=== PATIENT | male | born 1950 | race Caucasian/White ===

== ENCOUNTER 2020-12-25 13:01 | Emergency (ER) | payer MEDICARE, MEDICAID ==
[2020-12-25] MEDS ORDERED: Acetaminophen/oxyCODONE 325-5 MG Tab PO ONE (13:17)
--- NOTE | 2020-12-25 13:26 | EDM.PDOC ---
ED HPI GENERAL MEDICAL PROBLEM - General Chief Complaint: General Stated Complaint: EMS ARRIVAL Time Seen by Provider: 12/25/20 13:17 Source of Information: Reports: Patient History Limitations: Reports: No Limitations - History of Present Illness INITIAL COMMENTS - FREE TEXT/NARRATIVE: 70-year-old male with history of osteoarthritis, tongue cancer on immunotherapy, presents with polyarthralgia over the past 3 weeks. Pain is currently rated 3/10, localized to bilateral hands, wrists, shoulders, knees and feet, exacerbated with range of motion, sharp, nonradiating, waxes and wanes. Denies fever, chills, trauma, IVDA, falls, hip pain. He is taking Percocet 7.5/325 every 6 hours as needed. He has an appointment to follow-up with his oncologist Dr. Tosin aVldivia tomorrow. His last immunotherapy was 3 weeks ago. ROS: A 10-point review of systems, other than pertinent positives and negatives as stated per HPI, is otherwise negative Past medical history: No additional pertinent history Past Surgical history: No additional pertinent history Social history: No additional pertinent history Family history: No additional pertinent history PHYSICAL EXAM General: AOx4, GCS = 15, No distress HEENT: dry mucous membrane Neck: supple, no meningismus, no Kernig or Brudzinski Cardiac: S1S2 RRR, port to right chest wall, nontender with no surrounding erythema. Respiratory: CTAB, no crackles or rales, no wheezing Abdomen: Soft, nontender, no rebound or guarding, nondistended, no pulsatile mass. Back: nontender Musculoskeletal: NVI distally, no deformity, no warmth or erythema or swelling to affected joints. Neuro: No focal deficits, CN 2 - 12 WNL. generalized Pain Score (Numeric/FACES): 1 - Related Data Allergies Allergy/AdvReac Type Severity Reaction Status Date / Time Penicillins Allergy Cannot Verified 12/25/20 13:20 Remember Home Meds: Home Meds Gabapentin [Neurontin] mg PO TID 09/10/19 [History] Hydrocodone/Acetaminophen [Hydrocodon-Acetaminophen 5-325] each PO ASDIRECTED 09/10/19 [History] Ibuprofen mg PO ASDIRECTED 09/10/19 [History] Non-Formulary Medication [NF Drug] 1 each PO DAILY 09/10/19 [History] Loperamide HCl [Imodium A-D] 2 mg PO DAILY #10 capsule 12/25/20 [Rx] Past Medical History - Past Health History Medical/Surgical History: Denies Medical/Surgical History Cardiovascular History: Reports: Hypertension Musculoskeletal History: Reports: Arthritis Neurological History: Reports: Neuropathy, Peripheral Psychiatric History: Reports: None - Infectious Disease History Infectious Disease History: Reports: None - Past Surgical History HEENT Surgical History: Reports: Other (See Below) Other HEENT Surgeries/Procedures: tongue surgery Social & Family History - Family History Family Medical History: No Pertinent Family History - Caffeine Use Caffeine Use: Reports: None ED ROS GENERAL - Review of Systems Review Of Systems: See Below (see dictation) ED EXAM, GENERAL - Physical Exam Exam: See Below (see dictation) Course - Vital Signs Last Recorded V/S: Last Vital Signs Temp 97.9 F 12/25/20 13:10 Pulse 90 12/25/20 16:14 Resp 17 12/25/20 16:14 BP 115/76 12/25/20 16:14 Pulse Ox 97 12/25/20 16:14 - Orders/Labs/Meds Orders: Active Orders 24 hr Category Date Time Status Cardiac Monitoring [RC] . DIRECTED Care 12/25/20 13:17 Active Pulse Oximetry [RC] ASDIRECTED Care 12/25/20 13:17 Active Labs: Laboratory Tests 12/25/20 12/25/20 Range/Units 13:29 13:29 WBC 4.92 (4.0-11.0) K/uL RBC 3.96 L (4.50-5.90) M/uL Hgb 13.9 (13.0-17.0) g/dL Hct 41.0 (38.0-50.0) % MCV 103.5 H (80.0-98.0) fL MCH 35.1 H (27.0-32.0) pg MCHC 33.9 (31.0-37.0) g/dL RDW Std Deviation 48.5 (28.0-62.0) fl RDW Coeff of Caleb 13 (11.0-15.0) % Plt Count 286 (150-400) K/uL MPV 9.70 (7.40-12.00) fL Neut % (Auto) 72.0 (48.0-80.0) % Lymph % (Auto) 11.8 L (16.0-40.0) % Lincoln % (Auto) 14.8 (0.0-15.0) % Eos % (Auto) 1.2 (0.0-7.0) % Baso % (Auto) 0.2 (0.0-1.5) % Neut # (Auto) 3.5 (1.4-5.7) K/uL Lymph # (Auto) 0.6 (0.6-2.4) K/uL Lincoln # (Auto) 0.7 (0.0-0.8) K/uL Eos # (Auto) 0.1 (0.0-0.7) K/uL Baso # (Auto) 0.0 (0.0-0.1) K/uL Nucleated RBC % 0.0 /100WBC Nucleated RBCs # 0 K/uL Sodium 129 L (136-148) mmol/L Potassium 3.8 (3.5-5.1) mmol/L Chloride 92 L (98-107) mmol/L Carbon Dioxide 24.3 (21.0-32.0) mmol/L BUN 26 H (7.0-18.0) mg/dL Creatinine 0.8 (0.8-1.3) mg/dL Est Cr Clr Drug Dosing 91.25 mL/min Estimated GFR (MDRD) > 60.0 ml/min Glucose 145 H (74-106) mg/dL Calcium 9.5 (8.5-10.1) mg/dL Phosphorus 3.0 (2.6-4.7) mg/dL Magnesium 1.8 (1.8-2.4) mg/dL Total Bilirubin 1.0 (0.2-1.0) mg/dL AST 13 L (15-37) IU/L ALT 15 (14-63) IU/L Alkaline Phosphatase 71 (46-116) U/L Creatine Kinase 25 L (26-308) U/L Total Protein 7.6 (6.4-8.2) g/dL Albumin 2.9 L (3.4-5.0) g/dL Globulin 4.7 H (2.6-4.0) g/dL Albumin/Globulin Ratio 0.6 L (0.9-1.6) Meds: Medications Discontinued Medications Generic Name Dose Route Start Last Admin Trade Name Dylon PRN Reason Stop Dose Admin Oxycodone/Acetaminophen 1 tab 12/25/20 13:17 12/25/20 13:26 Percocet 325-5 Mg PO 12/25/20 13:18 1 tab ONETIME ONE Administration - Re-Assessments/Exams Free Text/Narrative Re-Assessment/Exam: 12/25/20 16:26 He is currently stable for discharge. I performed a repeat exam and did not appreciate new abnormal findings. Patient exhibits normal vital signs and has a normal gait on road test. I advised the patient to return to the ER for reevaluation if symptoms worsened, including fever, worsening pain, or any other worrisome symptoms. I instructed the patient to follow up with their PCP within 2-3 days. MEDICAL DECISION MAKING: I reviewed the patients past medical records, lab and radiographic findings. I discussed the case with the patient. My differential diagnosis included: No fever or leukocytosis or tachycardia to suggest for septic arthritis or vasculitis or infectious etiology. Patient has history of osteoarthritis and is currently taking pain medication. His electrolytes are unremarkable, his CPK is unremarkable, I do not suspect electrolyte abnormality, hypercalcemia, rhabdomyolysis. Departure - Departure Time of Disposition: 16:18 Disposition: Home, Self-Care 01 Condition: Good Clinical Impression: Osteoarthritis - Discharge Information *PRESCRIPTION DRUG MONITORING PROGRAM REVIEWED*: Not Applicable *COPY OF PRESCRIPTION DRUG MONITORING REPORT IN PATIENT ELÍAS: Not Applicable Prescriptions: Loperamide HCl [Imodium A-D] 2 mg PO DAILY #10 capsule Instructions: Preventing Osteoarthritis, Adult, Osteoarthritis Referrals: Nathan Kenney MD [Primary Care Provider] - 1 Week Forms: ED Department Discharge Additional Instructions: The need for follow-up, as well as the timing and circumstances, are variable depending upon the specifics of your emergency department visit. If you don't have a primary care physician on staff, we will provide you with a referral. We always advise you to contact your personal physician following an emergency department visit to inform them of the circumstance of the visit and for follow-up with them and/or the need for any referrals to a consulting specialist. The emergency department will also refer you to a specialist when appropriate. This referral assures that you have the opportunity for follow-up care with a specialist. All of these measure are taken in an effort to provide you with optimal care, which includes your follow-up. Under all circumstances we always encourage you to contact your private physician who remains a resource for coordinating your care. When calling for follow-up care, please make the office aware that this follow-up is from your recent emergency room visit. If for any reason you are refused follow-up, please contact the [facility] Emergency Department at and asked to speak to the emergency department charge nurse. If you do not have a primary care doctor, please follow up with the clinics below within 3-5 days. [facility] - Primary Care [address] [place] [id number] [facility] [address] [place] [id number] Sepsis Event Note (ED) - Focused Exam Vital Signs: Vital Signs Temp Pulse Resp BP Pulse Ox 12/25/20 16:14 90 17 115/76 97 12/25/20 13:10 97.9 F 109 H 18 123/78 98 - My Orders Last 24 Hours: My Active Orders 12/25/20 13:17 Cardiac Monitoring [RC] . DIRECTED Pulse Oximetry [RC] ASDIRECTED - Assessment/Plan Last 24 Hours: My Active Orders 12/25/20 13:17 Cardiac Monitoring [RC] . DIRECTED Pulse Oximetry [RC] ASDIRECTED
[2020-12-25 14:23] LABS: BLOOD UREA NITROGEN,BUN 26 mg/dL (7.0-18.0); CARBON DIOXIDE,CO2 24.3 mmol/L (21.0-32.0); CHLORIDE,CL 92 mmol/L (98-107); GLUCOSE RANDOM 145 mg/dL (74-106); POTASSIUM,K 3.8 mmol/L (3.5-5.1); SODIUM,NA 129 mmol/L (136-148)
[2020-12-25 16:15] VITALS: BP 115/76; PULSE 90
== END 2020-12-25 16:27 | disposition home or self-care (01) ==
LOC: MW.ED 13:01
DX: M19.032 Primary osteoarthritis, left wrist (principal); M19.031 Primary osteoarthritis, right wrist; M19.012 Primary osteoarthritis, left shoulder; M19.011 Primary osteoarthritis, right shoulder; M17.0 Bilateral primary osteoarthritis of knee; I10 Essential (primary) hypertension; G62.9 Polyneuropathy, unspecified; M19.072 Primary osteoarthritis, left ankle and foot; M19.071 Primary osteoarthritis, right ankle and foot
CPT/HCPCS: 36415; 80053; 82550; 83735; 84100; 85025; 99283; A9270

== ENCOUNTER 2021-03-18 14:37 | Inpatient (IN) | payer MEDICARE, MEDICAID ==
[2021-03-18] MEDS ORDERED: Sodium Chloride 0.9% 1,000 ML IV ONE ×2 (14:46→15:52)
--- NOTE | 2021-03-18 14:50 | EDM.PDOC ---
ED HPI GENERAL MEDICAL PROBLEM - General Chief Complaint: Gastrointestinal Problem Stated Complaint: EMS Time Seen by Provider: 03/18/21 14:47 Source of Information: Reports: Patient History Limitations: Reports: No Limitations - History of Present Illness INITIAL COMMENTS - FREE TEXT/NARRATIVE: HISTORY AND PHYSICAL: History of present illness: Patient is a 70-year-old male who presents to the emergency room by ambulance with concerns of dizziness and near syncope. Patient states he has had diarrhea over the past 2 months and generally has felt unwell. Today he states he has had dizziness and has felt like he is going to pass out with ambulation. Denies any syncope, "but I could have". States he has had some nausea without vomiting, but "feels okay right now". Patient denies any injury/trauma/falls, fever, chills, headache, change in vision, syncope or near syncope. Denies any chest pain, back pain, shortness of breath or cough. Denies any abdominal pain, constipation or dysuria. Has not noted any blood in urine or stool. Patient has been eating and drinking less than use Patient has a past medical history of osteoarthritis, tongue cancer and is on immunotherapy (Oncologist is Dr Valdivia/Jacquelin) with his last chemotherapy approximately 6 months ago. Review of systems: As per history of present illness and below otherwise all systems reviewed and negative. Past medical history: As per history of present illness and as reviewed below otherwise noncontributory. Surgical history: As per history of present illness and as reviewed below otherwise noncon tributory. Social history: See social history for further information Family history: As per history of present illness and as reviewed below otherwise noncontributory. Physical exam: General: Well developed but chronically ill appearing 70 year old male. Alert and orientated x 3. Nontoxic in appearance and in no acute distress. Vital signs are stable and have been reviewed by me. Nursing notes were reviewed. HEENT: Atraumatic, normocephalic, pupils equal and reactive bilaterally, negative for conjunctival pallor or scleral icterus, mucous membranes dry/tacky, surgical revision in mouth, TMs normal bilaterally, throat clear, neck supple, nontender, trachea midline. No drooling or trismus noted. No meningeal signs. No hot potato voice noted. Lungs: Clear to auscultation bilaterally. No wheezes, rales, or rhonchi. Chest nontender. Normal work of breathing, no accessory muscles used. Heart: S1S2, regular rate and rhythm without overt murmur, gallops, or rubs. No JVD. No peripheral edema Abdomen: Soft, nondistended, nontender. Normoactive bowel sounds. Negative for masses or costovertebral tenderness. Skin: Intact, warm, dry. No lesions or rashes noted. Hematologic: No petechiae or purpra. Mucosa appropriate color and normal nail bed color and refill. Extremities: Atraumatic, moves all extremities per self without difficulty or deficits, negative for cords or calf pain. Neurovascular unremarkable. Neuro: Awake, alert, oriented. Cranial nerves II through XII unremarkable. Cerebellum unremarkable. Motor and sensory unremarkable throughout. Exam nonfocal. Psychiatric: Mood and affect are appropriate. Normal thought process. Answering questions appropriately. Notes: *This patient was seen and evaluated during the 2019 SARS-CoV-2 novel coronavirus pandemic period. Community viral transmission is ongoing at time of this encounter and the emergency department is operating under pandemic response procedures. CBC is unremarkable at this time. Patient does have hypokalemia at 2.4, with dehydration and renal insufficiency. I have increased the rate of fluids to a bolus and added serum Magnesium level, and K-Rafael. Patient has not been able to void or have BM while here in the ED. I have talked with the patient about today's findings, in addition to providing specific details for plan of care. Reassessment at the time of disposition demonstrates that the patient is in no acute distress. Patient is agreeable to staying for observation care. Dr Delgado was consulted on this patient and graciously accepted this patient. Will place patient on telemetry. VSS. Diagnostics: CBC, CMP, Troponin, Stool Studies, Magnesium, CXR, UA Therapeutics: IV fluids, Potassium 40meQ Impression: Near Syncope Hypokalemia Dehydration Diarrhea Plan: Observation admission to Med/Surg with telemetry Definitive disposition and diagnosis as appropriate pending reevaluation and review of above. - Related Data Allergies Allergy/AdvReac Type Severity Reaction Status Date / Time Penicillins Allergy Cannot Verified 03/18/21 14:39 Remember Home Meds: Home Meds Gabapentin [Neurontin] 300 mg PO TID 09/10/19 [History] Levothyroxine [Synthroid] 50 mcg PO DAILY 03/18/21 [History] amLODIPine [Norvasc] 1 tab PO DAILY 03/18/21 [History] Past Medical History - Past Health History Medical/Surgical History: Denies Medical/Surgical History Cardiovascular History: Reports: Hypertension Musculoskeletal History: Reports: Arthritis Neurological History: Reports: Neuropathy, Peripheral Psychiatric History: Reports: None - Infectious Disease History Infectious Disease History: Reports: None - Past Surgical History HEENT Surgical History: Reports: Other (See Below) Other HEENT Surgeries/Procedures: tongue surgery Social & Family History - Family History Family Medical History: No Pertinent Family History - Caffeine Use Caffeine Use: Reports: None ED ROS GENERAL - Review of Systems Review Of Systems: Comprehensive ROS is negative, except as noted in HPI. ED EXAM, GENERAL - Physical Exam Exam: See Below (See dictation) Course - Vital Signs Last Recorded V/S: Last Vital Signs Temp 97.6 F 03/18/21 14:41 Pulse 91 03/18/21 14:41 Resp 18 03/18/21 14:41 BP 124/75 03/18/21 14:41 Pulse Ox 98 03/18/21 14:41 Orthostatic Blood Pressure [ 83/54 Standing] Orthostatic Blood Pressure [ 99/66 Sitting] Orthostatic Blood Pressure [ 109/75 Supine] - Orders/Labs/Meds Orders: Active Orders 24 hr Category Date Time Status Cardiac Monitoring [RC] Q8H Care 03/18/21 14:38 Active EKG Documentation Completion [RC] STAT Care 03/18/21 14:38 Active Orthostatic Vital Signs [RC] ASDIRECTED Care 03/18/21 14:38 Active CAMPYLOBACTER CULT [MREF] Stat Lab 03/18/21 17:14 Ordered OVA & PARASITES BY IMMUNOASSAY [MREF] Stat Lab 03/18/21 17:14 Ordered STOOL CULTURE/SHIGA TOXIN [MREF] Stat Lab 03/18/21 17:14 Ordered UA RFX NICOLAS AND CULT IF INDIC [URIN] Stat Lab 03/18/21 14:45 Ordered Potassium Chloride Riders [KCL in Water 40 MEQ/100 ML] Med 03/18/21 15:51 Active 40 meq Premix Bag 1 bag IV ONETIME Sodium Chloride 0.9% [Normal Saline] 1,000 ml Med 03/18/21 14:46 Active IV STAT Sodium Chloride 0.9% [Normal Saline] 1,000 ml Med 03/18/21 15:52 Active IV STAT Sodium Chloride 0.9% [Saline Flush] Med 03/18/21 14:38 Active 10 ml FLUSH ASDIRECTED PRN Sodium Chloride 0.9% [Saline Flush] Med 03/18/21 14:38 Active 2.5 ml FLUSH ASDIRECTED PRN Saline Lock Insert [OM.PC] Stat Oth 03/18/21 14:38 Ordered Medication Orders Sodium Chloride (Normal Saline) 1,000 mls @ 125 mls/hr IV STAT ONE Stop: 03/18/21 22:45 Last Infusion: 03/18/21 15:59 Dose: 999 mls/hr Documented by: [email or web address] Admin: 03/18/21 14:56 Dose: 125 mls/hr Documented by: [email or web address] Potassium Chloride 40 meq/ (Premix) 100 mls @ 25 mls/hr IV ONETIME ONE Stop: 03/18/21 19:50 Sodium Chloride (Normal Saline) 1,000 mls @ 125 mls/hr IV STAT ONE Stop: 03/18/21 23:51 Last Admin: 03/18/21 17:13 Dose: 125 mls/hr Documented by: [email or web address] Sodium Chloride (Sodium Chloride 0.9% 10 Ml Syringe) 10 ml FLUSH ASDIRECTED PRN PRN Reason: Keep Vein Open Last Admin: 03/18/21 14:56 Dose: 10 ml Documented by: [id number] Sodium Chloride (Sodium Chloride 0.9% 2.5 Ml Syringe) 2.5 ml FLUSH ASDIRECTED PRN PRN Reason: Keep Vein Open Last Admin: 03/18/21 14:56 Dose: 2.5 ml Documented by: [email or web address] Labs: Laboratory Tests 03/18/21 03/18/21 03/18/21 Range/Units 14:50 14:50 14:50 WBC 9.64 (4.0-11.0) K/uL RBC 3.84 L (4.50-5.90) M/uL Hgb 13.6 (13.0-17.0) g/dL Hct 37.7 L (38.0-50.0) % MCV 98.2 H (80.0-98.0) fL MCH 35.4 H (27.0-32.0) pg MCHC 36.1 (31.0-37.0) g/dL RDW Std Deviation 49.6 (28.0-62.0) fl RDW Coeff of Caleb 14 (11.0-15.0) % Plt Count 423 H (150-400) K/uL MPV 9.40 (7.40-12.00) fL Add Manual Diff YES Neutrophils % (Manual) 63 (48.0-80.0) % Band Neutrophils % 14 % Lymphocytes % (Manual) 17 (16.0-40.0) % Monocytes % (Manual) 5 (0.0-15.0) % Basophils % (Manual) 1 (0.0-1.5) % Nucleated RBC % 0.0 /100WBC Absolute Seg Neuts 6.1 H (1.4-5.7) Band Neutrophils # 1.3 Lymphocytes # (Manual) 1.6 (0.6-2.4) Monocytes # (Manual) 0.5 (0.0-0.8) Basophils # (Manual) 0.1 (0.0-0.1) Nucleated RBCs # 0 K/uL Sodium 128 L (136-148) mmol/L Potassium 2.4 L* (3.5-5.1) mmol/L Chloride 87 L (98-107) mmol/L Carbon Dioxide 23.3 (21.0-32.0) mmol/L BUN 43 H (7.0-18.0) mg/dL Creatinine 1.4 H (0.8-1.3) mg/dL Est Cr Clr Drug Dosing 53.79 mL/min Estimated GFR (MDRD) 50.4 ml/min Glucose 150 H (74-106) mg/dL Calcium 8.5 (8.5-10.1) mg/dL Magnesium 2.1 (1.8-2.4) mg/dL Total Bilirubin 0.6 (0.2-1.0) mg/dL AST 26 (15-37) IU/L ALT 28 (14-63) IU/L Alkaline Phosphatase 108 (46-116) U/L Troponin I < 0.050 (0.000-0.056) ng/mL Total Protein 7.1 (6.4-8.2) g/dL Albumin 3.0 L (3.4-5.0) g/dL Globulin 4.1 H (2.6-4.0) g/dL Albumin/Globulin Ratio 0.7 L (0.9-1.6) SARS-CoV-2 RNA (CHANDRA) (NEGATIVE) 03/18/21 Range/Units 15:00 WBC (4.0-11.0) K/uL RBC (4.50-5.90) M/uL Hgb (13.0-17.0) g/dL Hct (38.0-50.0) % MCV (80.0-98.0) fL MCH (27.0-32.0) pg MCHC (31.0-37.0) g/dL RDW Std Deviation (28.0-62.0) fl RDW Coeff of Caleb (11.0-15.0) % Plt Count (150-400) K/uL MPV (7.40-12.00) fL Add Manual Diff Neutrophils % (Manual) (48.0-80.0) % Band Neutrophils % % Lymphocytes % (Manual) (16.0-40.0) % Monocytes % (Manual) (0.0-15.0) % Basophils % (Manual) (0.0-1.5) % Nucleated RBC % /100WBC Absolute Seg Neuts (1.4-5.7) Band Neutrophils # Lymphocytes # (Manual) (0.6-2.4) Monocytes # (Manual) (0.0-0.8) Basophils # (Manual) (0.0-0.1) Nucleated RBCs # K/uL Sodium (136-148) mmol/L Potassium (3.5-5.1) mmol/L Chloride (98-107) mmol/L Carbon Dioxide (21.0-32.0) mmol/L BUN (7.0-18.0) mg/dL Creatinine (0.8-1.3) mg/dL Est Cr Clr Drug Dosing mL/min Estimated GFR (MDRD) ml/min Glucose (74-106) mg/dL Calcium (8.5-10.1) mg/dL Magnesium (1.8-2.4) mg/dL Total Bilirubin (0.2-1.0) mg/dL AST (15-37) IU/L ALT (14-63) IU/L Alkaline Phosphatase (46-116) U/L Troponin I (0.000-0.056) ng/mL Total Protein (6.4-8.2) g/dL Albumin (3.4-5.0) g/dL Globulin (2.6-4.0) g/dL Albumin/Globulin Ratio (0.9-1.6) SARS-CoV-2 RNA (CHANDRA) NEGATIVE (NEGATIVE) Meds: Medications Generic Name Dose Route Start Last Admin Trade Name Freq PRN Reason Stop Dose Admin Sodium Chloride 1,000 mls @ 125 mls/hr 03/18/21 14:46 03/18/21 15:59 Normal Saline IV 03/18/21 22:45 999 mls/hr STAT ONE Infusion Potassium Chloride 40 meq/ 100 mls @ 25 mls/hr 03/18/21 15:51 Premix IV 03/18/21 19:50 ONETIME ONE Sodium Chloride 1,000 mls @ 125 mls/hr 03/18/21 15:52 03/18/21 17:13 Normal Saline IV 03/18/21 23:51 125 mls/hr STAT ONE Administration Sodium Chloride 10 ml 03/18/21 14:38 03/18/21 14:56 Sodium Chloride 0.9% 10 Ml Syringe FLUSH 10 ml ASDIRECTED PRN Administration Keep Vein Open Sodium Chloride 2.5 ml 03/18/21 14:38 03/18/21 14:56 Sodium Chloride 0.9% 2.5 Ml Syringe FLUSH 2.5 ml ASDIRECTED PRN Administration Keep Vein Open Departure - Departure Time of Disposition: 16:06 Disposition: Refer to Observation Clinical Impression: Hypokalemia, Dehydration, Near syncope Diarrhea Qualifiers: Diarrhea type: unspecified type Qualified Code(s): R19.7 - Diarrhea, unspecified - Discharge Information Sepsis Event Note (ED) - Evaluation Sepsis Screening Result: No Definite Risk - Focused Exam Vital Signs: Vital Signs Temp Pulse Resp BP Pulse Ox 03/18/21 14:41 97.6 F 91 18 124/75 98 - My Orders Last 24 Hours: My Active Orders 03/18/21 14:38 Cardiac Monitoring [RC] Q8H EKG Documentation Completion [RC] STAT Orthostatic Vital Signs [RC] ASDIRECTED Sodium Chloride 0.9% [Saline Flush] 10 ml FLUSH ASDIRECTED PRN Sodium Chloride 0.9% [Saline Flush] 2.5 ml FLUSH ASDIRECTED PRN Saline Lock Insert [OM.PC] Stat 03/18/21 14:45 UA RFX NICOLAS AND CULT IF INDIC [URIN] Stat 03/18/21 14:46 Sodium Chloride 0.9% [Normal Saline] 1,000 ml IV STAT 03/18/21 15:51 Potassium Chloride Riders [KCL in Water 40 MEQ/100 ML] 40 meq Premix Bag 1 bag IV ONETIME 03/18/21 15:52 Sodium Chloride 0.9% [Normal Saline] 1,000 ml IV STAT 03/18/21 17:14 CAMPYLOBACTER CULT [MREF] Stat OVA & PARASITES BY IMMUNOASSAY [MREF] Stat STOOL CULTURE/SHIGA TOXIN [MREF] Stat - Assessment/Plan Last 24 Hours: My Active Orders 03/18/21 14:38 Cardiac Monitoring [RC] Q8H EKG Documentation Completion [RC] STAT Orthostatic Vital Signs [RC] ASDIRECTED Sodium Chloride 0.9% [Saline Flush] 10 ml FLUSH ASDIRECTED PRN Sodium Chloride 0.9% [Saline Flush] 2.5 ml FLUSH ASDIRECTED PRN Saline Lock Insert [OM.PC] Stat 03/18/21 14:45 UA RFX NICOLAS AND CULT IF INDIC [URIN] Stat 03/18/21 14:46 Sodium Chloride 0.9% [Normal Saline] 1,000 ml IV STAT 03/18/21 15:51 Potassium Chloride Riders [KCL in Water 40 MEQ/100 ML] 40 meq Premix Bag 1 bag IV ONETIME 03/18/21 15:52 Sodium Chloride 0.9% [Normal Saline] 1,000 ml IV STAT 03/18/21 17:14 CAMPYLOBACTER CULT [MREF] Stat OVA & PARASITES BY IMMUNOASSAY [MREF] Stat STOOL CULTURE/SHIGA TOXIN [MREF] Stat
--- NOTE | 2021-03-18 14:53 | PCM.EKG ---
#1 Interpretation EKG Date: 03/18/21 Time: 14:49 Rhythm: NSR Rate (Beats/Min): 86 ST-T: Normal
[2021-03-18] MEDS: Sodium Chloride 0.9% 10 ML Syringe FLUSH PRN (14:56)
[2021-03-18] MEDS: Sodium Chloride 0.9% 2.5 ML Syringe FLUSH PRN (14:56)
--- NOTE | 2021-03-18 15:08 | CR ---
Indication: Syncope Comparison: None available. Technique: Single AP view chest Findings: There is hyperinflation and chronic interstitial change. There is no focal consolidation, effusion, or pneumothorax. There is a right-sided Port-A-Cath. The cardiomediastinal silhouette is within normal limits. The bony thorax is grossly intact. Impression: Hyperinflation and chronic interstitial changes without evidence of dense consolidation. Dictated by Nixon Virgen MD @ 03/18/2021 3:07:[address] Nixon Virgen @ Mar 18 2021 3:07PM
[2021-03-18 15:32] LABS: BLOOD UREA NITROGEN,BUN 43 mg/dL (7.0-18.0); CARBON DIOXIDE,CO2 23.3 mmol/L (21.0-32.0); CHLORIDE,CL 87 mmol/L (98-107); GLUCOSE RANDOM 150 mg/dL (74-106); SODIUM,NA 128 mmol/L (136-148)
[2021-03-18 15:41] LABS: POTASSIUM,K 2.4 mmol/L (3.5-5.1)
[2021-03-18] MEDS ORDERED: Potassium Chloride Riders 40 MEQ in Premix Bag 1 BAG IV ONE (15:51)
--- NOTE | 2021-03-18 17:33 | PCM.HP.2 ---
H&P History of Present Illness - General Date of Service: 03/18/21 Admit Problem/Dx: Admission Diagnosis/Problem Admission Diagnosis/Problem Hypokalemia - History of Present Illness Initial Comments - Free Text/Narative: Patient is a 70-year-old male with past medical history of osteoarthritis, tongue cancer and is on immunotherapy (Oncologist is Dr Valdivia/Jacquelin) with his last chemotherapy approximately 6 months ago, who presents to the emergency room by ambulance with concerns of dizziness, weakness, weight loss and near syncope. Patient states he has been havinf chronic diarrhea over the past 2 months, he mentioned it to his oncologist who reportedly told patien tto take Imodium which didn't help. Past few day patient has been feeling chills and and felt that his diarrhea got worse, he has loose stools every half hour, which are totally watery in nature, he also has associated N/V and hasnt been able to eat or drink much, States he feels very weak and dehydrated.. Today he states he has had dizziness and has felt like he is going to pass out with ambulation. Denies any syncope, Patient denies any injury/trauma/falls, fever, chills, headache, change in vision, syncope or near syncope. Denies any chest pain, back pain, shortness of breath or cough. Denies any abdominal pain, constipation or dysuria. Has not noted any blood in urine or stool. In the ER patient was found to have soft BP with HORTENCIA (1.4) low K (2.4), Patient was admitted for further care. - Related Data Allergies/Adverse Reactions: Allergies Allergy/AdvReac Type Severity Reaction Status Date / Time wing Allergy Other Verified 03/18/21 18:24 coconut Allergy Other Verified 03/18/21 18:24 Penicillins Allergy Hives Verified 03/18/21 18:24 Home Medications: Home Meds Gabapentin [Neurontin] 300 mg PO TID 09/10/19 [History] Levothyroxine [Synthroid] 50 mcg PO DAILY 03/18/21 [History] amLODIPine [Norvasc] 1 tab PO DAILY 03/18/21 [History] Past Medical History - Past Health History Medical/Surgical History: Denies Medical/Surgical History Cardiovascular History: Reports: Hypertension Musculoskeletal History: Reports: Arthritis Neurological History: Reports: Neuropathy, Peripheral Psychiatric History: Reports: None Endocrine/Metabolic History: Reports: Hypothyroidism Other Oncologic History: "tongue cancer." - Infectious Disease History Infectious Disease History: Reports: None - Past Surgical History HEENT Surgical History: Reports: Other (See Below) Other HEENT Surgeries/Procedures: tongue surgery Social & Family History - Family History Family Medical History: No Pertinent Family History - Tobacco Use Tobacco Use Status *Q: Unknown Ever Used Tobacco - Caffeine Use Caffeine Use: Reports: None - Recreational Drug Use Recreational Drug Use: No H&P Review of Systems - Review of Systems: Review Of Systems: See Below General: Reports: Chills, Malaise, Weakness, Fatigue. Denies: Fever Pulmonary: Denies: Shortness of Breath, Wheezing Cardiovascular: Denies: Chest Pain, Palpitations Gastrointestinal: Denies: Abdominal Pain, Anorexia, Black Stool Genitourinary: Denies: Dysuria, Frequency, Burning Musculoskeletal: Reports: Back Pain, Leg Pain, Joint Pain. Denies: Neck Pain, Shoulder Pain, Arm Pain Skin: Denies: Cyanosis, Jaundice, Mottled Psychiatric: Denies: Confusion, Depression, Mood Lability Exam - Exam Exam: See Below - Vital Signs Vital Signs: Last Vital Signs Temp 36.4 C 03/18/21 14:41 Pulse 91 03/18/21 14:41 Resp 18 03/18/21 14:41 BP 124/75 03/18/21 14:41 Pulse Ox 98 03/18/21 14:41 Orthostatic Blood Pressure [ 83/54 Standing] Orthostatic Blood Pressure [ 99/66 Sitting] Orthostatic Blood Pressure [ 109/75 Supine] Weight: 79.379 kg - Exam General: Alert, Oriented HEENT: Conjunctiva Clear Neck: Supple Lungs: Clear to Auscultation, Normal Respiratory Effort Cardiovascular: Regular Rate, Regular Rhythm GI/Abdominal Exam: Normal Bowel Sounds, Soft, Tender, Abnormal Bowel Sounds. No: Non-Tender, Guarding, Rigid, Rebound - Patient Data Lab Results Last 24 hrs: Laboratory Results - last 24 hr 03/18/21 03/18/21 03/18/21 Range/Units 14:50 14:50 14:50 WBC 9.64 (4.0-11.0) K/uL RBC 3.84 L (4.50-5.90) M/uL Hgb 13.6 (13.0-17.0) g/dL Hct 37.7 L (38.0-50.0) % MCV 98.2 H (80.0-98.0) fL MCH 35.4 H (27.0-32.0) pg MCHC 36.1 (31.0-37.0) g/dL RDW Std Deviation 49.6 (28.0-62.0) fl RDW Coeff of Caleb 14 (11.0-15.0) % Plt Count 423 H (150-400) K/uL MPV 9.40 (7.40-12.00) fL Add Manual Diff YES Neutrophils % (Manual) 63 (48.0-80.0) % Band Neutrophils % 14 % Lymphocytes % (Manual) 17 (16.0-40.0) % Monocytes % (Manual) 5 (0.0-15.0) % Basophils % (Manual) 1 (0.0-1.5) % Nucleated RBC % 0.0 /100WBC Absolute Seg Neuts 6.1 H (1.4-5.7) Band Neutrophils # 1.3 Lymphocytes # (Manual) 1.6 (0.6-2.4) Monocytes # (Manual) 0.5 (0.0-0.8) Basophils # (Manual) 0.1 (0.0-0.1) Nucleated RBCs # 0 K/uL Sodium 128 L (136-148) mmol/L Potassium 2.4 L* (3.5-5.1) mmol/L Chloride 87 L (98-107) mmol/L Carbon Dioxide 23.3 (21.0-32.0) mmol/L BUN 43 H (7.0-18.0) mg/dL Creatinine 1.4 H (0.8-1.3) mg/dL Est Cr Clr Drug Dosing 53.79 mL/min Estimated GFR (MDRD) 50.4 ml/min Glucose 150 H (74-106) mg/dL Calcium 8.5 (8.5-10.1) mg/dL Magnesium 2.1 (1.8-2.4) mg/dL Total Bilirubin 0.6 (0.2-1.0) mg/dL AST 26 (15-37) IU/L ALT 28 (14-63) IU/L Alkaline Phosphatase 108 (46-116) U/L Troponin I < 0.050 (0.000-0.056) ng/mL Total Protein 7.1 (6.4-8.2) g/dL Albumin 3.0 L (3.4-5.0) g/dL Globulin 4.1 H (2.6-4.0) g/dL Albumin/Globulin Ratio 0.7 L (0.9-1.6) SARS-CoV-2 RNA (CHANDRA) (NEGATIVE) 03/18/21 Range/Units 15:00 WBC (4.0-11.0) K/uL RBC (4.50-5.90) M/uL Hgb (13.0-17.0) g/dL Hct (38.0-50.0) % MCV (80.0-98.0) fL MCH (27.0-32.0) pg MCHC (31.0-37.0) g/dL RDW Std Deviation (28.0-62.0) fl RDW Coeff of Caleb (11.0-15.0) % Plt Count (150-400) K/uL MPV (7.40-12.00) fL Add Manual Diff Neutrophils % (Manual) (48.0-80.0) % Band Neutrophils % % Lymphocytes % (Manual) (16.0-40.0) % Monocytes % (Manual) (0.0-15.0) % Basophils % (Manual) (0.0-1.5) % Nucleated RBC % /100WBC Absolute Seg Neuts (1.4-5.7) Band Neutrophils # Lymphocytes # (Manual) (0.6-2.4) Monocytes # (Manual) (0.0-0.8) Basophils # (Manual) (0.0-0.1) Nucleated RBCs # K/uL Sodium (136-148) mmol/L Potassium (3.5-5.1) mmol/L Chloride (98-107) mmol/L Carbon Dioxide (21.0-32.0) mmol/L BUN (7.0-18.0) mg/dL Creatinine (0.8-1.3) mg/dL Est Cr Clr Drug Dosing mL/min Estimated GFR (MDRD) ml/min Glucose (74-106) mg/dL Calcium (8.5-10.1) mg/dL Magnesium (1.8-2.4) mg/dL Total Bilirubin (0.2-1.0) mg/dL AST (15-37) IU/L ALT (14-63) IU/L Alkaline Phosphatase (46-116) U/L Troponin I (0.000-0.056) ng/mL Total Protein (6.4-8.2) g/dL Albumin (3.4-5.0) g/dL Globulin (2.6-4.0) g/dL Albumin/Globulin Ratio (0.9-1.6) SARS-CoV-2 RNA (CHANDRA) NEGATIVE (NEGATIVE) Result Diagrams: 03/18/21 14:50 03/18/21 14:50 Sepsis Event Note - Evaluation Sepsis Screening Result: No Definite Risk - Focused Exam Vital Signs: Vital Signs Temp Pulse Resp BP Pulse Ox 03/18/21 14:41 36.4 C 91 18 124/75 98 - Problem List (1) Tongue carcinoma Status: Acute Current Visit: Yes (2) Port-A-Cath in place SNOMED Code(s): 827673660 ICD Code: Z95.828 - PRESENCE OF OTHER VASCULAR IMPLANTS AND GRAFTS Status: Acute Current Visit: Yes (3) Dehydration SNOMED Code(s): 00695576 ICD Code: E86.0 - DEHYDRATION Status: Acute Current Visit: No (4) Diarrhea SNOMED Code(s): 52232122 ICD Code: R19.7 - DIARRHEA, UNSPECIFIED Status: Acute Current Visit: No Qualifiers: Diarrhea type: unspecified type Qualified Code(s): R19.7 - Diarrhea, unspecified (5) Hypokalemia SNOMED Code(s): 95460516 ICD Code: E87.6 - HYPOKALEMIA Status: Acute Current Visit: No Problem List Initiated/Reviewed/Updated: Yes Orders Last 24hrs: Active Orders 24 hr Category Date Time Status Admission Status [Patient Status] [ADT] Stat ADT 03/18/21 16:00 Active Cardiac Monitoring [RC] Q8H Care 03/18/21 14:38 Active EKG Documentation Completion [RC] STAT Care 03/18/21 14:38 Active Orthostatic Vital Signs [RC] ASDIRECTED Care 03/18/21 14:38 Active CAMPYLOBACTER CULT [MREF] Stat Lab 03/18/21 17:06 Received OVA & PARASITES BY IMMUNOASSAY [MREF] Stat Lab 03/18/21 17:06 Received STOOL CULTURE/SHIGA TOXIN [MREF] Stat Lab 03/18/21 17:06 Received UA RFX NICOLAS AND CULT IF INDIC [URIN] Stat Lab 03/18/21 14:45 Ordered Potassium Chloride Riders [KCL in Water 40 MEQ/100 ML] Med 03/18/21 15:51 Active 40 meq Premix Bag 1 bag IV ONETIME Sodium Chloride 0.9% [Normal Saline] 1,000 ml Med 03/18/21 14:46 Active IV STAT Sodium Chloride 0.9% [Normal Saline] 1,000 ml Med 03/18/21 15:52 Active IV STAT Sodium Chloride 0.9% [Saline Flush] Med 03/18/21 14:38 Active 10 ml FLUSH ASDIRECTED PRN Sodium Chloride 0.9% [Saline Flush] Med 03/18/21 14:38 Active 2.5 ml FLUSH ASDIRECTED PRN Saline Lock Insert [OM.PC] Stat Oth 03/18/21 14:38 Ordered Medication Orders Sodium Chloride (Normal Saline) 1,000 mls @ 125 mls/hr IV STAT ONE Stop: 03/18/21 22:45 Last Infusion: 03/18/21 15:59 Dose: 999 mls/hr Documented by: Admin: 03/18/21 14:56 Dose: 125 mls/hr Documented by: CORRINE Potassium Chloride 40 meq/ (Premix) 100 mls @ 25 mls/hr IV ONETIME ONE Stop: 03/18/21 19:50 Sodium Chloride (Normal Saline) 1,000 mls @ 125 mls/hr IV STAT ONE Stop: 03/18/21 23:51 Last Admin: 03/18/21 17:13 Dose: 125 mls/hr Documented by: BEATRIS Sodium Chloride (Sodium Chloride 0.9% 10 Ml Syringe) 10 ml FLUSH ASDIRECTED PRN PRN Reason: Keep Vein Open Last Admin: 03/18/21 14:56 Dose: 10 ml Documented by: CORRINE Sodium Chloride (Sodium Chloride 0.9% 2.5 Ml Syringe) 2.5 ml FLUSH ASDIRECTED PRN PRN Reason: Keep Vein Open Last Admin: 03/18/21 14:56 Dose: 2.5 ml Documented by: CORRINE Assessment/Plan Comment:: 70 y/o M admitted for diarrhea, hortencia, hypokalemia start IV fluids Aggressive potassium repletion, check magnesium check stool studies including c diff start on IV Cipro and Flagyl recheck BMP at night Zofran for N/V, IV PPI daily Morphine for pain
[2021-03-18] MEDS ORDERED: Acetaminophen 325 MG Tab PO PRN (17:34)
[2021-03-18] MEDS ORDERED: Albuterol/Ipratropium 3.0-0.5 MG/3 ML Neb Soln NEB PRN (18:00)
[2021-03-18] MEDS: Pantoprazole 40 MG in Sodium Chloride 0.9% 10 ML IV SCH (18:50)
[2021-03-18] MEDS ORDERED: Dextrose 5%-0.9% NaCl with KCl 1,000 ML IV SCH (23:00)
[2021-03-18] MEDS: metroNIDAZOLE/Normal Saline 500 MG in Premix Bag 1 BAG IV SCH (23:52)
[2021-03-19] MEDS ORDERED: Ciprofloxacin in D5W 400 MG in Premix Bag 1 BAG IV SCH ×2
[2021-03-19] MEDS ORDERED: Morphine 2 MG/ML SYRINGE IVPUSH PRN (00:04)
[2021-03-19 00:31] LABS: BLOOD UREA NITROGEN,BUN 40 mg/dL (7.0-18.0); CARBON DIOXIDE,CO2 24.2 mmol/L (21.0-32.0); CHLORIDE,CL 92 mmol/L (98-107); GLUCOSE RANDOM 114 mg/dL (74-106); POTASSIUM,K 2.8 mmol/L (3.5-5.1); SODIUM,NA 130 mmol/L (136-148)
[2021-03-19] MEDS: Gabapentin 300 MG Cap PO SCH ×3 (06:00→23:02)
[2021-03-19] MEDS ORDERED: Vancomycin 125 MG Cap PO SCH (06:00)
[2021-03-19] MEDS: metroNIDAZOLE/Normal Saline 500 MG in Premix Bag 1 BAG IV SCH (06:00)
[2021-03-19 06:32] LABS: BLOOD UREA NITROGEN,BUN 33 mg/dL (7.0-18.0); CARBON DIOXIDE,CO2 24.8 mmol/L (21.0-32.0); CHLORIDE,CL 95 mmol/L (98-107); GLUCOSE RANDOM 136 mg/dL (74-106); POTASSIUM,K 2.7 mmol/L (3.5-5.1); SODIUM,NA 131 mmol/L (136-148)
[2021-03-19] MEDS: Levothyroxine 50 MCG Tab PO SCH (06:34)
[2021-03-19] MEDS ORDERED: Potassium Chloride 20 MEQ Tab.ER PO ONE ×2 (08:18→15:00)
[2021-03-19] MEDS ORDERED: POTASSIUM PHOSPHATES IV ONE (09:00)
[2021-03-19] MEDS ORDERED: POTASSIUM CHLORIDE IV ONE (09:00)
[2021-03-19] MEDS ORDERED: SODIUM CHLORIDE 0.9% IV ONE (09:00)
[2021-03-19] MEDS ORDERED: Pantoprazole 40 MG Vial IV SCH (09:00)
--- NOTE | 2021-03-19 11:28 | PCM.PN ---
- General Info Date of Service: 03/19/21 Admission Dx/Problem (Free Text): Admission Diagnosis/Problem Admission Diagnosis/Problem Hypokalemia Subjective Update: Continues to feel fairly rough this morning but slightly improved. Continues to have diarrhea at least 6 times overnight. He continues to feel weak denies any chest pain shortness of breath or abdominal pain. Leg cramping has improved. Functional Status: Reports: Pain Controlled, Tolerating Diet, Ambulating, Urinating - Review of Systems General: Reports: Weakness, Fatigue, Malaise HEENT: Reports: No Symptoms. Denies: Headaches, Sore Throat, Visual Changes Pulmonary: Reports: No Symptoms. Denies: Shortness of Breath Cardiovascular: Reports: No Symptoms. Denies: Chest Pain Gastrointestinal: Reports: Diarrhea. Denies: Abdominal Pain, Nausea, Vomiting Genitourinary: Reports: No Symptoms. Denies: Dysuria Musculoskeletal: Reports: No Symptoms Skin: Reports: No Symptoms Neurological: Reports: No Symptoms Psychiatric: Reports: No Symptoms - Patient Data Vitals - Most Recent: Last Vital Signs Temp 97.4 F 03/19/21 11:17 Pulse 93 03/19/21 11:17 Resp 14 03/19/21 11:17 BP 126/70 03/19/21 11:17 Pulse Ox 98 03/19/21 11:17 Orthostatic Blood Pressure [ 83/54 Standing] Orthostatic Blood Pressure [ 99/66 Sitting] Orthostatic Blood Pressure [ 109/75 Supine] Weight - Most Recent: 70.261 kg I&O - Last 24 Hours: Intake & Output 03/18/21 03/19/21 03/19/21 22:59 06:59 14:59 Intake Total 500 Output Total 450 Balance 50 Lab Results Last 24 Hours: Laboratory Results - last 24 hr 03/18/21 03/18/21 03/18/21 Range/Units 14:50 14:50 14:50 WBC 9.64 (4.0-11.0) K/uL RBC 3.84 L (4.50-5.90) M/uL Hgb 13.6 (13.0-17.0) g/dL Hct 37.7 L (38.0-50.0) % MCV 98.2 H (80.0-98.0) fL MCH 35.4 H (27.0-32.0) pg MCHC 36.1 (31.0-37.0) g/dL RDW Std Deviation 49.6 (28.0-62.0) fl RDW Coeff of Caleb 14 (11.0-15.0) % Plt Count 423 H (150-400) K/uL MPV 9.40 (7.40-12.00) fL Add Manual Diff YES Neutrophils % (Manual) 63 (48.0-80.0) % Band Neutrophils % 14 % Lymphocytes % (Manual) 17 (16.0-40.0) % Monocytes % (Manual) 5 (0.0-15.0) % Basophils % (Manual) 1 (0.0-1.5) % Nucleated RBC % 0.0 /100WBC Absolute Seg Neuts 6.1 H (1.4-5.7) Band Neutrophils # 1.3 Lymphocytes # (Manual) 1.6 (0.6-2.4) Monocytes # (Manual) 0.5 (0.0-0.8) Basophils # (Manual) 0.1 (0.0-0.1) Nucleated RBCs # 0 K/uL Sodium 128 L (136-148) mmol/L Potassium 2.4 L* (3.5-5.1) mmol/L Chloride 87 L (98-107) mmol/L Carbon Dioxide 23.3 (21.0-32.0) mmol/L BUN 43 H (7.0-18.0) mg/dL Creatinine 1.4 H (0.8-1.3) mg/dL Est Cr Clr Drug Dosing 53.79 mL/min Estimated GFR (MDRD) 50.4 ml/min Glucose 150 H (74-106) mg/dL Calcium 8.5 (8.5-10.1) mg/dL Phosphorus (2.6-4.7) mg/dL Magnesium 2.1 (1.8-2.4) mg/dL Total Bilirubin 0.6 (0.2-1.0) mg/dL AST 26 (15-37) IU/L ALT 28 (14-63) IU/L Alkaline Phosphatase 108 (46-116) U/L Troponin I < 0.050 (0.000-0.056) ng/mL Total Protein 7.1 (6.4-8.2) g/dL Albumin 3.0 L (3.4-5.0) g/dL Globulin 4.1 H (2.6-4.0) g/dL Albumin/Globulin Ratio 0.7 L (0.9-1.6) Urine Color Urine Appearance Urine pH (5.0-8.0) Ur Specific [place] (1.001-1.035) Urine Protein (NEGATIVE) mg/dL Urine Glucose (UA) (NEGATIVE) mg/dL Urine Ketones (NEGATIVE) mg/dL Urine Occult Blood (NEGATIVE) Urine Nitrite (NEGATIVE) Urine Bilirubin (NEGATIVE) Urine Urobilinogen (<2.0) EU/dL Ur Leukocyte Esterase (NEGATIVE) U Hyaline Cast (Auto) (0-2/LPF) Urine RBC (0-2/HPF) Urine WBC (0-5/HPF) Ur Epithelial Cells (NONE-FEW) Urine Bacteria (NEGATIVE) Urine Mucus (NONE-MOD) SARS-CoV-2 RNA (CHANDRA) (NEGATIVE) 03/18/21 03/18/21 03/18/21 Range/Units 15:00 23:45 23:45 WBC (4.0-11.0) K/uL RBC (4.50-5.90) M/uL Hgb (13.0-17.0) g/dL Hct (38.0-50.0) % MCV (80.0-98.0) fL MCH (27.0-32.0) pg MCHC (31.0-37.0) g/dL RDW Std Deviation (28.0-62.0) fl RDW Coeff of Caleb (11.0-15.0) % Plt Count (150-400) K/uL MPV (7.40-12.00) fL Add Manual Diff Neutrophils % (Manual) (48.0-80.0) % Band Neutrophils % % Lymphocytes % (Manual) (16.0-40.0) % Monocytes % (Manual) (0.0-15.0) % Basophils % (Manual) (0.0-1.5) % Nucleated RBC % /100WBC Absolute Seg Neuts (1.4-5.7) Band Neutrophils # Lymphocytes # (Manual) (0.6-2.4) Monocytes # (Manual) (0.0-0.8) Basophils # (Manual) (0.0-0.1) Nucleated RBCs # K/uL Sodium 130 L (136-148) mmol/L Potassium 2.8 L (3.5-5.1) mmol/L Chloride 92 L (98-107) mmol/L Carbon Dioxide 24.2 (21.0-32.0) mmol/L BUN 40 H (7.0-18.0) mg/dL Creatinine 1.2 (0.8-1.3) mg/dL Est Cr Clr Drug Dosing 58.55 mL/min Estimated GFR (MDRD) > 60.0 ml/min Glucose 114 H (74-106) mg/dL Calcium 8.0 L (8.5-10.1) mg/dL Phosphorus (2.6-4.7) mg/dL Magnesium 2.1 (1.8-2.4) mg/dL Total Bilirubin (0.2-1.0) mg/dL AST (15-37) IU/L ALT (14-63) IU/L Alkaline Phosphatase (46-116) U/L Troponin I (0.000-0.056) ng/mL Total Protein (6.4-8.2) g/dL Albumin (3.4-5.0) g/dL Globulin (2.6-4.0) g/dL Albumin/Globulin Ratio (0.9-1.6) Urine Color Urine Appearance Urine pH (5.0-8.0) Ur Specific [place] (1.001-1.035) Urine Protein (NEGATIVE) mg/dL Urine Glucose (UA) (NEGATIVE) mg/dL Urine Ketones (NEGATIVE) mg/dL Urine Occult Blood (NEGATIVE) Urine Nitrite (NEGATIVE) Urine Bilirubin (NEGATIVE) Urine Urobilinogen (<2.0) EU/dL Ur Leukocyte Esterase (NEGATIVE) U Hyaline Cast (Auto) (0-2/LPF) Urine RBC (0-2/HPF) Urine WBC (0-5/HPF) Ur Epithelial Cells (NONE-FEW) Urine Bacteria (NEGATIVE) Urine Mucus (NONE-MOD) SARS-CoV-2 RNA (CHANDRA) NEGATIVE (NEGATIVE) 03/19/21 03/19/21 03/19/21 Range/Units 04:05 05:55 05:55 WBC 9.74 (4.0-11.0) K/uL RBC 3.49 L (4.50-5.90) M/uL Hgb 12.3 L (13.0-17.0) g/dL Hct 34.4 L (38.0-50.0) % MCV 98.6 H (80.0-98.0) fL MCH 35.2 H (27.0-32.0) pg MCHC 35.8 (31.0-37.0) g/dL RDW Std Deviation 50.1 (28.0-62.0) fl RDW Coeff of Caleb 14 (11.0-15.0) % Plt Count 398 (150-400) K/uL MPV 9.10 (7.40-12.00) fL Add Manual Diff YES Neutrophils % (Manual) 53 (48.0-80.0) % Band Neutrophils % 23 % Lymphocytes % (Manual) 14 L (16.0-40.0) % Monocytes % (Manual) 10 (0.0-15.0) % Basophils % (Manual) (0.0-1.5) % Nucleated RBC % 0.0 /100WBC Absolute Seg Neuts 5.2 (1.4-5.7) Band Neutrophils # 2.2 Lymphocytes # (Manual) 1.4 (0.6-2.4) Monocytes # (Manual) 1.0 H (0.0-0.8) Basophils # (Manual) (0.0-0.1) Nucleated RBCs # 0 K/uL Sodium 131 L (136-148) mmol/L Potassium 2.7 L (3.5-5.1) mmol/L Chloride 95 L (98-107) mmol/L Carbon Dioxide 24.8 (21.0-32.0) mmol/L BUN 33 H (7.0-18.0) mg/dL Creatinine 1.2 (0.8-1.3) mg/dL Est Cr Clr Drug Dosing 58.55 mL/min Estimated GFR (MDRD) > 60.0 ml/min Glucose 136 H (74-106) mg/dL Calcium 7.8 L (8.5-10.1) mg/dL Phosphorus 2.5 L (2.6-4.7) mg/dL Magnesium 1.9 (1.8-2.4) mg/dL Total Bilirubin (0.2-1.0) mg/dL AST (15-37) IU/L ALT (14-63) IU/L Alkaline Phosphatase (46-116) U/L Troponin I (0.000-0.056) ng/mL Total Protein (6.4-8.2) g/dL Albumin (3.4-5.0) g/dL Globulin (2.6-4.0) g/dL Albumin/Globulin Ratio (0.9-1.6) Urine Color DARK YELLOW Urine Appearance CLEAR Urine pH 6.0 (5.0-8.0) Ur Specific [place] 1.025 (1.001-1.035) Urine Protein TRACE H (NEGATIVE) mg/dL Urine Glucose (UA) NEGATIVE (NEGATIVE) mg/dL Urine Ketones 15 H (NEGATIVE) mg/dL Urine Occult Blood NEGATIVE (NEGATIVE) Urine Nitrite NEGATIVE (NEGATIVE) Urine Bilirubin NEGATIVE (NEGATIVE) Urine Urobilinogen 0.2 (<2.0) EU/dL Ur Leukocyte Esterase NEGATIVE (NEGATIVE) U Hyaline Cast (Auto) 1-3 (0-2/LPF) Urine RBC 0-2 (0-2/HPF) Urine WBC 1-3 (0-5/HPF) Ur Epithelial Cells FEW (NONE-FEW) Urine Bacteria FEW (NEGATIVE) Urine Mucus LIGHT (NONE-MOD) SARS-CoV-2 RNA (CHANDRA) (NEGATIVE) Guillaume Results Last 24 Hours: Microbiology 03/19/21 01:05 C. difficile Antigen & Toxins A,B - Final Stool / Feces Med Orders - Current: Current Medications Acetaminophen (Acetaminophen 325 Mg Tab) 650 mg PO Q4H PRN PRN Reason: Pain (Mild 1-3)/fever Albuterol/Ipratropium (Albuterol/Ipratropium 3.0-0.5 Mg/3 Ml Neb Soln) 3 ml NEB Q4HRRT PRN PRN Reason: Shortness Of Breath/wheezing Gabapentin (Gabapentin 300 Mg Cap) 300 mg PO TID [facility] Last Admin: 03/19/21 06:00 Dose: 300 mg Documented by: Potassium Chloride/Dextrose/Sod Cl (D5 Ns With 20 Meq Kcl) 1,000 mls @ 125 mls/hr IV ASDIRECTED [facility] Last Admin: 03/19/21 02:12 Dose: 125 mls/hr Documented by: Lactated Ringer's (Ringers, Lactated) 1,000 mls @ 125 mls/hr IV Q8H [facility] Pantoprazole Sodium 40 mg/ (Sodium Chloride) 10 mls @ 200 mls/hr IV Q24H [facility] Last Admin: 03/18/21 18:50 Dose: 200 mls/hr Documented by: Potassium Phosphate 15 mmole/Potassium Chloride 20 meq/Sodium Chloride 515 mls @ 67.5 mls/hr IV ONETIME ONE Stop: 03/19/21 16:37 Last Admin: 03/19/21 09:12 Dose: 67.5 mls/hr Documented by: Levothyroxine Sodium (Levothyroxine 50 Mcg Tab) 50 mcg PO ACBREAKFAST [facility] Last Admin: 03/19/21 06:34 Dose: 50 mcg Documented by: Morphine Sulfate (Morphine 2 Mg/Ml Syringe) 1 mg IVPUSH Q4H PRN PRN Reason: Pain Ondansetron HCl (Ondansetron 4 Mg/2 Ml Sdv) 4 mg IVPUSH Q4H PRN PRN Reason: Nausea/Vomiting Sodium Chloride (Sodium Chloride 0.9% 10 Ml Syringe) 10 ml FLUSH ASDIRECTED PRN PRN Reason: Keep Vein Open Last Admin: 03/18/21 14:56 Dose: 10 ml Documented by: Sodium Chloride (Sodium Chloride 0.9% 2.5 Ml Syringe) 2.5 ml FLUSH ASDIRECTED PRN PRN Reason: Keep Vein Open Last Admin: 03/18/21 14:56 Dose: 2.5 ml Documented by: Vancomycin HCl (Vancomycin 125 Mg Cap) 125 mg PO QID [facility] Discontinued Medications Sodium Chloride (Normal Saline) 1,000 mls @ 125 mls/hr IV STAT ONE Stop: 03/18/21 22:45 Last Infusion: 03/18/21 15:59 Dose: 999 mls/hr Documented by: Potassium Chloride 40 meq/ (Premix) 100 mls @ 25 mls/hr IV ONETIME ONE Stop: 03/18/21 19:50 Last Admin: 03/18/21 17:49 Dose: 25 mls/hr Documented by: Sodium Chloride (Normal Saline) 1,000 mls @ 125 mls/hr IV STAT ONE Stop: 03/18/21 23:51 Last Admin: 03/18/21 17:13 Dose: 125 mls/hr Documented by: Ciprofloxacin/Dextrose 400 mg/ (Premix) 200 mls @ 200 mls/hr IV Q12H [facility] Last Admin: 03/19/21 01:00 Dose: 200 mls/hr Documented by: Metronidazole 500 mg/ Premix 100 mls @ 100 mls/hr IV QID [facility] Last Admin: 03/19/21 06:00 Dose: 100 mls/hr Documented by: Potassium Chloride (Potassium Chloride 20 Meq Tab.Er) 40 meq PO ONETIME ONE Stop: 03/19/21 08:19 Last Admin: 03/19/21 09:19 Dose: 40 meq Documented by: Vancomycin HCl (Vancomycin 125 Mg Cap) 125 mg PO Q4H [facility] Last Admin: 03/19/21 06:35 Dose: 125 mg Documented by: - Exam General: Alert, Oriented, Cooperative, No Acute Distress, Other (Appears deconditioned and cachectic) Neck: Supple, Other (Tongue has surgically been removed) Lungs: Clear to Auscultation, Normal Respiratory Effort Cardiovascular: Regular Rate, Regular Rhythm GI/Abdominal Exam: Normal Bowel Sounds, Soft, Tender ( very minimal tenderness to his abdomen) Back Exam: Normal Inspection, Full Range of Motion Extremities: Normal Inspection, Normal Range of Motion, Non-Tender, No Pedal Edema Neurological: No New Focal Deficit Psy/Mental Status: Alert, Normal Affect, Normal Mood - Patient Data Lab Results Last 24 hrs: Laboratory Results - last 24 hr 03/18/21 03/18/21 03/18/21 Range/Units 14:50 14:50 14:50 WBC 9.64 (4.0-11.0) K/uL RBC 3.84 L (4.50-5.90) M/uL Hgb 13.6 (13.0-17.0) g/dL Hct 37.7 L (38.0-50.0) % MCV 98.2 H (80.0-98.0) fL MCH 35.4 H (27.0-32.0) pg MCHC 36.1 (31.0-37.0) g/dL RDW Std Deviation 49.6 (28.0-62.0) fl RDW Coeff of Caleb 14 (11.0-15.0) % Plt Count 423 H (150-400) K/uL MPV 9.40 (7.40-12.00) fL Add Manual Diff YES Neutrophils % (Manual) 63 (48.0-80.0) % Band Neutrophils % 14 % Lymphocytes % (Manual) 17 (16.0-40.0) % Monocytes % (Manual) 5 (0.0-15.0) % Basophils % (Manual) 1 (0.0-1.5) % Nucleated RBC % 0.0 /100WBC Absolute Seg Neuts 6.1 H (1.4-5.7) Band Neutrophils # 1.3 Lymphocytes # (Manual) 1.6 (0.6-2.4) Monocytes # (Manual) 0.5 (0.0-0.8) Basophils # (Manual) 0.1 (0.0-0.1) Nucleated RBCs # 0 K/uL Sodium 128 L (136-148) mmol/L Potassium 2.4 L* (3.5-5.1) mmol/L Chloride 87 L (98-107) mmol/L Carbon Dioxide 23.3 (21.0-32.0) mmol/L BUN 43 H (7.0-18.0) mg/dL Creatinine 1.4 H (0.8-1.3) mg/dL Est Cr Clr Drug Dosing 53.79 mL/min Estimated GFR (MDRD) 50.4 ml/min Glucose 150 H (74-106) mg/dL Calcium 8.5 (8.5-10.1) mg/dL Phosphorus (2.6-4.7) mg/dL Magnesium 2.1 (1.8-2.4) mg/dL Total Bilirubin 0.6 (0.2-1.0) mg/dL AST 26 (15-37) IU/L ALT 28 (14-63) IU/L Alkaline Phosphatase 108 (46-116) U/L Troponin I < 0.050 (0.000-0.056) ng/mL Total Protein 7.1 (6.4-8.2) g/dL Albumin 3.0 L (3.4-5.0) g/dL Globulin 4.1 H (2.6-4.0) g/dL Albumin/Globulin Ratio 0.7 L (0.9-1.6) Urine Color Urine Appearance Urine pH (5.0-8.0) Ur Specific [place] (1.001-1.035) Urine Protein (NEGATIVE) mg/dL Urine Glucose (UA) (NEGATIVE) mg/dL Urine Ketones (NEGATIVE) mg/dL Urine Occult Blood (NEGATIVE) Urine Nitrite (NEGATIVE) Urine Bilirubin (NEGATIVE) Urine Urobilinogen (<2.0) EU/dL Ur Leukocyte Esterase (NEGATIVE) U Hyaline Cast (Auto) (0-2/LPF) Urine RBC (0-2/HPF) Urine WBC (0-5/HPF) Ur Epithelial Cells (NONE-FEW) Urine Bacteria (NEGATIVE) Urine Mucus (NONE-MOD) SARS-CoV-2 RNA (CHANDRA) (NEGATIVE) 03/18/21 03/18/21 03/18/21 Range/Units 15:00 23:45 23:45 WBC (4.0-11.0) K/uL RBC (4.50-5.90) M/uL Hgb (13.0-17.0) g/dL Hct (38.0-50.0) % MCV (80.0-98.0) fL MCH (27.0-32.0) pg MCHC (31.0-37.0) g/dL RDW Std Deviation (28.0-62.0) fl RDW Coeff of Caleb (11.0-15.0) % Plt Count (150-400) K/uL MPV (7.40-12.00) fL Add Manual Diff Neutrophils % (Manual) (48.0-80.0) % Band Neutrophils % % Lymphocytes % (Manual) (16.0-40.0) % Monocytes % (Manual) (0.0-15.0) % Basophils % (Manual) (0.0-1.5) % Nucleated RBC % /100WBC Absolute Seg Neuts (1.4-5.7) Band Neutrophils # Lymphocytes # (Manual) (0.6-2.4) Monocytes # (Manual) (0.0-0.8) Basophils # (Manual) (0.0-0.1) Nucleated RBCs # K/uL Sodium 130 L (136-148) mmol/L Potassium 2.8 L (3.5-5.1) mmol/L Chloride 92 L (98-107) mmol/L Carbon Dioxide 24.2 (21.0-32.0) mmol/L BUN 40 H (7.0-18.0) mg/dL Creatinine 1.2 (0.8-1.3) mg/dL Est Cr Clr Drug Dosing 58.55 mL/min Estimated GFR (MDRD) > 60.0 ml/min Glucose 114 H (74-106) mg/dL Calcium 8.0 L (8.5-10.1) mg/dL Phosphorus (2.6-4.7) mg/dL Magnesium 2.1 (1.8-2.4) mg/dL Total Bilirubin (0.2-1.0) mg/dL AST (15-37) IU/L ALT (14-63) IU/L Alkaline Phosphatase (46-116) U/L Troponin I (0.000-0.056) ng/mL Total Protein (6.4-8.2) g/dL Albumin (3.4-5.0) g/dL Globulin (2.6-4.0) g/dL Albumin/Globulin Ratio (0.9-1.6) Urine Color Urine Appearance Urine pH (5.0-8.0) Ur Specific [place] (1.001-1.035) Urine Protein (NEGATIVE) mg/dL Urine Glucose (UA) (NEGATIVE) mg/dL Urine Ketones (NEGATIVE) mg/dL Urine Occult Blood (NEGATIVE) Urine Nitrite (NEGATIVE) Urine Bilirubin (NEGATIVE) Urine Urobilinogen (<2.0) EU/dL Ur Leukocyte Esterase (NEGATIVE) U Hyaline Cast (Auto) (0-2/LPF) Urine RBC (0-2/HPF) Urine WBC (0-5/HPF) Ur Epithelial Cells (NONE-FEW) Urine Bacteria (NEGATIVE) Urine Mucus (NONE-MOD) SARS-CoV-2 RNA (CHANDRA) NEGATIVE (NEGATIVE) 03/19/21 03/19/21 03/19/21 Range/Units 04:05 05:55 05:55 WBC 9.74 (4.0-11.0) K/uL RBC 3.49 L (4.50-5.90) M/uL Hgb 12.3 L (13.0-17.0) g/dL Hct 34.4 L (38.0-50.0) % MCV 98.6 H (80.0-98.0) fL MCH 35.2 H (27.0-32.0) pg MCHC 35.8 (31.0-37.0) g/dL RDW Std Deviation 50.1 (28.0-62.0) fl RDW Coeff of Caleb 14 (11.0-15.0) % Plt Count 398 (150-400) K/uL MPV 9.10 (7.40-12.00) fL Add Manual Diff YES Neutrophils % (Manual) 53 (48.0-80.0) % Band Neutrophils % 23 % Lymphocytes % (Manual) 14 L (16.0-40.0) % Monocytes % (Manual) 10 (0.0-15.0) % Basophils % (Manual) (0.0-1.5) % Nucleated RBC % 0.0 /100WBC Absolute Seg Neuts 5.2 (1.4-5.7) Band Neutrophils # 2.2 Lymphocytes # (Manual) 1.4 (0.6-2.4) Monocytes # (Manual) 1.0 H (0.0-0.8) Basophils # (Manual) (0.0-0.1) Nucleated RBCs # 0 K/uL Sodium 131 L (136-148) mmol/L Potassium 2.7 L (3.5-5.1) mmol/L Chloride 95 L (98-107) mmol/L Carbon Dioxide 24.8 (21.0-32.0) mmol/L BUN 33 H (7.0-18.0) mg/dL Creatinine 1.2 (0.8-1.3) mg/dL Est Cr Clr Drug Dosing 58.55 mL/min Estimated GFR (MDRD) > 60.0 ml/min Glucose 136 H (74-106) mg/dL Calcium 7.8 L (8.5-10.1) mg/dL Phosphorus 2.5 L (2.6-4.7) mg/dL Magnesium 1.9 (1.8-2.4) mg/dL Total Bilirubin (0.2-1.0) mg/dL AST (15-37) IU/L ALT (14-63) IU/L Alkaline Phosphatase (46-116) U/L Troponin I (0.000-0.056) ng/mL Total Protein (6.4-8.2) g/dL Albumin (3.4-5.0) g/dL Globulin (2.6-4.0) g/dL Albumin/Globulin Ratio (0.9-1.6) Urine Color DARK YELLOW Urine Appearance CLEAR Urine pH 6.0 (5.0-8.0) Ur Specific [place] 1.025 (1.001-1.035) Urine Protein TRACE H (NEGATIVE) mg/dL Urine Glucose (UA) NEGATIVE (NEGATIVE) mg/dL Urine Ketones 15 H (NEGATIVE) mg/dL Urine Occult Blood NEGATIVE (NEGATIVE) Urine Nitrite NEGATIVE (NEGATIVE) Urine Bilirubin NEGATIVE (NEGATIVE) Urine Urobilinogen 0.2 (<2.0) EU/dL Ur Leukocyte Esterase NEGATIVE (NEGATIVE) U Hyaline Cast (Auto) 1-3 (0-2/LPF) Urine RBC 0-2 (0-2/HPF) Urine WBC 1-3 (0-5/HPF) Ur Epithelial Cells FEW (NONE-FEW) Urine Bacteria FEW (NEGATIVE) Urine Mucus LIGHT (NONE-MOD) SARS-CoV-2 RNA (CHANDRA) (NEGATIVE) Result Diagrams: 03/19/21 05:55 03/19/21 13:56 Guillaume Results Last 24 hrs: Microbiology 03/19/21 01:05 C. difficile Antigen & Toxins A,B - Final Stool / Feces Sepsis Event Note - Evaluation Sepsis Screening Result: No Definite Risk - Focused Exam Vital Signs: Vital Signs Temp Pulse Resp BP Pulse Ox 03/19/21 11:17 97.4 F 93 14 126/70 98 03/19/21 08:00 98.5 F 79 12 114/71 96 03/19/21 04:24 97.5 F 86 16 121/76 97 03/19/21 01:20 98.0 F 93 113/73 96 - Problem List & Annotations (1) Hypophosphatemia SNOMED Code(s): 2188839 Code(s): E83.39 - OTHER DISORDERS OF PHOSPHORUS METABOLISM Status: Acute Current Visit: Yes (2) C. difficile colitis SNOMED Code(s): 081261956 Code(s): A04.72 - ENTEROCOLITIS D/T CLOSTRIDIUM DIFFICILE, NOT SPCF RECUR Status: Acute Current Visit: Yes (3) Port-A-Cath in place SNOMED Code(s): 405715754 Code(s): Z95.828 - PRESENCE OF OTHER VASCULAR IMPLANTS AND GRAFTS Status: Acute Current Visit: Yes (4) Tongue carcinoma Status: Acute Current Visit: Yes (5) Dehydration SNOMED Code(s): 07660412 Code(s): E86.0 - DEHYDRATION Status: Acute Current Visit: No (6) Diarrhea SNOMED Code(s): 50919871 Code(s): R19.7 - DIARRHEA, UNSPECIFIED Status: Acute Current Visit: No Qualifiers: Diarrhea type: unspecified type Qualified Code(s): R19.7 - Diarrhea, unspecified (7) Hypokalemia SNOMED Code(s): 01918632 Code(s): E87.6 - HYPOKALEMIA Status: Acute Current Visit: No - Problem List Review Problem List Initiated/Reviewed/Updated: Yes - My Orders Last 24 Hours: My Active Orders 03/19/21 09:00 Potassium Phosphates 15 mmole Potassium Chloride 20 meq Sodium Chloride 0.9% [Normal Saline] 500 ml IV ONETIME 03/19/21 11:26 Patient Status [ADT] Stat 03/19/21 12:00 Vancomycin [Vancocin 125 MG Capsule] 125 mg PO QID 03/19/21 14:00 POTASSIUM,K [CHEM] Routine - Plan Plan:: 70 y/o M admitted for diarrhea, hortencia, hypokalemia 1. C. difficile colitis -Continue vancomycin 125 mg 4 times daily p.o. -Stop Cipro and Flagyl -Continue IV fluid resuscitation -Replete potassium, phosphorus and magnesium -Recheck potassium this afternoon -Continue PPI -Continue Zofran as needed for nausea -Continue morphine as needed pain 2. HORTENCIA -Improving with IV fluids -Continue to monitor and avoid nephrotoxic medications 3. Hypokalemia hypophosphatemia -Repleted and recheck this afternoon. 4. Tongue carcinoma -Continue gabapentin 5. Hypothyroidism -Continue levothyroxine VTE prophylaxis: Heparin GI prophylaxis: Protonix CODE STATUS: DNR/DNI Dispo: We will make inpatient today as he will likely need longer than 2 midnight stay due to severity of C. difficile colitis, electrolyte abnormalities and HORTENCIA
[2021-03-19] MEDS: Vancomycin 125 MG Cap PO SCH ×3 (11:54→23:02)
[2021-03-19] MEDS: Lactated Ringers 1,000 ML IV SCH ×3 (13:18→21:09)
[2021-03-19] MEDS: Pantoprazole 40 MG in Sodium Chloride 0.9% 10 ML IV SCH (17:53)
[2021-03-20] MEDS: Lactated Ringers 1,000 ML IV SCH ×2 (02:45→05:01)
[2021-03-20] MEDS: Gabapentin 300 MG Cap PO SCH ×3 (05:01→22:57)
[2021-03-20] MEDS: Vancomycin 125 MG Cap PO SCH ×4 (05:02→23:00)
[2021-03-20 05:43] LABS: BLOOD UREA NITROGEN,BUN 22 mg/dL (7.0-18.0); CARBON DIOXIDE,CO2 25.6 mmol/L (21.0-32.0); CHLORIDE,CL 96 mmol/L (98-107); GLUCOSE RANDOM 94 mg/dL (74-106); POTASSIUM,K 2.6 mmol/L (3.5-5.1); SODIUM,NA 131 mmol/L (136-148)
[2021-03-20] MEDS: Levothyroxine 50 MCG Tab PO SCH (06:59)
--- NOTE | 2021-03-20 08:01 | PCM.PN ---
- General Info Date of Service: 03/20/21 Admission Dx/Problem (Free Text): Admission Diagnosis/Problem Admission Diagnosis/Problem Hypokalemia Subjective Update: Patient is slowly improving. He reports that the time between stools is lessening and he is having less. Denies any chest pain shortness of breath. Will increase diet today will discuss with dietitian regarding Jevity amount he uses at home. Patient does just drink Jevity versus a G-tube as he does not have this any longer. Patient reports he is really unable to eat any more solid foods. Patient feels as though he is getting slightly stronger today will consult PT Functional Status: Reports: Pain Controlled, Tolerating Diet, Ambulating, Urinating - Review of Systems General: Reports: Weakness, Fatigue (Improving) HEENT: Reports: No Symptoms. Denies: Headaches, Visual Changes Pulmonary: Reports: No Symptoms. Denies: Shortness of Breath Cardiovascular: Reports: No Symptoms. Denies: Chest Pain Gastrointestinal: Reports: Diarrhea (Improving). Denies: Abdominal Pain, Nausea, Vomiting Genitourinary: Reports: No Symptoms. Denies: Dysuria, Frequency Musculoskeletal: Reports: No Symptoms Skin: Reports: No Symptoms Neurological: Reports: No Symptoms Psychiatric: Reports: No Symptoms - Patient Data Vitals - Most Recent: Last Vital Signs Temp 97.6 F 03/20/21 05:06 Pulse 71 03/20/21 05:06 Resp 16 03/20/21 05:06 BP 124/79 03/20/21 05:06 Pulse Ox 97 03/20/21 05:06 Orthostatic Blood Pressure [ 83/54 Standing] Orthostatic Blood Pressure [ 99/66 Sitting] Orthostatic Blood Pressure [ 109/75 Supine] Weight - Most Recent: 70.261 kg I&O - Last 24 Hours: Intake & Output 03/19/21 03/20/21 03/20/21 22:59 06:59 14:59 Intake Total 3230 1200 Output Total 1900 2050 Balance 1330 -850 Lab Results Last 24 Hours: Laboratory Results - last 24 hr 03/19/21 03/20/21 03/20/21 Range/Units 13:56 04:55 04:55 WBC 9.66 (4.0-11.0) K/uL RBC 3.56 L (4.50-5.90) M/uL Hgb 12.6 L (13.0-17.0) g/dL Hct 35.3 L (38.0-50.0) % MCV 99.2 H (80.0-98.0) fL MCH 35.4 H (27.0-32.0) pg MCHC 35.7 (31.0-37.0) g/dL RDW Std Deviation 50.6 (28.0-62.0) fl RDW Coeff of Caleb 14 (11.0-15.0) % Plt Count 411 H (150-400) K/uL MPV 9.30 (7.40-12.00) fL Add Manual Diff YES Neutrophils % (Manual) 79 (48.0-80.0) % Lymphocytes % (Manual) 10 L (16.0-40.0) % Monocytes % (Manual) 7 (0.0-15.0) % Metamyelocytes % 3 % Myelocytes % 1 % Nucleated RBC % 0.0 /100WBC Absolute Seg Neuts 7.6 H (1.4-5.7) Lymphocytes # (Manual) 1.0 (0.6-2.4) Monocytes # (Manual) 0.7 (0.0-0.8) Absolute Metamyelocyte 0.3 Absolute Myelocytes 0.1 Nucleated RBCs # 0 K/uL Sodium 131 L (136-148) mmol/L Potassium 3.3 L 2.6 L (3.5-5.1) mmol/L Chloride 96 L (98-107) mmol/L Carbon Dioxide 25.6 (21.0-32.0) mmol/L BUN 22 H (7.0-18.0) mg/dL Creatinine 0.8 (0.8-1.3) mg/dL Est Cr Clr Drug Dosing 87.83 mL/min Estimated GFR (MDRD) > 60.0 ml/min Glucose 94 (74-106) mg/dL Calcium 8.4 L (8.5-10.1) mg/dL Phosphorus 2.4 L (2.6-4.7) mg/dL Magnesium 2.0 (1.8-2.4) mg/dL Med Orders - Current: Current Medications Acetaminophen (Acetaminophen 325 Mg Tab) 650 mg PO Q4H PRN PRN Reason: Pain (Mild 1-3)/fever Albuterol/Ipratropium (Albuterol/Ipratropium 3.0-0.5 Mg/3 Ml Neb Soln) 3 ml NEB Q4HRRT PRN PRN Reason: Shortness Of Breath/wheezing Gabapentin (Gabapentin 300 Mg Cap) 300 mg PO TID [facility] Last Admin: 03/20/21 05:01 Dose: 300 mg Documented by: Potassium Chloride/Dextrose/Sod Cl (D5 Ns With 20 Meq Kcl) 1,000 mls @ 125 mls/hr IV ASDIRECTED [facility] Last Admin: 03/19/21 02:12 Dose: 125 mls/hr Documented by: Lactated Ringer's (Ringers, Lactated) 1,000 mls @ 125 mls/hr IV Q8H [facility] Last Admin: 03/20/21 05:01 Dose: 125 mls/hr Documented by: Pantoprazole Sodium 40 mg/ (Sodium Chloride) 10 mls @ 200 mls/hr IV Q24H [facility] Last Admin: 03/19/21 17:53 Dose: 200 mls/hr Documented by: Potassium Phosphate 15 mmole/Potassium Chloride 20 meq/Sodium Chloride 515 mls @ 67.5 mls/hr IV ONETIME ONE Stop: 03/20/21 15:36 Levothyroxine Sodium (Levothyroxine 50 Mcg Tab) 50 mcg PO ACBREAKFAST [facility] Last Admin: 03/20/21 06:59 Dose: 50 mcg Documented by: Morphine Sulfate (Morphine 2 Mg/Ml Syringe) 1 mg IVPUSH Q4H PRN PRN Reason: Pain Ondansetron HCl (Ondansetron 4 Mg/2 Ml Sdv) 4 mg IVPUSH Q4H PRN PRN Reason: Nausea/Vomiting Potassium Chloride (Potassium Chloride 20 Meq Tab.Er) 40 meq PO BIDMEALS [facility] Sodium Chloride (Sodium Chloride 0.9% 10 Ml Syringe) 10 ml FLUSH ASDIRECTED PRN PRN Reason: Keep Vein Open Last Admin: 03/18/21 14:56 Dose: 10 ml Documented by: Sodium Chloride (Sodium Chloride 0.9% 2.5 Ml Syringe) 2.5 ml FLUSH ASDIRECTED PRN PRN Reason: Keep Vein Open Last Admin: 03/18/21 14:56 Dose: 2.5 ml Documented by: Vancomycin HCl (Vancomycin 125 Mg Cap) 125 mg PO QID [facility] Last Admin: 03/20/21 05:02 Dose: 125 mg Documented by: Discontinued Medications Sodium Chloride (Normal Saline) 1,000 mls @ 125 mls/hr IV STAT ONE Stop: 03/18/21 22:45 Last Infusion: 03/18/21 15:59 Dose: 999 mls/hr Documented by: Potassium Chloride 40 meq/ (Premix) 100 mls @ 25 mls/hr IV ONETIME ONE Stop: 03/18/21 19:50 Last Admin: 03/18/21 17:49 Dose: 25 mls/hr Documented by: Sodium Chloride (Normal Saline) 1,000 mls @ 125 mls/hr IV STAT ONE Stop: 03/18/21 23:51 Last Admin: 03/18/21 17:13 Dose: 125 mls/hr Documented by: Ciprofloxacin/Dextrose 400 mg/ (Premix) 200 mls @ 200 mls/hr IV Q12H [facility] Last Admin: 03/19/21 01:00 Dose: 200 mls/hr Documented by: Metronidazole 500 mg/ Premix 100 mls @ 100 mls/hr IV QID [facility] Last Admin: 03/19/21 06:00 Dose: 100 mls/hr Documented by: Potassium Phosphate 15 mmole/Potassium Chloride 20 meq/Sodium Chloride 515 mls @ 67.5 mls/hr IV ONETIME ONE Stop: 03/19/21 16:37 Last Admin: 03/19/21 09:12 Dose: 67.5 mls/hr Documented by: Potassium Chloride (Potassium Chloride 20 Meq Tab.Er) 40 meq PO ONETIME ONE Stop: 03/19/21 08:19 Last Admin: 03/19/21 09:19 Dose: 40 meq Documented by: Potassium Chloride (Potassium Chloride 20 Meq Tab.Er) 40 meq PO ONETIME ONE Stop: 03/19/21 15:01 Last Admin: 03/19/21 15:18 Dose: 40 meq Documented by: Vancomycin HCl (Vancomycin 125 Mg Cap) 125 mg PO Q4H [facility] Last Admin: 03/19/21 06:35 Dose: 125 mg Documented by: - Exam General: Alert, Oriented, Cooperative, No Acute Distress, Other (Cachectic) Lungs: Clear to Auscultation, Normal Respiratory Effort Cardiovascular: Regular Rate, Regular Rhythm GI/Abdominal Exam: Normal Bowel Sounds, Soft, Non-Tender Extremities: Normal Inspection, Normal Range of Motion, Non-Tender, No Pedal Edema Wound/Incisions: Healing Well Neurological: No New Focal Deficit Psy/Mental Status: Alert, Normal Affect, Normal Mood - Patient Data Lab Results Last 24 hrs: Laboratory Results - last 24 hr 03/19/21 03/20/21 03/20/21 Range/Units 13:56 04:55 04:55 WBC 9.66 (4.0-11.0) K/uL RBC 3.56 L (4.50-5.90) M/uL Hgb 12.6 L (13.0-17.0) g/dL Hct 35.3 L (38.0-50.0) % MCV 99.2 H (80.0-98.0) fL MCH 35.4 H (27.0-32.0) pg MCHC 35.7 (31.0-37.0) g/dL RDW Std Deviation 50.6 (28.0-62.0) fl RDW Coeff of Caleb 14 (11.0-15.0) % Plt Count 411 H (150-400) K/uL MPV 9.30 (7.40-12.00) fL Add Manual Diff YES Neutrophils % (Manual) 79 (48.0-80.0) % Lymphocytes % (Manual) 10 L (16.0-40.0) % Monocytes % (Manual) 7 (0.0-15.0) % Metamyelocytes % 3 % Myelocytes % 1 % Nucleated RBC % 0.0 /100WBC Absolute Seg Neuts 7.6 H (1.4-5.7) Lymphocytes # (Manual) 1.0 (0.6-2.4) Monocytes # (Manual) 0.7 (0.0-0.8) Absolute Metamyelocyte 0.3 Absolute Myelocytes 0.1 Nucleated RBCs # 0 K/uL Sodium 131 L (136-148) mmol/L Potassium 3.3 L 2.6 L (3.5-5.1) mmol/L Chloride 96 L (98-107) mmol/L Carbon Dioxide 25.6 (21.0-32.0) mmol/L BUN 22 H (7.0-18.0) mg/dL Creatinine 0.8 (0.8-1.3) mg/dL Est Cr Clr Drug Dosing 87.83 mL/min Estimated GFR (MDRD) > 60.0 ml/min Glucose 94 (74-106) mg/dL Calcium 8.4 L (8.5-10.1) mg/dL Phosphorus 2.4 L (2.6-4.7) mg/dL Magnesium 2.0 (1.8-2.4) mg/dL Result Diagrams: 03/20/21 04:55 03/20/21 04:55 Sepsis Event Note - Evaluation Sepsis Screening Result: No Definite Risk - Focused Exam Vital Signs: Vital Signs Temp Pulse Resp BP Pulse Ox 03/20/21 05:06 97.6 F 71 16 124/79 97 03/19/21 23:06 98.0 F 75 18 131/77 98 - Problem List & Annotations (1) Hypophosphatemia SNOMED Code(s): 7527259 Code(s): E83.39 - OTHER DISORDERS OF PHOSPHORUS METABOLISM Status: Acute Current Visit: Yes (2) C. difficile colitis SNOMED Code(s): 001562691 Code(s): A04.72 - ENTEROCOLITIS D/T CLOSTRIDIUM DIFFICILE, NOT SPCF RECUR Status: Acute Current Visit: Yes (3) Port-A-Cath in place SNOMED Code(s): 742120003 Code(s): Z95.828 - PRESENCE OF OTHER VASCULAR IMPLANTS AND GRAFTS Status: Acute Current Visit: Yes (4) Tongue carcinoma Status: Acute Current Visit: Yes (5) Dehydration SNOMED Code(s): 51836347 Code(s): E86.0 - DEHYDRATION Status: Acute Current Visit: No (6) Diarrhea SNOMED Code(s): 16423727 Code(s): R19.7 - DIARRHEA, UNSPECIFIED Status: Acute Current Visit: No Qualifiers: Diarrhea type: unspecified type Qualified Code(s): R19.7 - Diarrhea, unspecified (7) Hypokalemia SNOMED Code(s): 40282517 Code(s): E87.6 - HYPOKALEMIA Status: Acute Current Visit: No - Problem List Review Problem List Initiated/Reviewed/Updated: Yes - My Orders Last 24 Hours: My Active Orders 03/19/21 11:26 Patient Status [ADT] Stat 03/19/21 12:00 Vancomycin [Vancocin 125 MG Capsule] 125 mg PO QID 03/19/21 14:51 Resuscitation Status Routine 03/20/21 07:59 Potassium Phosphates 15 mmole Potassium Chloride 20 meq Sodium Chloride 0.9% [Normal Saline] 500 ml IV ONETIME 03/20/21 08:00 Potassium Chloride [Klor-Con M20] 40 meq PO BIDMEALS - Plan Plan:: 70 y/o M admitted for diarrhea, hortencia, hypokalemia 1. C. difficile colitis -Continue vancomycin 125 mg 4 times daily p.o. -Continue IV fluid resuscitation due to continued stools -Fluids to D5 NS with 40 of KCl continuously -Replete potassium, phosphorus and magnesium -Recheck potassium this afternoon -Continue PPI -Continue Zofran as needed for nausea -Continue morphine as needed pain -C. difficile PCR remains negative but due to significant symptoms and positive antigen we will continue with treatment of vancomycin. -Increase diet to Jevity per home. 2. HORTENCIA -Improving with IV fluids -Continue to monitor and avoid nephrotoxic medications 3. Hypokalemia hypophosphatemia -Repleted and recheck this afternoon. 4. Tongue carcinoma -Continue gabapentin 5. Hypothyroidism -Continue levothyroxine VTE prophylaxis: Heparin GI prophylaxis: Protonix CODE STATUS: DNR/DNI Dispo: 2 to 3 days pending improvement
[2021-03-20] MEDS ORDERED: POTASSIUM CHLORIDE IV ONE (08:30)
[2021-03-20] MEDS ORDERED: SODIUM CHLORIDE 0.9% IV ONE (08:30)
[2021-03-20] MEDS ORDERED: POTASSIUM PHOSPHATES IV ONE (08:30)
[2021-03-20] MEDS: Potassium Chloride 20 MEQ Tab.ER PO SCH ×2 (09:04→17:01)
[2021-03-20] MEDS: Heparin Sodium 5,000 Units/ML Vial SUBCUT SCH ×2 (14:00→20:48)
[2021-03-20] MEDS: Pantoprazole 40 MG in Sodium Chloride 0.9% 10 ML IV SCH (17:27)
[2021-03-21] MEDS: Heparin Sodium 5,000 Units/ML Vial SUBCUT SCH ×3 (05:01→21:56)
[2021-03-21] MEDS: Vancomycin 125 MG Cap PO SCH ×3 (05:01→18:55)
[2021-03-21] MEDS: Gabapentin 300 MG Cap PO SCH ×3 (05:01→21:56)
[2021-03-21 06:32] LABS: BLOOD UREA NITROGEN,BUN 17 mg/dL (7.0-18.0); CARBON DIOXIDE,CO2 22.3 mmol/L (21.0-32.0); CHLORIDE,CL 95 mmol/L (98-107); GLUCOSE RANDOM 130 mg/dL (74-106); POTASSIUM,K 3.2 mmol/L (3.5-5.1); SODIUM,NA 129 mmol/L (136-148)
[2021-03-21] MEDS: Levothyroxine 50 MCG Tab PO SCH (06:56)
[2021-03-21] MEDS ORDERED: Potassium Phosphates 20 MMOLE in Sodium Chloride 0.9% 500 ML IV ONE (08:30)
[2021-03-21] MEDS: Potassium Chloride 20 MEQ Tab.ER PO SCH ×2 (08:42→18:55)
--- NOTE | 2021-03-21 09:57 | PCM.PN ---
- General Info Date of Service: 03/21/21 Admission Dx/Problem (Free Text): Admission Diagnosis/Problem Admission Diagnosis/Problem Hypokalemia, C. difficile colitis, hypophosphatemia Subjective Update: Continues to slowly improve daily. Diarrhea continues but also continues to notice nighttime between stools is lengthening. Denies any chest pain shortness of breath no abdominal pain. He will start trying his Jevity feeds today orally. Denies any other concerns besides generalized weakness that is slowly improving will consult PT Functional Status: Reports: Pain Controlled, Tolerating Diet, Ambulating, Urinating - Review of Systems General: Reports: Weakness, Fatigue, Malaise Pulmonary: Reports: No Symptoms. Denies: Shortness of Breath Cardiovascular: Reports: No Symptoms. Denies: Chest Pain Gastrointestinal: Reports: Diarrhea (Steadily improving). Denies: Abdominal Pain, Melena, Nausea, Vomiting Genitourinary: Reports: No Symptoms. Denies: Dysuria, Frequency, Burning Musculoskeletal: Reports: No Symptoms Skin: Reports: No Symptoms Neurological: Reports: No Symptoms Psychiatric: Reports: No Symptoms - Patient Data Vitals - Most Recent: Last Vital Signs Temp 97.6 F 03/21/21 07:26 Pulse 78 03/21/21 07:26 Resp 15 03/21/21 07:26 BP 110/77 03/21/21 07:26 Pulse Ox 99 03/21/21 07:26 Orthostatic Blood Pressure [ 83/54 Standing] Orthostatic Blood Pressure [ 99/66 Sitting] Orthostatic Blood Pressure [ 109/75 Supine] Weight - Most Recent: 70.261 kg I&O - Last 24 Hours: Intake & Output 03/20/21 03/21/21 03/21/21 22:59 06:59 14:59 Intake Total 800 1737 500 Output Total 900 2950 Balance -100 -1213 500 Lab Results Last 24 Hours: Laboratory Results - last 24 hr 03/20/21 03/20/21 03/20/21 Range/Units 12:24 14:37 18:02 WBC (4.0-11.0) K/uL RBC (4.50-5.90) M/uL Hgb (13.0-17.0) g/dL Hct (38.0-50.0) % MCV (80.0-98.0) fL MCH (27.0-32.0) pg MCHC (31.0-37.0) g/dL RDW Std Deviation (28.0-62.0) fl RDW Coeff of Caleb (11.0-15.0) % Plt Count (150-400) K/uL MPV (7.40-12.00) fL Add Manual Diff Neutrophils % (Manual) (48.0-80.0) % Band Neutrophils % % Lymphocytes % (Manual) (16.0-40.0) % Monocytes % (Manual) (0.0-15.0) % Basophils % (Manual) (0.0-1.5) % Nucleated RBC % /100WBC Absolute Seg Neuts (1.4-5.7) Band Neutrophils # Lymphocytes # (Manual) (0.6-2.4) Monocytes # (Manual) (0.0-0.8) Basophils # (Manual) (0.0-0.1) Nucleated RBCs # K/uL Sodium (136-148) mmol/L Potassium 3.1 L (3.5-5.1) mmol/L Chloride (98-107) mmol/L Carbon Dioxide (21.0-32.0) mmol/L BUN (7.0-18.0) mg/dL Creatinine (0.8-1.3) mg/dL Est Cr Clr Drug Dosing mL/min Estimated GFR (MDRD) ml/min Glucose (74-106) mg/dL POC Glucose 100 H 134 H (70-99) mg/dL Calcium (8.5-10.1) mg/dL Phosphorus (2.6-4.7) mg/dL Magnesium (1.8-2.4) mg/dL 03/21/21 03/21/21 Range/Units 05:30 05:30 WBC 11.34 H (4.0-11.0) K/uL RBC 3.64 L (4.50-5.90) M/uL Hgb 12.7 L (13.0-17.0) g/dL Hct 36.0 L (38.0-50.0) % MCV 98.9 H (80.0-98.0) fL MCH 34.9 H (27.0-32.0) pg MCHC 35.3 (31.0-37.0) g/dL RDW Std Deviation 50.7 (28.0-62.0) fl RDW Coeff of Caleb 14 (11.0-15.0) % Plt Count 456 H (150-400) K/uL MPV 9.70 (7.40-12.00) fL Add Manual Diff YES Neutrophils % (Manual) 67 (48.0-80.0) % Band Neutrophils % 14 % Lymphocytes % (Manual) 10 L (16.0-40.0) % Monocytes % (Manual) 8 (0.0-15.0) % Basophils % (Manual) 1 (0.0-1.5) % Nucleated RBC % 0.0 /100WBC Absolute Seg Neuts 7.6 H (1.4-5.7) Band Neutrophils # 1.6 Lymphocytes # (Manual) 1.1 (0.6-2.4) Monocytes # (Manual) 0.9 H (0.0-0.8) Basophils # (Manual) 0.1 (0.0-0.1) Nucleated RBCs # 0 K/uL Sodium 129 L (136-148) mmol/L Potassium 3.2 L (3.5-5.1) mmol/L Chloride 95 L (98-107) mmol/L Carbon Dioxide 22.3 (21.0-32.0) mmol/L BUN 17 (7.0-18.0) mg/dL Creatinine 0.9 (0.8-1.3) mg/dL Est Cr Clr Drug Dosing 78.07 mL/min Estimated GFR (MDRD) > 60.0 ml/min Glucose 130 H (74-106) mg/dL POC Glucose (70-99) mg/dL Calcium 8.1 L (8.5-10.1) mg/dL Phosphorus 2.0 L (2.6-4.7) mg/dL Magnesium 2.0 (1.8-2.4) mg/dL Guillaume Results Last 24 Hours: Microbiology 03/18/21 17:06 Cryptosporidium/Giardia - Final Stool / Feces 03/18/21 17:06 Shiga Toxin I & II - Final Stool / Feces 03/19/21 01:05 Clostridioides difficile (PCR) - Final Stool / Feces Med Orders - Current: Current Medications Acetaminophen (Acetaminophen 325 Mg Tab) 650 mg PO Q4H PRN PRN Reason: Pain (Mild 1-3)/fever Albuterol/Ipratropium (Albuterol/Ipratropium 3.0-0.5 Mg/3 Ml Neb Soln) 3 ml NEB Q4HRRT PRN PRN Reason: Shortness Of Breath/wheezing Gabapentin (Gabapentin 300 Mg Cap) 300 mg PO TID [facility] Last Admin: 03/21/21 05:01 Dose: 300 mg Documented by: Heparin Sodium (Porcine) (Heparin Sodium 5,000 Units/Ml Vial) 5,000 units SUBCUT Q8H [facility] Last Admin: 03/21/21 05:01 Dose: 5,000 units Documented by: Pantoprazole Sodium 40 mg/ (Sodium Chloride) 10 mls @ 200 mls/hr IV Q24H [facility] Last Admin: 03/20/21 17:27 Dose: 200 mls/hr Documented by: Potassium Chloride 40 meq/ (Dextrose/Sodium Chloride) 1,020 mls @ 125 mls/hr IV Q8H [facility] Last Admin: 03/21/21 01:25 Dose: 125 mls/hr Documented by: Potassium Phosphate 20 mmole/ (Sodium Chloride) 506.6667 mls @ 168.889 mls/hr IV ONETIME ONE Stop: 03/21/21 11:29 Last Admin: 03/21/21 09:04 Dose: 168.889 mls/hr Documented by: Levothyroxine Sodium (Levothyroxine 50 Mcg Tab) 50 mcg PO ACBREAKFAST [facility] Last Admin: 03/21/21 06:56 Dose: 50 mcg Documented by: Morphine Sulfate (Morphine 2 Mg/Ml Syringe) 1 mg IVPUSH Q4H PRN PRN Reason: Pain Ondansetron HCl (Ondansetron 4 Mg/2 Ml Sdv) 4 mg IVPUSH Q4H PRN PRN Reason: Nausea/Vomiting Potassium Chloride (Potassium Chloride 20 Meq Tab.Er) 40 meq PO BIDMEALS [facility] Last Admin: 03/21/21 08:42 Dose: 40 meq Documented by: Sodium Chloride (Sodium Chloride 0.9% 10 Ml Syringe) 10 ml FLUSH ASDIRECTED PRN PRN Reason: Keep Vein Open Last Admin: 03/18/21 14:56 Dose: 10 ml Documented by: Sodium Chloride (Sodium Chloride 0.9% 2.5 Ml Syringe) 2.5 ml FLUSH ASDIRECTED PRN PRN Reason: Keep Vein Open Last Admin: 03/18/21 14:56 Dose: 2.5 ml Documented by: Vancomycin HCl (Vancomycin 125 Mg Cap) 125 mg PO QID [facility] Last Admin: 03/21/21 05:01 Dose: 125 mg Documented by: Discontinued Medications Sodium Chloride (Normal Saline) 1,000 mls @ 125 mls/hr IV STAT ONE Stop: 03/18/21 22:45 Last Infusion: 03/18/21 15:59 Dose: 999 mls/hr Documented by: Potassium Chloride 40 meq/ (Premix) 100 mls @ 25 mls/hr IV ONETIME ONE Stop: 03/18/21 19:50 Last Admin: 03/18/21 17:49 Dose: 25 mls/hr Documented by: Sodium Chloride (Normal Saline) 1,000 mls @ 125 mls/hr IV STAT ONE Stop: 03/18/21 23:51 Last Admin: 03/18/21 17:13 Dose: 125 mls/hr Documented by: Potassium Chloride/Dextrose/Sod Cl (D5 Ns With 20 Meq Kcl) 1,000 mls @ 125 mls/hr IV ASDIRECTED [facility] Last Admin: 03/19/21 02:12 Dose: 125 mls/hr Documented by: Lactated Ringer's (Ringers, Lactated) 1,000 mls @ 125 mls/hr IV Q8H [facility] Last Admin: 03/20/21 05:01 Dose: 125 mls/hr Documented by: Ciprofloxacin/Dextrose 400 mg/ (Premix) 200 mls @ 200 mls/hr IV Q12H [facility] Last Admin: 03/19/21 01:00 Dose: 200 mls/hr Documented by: Metronidazole 500 mg/ Premix 100 mls @ 100 mls/hr IV QID [facility] Last Admin: 03/19/21 06:00 Dose: 100 mls/hr Documented by: Potassium Phosphate 15 mmole/Potassium Chloride 20 meq/Sodium Chloride 515 mls @ 67.5 mls/hr IV ONETIME ONE Stop: 03/19/21 16:37 Last Admin: 03/19/21 09:12 Dose: 67.5 mls/hr Documented by: Potassium Phosphate 15 mmole/Potassium Chloride 20 meq/Sodium Chloride 515 mls @ 67.5 mls/hr IV ONETIME ONE Stop: 03/20/21 16:07 Last Admin: 03/20/21 09:20 Dose: 67.5 mls/hr Documented by: Potassium Chloride (Potassium Chloride 20 Meq Tab.Er) 40 meq PO ONETIME ONE Stop: 03/19/21 08:19 Last Admin: 03/19/21 09:19 Dose: 40 meq Documented by: Potassium Chloride (Potassium Chloride 20 Meq Tab.Er) 40 meq PO ONETIME ONE Stop: 03/19/21 15:01 Last Admin: 03/19/21 15:18 Dose: 40 meq Documented by: Vancomycin HCl (Vancomycin 125 Mg Cap) 125 mg PO Q4H [facility] Last Admin: 03/19/21 06:35 Dose: 125 mg Documented by: - Exam Quality Assessment: DVT Prophylaxis General: Alert, Oriented, Cooperative, No Acute Distress Lungs: Clear to Auscultation, Normal Respiratory Effort Cardiovascular: Regular Rate, Regular Rhythm GI/Abdominal Exam: Normal Bowel Sounds, Soft, Non-Tender Extremities: Normal Inspection, Normal Range of Motion, Non-Tender, No Pedal Edema Neurological: No New Focal Deficit Psy/Mental Status: Alert, Normal Affect, Normal Mood - Patient Data Lab Results Last 24 hrs: Laboratory Results - last 24 hr 03/20/21 03/20/21 03/20/21 Range/Units 12:24 14:37 18:02 WBC (4.0-11.0) K/uL RBC (4.50-5.90) M/uL Hgb (13.0-17.0) g/dL Hct (38.0-50.0) % MCV (80.0-98.0) fL MCH (27.0-32.0) pg MCHC (31.0-37.0) g/dL RDW Std Deviation (28.0-62.0) fl RDW Coeff of Caleb (11.0-15.0) % Plt Count (150-400) K/uL MPV (7.40-12.00) fL Add Manual Diff Neutrophils % (Manual) (48.0-80.0) % Band Neutrophils % % Lymphocytes % (Manual) (16.0-40.0) % Monocytes % (Manual) (0.0-15.0) % Basophils % (Manual) (0.0-1.5) % Nucleated RBC % /100WBC Absolute Seg Neuts (1.4-5.7) Band Neutrophils # Lymphocytes # (Manual) (0.6-2.4) Monocytes # (Manual) (0.0-0.8) Basophils # (Manual) (0.0-0.1) Nucleated RBCs # K/uL Sodium (136-148) mmol/L Potassium 3.1 L (3.5-5.1) mmol/L Chloride (98-107) mmol/L Carbon Dioxide (21.0-32.0) mmol/L BUN (7.0-18.0) mg/dL Creatinine (0.8-1.3) mg/dL Est Cr Clr Drug Dosing mL/min Estimated GFR (MDRD) ml/min Glucose (74-106) mg/dL POC Glucose 100 H 134 H (70-99) mg/dL Calcium (8.5-10.1) mg/dL Phosphorus (2.6-4.7) mg/dL Magnesium (1.8-2.4) mg/dL 03/21/21 03/21/21 Range/Units 05:30 05:30 WBC 11.34 H (4.0-11.0) K/uL RBC 3.64 L (4.50-5.90) M/uL Hgb 12.7 L (13.0-17.0) g/dL Hct 36.0 L (38.0-50.0) % MCV 98.9 H (80.0-98.0) fL MCH 34.9 H (27.0-32.0) pg MCHC 35.3 (31.0-37.0) g/dL RDW Std Deviation 50.7 (28.0-62.0) fl RDW Coeff of Acleb 14 (11.0-15.0) % Plt Count 456 H (150-400) K/uL MPV 9.70 (7.40-12.00) fL Add Manual Diff YES Neutrophils % (Manual) 67 (48.0-80.0) % Band Neutrophils % 14 % Lymphocytes % (Manual) 10 L (16.0-40.0) % Monocytes % (Manual) 8 (0.0-15.0) % Basophils % (Manual) 1 (0.0-1.5) % Nucleated RBC % 0.0 /100WBC Absolute Seg Neuts 7.6 H (1.4-5.7) Band Neutrophils # 1.6 Lymphocytes # (Manual) 1.1 (0.6-2.4) Monocytes # (Manual) 0.9 H (0.0-0.8) Basophils # (Manual) 0.1 (0.0-0.1) Nucleated RBCs # 0 K/uL Sodium 129 L (136-148) mmol/L Potassium 3.2 L (3.5-5.1) mmol/L Chloride 95 L (98-107) mmol/L Carbon Dioxide 22.3 (21.0-32.0) mmol/L BUN 17 (7.0-18.0) mg/dL Creatinine 0.9 (0.8-1.3) mg/dL Est Cr Clr Drug Dosing 78.07 mL/min Estimated GFR (MDRD) > 60.0 ml/min Glucose 130 H (74-106) mg/dL POC Glucose (70-99) mg/dL Calcium 8.1 L (8.5-10.1) mg/dL Phosphorus 2.0 L (2.6-4.7) mg/dL Magnesium 2.0 (1.8-2.4) mg/dL Result Diagrams: 03/21/21 05:30 03/21/21 05:30 Guillaume Results Last 24 hrs: Microbiology 03/18/21 17:06 Cryptosporidium/Giardia - Final Stool / Feces 03/18/21 17:06 Shiga Toxin I & II - Final Stool / Feces 03/19/21 01:05 Clostridioides difficile (PCR) - Final Stool / Feces Sepsis Event Note - Evaluation Sepsis Screening Result: No Definite Risk - Focused Exam Vital Signs: Vital Signs Temp Pulse Resp BP Pulse Ox 03/21/21 07:26 97.6 F 78 15 110/77 99 03/21/21 04:00 98.6 F 78 14 108/67 97 03/20/21 23:06 97.6 F 86 15 123/76 99 - Problem List & Annotations (1) Hypophosphatemia SNOMED Code(s): 9886499 Code(s): E83.39 - OTHER DISORDERS OF PHOSPHORUS METABOLISM Status: Acute Current Visit: Yes (2) C. difficile colitis SNOMED Code(s): 435866744 Code(s): A04.72 - ENTEROCOLITIS D/T CLOSTRIDIUM DIFFICILE, NOT SPCF RECUR Status: Acute Current Visit: Yes (3) Port-A-Cath in place SNOMED Code(s): 266387733 Code(s): Z95.828 - PRESENCE OF OTHER VASCULAR IMPLANTS AND GRAFTS Status: Acute Current Visit: Yes (4) Tongue carcinoma Status: Acute Current Visit: Yes (5) Dehydration SNOMED Code(s): 79794417 Code(s): E86.0 - DEHYDRATION Status: Acute Current Visit: No (6) Diarrhea SNOMED Code(s): 25584999 Code(s): R19.7 - DIARRHEA, UNSPECIFIED Status: Acute Current Visit: No Qualifiers: Diarrhea type: unspecified type Qualified Code(s): R19.7 - Diarrhea, unspecified (7) Hypokalemia SNOMED Code(s): 82605959 Code(s): E87.6 - HYPOKALEMIA Status: Acute Current Visit: No - Problem List Review Problem List Initiated/Reviewed/Updated: Yes - My Orders Last 24 Hours: My Active Orders 03/20/21 10:59 Consult to Rubber Cutter [CONS] Routine 03/20/21 11:22 Blood Glucose Check, Bedside [RC] TIDMEALS 03/20/21 13:30 Heparin Sodium 5,000 units SUBCUT Q8H 03/20/21 Dinner Full Liquid Diet [DIET] Potassium Chloride 40 meq Dextrose 5%-0.9% NaCl [Dextrose 5%-Normal Saline] 1,000 ml IV Q8H 03/21/21 08:30 Potassium Phosphates 20 mmole Sodium Chloride 0.9% [Normal Saline] 500 ml IV ONETIME 03/22/21 05:11 BASIC METABOLIC PANEL,BMP [CHEM] AM CBC WITH AUTO DIFF [HEME] AM MAGNESIUM [CHEM] AM PHOSPHORUS [CHEM] AM 03/23/21 05:11 BASIC METABOLIC PANEL,BMP [CHEM] AM CBC WITH AUTO DIFF [HEME] AM MAGNESIUM [CHEM] AM PHOSPHORUS [CHEM] AM - Plan Plan:: 70 y/o M admitted for diarrhea, hortencia, hypokalemia 1. C. difficile colitis -Continue vancomycin 125 mg 4 times daily p.o. -Add Flagyl 500 mg IV 4 times daily -Continue IV fluid resuscitation due to continued stools -Continue D5 NS with 40 of KCl continuously -Replete potassium, phosphorus and magnesium -Recheck potassium this afternoon -Continue PPI -Continue Zofran as needed for nausea -Continue morphine as needed pain -C. difficile PCR remains negative but due to significant symptoms and positive antigen we will continue with treatment of vancomycin. -Increase diet to Jevity per home. -Generalized weakness and deconditioning will consult PT 2. HORTENCIA -Improving with IV fluids -Continue to monitor and avoid nephrotoxic medications 3. Hypokalemia hypophosphatemia -Hypokalemia improving steadily with stools decreasing. -Hypophosphatemia continues. Continue to replete IV. 4. Tongue carcinoma -Continue gabapentin 5. Hypothyroidism -Continue levothyroxine VTE prophylaxis: Heparin GI prophylaxis: Protonix CODE STATUS: DNR/DNI Dispo: 2 to 3 days pending improvement
[2021-03-21] MEDS: metroNIDAZOLE/Normal Saline 500 MG in Premix Bag 1 BAG IV SCH ×2 (11:54→18:57)
[2021-03-21] MEDS: Cocoa Butter/Phenylephrine Rectal Supp RECTAL PRN (15:59)
[2021-03-21] MEDS: Pantoprazole 40 MG in Sodium Chloride 0.9% 10 ML IV SCH (18:52)
[2021-03-22] MEDS: Vancomycin 125 MG Cap PO SCH ×5 (00:36→23:58)
[2021-03-22] MEDS: metroNIDAZOLE/Normal Saline 500 MG in Premix Bag 1 BAG IV SCH ×3 (03:46→20:00)
[2021-03-22] MEDS: Heparin Sodium 5,000 Units/ML Vial SUBCUT SCH ×3 (06:11→21:16)
[2021-03-22] MEDS: Gabapentin 300 MG Cap PO SCH ×3 (06:12→21:17)
[2021-03-22 06:34] LABS: BLOOD UREA NITROGEN,BUN 11 mg/dL (7.0-18.0); CARBON DIOXIDE,CO2 18.5 mmol/L (21.0-32.0); CHLORIDE,CL 101 mmol/L (98-107); GLUCOSE RANDOM 121 mg/dL (74-106); POTASSIUM,K 3.7 mmol/L (3.5-5.1); SODIUM,NA 132 mmol/L (136-148)
[2021-03-22] MEDS: Levothyroxine 50 MCG Tab PO SCH (07:59)
[2021-03-22] MEDS: Potassium Chloride 20 MEQ Tab.ER PO SCH ×2 (08:00→16:34)
[2021-03-22] MEDS: Sodium Chloride 0.9% 10 ML Syringe FLUSH PRN (08:04)
[2021-03-22] MEDS ORDERED: Lactated Ringers 1,000 ML IV ONE (08:19)
[2021-03-22] MEDS ORDERED: Potassium Phosphates 15 MMOLE in Sodium Chloride 0.9% 500 ML IV ONE (08:20)
--- NOTE | 2021-03-22 08:25 | PCM.PN ---
- General Info Date of Service: 03/22/21 Admission Dx/Problem (Free Text): Admission Diagnosis/Problem Admission Diagnosis/Problem Hypokalemia, C. difficile colitis, hypophosphatemia Subjective Update: Steady improvement. Diarrhea continues 5-7 daily, but feels as though length of time between stools is increasing. Feels rectum is very irritated but Desitin and Prep H helping. No chest pain or SOB Functional Status: Reports: Pain Controlled, Tolerating Diet, Ambulating - Review of Systems General: Reports: Fatigue, Malaise (but feeling better each day), Appetite (improving, but nervous to eat as the last time he ate he threw up everything and started having diarrhea. ). Denies: Weakness Pulmonary: Reports: No Symptoms. Denies: Shortness of Breath Cardiovascular: Reports: No Symptoms. Denies: Chest Pain Gastrointestinal: Reports: Diarrhea. Denies: Abdominal Pain Genitourinary: Reports: No Symptoms. Denies: Dysuria, Frequency, Burning Musculoskeletal: Reports: No Symptoms Skin: Reports: No Symptoms Neurological: Reports: No Symptoms Psychiatric: Reports: No Symptoms - Patient Data Vitals - Most Recent: Last Vital Signs Temp 98.6 F 03/22/21 07:58 Pulse 63 03/22/21 07:58 Resp 18 03/22/21 07:58 BP 93/56 L 03/22/21 07:58 Pulse Ox 97 03/22/21 07:58 Orthostatic Blood Pressure [ 83/54 Standing] Orthostatic Blood Pressure [ 99/66 Sitting] Orthostatic Blood Pressure [ 109/75 Supine] Weight - Most Recent: 70.261 kg I&O - Last 24 Hours: Intake & Output 03/21/21 03/22/21 03/22/21 22:59 06:59 14:59 Intake Total 1179 2290 Output Total 1500 4300 Balance -321 -2009 Lab Results Last 24 Hours: Laboratory Results - last 24 hr 03/21/21 03/21/21 03/21/21 Range/Units 06:55 11:52 19:08 WBC (4.0-11.0) K/uL RBC (4.50-5.90) M/uL Hgb (13.0-17.0) g/dL Hct (38.0-50.0) % MCV (80.0-98.0) fL MCH (27.0-32.0) pg MCHC (31.0-37.0) g/dL RDW Std Deviation (28.0-62.0) fl RDW Coeff of Caleb (11.0-15.0) % Plt Count (150-400) K/uL MPV (7.40-12.00) fL Add Manual Diff Neutrophils % (Manual) (48.0-80.0) % Band Neutrophils % % Lymphocytes % (Manual) (16.0-40.0) % Monocytes % (Manual) (0.0-15.0) % Metamyelocytes % % Nucleated RBC % /100WBC Absolute Seg Neuts (1.4-5.7) Band Neutrophils # Lymphocytes # (Manual) (0.6-2.4) Monocytes # (Manual) (0.0-0.8) Absolute Metamyelocyte Nucleated RBCs # K/uL Sodium (136-148) mmol/L Potassium (3.5-5.1) mmol/L Chloride (98-107) mmol/L Carbon Dioxide (21.0-32.0) mmol/L BUN (7.0-18.0) mg/dL Creatinine (0.8-1.3) mg/dL Est Cr Clr Drug Dosing mL/min Estimated GFR (MDRD) ml/min Glucose (74-106) mg/dL POC Glucose 136 H 106 H 114 H (70-99) mg/dL Calcium (8.5-10.1) mg/dL Phosphorus (2.6-4.7) mg/dL Magnesium (1.8-2.4) mg/dL 03/22/21 03/22/21 03/22/21 Range/Units 05:32 05:32 08:10 WBC 10.79 (4.0-11.0) K/uL RBC 3.39 L (4.50-5.90) M/uL Hgb 11.9 L (13.0-17.0) g/dL Hct 34.0 L (38.0-50.0) % MCV 100.3 H (80.0-98.0) fL MCH 35.1 H (27.0-32.0) pg MCHC 35.0 (31.0-37.0) g/dL RDW Std Deviation 52.1 (28.0-62.0) fl RDW Coeff of Caleb 14 (11.0-15.0) % Plt Count 398 (150-400) K/uL MPV 9.60 (7.40-12.00) fL Add Manual Diff YES Neutrophils % (Manual) 55 (48.0-80.0) % Band Neutrophils % 27 % Lymphocytes % (Manual) 9 L (16.0-40.0) % Monocytes % (Manual) 7 (0.0-15.0) % Metamyelocytes % 2 % Nucleated RBC % 0.0 /100WBC Absolute Seg Neuts 5.9 H (1.4-5.7) Band Neutrophils # 2.9 Lymphocytes # (Manual) 1.0 (0.6-2.4) Monocytes # (Manual) 0.8 (0.0-0.8) Absolute Metamyelocyte 0.2 Nucleated RBCs # 0 K/uL Sodium 132 L (136-148) mmol/L Potassium 3.7 (3.5-5.1) mmol/L Chloride 101 (98-107) mmol/L Carbon Dioxide 18.5 L (21.0-32.0) mmol/L BUN 11 (7.0-18.0) mg/dL Creatinine 0.8 (0.8-1.3) mg/dL Est Cr Clr Drug Dosing 87.83 mL/min Estimated GFR (MDRD) > 60.0 ml/min Glucose 121 H (74-106) mg/dL POC Glucose 118 H (70-99) mg/dL Calcium 7.9 L (8.5-10.1) mg/dL Phosphorus 2.0 L (2.6-4.7) mg/dL Magnesium 1.7 L (1.8-2.4) mg/dL Guillaume Results Last 24 Hours: Microbiology 03/18/21 17:06 Stool Culture - Preliminary Stool / Feces Shiga Toxin I & II - Final Med Orders - Current: Current Medications Acetaminophen (Acetaminophen 325 Mg Tab) 650 mg PO Q4H PRN PRN Reason: Pain (Mild 1-3)/fever Albuterol/Ipratropium (Albuterol/Ipratropium 3.0-0.5 Mg/3 Ml Neb Soln) 3 ml NEB Q4HRRT PRN PRN Reason: Shortness Of Breath/wheezing [place] Butter/Phenylephrine ([place] Butter/Phenylephrine Rectal Supp) 1 each RECTAL QID PRN PRN Reason: hemorrhoidal pain Last Admin: 03/21/21 15:59 Dose: 1 each Documented by: Gabapentin (Gabapentin 300 Mg Cap) 300 mg PO TID [facility] Last Admin: 03/22/21 06:12 Dose: 300 mg Documented by: Heparin Sodium (Porcine) (Heparin Sodium 5,000 Units/Ml Vial) 5,000 units SUBCUT Q8H [facility] Last Admin: 03/22/21 06:11 Dose: 5,000 units Documented by: Pantoprazole Sodium 40 mg/ (Sodium Chloride) 10 mls @ 200 mls/hr IV Q24H [facility] Last Admin: 03/21/21 18:52 Dose: 200 mls/hr Documented by: Metronidazole 500 mg/ Premix 100 mls @ 100 mls/hr IV Q8H [facility] Last Admin: 03/22/21 03:46 Dose: 100 mls/hr Documented by: Potassium Chloride 40 meq/ (Dextrose/Sodium Chloride) 1,020 mls @ 125 mls/hr IV Q8H [facility] Last Admin: 03/22/21 05:12 Dose: 125 mls/hr Documented by: Lactated Ringer's (Ringers, Lactated) 1,000 mls @ 999 mls/hr IV ONETIME ONE Stop: 03/22/21 09:19 Potassium Phosphate 15 mmole/ (Sodium Chloride) 505 mls @ 67.5 mls/hr IV ONETIME ONE Stop: 03/22/21 15:48 Levothyroxine Sodium (Levothyroxine 50 Mcg Tab) 50 mcg PO ACBREAKFAST [facility] Last Admin: 03/22/21 07:59 Dose: 50 mcg Documented by: Morphine Sulfate (Morphine 2 Mg/Ml Syringe) 1 mg IVPUSH Q4H PRN PRN Reason: Pain Ondansetron HCl (Ondansetron 4 Mg/2 Ml Sdv) 4 mg IVPUSH Q4H PRN PRN Reason: Nausea/Vomiting Potassium Chloride (Potassium Chloride 20 Meq Tab.Er) 40 meq PO BIDMEALS [facility] Last Admin: 03/22/21 08:00 Dose: 40 meq Documented by: Sodium Chloride (Sodium Chloride 0.9% 10 Ml Syringe) 10 ml FLUSH ASDIRECTED PRN PRN Reason: Keep Vein Open Last Admin: 03/22/21 08:04 Dose: 10 ml Documented by: Sodium Chloride (Sodium Chloride 0.9% 2.5 Ml Syringe) 2.5 ml FLUSH ASDIRECTED PRN PRN Reason: Keep Vein Open Last Admin: 03/18/21 14:56 Dose: 2.5 ml Documented by: Sodium Phosphate (Phosphorus #1 250 Mg Tab) 250 mg PO QID [facility] Vancomycin HCl (Vancomycin 125 Mg Cap) 125 mg PO QID [facility] Last Admin: 03/22/21 06:12 Dose: 125 mg Documented by: Discontinued Medications Sodium Chloride (Normal Saline) 1,000 mls @ 125 mls/hr IV STAT ONE Stop: 03/18/21 22:45 Last Infusion: 03/18/21 15:59 Dose: 999 mls/hr Documented by: Potassium Chloride 40 meq/ (Premix) 100 mls @ 25 mls/hr IV ONETIME ONE Stop: 03/18/21 19:50 Last Admin: 03/18/21 17:49 Dose: 25 mls/hr Documented by: Sodium Chloride (Normal Saline) 1,000 mls @ 125 mls/hr IV STAT ONE Stop: 03/18/21 23:51 Last Admin: 03/18/21 17:13 Dose: 125 mls/hr Documented by: Potassium Chloride/Dextrose/Sod Cl (D5 Ns With 20 Meq Kcl) 1,000 mls @ 125 mls /hr IV ASDIRECTED [facility] Last Admin: 03/19/21 02:12 Dose: 125 mls/hr Documented by: Lactated Ringer's (Ringers, Lactated) 1,000 mls @ 125 mls/hr IV Q8H [facility] Last Admin: 03/20/21 05:01 Dose: 125 mls/hr Documented by: Ciprofloxacin/Dextrose 400 mg/ (Premix) 200 mls @ 200 mls/hr IV Q12H [facility] Last Admin: 03/19/21 01:00 Dose: 200 mls/hr Documented by: Metronidazole 500 mg/ Premix 100 mls @ 100 mls/hr IV QID [facility] Last Admin: 03/19/21 06:00 Dose: 100 mls/hr Documented by: Potassium Phosphate 15 mmole/Potassium Chloride 20 meq/Sodium Chloride 515 mls @ 67.5 mls/hr IV ONETIME ONE Stop: 03/19/21 16:37 Last Admin: 03/19/21 09:12 Dose: 67.5 mls/hr Documented by: Potassium Phosphate 15 mmole/Potassium Chloride 20 meq/Sodium Chloride 515 mls @ 67.5 mls/hr IV ONETIME ONE Stop: 03/20/21 16:07 Last Admin: 03/20/21 09:20 Dose: 67.5 mls/hr Documented by: Potassium Chloride 40 meq/ (Dextrose/Sodium Chloride) 1,020 mls @ 125 mls/hr IV Q8H [facility] Stop: 03/21/21 20:29 Last Admin: 03/21/21 22:23 Dose: Not Given Documented by: Potassium Phosphate 20 mmole/ (Sodium Chloride) 506.6667 mls @ 168.889 mls/hr IV ONETIME ONE Stop: 03/21/21 11:29 Last Admin: 03/21/21 09:04 Dose: 168.889 mls/hr Documented by: Potassium Chloride (Potassium Chloride 20 Meq Tab.Er) 40 meq PO ONETIME ONE Stop: 03/19/21 08:19 Last Admin: 03/19/21 09:19 Dose: 40 meq Documented by: Potassium Chloride (Potassium Chloride 20 Meq Tab.Er) 40 meq PO ONETIME ONE Stop: 03/19/21 15:01 Last Admin: 03/19/21 15:18 Dose: 40 meq Documented by: Vancomycin HCl (Vancomycin 125 Mg Cap) 125 mg PO Q4H [facility] Last Admin: 03/19/21 06:35 Dose: 125 mg Documented by: - Exam General: Alert, Oriented, Cooperative Lungs: Clear to Auscultation, Normal Respiratory Effort Cardiovascular: Regular Rate, Regular Rhythm GI/Abdominal Exam: Normal Bowel Sounds, Soft, Non-Tender Back Exam: Normal Inspection, Full Range of Motion Extremities: Normal Inspection, Normal Range of Motion, Non-Tender, No Pedal Edema Neurological: No New Focal Deficit Psy/Mental Status: Alert, Normal Affect, Normal Mood - Patient Data Lab Results Last 24 hrs: Laboratory Results - last 24 hr 03/21/21 03/21/21 03/21/21 Range/Units 06:55 11:52 19:08 WBC (4.0-11.0) K/uL RBC (4.50-5.90) M/uL Hgb (13.0-17.0) g/dL Hct (38.0-50.0) % MCV (80.0-98.0) fL MCH (27.0-32.0) pg MCHC (31.0-37.0) g/dL RDW Std Deviation (28.0-62.0) fl RDW Coeff of Caleb (11.0-15.0) % Plt Count (150-400) K/uL MPV (7.40-12.00) fL Add Manual Diff Neutrophils % (Manual) (48.0-80.0) % Band Neutrophils % % Lymphocytes % (Manual) (16.0-40.0) % Monocytes % (Manual) (0.0-15.0) % Metamyelocytes % % Nucleated RBC % /100WBC Absolute Seg Neuts (1.4-5.7) Band Neutrophils # Lymphocytes # (Manual) (0.6-2.4) Monocytes # (Manual) (0.0-0.8) Absolute Metamyelocyte Nucleated RBCs # K/uL Sodium (136-148) mmol/L Potassium (3.5-5.1) mmol/L Chloride (98-107) mmol/L Carbon Dioxide (21.0-32.0) mmol/L BUN (7.0-18.0) mg/dL Creatinine (0.8-1.3) mg/dL Est Cr Clr Drug Dosing mL/min Estimated GFR (MDRD) ml/min Glucose (74-106) mg/dL POC Glucose 136 H 106 H 114 H (70-99) mg/dL Calcium (8.5-10.1) mg/dL Phosphorus (2.6-4.7) mg/dL Magnesium (1.8-2.4) mg/dL 03/22/21 03/22/21 03/22/21 Range/Units 05:32 05:32 08:10 WBC 10.79 (4.0-11.0) K/uL RBC 3.39 L (4.50-5.90) M/uL Hgb 11.9 L (13.0-17.0) g/dL Hct 34.0 L (38.0-50.0) % MCV 100.3 H (80.0-98.0) fL MCH 35.1 H (27.0-32.0) pg MCHC 35.0 (31.0-37.0) g/dL RDW Std Deviation 52.1 (28.0-62.0) fl RDW Coeff of Caleb 14 (11.0-15.0) % Plt Count 398 (150-400) K/uL MPV 9.60 (7.40-12.00) fL Add Manual Diff YES Neutrophils % (Manual) 55 (48.0-80.0) % Band Neutrophils % 27 % Lymphocytes % (Manual) 9 L (16.0-40.0) % Monocytes % (Manual) 7 (0.0-15.0) % Metamyelocytes % 2 % Nucleated RBC % 0.0 /100WBC Absolute Seg Neuts 5.9 H (1.4-5.7) Band Neutrophils # 2.9 Lymphocytes # (Manual) 1.0 (0.6-2.4) Monocytes # (Manual) 0.8 (0.0-0.8) Absolute Metamyelocyte 0.2 Nucleated RBCs # 0 K/uL Sodium 132 L (136-148) mmol/L Potassium 3.7 (3.5-5.1) mmol/L Chloride 101 (98-107) mmol/L Carbon Dioxide 18.5 L (21.0-32.0) mmol/L BUN 11 (7.0-18.0) mg/dL Creatinine 0.8 (0.8-1.3) mg/dL Est Cr Clr Drug Dosing 87.83 mL/min Estimated GFR (MDRD) > 60.0 ml/min Glucose 121 H (74-106) mg/dL POC Glucose 118 H (70-99) mg/dL Calcium 7.9 L (8.5-10.1) mg/dL Phosphorus 2.0 L (2.6-4.7) mg/dL Magnesium 1.7 L (1.8-2.4) mg/dL Result Diagrams: 03/22/21 05:32 03/22/21 05:32 Guillaume Results Last 24 hrs: Microbiology 03/18/21 17:06 Stool Culture - Preliminary Stool / Feces Shiga Toxin I & II - Final Sepsis Event Note - Evaluation Sepsis Screening Result: No Definite Risk - Focused Exam Vital Signs: Vital Signs Temp Pulse Resp BP Pulse Ox 03/22/21 07:58 98.6 F 63 18 93/56 L 97 03/22/21 03:49 98.2 F 67 16 108/71 97 03/22/21 00:34 97.8 F 72 16 105/72 98 - Problem List & Annotations (1) Hypophosphatemia SNOMED Code(s): 5702022 Code(s): E83.39 - OTHER DISORDERS OF PHOSPHORUS METABOLISM Status: Acute Current Visit: Yes (2) C. difficile colitis SNOMED Code(s): 608531010 Code(s): A04.72 - ENTEROCOLITIS D/T CLOSTRIDIUM DIFFICILE, NOT SPCF RECUR Status: Acute Current Visit: Yes (3) Port-A-Cath in place SNOMED Code(s): 916028938 Code(s): Z95.828 - PRESENCE OF OTHER VASCULAR IMPLANTS AND GRAFTS Status: Acute Current Visit: Yes (4) Tongue carcinoma Status: Acute Current Visit: Yes (5) Dehydration SNOMED Code(s): 83266443 Code(s): E86.0 - DEHYDRATION Status: Acute Current Visit: No (6) Diarrhea SNOMED Code(s): 80263242 Code(s): R19.7 - DIARRHEA, UNSPECIFIED Status: Acute Current Visit: No Qualifiers: Diarrhea type: unspecified type Qualified Code(s): R19.7 - Diarrhea, unspecified (7) Hypokalemia SNOMED Code(s): 97556000 Code(s): E87.6 - HYPOKALEMIA Status: Acute Current Visit: No - Problem List Review Problem List Initiated/Reviewed/Updated: Yes - My Orders Last 24 Hours: My Active Orders 03/21/21 11:00 metroNIDAZOLE/Normal Saline [Flagyl in NS 500 MG/100 ML] 500 mg Premix Bag 1 bag IV Q8H 03/21/21 11:41 Consult to Physical Therapy [PT Evaluation and Treatment] [CONS] Routine 03/21/21 15:00 [place] Butter/Phenylephrine [Preparation H Supp] 1 each RECTAL QID PRN 03/21/21 20:30 Potassium Chloride 40 meq Dextrose 5%-0.9% NaCl [Dextrose 5%-Normal Saline] 1,000 ml IV Q8H 03/22/21 08:19 Lactated Ringers [Ringers, Lactated] 1,000 ml IV ONETIME 03/22/21 08:20 Potassium Phosphates 15 mmole Sodium Chloride 0.9% [Normal Saline] 500 ml IV ONETIME 03/22/21 12:00 Phosphorus #1 [Neutra-Phos] 250 mg PO QID 05/01/21 05:11 BASIC METABOLIC PANEL,BMP [CHEM] AM CBC WITH AUTO DIFF [HEME] AM MAGNESIUM [CHEM] AM PHOSPHORUS [CHEM] AM - Plan Plan:: 70 y/o M admitted for diarrhea, eric, hypokalemia 1. C. difficile colitis -Continue vancomycin 125 mg 4 times daily p.o. -Continue Flagyl 500 mg IV 4 times daily -Continue IV fluid resuscitation due to continued stools -Continue D5 NS with 40 of KCl continuously - LR bolus this morning as he is negative balance overnight. -Continue PPI -Generalized weakness and deconditioning will consult PT 2. Hypokalemia hypophosphatemia -Hypokalemia improving steadily with stools decreasing. -Hypophosphatemia continues. Continue to replete IV. 3. Tongue carcinoma -Continue gabapentin 4. Hypothyroidism -Continue levothyroxine VTE prophylaxis: Heparin GI prophylaxis: Protonix CODE STATUS: DNR/DNI Dispo: 2 to 3 days pending improvement
[2021-03-22] MEDS: Phosphorus #1 250 MG Tab PO SCH ×3 (11:11→23:59)
[2021-03-22] MEDS: Acidophilus with Citrus Pectin Tab PO SCH ×2 (16:34→21:17)
[2021-03-22] MEDS: Pantoprazole 40 MG in Sodium Chloride 0.9% 10 ML IV SCH (18:23)
[2021-03-22] MEDS: Sodium Chloride 0.9% 2.5 ML Syringe FLUSH PRN (18:26)
[2021-03-23] MEDS: metroNIDAZOLE/Normal Saline 500 MG in Premix Bag 1 BAG IV SCH ×3 (03:38→18:09)
[2021-03-23] MEDS: Heparin Sodium 5,000 Units/ML Vial SUBCUT SCH ×3 (06:21→21:11)
[2021-03-23] MEDS: Gabapentin 300 MG Cap PO SCH ×3 (06:21→22:38)
[2021-03-23] MEDS: Phosphorus #1 250 MG Tab PO SCH ×3 (06:21→17:59)
[2021-03-23] MEDS: Vancomycin 125 MG Cap PO SCH ×3 (06:21→17:53)
[2021-03-23] MEDS: Levothyroxine 50 MCG Tab PO SCH (06:31)
[2021-03-23 06:55] LABS: BLOOD UREA NITROGEN,BUN 8 mg/dL (7.0-18.0); CARBON DIOXIDE,CO2 17.1 mmol/L (21.0-32.0); CHLORIDE,CL 105 mmol/L (98-107); GLUCOSE RANDOM 130 mg/dL (74-106); POTASSIUM,K 4.4 mmol/L (3.5-5.1); SODIUM,NA 136 mmol/L (136-148)
[2021-03-23] MEDS: Ondansetron 4 MG/2 ML SDV IVPUSH PRN ×2 (07:28→22:35)
[2021-03-23] MEDS: Acidophilus with Citrus Pectin Tab PO SCH ×2 (08:55→21:11)
[2021-03-23] MEDS: Potassium Chloride 20 MEQ Tab.ER PO SCH (08:55)
[2021-03-23] MEDS ORDERED: Magnesium Sulfate/Water 2 GM/50 ML Premix Bag IV ONE (09:58)
[2021-03-23] MEDS ORDERED: Magnesium Sulfate/Water 2 GM/50 ML BAG IV ONE (10:45)
--- NOTE | 2021-03-23 11:32 | PCM.PN ---
- General Info Date of Service: 03/23/21 - Review of Systems Systems Review Comment:: stools are more formed and less frequent. - Patient Data Vitals - Most Recent: Last Vital Signs Temp 36.3 C 03/23/21 08:50 Pulse 74 03/23/21 08:50 Resp 12 03/23/21 08:50 BP 99/66 03/23/21 08:50 Pulse Ox 99 03/23/21 08:50 Orthostatic Blood Pressure [ 83/54 Standing] Orthostatic Blood Pressure [ 99/66 Sitting] Orthostatic Blood Pressure [ 109/75 Supine] Weight - Most Recent: 70.261 kg I&O - Last 24 Hours: Intake & Output 03/22/21 03/23/21 03/23/21 22:59 06:59 14:59 Intake Total 1300 2205 Output Total 1700 2700 Balance -400 -495 Lab Results Last 24 Hours: Laboratory Results - last 24 hr 03/22/21 03/23/21 03/23/21 Range/Units 18:04 06:15 06:15 WBC 13.12 H (4.0-11.0) K/uL RBC 3.40 L (4.50-5.90) M/uL Hgb 11.9 L (13.0-17.0) g/dL Hct 34.4 L (38.0-50.0) % MCV 101.2 H (80.0-98.0) fL MCH 35.0 H (27.0-32.0) pg MCHC 34.6 (31.0-37.0) g/dL RDW Std Deviation 53.7 (28.0-62.0) fl RDW Coeff of Caleb 14 (11.0-15.0) % Plt Count 381 (150-400) K/uL MPV 9.30 (7.40-12.00) fL Neut % (Auto) 84.4 H (48.0-80.0) % Lymph % (Auto) 7.5 L (16.0-40.0) % Maverick % (Auto) 7.9 (0.0-15.0) % Eos % (Auto) 0.1 (0.0-7.0) % Baso % (Auto) 0.1 (0.0-1.5) % Neut # (Auto) 11.1 H (1.4-5.7) K/uL Lymph # (Auto) 1.0 (0.6-2.4) K/uL Maverick # (Auto) 1.0 H (0.0-0.8) K/uL Eos # (Auto) 0.0 (0.0-0.7) K/uL Baso # (Auto) 0.0 (0.0-0.1) K/uL Nucleated RBC % 0.0 /100WBC Nucleated RBCs # 0 K/uL Sodium 136 (136-148) mmol/L Potassium 4.4 (3.5-5.1) mmol/L Chloride 105 (98-107) mmol/L Carbon Dioxide 17.1 L (21.0-32.0) mmol/L BUN 8 (7.0-18.0) mg/dL Creatinine 0.8 (0.8-1.3) mg/dL Est Cr Clr Drug Dosing 87.83 mL/min Estimated GFR (MDRD) > 60.0 ml/min Glucose 130 H (74-106) mg/dL POC Glucose 90 (70-99) mg/dL Calcium 7.9 L (8.5-10.1) mg/dL Phosphorus 2.3 L (2.6-4.7) mg/dL Magnesium 1.6 L (1.8-2.4) mg/dL 03/23/21 Range/Units 06:50 WBC (4.0-11.0) K/uL RBC (4.50-5.90) M/uL Hgb (13.0-17.0) g/dL Hct (38.0-50.0) % MCV (80.0-98.0) fL MCH (27.0-32.0) pg MCHC (31.0-37.0) g/dL RDW Std Deviation (28.0-62.0) fl RDW Coeff of Caleb (11.0-15.0) % Plt Count (150-400) K/uL MPV (7.40-12.00) fL Neut % (Auto) (48.0-80.0) % Lymph % (Auto) (16.0-40.0) % Maverick % (Auto) (0.0-15.0) % Eos % (Auto) (0.0-7.0) % Baso % (Auto) (0.0-1.5) % Neut # (Auto) (1.4-5.7) K/uL Lymph # (Auto) (0.6-2.4) K/uL Maverick # (Auto) (0.0-0.8) K/uL Eos # (Auto) (0.0-0.7) K/uL Baso # (Auto) (0.0-0.1) K/uL Nucleated RBC % /100WBC Nucleated RBCs # K/uL Sodium (136-148) mmol/L Potassium (3.5-5.1) mmol/L Chloride (98-107) mmol/L Carbon Dioxide (21.0-32.0) mmol/L BUN (7.0-18.0) mg/dL Creatinine (0.8-1.3) mg/dL Est Cr Clr Drug Dosing mL/min Estimated GFR (MDRD) ml/min Glucose (74-106) mg/dL POC Glucose 123 H (70-99) mg/dL Calcium (8.5-10.1) mg/dL Phosphorus (2.6-4.7) mg/dL Magnesium (1.8-2.4) mg/dL Med Orders - Current: Current Medications Acetaminophen (Acetaminophen 325 Mg Tab) 650 mg PO Q4H PRN PRN Reason: Pain (Mild 1-3)/fever Acidophilus/Pectin (Acidophilus With Luke Pectin Tab) 1 tab PO BID [facility] Last Admin: 03/23/21 08:55 Dose: 1 tab Documented by: Albuterol/Ipratropium (Albuterol/Ipratropium 3.0-0.5 Mg/3 Ml Neb Soln) 3 ml NEB Q4HRRT PRN PRN Reason: Shortness Of Breath/wheezing [place] Butter/Phenylephrine ([place] Butter/Phenylephrine Rectal Supp) 1 each RECTAL QID PRN PRN Reason: hemorrhoidal pain Last Admin: 03/21/21 15:59 Dose: 1 each Documented by: Gabapentin (Gabapentin 300 Mg Cap) 300 mg PO TID [facility] Last Admin: 03/23/21 06:21 Dose: 300 mg Documented by: Heparin Sodium (Porcine) (Heparin Sodium 5,000 Units/Ml Vial) 5,000 units SUBCUT Q8H [facility] Last Admin: 03/23/21 06:21 Dose: 5,000 units Documented by: Pantoprazole Sodium 40 mg/ (Sodium Chloride) 10 mls @ 200 mls/hr IV Q24H [facility] Last Admin: 03/22/21 18:23 Dose: 200 mls/hr Documented by: Metronidazole 500 mg/ Premix 100 mls @ 100 mls/hr IV Q8H [facility] Last Admin: 03/23/21 03:38 Dose: 100 mls/hr Documented by: Lactated Ringer's (Ringers, Lactated) 1,000 mls @ 75 mls/hr IV ASDIRECTED [facility] Magnesium Sulfate (Magnesium Sulfate In Water 2 Gm/50 Ml) 2 gm in 50 mls @ 50 mls/hr IV ONETIME ONE Stop: 03/23/21 11:44 Last Admin: 03/23/21 11:18 Dose: 50 mls/hr Documented by: Levothyroxine Sodium (Levothyroxine 50 Mcg Tab) 50 mcg PO ACBREAKFAST [facility] Last Admin: 03/23/21 06:31 Dose: 50 mcg Documented by: Morphine Sulfate (Morphine 2 Mg/Ml Syringe) 1 mg IVPUSH Q4H PRN PRN Reason: Pain Ondansetron HCl (Ondansetron 4 Mg/2 Ml Sdv) 4 mg IVPUSH Q4H PRN PRN Reason: Nausea/Vomiting Last Admin: 03/23/21 07:28 Dose: 4 mg Documented by: Potassium Chloride (Potassium Chloride 20 Meq Tab.Er) 40 meq PO BIDMEALS [facility] Last Admin: 03/23/21 08:55 Dose: 40 meq Documented by: Sodium Chloride (Sodium Chloride 0.9% 10 Ml Syringe) 10 ml FLUSH ASDIRECTED PRN PRN Reason: Keep Vein Open Last Admin: 03/22/21 08:04 Dose: 10 ml Documented by: Sodium Chloride (Sodium Chloride 0.9% 2.5 Ml Syringe) 2.5 ml FLUSH ASDIRECTED PRN PRN Reason: Keep Vein Open Last Admin: 03/22/21 18:26 Dose: 2.5 ml Documented by: Sodium Phosphate (Phosphorus #1 250 Mg Tab) 250 mg PO QID [facility] Last Admin: 03/23/21 11:26 Dose: 250 mg Documented by: Vancomycin HCl (Vancomycin 125 Mg Cap) 125 mg PO QID [facility] Last Admin: 03/23/21 06:21 Dose: 125 mg Documented by: Discontinued Medications Sodium Chloride (Normal Saline) 1,000 mls @ 125 mls/hr IV STAT ONE Stop: 03/18/21 22:45 Last Infusion: 03/18/21 15:59 Dose: 999 mls/hr Documented by: Potassium Chloride 40 meq/ (Premix) 100 mls @ 25 mls/hr IV ONETIME ONE Stop: 03/18/21 19:50 Last Admin: 03/18/21 17:49 Dose: 25 mls/hr Documented by: Sodium Chloride (Normal Saline) 1,000 mls @ 125 mls/hr IV STAT ONE Stop: 03/18/21 23:51 Last Admin: 03/18/21 17:13 Dose: 125 mls/hr Documented by: Potassium Chloride/Dextrose/Sod Cl (D5 Ns With 20 Meq Kcl) 1,000 mls @ 125 mls/hr IV ASDIRECTED [facility] Last Admin: 03/19/21 02:12 Dose: 125 mls/hr Documented by: Lactated Ringer's (Ringers, Lactated) 1,000 mls @ 125 mls/hr IV Q8H [facility] Last Admin: 03/20/21 05:01 Dose: 125 mls/hr Documented by: Ciprofloxacin/Dextrose 400 mg/ (Premix) 200 mls @ 200 mls/hr IV Q12H [facility] Last Admin: 03/19/21 01:00 Dose: 200 mls/hr Documented by: Metronidazole 500 mg/ Premix 100 mls @ 100 mls/hr IV QID [facility] Last Admin: 03/19/21 06:00 Dose: 100 mls/hr Documented by: Potassium Phosphate 15 mmole/Potassium Chloride 20 meq/Sodium Chloride 515 mls @ 67.5 mls/hr IV ONETIME ONE Stop: 03/19/21 16:37 Last Admin: 03/19/21 09:12 Dose: 67.5 mls/hr Documented by: Potassium Phosphate 15 mmole/Potassium Chloride 20 meq/Sodium Chloride 515 mls @ 67.5 mls/hr IV ONETIME ONE Stop: 03/20/21 16:07 Last Admin: 03/20/21 09:20 Dose: 67.5 mls/hr Documented by: Potassium Chloride 40 meq/ (Dextrose/Sodium Chloride) 1,020 mls @ 125 mls/hr IV Q8H [facility] Stop: 03/21/21 20:29 Last Admin: 03/21/21 22:23 Dose: Not Given Documented by: Potassium Phosphate 20 mmole/ (Sodium Chloride) 506.6667 mls @ 168.889 mls/hr IV ONETIME ONE Stop: 03/21/21 11:29 Last Admin: 03/21/21 09:04 Dose: 168.889 mls/hr Documented by: Potassium Chloride 40 meq/ (Dextrose/Sodium Chloride) 1,020 mls @ 125 mls/hr IV Q8H [facility] Last Admin: 03/23/21 02:46 Dose: 125 mls/hr Documented by: Lactated Ringer's (Ringers, Lactated) 1,000 mls @ 999 mls/hr IV ONETIME ONE Stop: 03/22/21 09:19 Last Admin: 03/22/21 11:29 Dose: 999 mls/hr Documented by: Potassium Phosphate 15 mmole/ (Sodium Chloride) 505 mls @ 67.5 mls/hr IV ONETIME ONE Stop: 03/22/21 15:48 Last Admin: 03/22/21 11:29 Dose: 67.5 mls/hr Documented by: Potassium Chloride (Potassium Chloride 20 Meq Tab.Er) 40 meq PO ONETIME ONE Stop: 03/19/21 08:19 Last Admin: 03/19/21 09:19 Dose: 40 meq Documented by: Potassium Chloride (Potassium Chloride 20 Meq Tab.Er) 40 meq PO ONETIME ONE Stop: 03/19/21 15:01 Last Admin: 03/19/21 15:18 Dose: 40 meq Documented by: Vancomycin HCl (Vancomycin 125 Mg Cap) 125 mg PO Q4H [facility] Last Admin: 03/19/21 06:35 Dose: 125 mg Documented by: - Exam General: Alert, Oriented Neck: Supple Lungs: Clear to Auscultation, Normal Respiratory Effort Cardiovascular: Regular Rate, Regular Rhythm GI/Abdominal Exam: Soft, Non-Tender, No Distention Extremities: Non-Tender, No Pedal Edema Skin: Warm, Dry, Intact Neurological: No New Focal Deficit - Patient Data Lab Results Last 24 hrs: Laboratory Results - last 24 hr 03/22/21 03/23/21 03/23/21 Range/Units 18:04 06:15 06:15 WBC 13.12 H (4.0-11.0) K/uL RBC 3.40 L (4.50-5.90) M/uL Hgb 11.9 L (13.0-17.0) g/dL Hct 34.4 L (38.0-50.0) % MCV 101.2 H (80.0-98.0) fL MCH 35.0 H (27.0-32.0) pg MCHC 34.6 (31.0-37.0) g/dL RDW Std Deviation 53.7 (28.0-62.0) fl RDW Coeff of Caleb 14 (11.0-15.0) % Plt Count 381 (150-400) K/uL MPV 9.30 (7.40-12.00) fL Neut % (Auto) 84.4 H (48.0-80.0) % Lymph % (Auto) 7.5 L (16.0-40.0) % Maverick % (Auto) 7.9 (0.0-15.0) % Eos % (Auto) 0.1 (0.0-7.0) % Baso % (Auto) 0.1 (0.0-1.5) % Neut # (Auto) 11.1 H (1.4-5.7) K/uL Lymph # (Auto) 1.0 (0.6-2.4) K/uL Maverick # (Auto) 1.0 H (0.0-0.8) K/uL Eos # (Auto) 0.0 (0.0-0.7) K/uL Baso # (Auto) 0.0 (0.0-0.1) K/uL Nucleated RBC % 0.0 /100WBC Nucleated RBCs # 0 K/uL Sodium 136 (136-148) mmol/L Potassium 4.4 (3.5-5.1) mmol/L Chloride 105 (98-107) mmol/L Carbon Dioxide 17.1 L (21.0-32.0) mmol/L BUN 8 (7.0-18.0) mg/dL Creatinine 0.8 (0.8-1.3) mg/dL Est Cr Clr Drug Dosing 87.83 mL/min Estimated GFR (MDRD) > 60.0 ml/min Glucose 130 H (74-106) mg/dL POC Glucose 90 (70-99) mg/dL Calcium 7.9 L (8.5-10.1) mg/dL Phosphorus 2.3 L (2.6-4.7) mg/dL Magnesium 1.6 L (1.8-2.4) mg/dL 03/23/21 Range/Units 06:50 WBC (4.0-11.0) K/uL RBC (4.50-5.90) M/uL Hgb (13.0-17.0) g/dL Hct (38.0-50.0) % MCV (80.0-98.0) fL MCH (27.0-32.0) pg MCHC (31.0-37.0) g/dL RDW Std Deviation (28.0-62.0) fl RDW Coeff of Caleb (11.0-15.0) % Plt Count (150-400) K/uL MPV (7.40-12.00) fL Neut % (Auto) (48.0-80.0) % Lymph % (Auto) (16.0-40.0) % Maverick % (Auto) (0.0-15.0) % Eos % (Auto) (0.0-7.0) % Baso % (Auto) (0.0-1.5) % Neut # (Auto) (1.4-5.7) K/uL Lymph # (Auto) (0.6-2.4) K/uL Maverick # (Auto) (0.0-0.8) K/uL Eos # (Auto) (0.0-0.7) K/uL Baso # (Auto) (0.0-0.1) K/uL Nucleated RBC % /100WBC Nucleated RBCs # K/uL Sodium (136-148) mmol/L Potassium (3.5-5.1) mmol/L Chloride (98-107) mmol/L Carbon Dioxide (21.0-32.0) mmol/L BUN (7.0-18.0) mg/dL Creatinine (0.8-1.3) mg/dL Est Cr Clr Drug Dosing mL/min Estimated GFR (MDRD) ml/min Glucose (74-106) mg/dL POC Glucose 123 H (70-99) mg/dL Calcium (8.5-10.1) mg/dL Phosphorus (2.6-4.7) mg/dL Magnesium (1.8-2.4) mg/dL Result Diagrams: 03/23/21 06:15 03/23/21 06:15 Sepsis Event Note - Evaluation Sepsis Screening Result: No Definite Risk - Focused Exam Vital Signs: Vital Signs Temp Pulse Resp BP Pulse Ox 03/23/21 08:50 36.3 C 74 12 99/66 99 03/23/21 03:41 36.6 C 71 16 103/68 98 03/23/21 00:00 36.6 C 76 18 127/82 99 - Problem List Review Problem List Initiated/Reviewed/Updated: Yes - My Orders Last 24 Hours: My Active Orders 03/23/21 10:45 Magnesium Sulfate/Water [Magnesium Sulfate in Water 2 GM/50 ML] 2 gm in 50 ml IV ONETIME 03/24/21 05:11 BASIC METABOLIC PANEL,BMP [CHEM] AM CBC WITH AUTO DIFF [HEME] AM MAGNESIUM [CHEM] AM PHOSPHORUS [CHEM] AM - Plan Plan:: 70 y/o M admitted for diarrhea, eric, hypokalemia, c.diff 1. C. difficile colitis -Continue vancomycin 125 mg 4 times daily p.o. -Continue Flagyl 500 mg IV 4 times daily -Continue IV fluid resuscitation due to continued stools -LR 75mls/hr -Continue PPI -Generalized weakness and deconditioning, PT consulted 2. Tongue carcinoma -Continue gabapentin 3. Hypothyroidism -Continue levothyroxine VTE prophylaxis: Heparin GI prophylaxis: Protonix CODE STATUS: DNR/DNI Dispo: 2 to 3 days pending improvement
[2021-03-23] MEDS: Lactated Ringers 1,000 ML IV SCH (12:12)
[2021-03-23] MEDS: Pantoprazole 40 MG in Sodium Chloride 0.9% 10 ML IV SCH (17:59)
[2021-03-24] MEDS: Vancomycin 125 MG Cap PO SCH ×4 (00:35→18:11)
[2021-03-24] MEDS: Phosphorus #1 250 MG Tab PO SCH ×4 (00:35→18:12)
[2021-03-24] MEDS: metroNIDAZOLE/Normal Saline 500 MG in Premix Bag 1 BAG IV SCH ×3 (03:48→18:21)
[2021-03-24] MEDS: Lactated Ringers 1,000 ML IV SCH ×2 (03:51→20:11)
[2021-03-24] MEDS: Heparin Sodium 5,000 Units/ML Vial SUBCUT SCH ×3 (06:32→20:43)
[2021-03-24] MEDS: Gabapentin 300 MG Cap PO SCH ×3 (06:41→22:47)
[2021-03-24] MEDS: Levothyroxine 50 MCG Tab PO SCH (06:41)
[2021-03-24 07:33] LABS: BLOOD UREA NITROGEN,BUN 9 mg/dL (7.0-18.0); CHLORIDE,CL 102 mmol/L (98-107); GLUCOSE RANDOM 123 mg/dL (74-106); POTASSIUM,K 3.9 mmol/L (3.5-5.1); SODIUM,NA 133 mmol/L (136-148)
[2021-03-24] MEDS: Acidophilus with Citrus Pectin Tab PO SCH ×2 (11:28→20:09)
[2021-03-24] MEDS: Sodium Chloride 0.9% 10 ML Syringe FLUSH PRN (11:36)
--- NOTE | 2021-03-24 13:28 | PCM.PN ---
- General Info Date of Service: 03/24/21 - Review of Systems Systems Review Comment:: patient reports he is feeling better than yesterday, reports stool frequency is down to four last night and this morning. denies any fevers. - Patient Data Vitals - Most Recent: Last Vital Signs Temp 36.1 C 03/24/21 11:49 Pulse 94 03/24/21 11:49 Resp 18 03/24/21 11:49 BP 107/74 03/24/21 11:49 Pulse Ox 100 03/24/21 11:49 Orthostatic Blood Pressure [ 83/54 Standing] Orthostatic Blood Pressure [ 99/66 Sitting] Orthostatic Blood Pressure [ 109/75 Supine] Weight - Most Recent: 70.261 kg I&O - Last 24 Hours: Intake & Output 03/23/21 03/24/21 03/24/21 22:59 06:59 14:59 Intake Total 3594 2613 100 Output Total 2150 3050 Balance 1444 -437 100 Lab Results Last 24 Hours: Laboratory Results - last 24 hr 03/23/21 03/24/21 03/24/21 Range/Units 17:42 06:20 06:20 WBC 19.31 H (4.0-11.0) K/uL RBC 3.74 L (4.50-5.90) M/uL Hgb 13.2 (13.0-17.0) g/dL Hct 37.9 L (38.0-50.0) % MCV 101.3 H (80.0-98.0) fL MCH 35.3 H (27.0-32.0) pg MCHC 34.8 (31.0-37.0) g/dL RDW Std Deviation 54.4 (28.0-62.0) fl RDW Coeff of Caleb 15 (11.0-15.0) % Plt Count 420 H (150-400) K/uL MPV 9.80 (7.40-12.00) fL Neut % (Auto) 87.4 H (48.0-80.0) % Lymph % (Auto) 5.0 L (16.0-40.0) % [place] % (Auto) 7.4 (0.0-15.0) % Eos % (Auto) 0.1 (0.0-7.0) % Baso % (Auto) 0.1 (0.0-1.5) % Neut # (Auto) 16.9 H (1.4-5.7) K/uL Lymph # (Auto) 1.0 (0.6-2.4) K/uL [place] # (Auto) 1.4 H (0.0-0.8) K/uL Eos # (Auto) 0.0 (0.0-0.7) K/uL Baso # (Auto) 0.0 (0.0-0.1) K/uL Nucleated RBC % 0.0 /100WBC Nucleated RBCs # 0 K/uL Sodium 133 L (136-148) mmol/L Potassium 3.9 (3.5-5.1) mmol/L Chloride 102 (98-107) mmol/L Carbon Dioxide 16.0 L (21.0-32.0) mmol/L BUN 9 (7.0-18.0) mg/dL Creatinine 0.8 (0.8-1.3) mg/dL Est Cr Clr Drug Dosing 87.83 mL/min Estimated GFR (MDRD) > 60.0 ml/min Glucose 123 H (74-106) mg/dL POC Glucose 102 H (70-99) mg/dL Calcium 8.3 L (8.5-10.1) mg/dL Phosphorus 2.8 (2.6-4.7) mg/dL Magnesium 1.9 (1.8-2.4) mg/dL 03/24/21 03/24/21 Range/Units 06:59 11:52 WBC (4.0-11.0) K/uL RBC (4.50-5.90) M/uL Hgb (13.0-17.0) g/dL Hct (38.0-50.0) % MCV (80.0-98.0) fL MCH (27.0-32.0) pg MCHC (31.0-37.0) g/dL RDW Std Deviation (28.0-62.0) fl RDW Coeff of Caleb (11.0-15.0) % Plt Count (150-400) K/uL MPV (7.40-12.00) fL Neut % (Auto) (48.0-80.0) % Lymph % (Auto) (16.0-40.0) % [place] % (Auto) (0.0-15.0) % Eos % (Auto) (0.0-7.0) % Baso % (Auto) (0.0-1.5) % Neut # (Auto) (1.4-5.7) K/uL Lymph # (Auto) (0.6-2.4) K/uL [place] # (Auto) (0.0-0.8) K/uL Eos # (Auto) (0.0-0.7) K/uL Baso # (Auto) (0.0-0.1) K/uL Nucleated RBC % /100WBC Nucleated RBCs # K/uL Sodium (136-148) mmol/L Potassium (3.5-5.1) mmol/L Chloride (98-107) mmol/L Carbon Dioxide (21.0-32.0) mmol/L BUN (7.0-18.0) mg/dL Creatinine (0.8-1.3) mg/dL Est Cr Clr Drug Dosing mL/min Estimated GFR (MDRD) ml/min Glucose (74-106) mg/dL POC Glucose 136 H 120 H (70-99) mg/dL Calcium (8.5-10.1) mg/dL Phosphorus (2.6-4.7) mg/dL Magnesium (1.8-2.4) mg/dL Guillaume Results Last 24 Hours: Microbiology 03/18/21 17:06 Stool Culture - Final Stool / Feces Shiga Toxin I & II - Final Med Orders - Current: Current Medications Acetaminophen (Acetaminophen 325 Mg Tab) 650 mg PO Q4H PRN PRN Reason: Pain (Mild 1-3)/fever Acidophilus/Pectin (Acidophilus With [place] Pectin Tab) 1 tab PO BID BOB Last Admin: 03/24/21 11:28 Dose: 1 tab Documented by: Albuterol/Ipratropium (Albuterol/Ipratropium 3.0-0.5 Mg/3 Ml Neb Soln) 3 ml NEB Q4HRRT PRN PRN Reason: Shortness Of Breath/wheezing [place] Butter/Phenylephrine ([place] Butter/Phenylephrine Rectal Supp) 1 each RECTAL QID PRN PRN Reason: hemorrhoidal pain Last Admin: 03/21/21 15:59 Dose: 1 each Documented by: Gabapentin (Gabapentin 300 Mg Cap) 300 mg PO TID [facility] Last Admin: 03/24/21 06:41 Dose: 300 mg Documented by: Heparin Sodium (Porcine) (Heparin Sodium 5,000 Units/Ml Vial) 5,000 units SUBCUT Q8H [facility] Last Admin: 03/24/21 06:32 Dose: 5,000 units Documented by: Pantoprazole Sodium 40 mg/ (Sodium Chloride) 10 mls @ 200 mls/hr IV Q24H [facility] Last Admin: 03/23/21 17:59 Dose: 200 mls/hr Documented by: Metronidazole 500 mg/ Premix 100 mls @ 100 mls/hr IV Q8H [facility] Last Admin: 03/24/21 11:30 Dose: 100 mls/hr Documented by: Lactated Ringer's (Ringers, Lactated) 1,000 mls @ 75 mls/hr IV ASDIRECTED [facility] Last Admin: 03/24/21 03:51 Dose: 75 mls/hr Documented by: Levothyroxine Sodium (Levothyroxine 50 Mcg Tab) 50 mcg PO ACBREAKFAST [facility] Last Admin: 03/24/21 06:41 Dose: 50 mcg Documented by: Morphine Sulfate (Morphine 2 Mg/Ml Syringe) 1 mg IVPUSH Q4H PRN PRN Reason: Pain Ondansetron HCl (Ondansetron 4 Mg/2 Ml Sdv) 4 mg IVPUSH Q4H PRN PRN Reason: Nausea/Vomiting Last Admin: 03/23/21 22:35 Dose: 4 mg Documented by: Sodium Chloride (Sodium Chloride 0.9% 10 Ml Syringe) 10 ml FLUSH ASDIRECTED PRN PRN Reason: Keep Vein Open Last Admin: 03/24/21 11:36 Dose: 10 ml Documented by: Sodium Chloride (Sodium Chloride 0.9% 2.5 Ml Syringe) 2.5 ml FLUSH ASDIRECTED PRN PRN Reason: Keep Vein Open Last Admin: 03/22/21 18:26 Dose: 2.5 ml Documented by: Sodium Phosphate (Phosphorus #1 250 Mg Tab) 250 mg PO QID [facility] Last Admin: 03/24/21 11:28 Dose: 250 mg Documented by: Vancomycin HCl (Vancomycin 125 Mg Cap) 125 mg PO QID [facility] Last Admin: 03/24/21 11:28 Dose: 125 mg Documented by: Discontinued Medications Sodium Chloride (Normal Saline) 1,000 mls @ 125 mls/hr IV STAT ONE Stop: 03/18/21 22:45 Last Infusion: 03/18/21 15:59 Dose: 999 mls/hr Documented by: Potassium Chloride 40 meq/ (Premix) 100 mls @ 25 mls/hr IV ONETIME ONE Stop: 03/18/21 19:50 Last Admin: 03/18/21 17:49 Dose: 25 mls/hr Documented by: Sodium Chloride (Normal Saline) 1,000 mls @ 125 mls/hr IV STAT ONE Stop: 03/18/21 23:51 Last Admin: 03/18/21 17:13 Dose: 125 mls/hr Documented by: Potassium Chloride/Dextrose/Sod Cl (D5 Ns With 20 Meq Kcl) 1,000 mls @ 125 mls/hr IV ASDIRECTED [facility] Last Admin: 03/19/21 02:12 Dose: 125 mls/hr Documented by: Lactated Ringer's (Ringers, Lactated) 1,000 mls @ 125 mls/hr IV Q8H [facility] Last Admin: 03/20/21 05:01 Dose: 125 mls/hr Documented by: Ciprofloxacin/Dextrose 400 mg/ (Premix) 200 mls @ 200 mls/hr IV Q12H [facility] Last Admin: 03/19/21 01:00 Dose: 200 mls/hr Documented by: Metronidazole 500 mg/ Premix 100 mls @ 100 mls/hr IV QID [facility] Last Admin: 03/19/21 06:00 Dose: 100 mls/hr Documented by: Potassium Phosphate 15 mmole/Potassium Chloride 20 meq/Sodium Chloride 515 mls @ 67.5 mls/hr IV ONETIME ONE Stop: 03/19/21 16:37 Last Admin: 03/19/21 09:12 Dose: 67.5 mls/hr Documented by: Potassium Phosphate 15 mmole/Potassium Chloride 20 meq/Sodium Chloride 515 mls @ 67.5 mls/hr IV ONETIME ONE Stop: 03/20/21 16:07 Last Admin: 03/20/21 09:20 Dose: 67.5 mls/hr Documented by: Potassium Chloride 40 meq/ (Dextrose/Sodium Chloride) 1,020 mls @ 125 mls/hr IV Q8H [facility] Stop: 03/21/21 20:29 Last Admin: 03/21/21 22:23 Dose: Not Given Documented by: Potassium Phosphate 20 mmole/ (Sodium Chloride) 506.6667 mls @ 168.889 mls/hr IV ONETIME ONE Stop: 03/21/21 11:29 Last Admin: 03/21/21 09:04 Dose: 168.889 mls/hr Documented by: Potassium Chloride 40 meq/ (Dextrose/Sodium Chloride) 1,020 mls @ 125 mls/hr IV Q8H [facility] Last Admin: 03/23/21 02:46 Dose: 125 mls/hr Documented by: Lactated Ringer's (Ringers, Lactated) 1,000 mls @ 999 mls/hr IV ONETIME ONE Stop: 03/22/21 09:19 Last Admin: 03/22/21 11:29 Dose: 999 mls/hr Documented by: Potassium Phosphate 15 mmole/ (Sodium Chloride) 505 mls @ 67.5 mls/hr IV ONETIME ONE Stop: 03/22/21 15:48 Last Admin: 03/22/21 11:29 Dose: 67.5 mls/hr Documented by: Magnesium Sulfate (Magnesium Sulfate In Water 2 Gm/50 Ml) 2 gm in 50 mls @ 50 mls/hr IV ONETIME ONE Stop: 03/23/21 11:44 Last Admin: 03/23/21 11:18 Dose: 50 mls/hr Documented by: Potassium Chloride (Potassium Chloride 20 Meq Tab.Er) 40 meq PO ONETIME ONE Stop: 03/19/21 08:19 Last Admin: 03/19/21 09:19 Dose: 40 meq Documented by: Potassium Chloride (Potassium Chloride 20 Meq Tab.Er) 40 meq PO ONETIME ONE Stop: 03/19/21 15:01 Last Admin: 03/19/21 15:18 Dose: 40 meq Documented by: Potassium Chloride (Potassium Chloride 20 Meq Tab.Er) 40 meq PO BIDMEALS [facility] Last Admin: 03/23/21 08:55 Dose: 40 meq Documented by: Vancomycin HCl (Vancomycin 125 Mg Cap) 125 mg PO Q4H [facility] Last Admin: 03/19/21 06:35 Dose: 125 mg Documented by: - Exam General: Alert, Oriented Lungs: Clear to Auscultation, Normal Respiratory Effort Cardiovascular: Regular Rate, Regular Rhythm GI/Abdominal Exam: Soft, Non-Tender, No Distention Extremities: Non-Tender, No Pedal Edema Skin: Warm, Dry, Intact - Patient Data Lab Results Last 24 hrs: Laboratory Results - last 24 hr 03/23/21 03/24/21 03/24/21 Range/Units 17:42 06:20 06:20 WBC 19.31 H (4.0-11.0) K/uL RBC 3.74 L (4.50-5.90) M/uL Hgb 13.2 (13.0-17.0) g/dL Hct 37.9 L (38.0-50.0) % MCV 101.3 H (80.0-98.0) fL MCH 35.3 H (27.0-32.0) pg MCHC 34.8 (31.0-37.0) g/dL RDW Std Deviation 54.4 (28.0-62.0) fl RDW Coeff of Caleb 15 (11.0-15.0) % Plt Count 420 H (150-400) K/uL MPV 9.80 (7.40-12.00) fL Neut % (Auto) 87.4 H (48.0-80.0) % Lymph % (Auto) 5.0 L (16.0-40.0) % [place] % (Auto) 7.4 (0.0-15.0) % Eos % (Auto) 0.1 (0.0-7.0) % Baso % (Auto) 0.1 (0.0-1.5) % Neut # (Auto) 16.9 H (1.4-5.7) K/uL Lymph # (Auto) 1.0 (0.6-2.4) K/uL [place] # (Auto) 1.4 H (0.0-0.8) K/uL Eos # (Auto) 0.0 (0.0-0.7) K/uL Baso # (Auto) 0.0 (0.0-0.1) K/uL Nucleated RBC % 0.0 /100WBC Nucleated RBCs # 0 K/uL Sodium 133 L (136-148) mmol/L Potassium 3.9 (3.5-5.1) mmol/L Chloride 102 (98-107) mmol/L Carbon Dioxide 16.0 L (21.0-32.0) mmol/L BUN 9 (7.0-18.0) mg/dL Creatinine 0.8 (0.8-1.3) mg/dL Est Cr Clr Drug Dosing 87.83 mL/min Estimated GFR (MDRD) > 60.0 ml/min Glucose 123 H (74-106) mg/dL POC Glucose 102 H (70-99) mg/dL Calcium 8.3 L (8.5-10.1) mg/dL Phosphorus 2.8 (2.6-4.7) mg/dL Magnesium 1.9 (1.8-2.4) mg/dL 03/24/21 03/24/21 Range/Units 06:59 11:52 WBC (4.0-11.0) K/uL RBC (4.50-5.90) M/uL Hgb (13.0-17.0) g/dL Hct (38.0-50.0) % MCV (80.0-98.0) fL MCH (27.0-32.0) pg MCHC (31.0-37.0) g/dL RDW Std Deviation (28.0-62.0) fl RDW Coeff of Caleb (11.0-15.0) % Plt Count (150-400) K/uL MPV (7.40-12.00) fL Neut % (Auto) (48.0-80.0) % Lymph % (Auto) (16.0-40.0) % [place] % (Auto) (0.0-15.0) % Eos % (Auto) (0.0-7.0) % Baso % (Auto) (0.0-1.5) % Neut # (Auto) (1.4-5.7) K/uL Lymph # (Auto) (0.6-2.4) K/uL [place] # (Auto) (0.0-0.8) K/uL Eos # (Auto) (0.0-0.7) K/uL Baso # (Auto) (0.0-0.1) K/uL Nucleated RBC % /100WBC Nucleated RBCs # K/uL Sodium (136-148) mmol/L Potassium (3.5-5.1) mmol/L Chloride (98-107) mmol/L Carbon Dioxide (21.0-32.0) mmol/L BUN (7.0-18.0) mg/dL Creatinine (0.8-1.3) mg/dL Est Cr Clr Drug Dosing mL/min Estimated GFR (MDRD) ml/min Glucose (74-106) mg/dL POC Glucose 136 H 120 H (70-99) mg/dL Calcium (8.5-10.1) mg/dL Phosphorus (2.6-4.7) mg/dL Magnesium (1.8-2.4) mg/dL Result Diagrams: 03/24/21 06:20 03/24/21 06:20 [place] Results Last 24 hrs: Microbiology 03/18/21 17:06 Stool Culture - Final Stool / Feces Shiga Toxin I & II - Final Sepsis Event Note - Evaluation Sepsis Screening Result: Sepsis Risk - Focused Exam Vital Signs: Vital Signs Temp Pulse Resp BP Pulse Ox 03/24/21 11:49 36.1 C 94 18 107/74 100 03/24/21 08:00 36.6 C 81 18 106/71 96 03/24/21 04:03 37.0 C 112 H 17 126/80 99 - Problem List Review Problem List Initiated/Reviewed/Updated: Yes - My Orders Last 24 Hours: My Active Orders 03/24/21 13:24 LACTATE WITH REFLEX [BG] Routine - Plan Plan:: 70 y/o M admitted for diarrhea, eric, hypokalemia, c.diff 1. C. difficile colitis -leukocytosis increasing but is clinically improving -Continue vancomycin 125 mg 4 times daily p.o. -Continue Flagyl 500 mg IV 4 times daily -Continue IV fluid replacement due to continued stools -LR 75mls/hr -Continue PPI -Generalized weakness and deconditioning, PT consulted 2. Tongue carcinoma -Continue gabapentin 3. Hypothyroidism -Continue levothyroxine VTE prophylaxis: Heparin GI prophylaxis: Protonix CODE STATUS: DNR/DNI Dispo: 2 to 3 days pending improvement
[2021-03-24] MEDS: Pantoprazole 40 MG in Sodium Chloride 0.9% 10 ML IV SCH (18:11)
[2021-03-25] MEDS: Phosphorus #1 250 MG Tab PO SCH ×5 (00:56→23:50)
[2021-03-25] MEDS: Vancomycin 125 MG Cap PO SCH ×5 (00:56→23:50)
[2021-03-25] MEDS: metroNIDAZOLE/Normal Saline 500 MG in Premix Bag 1 BAG IV SCH ×3 (03:51→18:44)
[2021-03-25] MEDS: Heparin Sodium 5,000 Units/ML Vial SUBCUT SCH ×3 (05:41→20:52)
[2021-03-25] MEDS: Gabapentin 300 MG Cap PO SCH ×3 (05:47→21:26)
[2021-03-25] MEDS: Sodium Chloride 0.9% 10 ML Syringe FLUSH PRN (06:20)
[2021-03-25] MEDS: Levothyroxine 50 MCG Tab PO SCH (06:35)
[2021-03-25 06:55] LABS: POTASSIUM,K 3.2 mmol/L (3.5-5.1)
[2021-03-25] MEDS: Acidophilus with Citrus Pectin Tab PO SCH ×2 (08:56→20:52)
[2021-03-25] MEDS: Potassium Chloride 20 MEQ Tab.ER PO SCH ×2 (08:56→17:36)
--- NOTE | 2021-03-25 09:14 | PCM.PN ---
- General Info Date of Service: 03/25/21 Admission Dx/Problem (Free Text): Admission Diagnosis/Problem Admission Diagnosis/Problem Hypokalemia, C. difficile colitis, hypophosphatemia Subjective Update: Continues to steadily improve. Stools are approximately 4-5 times per day. Reports that her nearing consistency of normal stools as he is not eating full regular texture diet. He is eating generally at home. Stool amounts have decreased from 800 mils per stool down to approximately 400. Denies any chest pain shortness of breath. Has been up ambulating to commode and back but not has been up to the chair or ambulating much outside of the room. Functional Status: Reports: Pain Controlled, Tolerating Diet, Ambulating, Urinating - Review of Systems General: Reports: Weakness, Fatigue HEENT: Reports: No Symptoms. Denies: Headaches, Sore Throat, Visual Changes Pulmonary: Reports: No Symptoms. Denies: Shortness of Breath Cardiovascular: Reports: No Symptoms. Denies: Chest Pain Gastrointestinal: Reports: Diarrhea (improving). Denies: Abdominal Pain, Nausea, Vomiting Genitourinary: Reports: No Symptoms. Denies: Dysuria, Frequency, Burning Musculoskeletal: Reports: No Symptoms Skin: Reports: No Symptoms Neurological: Reports: No Symptoms Psychiatric: Reports: No Symptoms - Patient Data Vitals - Most Recent: Last Vital Signs Temp 97.3 F 03/25/21 07:30 Pulse 73 03/25/21 07:30 Resp 16 03/25/21 07:30 BP 104/75 03/25/21 07:30 Pulse Ox 97 03/25/21 07:30 Orthostatic Blood Pressure [ 83/54 Standing] Orthostatic Blood Pressure [ 99/66 Sitting] Orthostatic Blood Pressure [ 109/75 Supine] Weight - Most Recent: 70.261 kg I&O - Last 24 Hours: Intake & Output 03/24/21 03/25/21 03/25/21 22:59 06:59 14:59 Intake Total 2362 2026 Output Total 2600 1650 Balance -238 376 Lab Results Last 24 Hours: Laboratory Results - last 24 hr 03/24/21 03/24/21 03/24/21 Range/Units 11:52 13:28 18:15 WBC (4.0-11.0) K/uL RBC (4.50-5.90) M/uL Hgb (13.0-17.0) g/dL Hct (38.0-50.0) % MCV (80.0-98.0) fL MCH (27.0-32.0) pg MCHC (31.0-37.0) g/dL RDW Std Deviation (28.0-62.0) fl RDW Coeff of Caleb (11.0-15.0) % Plt Count (150-400) K/uL MPV (7.40-12.00) fL Neut % (Auto) (48.0-80.0) % Lymph % (Auto) (16.0-40.0) % Jasper % (Auto) (0.0-15.0) % Eos % (Auto) (0.0-7.0) % Baso % (Auto) (0.0-1.5) % Neut # (Auto) (1.4-5.7) K/uL Lymph # (Auto) (0.6-2.4) K/uL Jasper # (Auto) (0.0-0.8) K/uL Eos # (Auto) (0.0-0.7) K/uL Baso # (Auto) (0.0-0.1) K/uL Nucleated RBC % /100WBC Nucleated RBCs # K/uL Lactate 0.8 (0.20-2.00) mmol/L Sodium (136-148) mmol/L Potassium (3.5-5.1) mmol/L Chloride (98-107) mmol/L Carbon Dioxide (21.0-32.0) mmol/L BUN (7.0-18.0) mg/dL Creatinine (0.8-1.3) mg/dL Est Cr Clr Drug Dosing mL/min Estimated GFR (MDRD) ml/min Glucose (74-106) mg/dL POC Glucose 120 H 115 H (70-99) mg/dL Calcium (8.5-10.1) mg/dL Total Bilirubin (0.2-1.0) mg/dL AST (15-37) IU/L ALT (14-63) IU/L Alkaline Phosphatase (46-116) U/L Total Protein (6.4-8.2) g/dL Albumin (3.4-5.0) g/dL Globulin (2.6-4.0) g/dL Albumin/Globulin Ratio (0.9-1.6) 03/25/21 03/25/21 03/25/21 Range/Units 06:00 06:10 06:28 WBC 11.36 H (4.0-11.0) K/uL RBC 3.98 L (4.50-5.90) M/uL Hgb 14.0 (13.0-17.0) g/dL Hct 40.1 (38.0-50.0) % MCV 100.8 H (80.0-98.0) fL MCH 35.2 H (27.0-32.0) pg MCHC 34.9 (31.0-37.0) g/dL RDW Std Deviation 53.3 (28.0-62.0) fl RDW Coeff of Caleb 15 (11.0-15.0) % Plt Count 448 H (150-400) K/uL MPV 9.70 (7.40-12.00) fL Neut % (Auto) 70.7 (48.0-80.0) % Lymph % (Auto) 17.9 (16.0-40.0) % Jasper % (Auto) 11.0 (0.0-15.0) % Eos % (Auto) 0.2 (0.0-7.0) % Baso % (Auto) 0.2 (0.0-1.5) % Neut # (Auto) 8.0 H (1.4-5.7) K/uL Lymph # (Auto) 2.0 (0.6-2.4) K/uL Jasper # (Auto) 1.3 H (0.0-0.8) K/uL Eos # (Auto) 0.0 (0.0-0.7) K/uL Baso # (Auto) 0.0 (0.0-0.1) K/uL Nucleated RBC % 0.0 /100WBC Nucleated RBCs # 0 K/uL Lactate (0.20-2.00) mmol/L Sodium 131 L (136-148) mmol/L Potassium 3.2 L (3.5-5.1) mmol/L Chloride 98 (98-107) mmol/L Carbon Dioxide 19.0 L (21.0-32.0) mmol/L BUN 17 (7.0-18.0) mg/dL Creatinine 1.3 (0.8-1.3) mg/dL Est Cr Clr Drug Dosing 54.05 mL/min Estimated GFR (MDRD) 54.9 ml/min Glucose 137 H (74-106) mg/dL POC Glucose 137 H (70-99) mg/dL Calcium 8.5 (8.5-10.1) mg/dL Total Bilirubin 0.6 (0.2-1.0) mg/dL AST 18 (15-37) IU/L ALT 20 (14-63) IU/L Alkaline Phosphatase 73 (46-116) U/L Total Protein 7.1 (6.4-8.2) g/dL Albumin 3.2 L (3.4-5.0) g/dL Globulin 3.9 (2.6-4.0) g/dL Albumin/Globulin Ratio 0.8 L (0.9-1.6) Med Orders - Current: Current Medications Acetaminophen (Acetaminophen 325 Mg Tab) 650 mg PO Q4H PRN PRN Reason: Pain (Mild 1-3)/fever Acidophilus/Pectin (Acidophilus With [place] Pectin Tab) 1 tab PO BID [facility] Last Admin: 03/25/21 08:56 Dose: 1 tab Documented by: Albuterol/Ipratropium (Albuterol/Ipratropium 3.0-0.5 Mg/3 Ml Neb Soln) 3 ml NEB Q4HRRT PRN PRN Reason: Shortness Of Breath/wheezing [place] Butter/Phenylephrine ([place] Butter/Phenylephrine Rectal Supp) 1 each RECTAL QID PRN PRN Reason: hemorrhoidal pain Last Admin: 03/21/21 15:59 Dose: 1 each Documented by: Gabapentin (Gabapentin 300 Mg Cap) 300 mg PO TID [facility] Last Admin: 03/25/21 05:47 Dose: 300 mg Documented by: Heparin Sodium (Porcine) (Heparin Sodium 5,000 Units/Ml Vial) 5,000 units SUBCU T Q8H [facility] Last Admin: 03/25/21 05:41 Dose: 5,000 units Documented by: Pantoprazole Sodium 40 mg/ (Sodium Chloride) 10 mls @ 200 mls/hr IV Q24H [facility] Last Admin: 03/24/21 18:11 Dose: 200 mls/hr Documented by: Metronidazole 500 mg/ Premix 100 mls @ 100 mls/hr IV Q8H [facility] Last Admin: 03/25/21 03:51 Dose: 100 mls/hr Documented by: Lactated Ringer's (Ringers, Lactated) 1,000 mls @ 75 mls/hr IV ASDIRECTED [facility] Last Admin: 03/24/21 20:11 Dose: 75 mls/hr Documented by: Levothyroxine Sodium (Levothyroxine 50 Mcg Tab) 50 mcg PO ACBREAKFAST [facility] Last Admin: 03/25/21 06:35 Dose: 50 mcg Documented by: Morphine Sulfate (Morphine 2 Mg/Ml Syringe) 1 mg IVPUSH Q4H PRN PRN Reason: Pain Ondansetron HCl (Ondansetron 4 Mg/2 Ml Sdv) 4 mg IVPUSH Q4H PRN PRN Reason: Nausea/Vomiting Last Admin: 03/23/21 22:35 Dose: 4 mg Documented by: Potassium Chloride (Potassium Chloride 20 Meq Tab.Er) 40 meq PO BIDMEALS [facility] Stop: 03/25/21 17:01 Last Admin: 03/25/21 08:56 Dose: 40 meq Documented by: Sodium Chloride (Sodium Chloride 0.9% 10 Ml Syringe) 10 ml FLUSH ASDIRECTED PRN PRN Reason: Keep Vein Open Last Admin: 03/25/21 06:20 Dose: 10 ml Documented by: Sodium Chloride (Sodium Chloride 0.9% 2.5 Ml Syringe) 2.5 ml FLUSH ASDIRECTED PRN PRN Reason: Keep Vein Open Last Admin: 03/22/21 18:26 Dose: 2.5 ml Documented by: Sodium Phosphate (Phosphorus #1 250 Mg Tab) 250 mg PO QID [facility] Last Admin: 03/25/21 05:46 Dose: 250 mg Documented by: Vancomycin HCl (Vancomycin 125 Mg Cap) 125 mg PO QID [facility] Last Admin: 03/25/21 05:47 Dose: 125 mg Documented by: Discontinued Medications Sodium Chloride (Normal Saline) 1,000 mls @ 125 mls/hr IV STAT ONE Stop: 03/18/21 22:45 Last Infusion: 03/18/21 15:59 Dose: 999 mls/hr Documented by: Potassium Chloride 40 meq/ (Premix) 100 mls @ 25 mls/hr IV ONETIME ONE Stop: 03/18/21 19:50 Last Admin: 03/18/21 17:49 Dose: 25 mls/hr Documented by: Sodium Chloride (Normal Saline) 1,000 mls @ 125 mls/hr IV STAT ONE Stop: 03/18/21 23:51 Last Admin: 03/18/21 17:13 Dose: 125 mls/hr Documented by: Potassium Chloride/Dextrose/Sod Cl (D5 Ns With 20 Meq Kcl) 1,000 mls @ 125 mls/hr IV ASDIRECTED [facility] Last Admin: 03/19/21 02:12 Dose: 125 mls/hr Documented by: Lactated Ringer's (Ringers, Lactated) 1,000 mls @ 125 mls/hr IV Q8H [facility] Last Admin: 03/20/21 05:01 Dose: 125 mls/hr Documented by: Ciprofloxacin/Dextrose 400 mg/ (Premix) 200 mls @ 200 mls/hr IV Q12H [facility] Last Admin: 03/19/21 01:00 Dose: 200 mls/hr Documented by: Metronidazole 500 mg/ Premix 100 mls @ 100 mls/hr IV QID [facility] Last Admin: 03/19/21 06:00 Dose: 100 mls/hr Documented by: Potassium Phosphate 15 mmole/Potassium Chloride 20 meq/Sodium Chloride 515 mls @ 67.5 mls/hr IV ONETIME ONE Stop: 03/19/21 16:37 Last Admin: 03/19/21 09:12 Dose: 67.5 mls/hr Documented by: Potassium Phosphate 15 mmole/Potassium Chloride 20 meq/Sodium Chloride 515 mls @ 67.5 mls/hr IV ONETIME ONE Stop: 03/20/21 16:07 Last Admin: 03/20/21 09:20 Dose: 67.5 mls/hr Documented by: Potassium Chloride 40 meq/ (Dextrose/Sodium Chloride) 1,020 mls @ 125 mls/hr IV Q8H [facility] Stop: 03/21/21 20:29 Last Admin: 03/21/21 22:23 Dose: Not Given Documented by: Potassium Phosphate 20 mmole/ (Sodium Chloride) 506.6667 mls @ 168.889 mls/hr IV ONETIME ONE Stop: 03/21/21 11:29 Last Admin: 03/21/21 09:04 Dose: 168.889 mls/hr Documented by: Potassium Chloride 40 meq/ (Dextrose/Sodium Chloride) 1,020 mls @ 125 mls/hr IV Q8H [facility] Last Admin: 03/23/21 02:46 Dose: 125 mls/hr Documented by: Lactated Ringer's (Ringers, Lactated) 1,000 mls @ 999 mls/hr IV ONETIME ONE Stop: 03/22/21 09:19 Last Admin: 03/22/21 11:29 Dose: 999 mls/hr Documented by: Potassium Phosphate 15 mmole/ (Sodium Chloride) 505 mls @ 67.5 mls/hr IV ONETIME ONE Stop: 03/22/21 15:48 Last Admin: 03/22/21 11:29 Dose: 67.5 mls/hr Documented by: Magnesium Sulfate (Magnesium Sulfate In Water 2 Gm/50 Ml) 2 gm in 50 mls @ 50 mls/hr IV ONETIME ONE Stop: 03/23/21 11:44 Last Admin: 03/23/21 11:18 Dose: 50 mls/hr Documented by: Potassium Chloride (Potassium Chloride 20 Meq Tab.Er) 40 meq PO ONETIME ONE Stop: 03/19/21 08:19 Last Admin: 03/19/21 09:19 Dose: 40 meq Documented by: Potassium Chloride (Potassium Chloride 20 Meq Tab.Er) 40 meq PO ONETIME ONE Stop: 03/19/21 15:01 Last Admin: 03/19/21 15:18 Dose: 40 meq Documented by: Potassium Chloride (Potassium Chloride 20 Meq Tab.Er) 40 meq PO BIDMEALS [facility] Last Admin: 03/23/21 08:55 Dose: 40 meq Documented by: Vancomycin HCl (Vancomycin 125 Mg Cap) 125 mg PO Q4H [facility] Last Admin: 03/19/21 06:35 Dose: 125 mg Documented by: - Exam General: Alert, Oriented, Cooperative, No Acute Distress Lungs: Clear to Auscultation, Normal Respiratory Effort Cardiovascular: Regular Rate, Regular Rhythm GI/Abdominal Exam: Normal Bowel Sounds, Soft, Non-Tender Extremities: Normal Inspection, Normal Range of Motion, Non-Tender, No Pedal Edema Wound/Incisions: Healing Well Neurological: No New Focal Deficit Psy/Mental Status: Alert, Normal Affect, Normal Mood - Patient Data Lab Results Last 24 hrs: Laboratory Results - last 24 hr 03/24/21 03/24/21 03/24/21 Range/Units 11:52 13:28 18:15 WBC (4.0-11.0) K/uL RBC (4.50-5.90) M/uL Hgb (13.0-17.0) g/dL Hct (38.0-50.0) % MCV (80.0-98.0) fL MCH (27.0-32.0) pg MCHC (31.0-37.0) g/dL RDW Std Deviation (28.0-62.0) fl RDW Coeff of Caleb (11.0-15.0) % Plt Count (150-400) K/uL MPV (7.40-12.00) fL Neut % (Auto) (48.0-80.0) % Lymph % (Auto) (16.0-40.0) % [place] % (Auto) (0.0-15.0) % Eos % (Auto) (0.0-7.0) % Baso % (Auto) (0.0-1.5) % Neut # (Auto) (1.4-5.7) K/uL Lymph # (Auto) (0.6-2.4) K/uL [place] # (Auto) (0.0-0.8) K/uL Eos # (Auto) (0.0-0.7) K/uL Baso # (Auto) (0.0-0.1) K/uL Nucleated RBC % /100WBC Nucleated RBCs # K/uL Lactate 0.8 (0.20-2.00) mmol/L Sodium (136-148) mmol/L Potassium (3.5-5.1) mmol/L Chloride (98-107) mmol/L Carbon Dioxide (21.0-32.0) mmol/L BUN (7.0-18.0) mg/dL Creatinine (0.8-1.3) mg/dL Est Cr Clr Drug Dosing mL/min Estimated GFR (MDRD) ml/min Glucose (74-106) mg/dL POC Glucose 120 H 115 H (70-99) mg/dL Calcium (8.5-10.1) mg/dL Total Bilirubin (0.2-1.0) mg/dL AST (15-37) IU/L ALT (14-63) IU/L Alkaline Phosphatase (46-116) U/L Total Protein (6.4-8.2) g/dL Albumin (3.4-5.0) g/dL Globulin (2.6-4.0) g/dL Albumin/Globulin Ratio (0.9-1.6) 03/25/21 03/25/21 03/25/21 Range/Units 06:00 06:10 06:28 WBC 11.36 H (4.0-11.0) K/uL RBC 3.98 L (4.50-5.90) M/uL Hgb 14.0 (13.0-17.0) g/dL Hct 40.1 (38.0-50.0) % MCV 100.8 H (80.0-98.0) fL MCH 35.2 H (27.0-32.0) pg MCHC 34.9 (31.0-37.0) g/dL RDW Std Deviation 53.3 (28.0-62.0) fl RDW Coeff of Caleb 15 (11.0-15.0) % Plt Count 448 H (150-400) K/uL MPV 9.70 (7.40-12.00) fL Neut % (Auto) 70.7 (48.0-80.0) % Lymph % (Auto) 17.9 (16.0-40.0) % [place] % (Auto) 11.0 (0.0-15.0) % Eos % (Auto) 0.2 (0.0-7.0) % Baso % (Auto) 0.2 (0.0-1.5) % Neut # (Auto) 8.0 H (1.4-5.7) K/uL Lymph # (Auto) 2.0 (0.6-2.4) K/uL [place] # (Auto) 1.3 H (0.0-0.8) K/uL Eos # (Auto) 0.0 (0.0-0.7) K/uL Baso # (Auto) 0.0 (0.0-0.1) K/uL Nucleated RBC % 0.0 /100WBC Nucleated RBCs # 0 K/uL Lactate (0.20-2.00) mmol/L Sodium 131 L (136-148) mmol/L Potassium 3.2 L (3.5-5.1) mmol/L Chloride 98 (98-107) mmol/L Carbon Dioxide 19.0 L (21.0-32.0) mmol/L BUN 17 (7.0-18.0) mg/dL Creatinine 1.3 (0.8-1.3) mg/dL Est Cr Clr Drug Dosing 54.05 mL/min Estimated GFR (MDRD) 54.9 ml/min Glucose 137 H (74-106) mg/dL POC Glucose 137 H (70-99) mg/dL Calcium 8.5 (8.5-10.1) mg/dL Total Bilirubin 0.6 (0.2-1.0) mg/dL AST 18 (15-37) IU/L ALT 20 (14-63) IU/L Alkaline Phosphatase 73 (46-116) U/L Total Protein 7.1 (6.4-8.2) g/dL Albumin 3.2 L (3.4-5.0) g/dL Globulin 3.9 (2.6-4.0) g/dL Albumin/Globulin Ratio 0.8 L (0.9-1.6) Result Diagrams: 03/25/21 06:00 03/25/21 06:10 Sepsis Event Note - Evaluation Sepsis Screening Result: No Definite Risk - Focused Exam Vital Signs: Vital Signs Temp Pulse Resp BP Pulse Ox 03/25/21 07:30 97.3 F 73 16 104/75 97 03/25/21 03:55 97.8 F 76 18 113/77 97 03/25/21 00:56 97.1 F 72 18 106/72 96 - Problem List & Annotations (1) Hypophosphatemia SNOMED Code(s): 4238940 Code(s): E83.39 - OTHER DISORDERS OF PHOSPHORUS METABOLISM Status: Acute Current Visit: Yes (2) C. difficile colitis SNOMED Code(s): 249617308 Code(s): A04.72 - ENTEROCOLITIS D/T CLOSTRIDIUM DIFFICILE, NOT SPCF RECUR Status: Acute Current Visit: Yes (3) Port-A-Cath in place SNOMED Code(s): 757122811 Code(s): Z95.828 - PRESENCE OF OTHER VASCULAR IMPLANTS AND GRAFTS Status: Acute Current Visit: Yes (4) Tongue carcinoma Status: Acute Current Visit: Yes (5) Dehydration SNOMED Code(s): 32865444 Code(s): E86.0 - DEHYDRATION Status: Acute Current Visit: No (6) Diarrhea SNOMED Code(s): 47186660 Code(s): R19.7 - DIARRHEA, UNSPECIFIED Status: Acute Current Visit: No Qualifiers: Diarrhea type: unspecified type Qualified Code(s): R19.7 - Diarrhea, uns pecified (7) Hypokalemia SNOMED Code(s): 81163466 Code(s): E87.6 - HYPOKALEMIA Status: Acute Current Visit: No - Problem List Review Problem List Initiated/Reviewed/Updated: Yes - My Orders Last 24 Hours: My Active Orders 03/25/21 08:30 Potassium Chloride [Klor-Con M20] 40 meq PO BIDMEALS - Plan Plan:: 70 y/o M admitted for diarrhea, eric, hypokalemia, c.diff 1. C. difficile colitis -leukocytosis improved today. -Continue vancomycin 125 mg 4 times daily p.o. -Continue Flagyl 500 mg IV 4 times daily -Continue IV fluid replacement due to continued stools -LR 75mls/hr -Continue PPI -Generalized weakness and deconditioning, PT consulted 2. Tongue carcinoma -Continue gabapentin 3. Hypothyroidism -Continue levothyroxine VTE prophylaxis: Heparin GI prophylaxis: Protonix CODE STATUS: DNR/DNI Dispo: 2 to 3 days pending improvement
[2021-03-25] MEDS: Lactated Ringers 1,000 ML IV SCH (10:41)
[2021-03-25] MEDS: Cocoa Butter/Phenylephrine Rectal Supp RECTAL PRN (10:45)
[2021-03-25] MEDS: Pantoprazole 40 MG in Sodium Chloride 0.9% 10 ML IV SCH (17:32)
[2021-03-26] MEDS: Lactated Ringers 1,000 ML IV SCH ×3 (02:32→17:40)
[2021-03-26] MEDS: metroNIDAZOLE/Normal Saline 500 MG in Premix Bag 1 BAG IV SCH ×3 (02:32→18:48)
[2021-03-26] MEDS: Vancomycin 125 MG Cap PO SCH ×3 (06:00→17:39)
[2021-03-26] MEDS: Gabapentin 300 MG Cap PO SCH ×3 (06:00→21:32)
[2021-03-26] MEDS: Phosphorus #1 250 MG Tab PO SCH (06:00)
[2021-03-26] MEDS: Heparin Sodium 5,000 Units/ML Vial SUBCUT SCH ×3 (06:00→21:32)
[2021-03-26 06:16] LABS: BLOOD UREA NITROGEN,BUN 20 mg/dL (7.0-18.0); CHLORIDE,CL 101 mmol/L (98-107); GLUCOSE RANDOM 131 mg/dL (74-106); POTASSIUM,K 3.3 mmol/L (3.5-5.1); SODIUM,NA 133 mmol/L (136-148)
[2021-03-26] MEDS ORDERED: Lactated Ringers 1,000 ML IV ONE (08:04)
--- NOTE | 2021-03-26 08:06 | PCM.PN ---
- General Info Date of Service: 03/26/21 Admission Dx/Problem (Free Text): Admission Diagnosis/Problem Admission Diagnosis/Problem Hypokalemia, C. difficile colitis, hypophosphatemia Subjective Update: Steady improvement daily. Continues to have 3-5 stools daily that are approximately 400-700 mils each. Denies any chest pain shortness of breath. Reports he feels his stools are becoming thicker in consistency. Functional Status: Reports: Pain Controlled, Tolerating Diet, Ambulating, Urinating - Review of Systems General: Reports: Weakness, Fatigue (Slowly improving) HEENT: Reports: No Symptoms. Denies: Headaches, Sore Throat, Visual Changes Pulmonary: Reports: No Symptoms. Denies: Shortness of Breath Cardiovascular: Reports: No Symptoms. Denies: Chest Pain Gastrointestinal: Reports: Diarrhea (Slowly improving). Denies: Abdominal Pain, Nausea, Vomiting Genitourinary: Reports: No Symptoms. Denies: Dysuria, Frequency Musculoskeletal: Reports: No Symptoms Skin: Reports: No Symptoms Neurological: Reports: No Symptoms Psychiatric: Reports: No Symptoms - Patient Data Vitals - Most Recent: Last Vital Signs Temp 98.2 F 03/26/21 04:00 Pulse 85 03/26/21 04:00 Resp 16 03/26/21 04:00 BP 109/72 03/26/21 04:00 Pulse Ox 96 03/26/21 04:00 Orthostatic Blood Pressure [ 83/54 Standing] Orthostatic Blood Pressure [ 99/66 Sitting] Orthostatic Blood Pressure [ 109/75 Supine] Weight - Most Recent: 70.261 kg I&O - Last 24 Hours: Intake & Output 03/25/21 03/26/21 03/26/21 22:59 06:59 14:59 Intake Total 1838 2150 Output Total 2650 2300 Balance -812 -150 Lab Results Last 24 Hours: Laboratory Results - last 24 hr 03/25/21 03/25/21 03/26/21 Range/Units 11:34 17:45 05:35 WBC 11.53 H (4.0-11.0) K/uL RBC 3.85 L (4.50-5.90) M/uL Hgb 13.5 (13.0-17.0) g/dL Hct 38.3 (38.0-50.0) % MCV 99.5 H (80.0-98.0) fL MCH 35.1 H (27.0-32.0) pg MCHC 35.2 (31.0-37.0) g/dL RDW Std Deviation 52.3 (28.0-62.0) fl RDW Coeff of Caleb 15 (11.0-15.0) % Plt Count 463 H (150-400) K/uL MPV 9.90 (7.40-12.00) fL Neut % (Auto) 75.7 (48.0-80.0) % Lymph % (Auto) 13.2 L (16.0-40.0) % [facility] % (Auto) 10.7 (0.0-15.0) % Eos % (Auto) 0.2 (0.0-7.0) % Baso % (Auto) 0.2 (0.0-1.5) % Neut # (Auto) 8.7 H (1.4-5.7) K/uL Lymph # (Auto) 1.5 (0.6-2.4) K/uL [facility] # (Auto) 1.2 H (0.0-0.8) K/uL Eos # (Auto) 0.0 (0.0-0.7) K/uL Baso # (Auto) 0.0 (0.0-0.1) K/uL Nucleated RBC % 0.0 /100WBC Nucleated RBCs # 0 K/uL Sodium (136-148) mmol/L Potassium (3.5-5.1) mmol/L Chloride (98-107) mmol/L Carbon Dioxide (21.0-32.0) mmol/L BUN (7.0-18.0) mg/dL Creatinine (0.8-1.3) mg/dL Est Cr Clr Drug Dosing mL/min Estimated GFR (MDRD) ml/min Glucose (74-106) mg/dL POC Glucose 133 H 132 H (70-99) mg/dL Calcium (8.5-10.1) mg/dL Phosphorus (2.6-4.7) mg/dL Magnesium (1.8-2.4) mg/dL 03/26/21 Range/Units 05:35 WBC (4.0-11.0) K/uL RBC (4.50-5.90) M/uL Hgb (13.0-17.0) g/dL Hct (38.0-50.0) % MCV (80.0-98.0) fL MCH (27.0-32.0) pg MCHC (31.0-37.0) g/dL RDW Std Deviation (28.0-62.0) fl RDW Coeff of Caleb (11.0-15.0) % Plt Count (150-400) K/uL MPV (7.40-12.00) fL Neut % (Auto) (48.0-80.0) % Lymph % (Auto) (16.0-40.0) % [facility] % (Auto) (0.0-15.0) % Eos % (Auto) (0.0-7.0) % Baso % (Auto) (0.0-1.5) % Neut # (Auto) (1.4-5.7) K/uL Lymph # (Auto) (0.6-2.4) K/uL [facility] # (Auto) (0.0-0.8) K/uL Eos # (Auto) (0.0-0.7) K/uL Baso # (Auto) (0.0-0.1) K/uL Nucleated RBC % /100WBC Nucleated RBCs # K/uL Sodium 133 L (136-148) mmol/L Potassium 3.3 L (3.5-5.1) mmol/L Chloride 101 (98-107) mmol/L Carbon Dioxide 18.0 L (21.0-32.0) mmol/L BUN 20 H (7.0-18.0) mg/dL Creatinine 1.2 (0.8-1.3) mg/dL Est Cr Clr Drug Dosing 58.55 mL/min Estimated GFR (MDRD) > 60.0 ml/min Glucose 131 H (74-106) mg/dL POC Glucose (70-99) mg/dL Calcium 8.5 (8.5-10.1) mg/dL Phosphorus 4.7 (2.6-4.7) mg/dL Magnesium 2.0 (1.8-2.4) mg/dL Med Orders - Current: Current Medications Acetaminophen (Acetaminophen 325 Mg Tab) 650 mg PO Q4H PRN PRN Reason: Pain (Mild 1-3)/fever Acidophilus/Pectin (Acidophilus With [place] Pectin Tab) 1 tab PO BID [facility] Last Admin: 03/25/21 20:52 Dose: 1 tab Documented by: Albuterol/Ipratropium (Albuterol/Ipratropium 3.0-0.5 Mg/3 Ml Neb Soln) 3 ml NEB Q4HRRT PRN PRN Reason: Shortness Of Breath/wheezing [place] Butter/Phenylephrine ([place] Butter/Phenylephrine Rectal Supp) 1 each RECTAL QID PRN PRN Reason: hemorrhoidal pain Last Admin: 03/25/21 10:45 Dose: 1 each Documented by: Gabapentin (Gabapentin 300 Mg Cap) 300 mg PO TID [facility] Last Admin: 03/26/21 06:00 Dose: 300 mg Documented by: Heparin Sodium (Porcine) (Heparin Sodium 5,000 Units/Ml Vial) 5,000 units SUBCUT Q8H [facility] Last Admin: 03/26/21 06:00 Dose: 5,000 units Documented by: Pantoprazole Sodium 40 mg/ (Sodium Chloride) 10 mls @ 200 mls/hr IV Q24H [facility] Last Admin: 03/25/21 17:32 Dose: 200 mls/hr Documented by: Metronidazole 500 mg/ Premix 100 mls @ 100 mls/hr IV Q8H [facility] Last Admin: 03/26/21 02:32 Dose: 100 mls/hr Documented by: Lactated Ringer's (Ringers, Lactated) 1,000 mls @ 999 mls/hr IV .BOLUS ONE Stop: 03/26/21 09:04 Lactated Ringer's (Ringers, Lactated) 1,000 mls @ 75 mls/hr IV Q13H [facility] Levothyroxine Sodium (Levothyroxine 50 Mcg Tab) 50 mcg PO ACBREAKFAST [facility] Last Admin: 03/25/21 06:35 Dose: 50 mcg Documented by: Morphine Sulfate (Morphine 2 Mg/Ml Syringe) 1 mg IVPUSH Q4H PRN PRN Reason: Pain Ondansetron HCl (Ondansetron 4 Mg/2 Ml Sdv) 4 mg IVPUSH Q4H PRN PRN Reason: Nausea/Vomiting Last Admin: 03/23/21 22:35 Dose: 4 mg Documented by: Sodium Chloride (Sodium Chloride 0.9% 10 Ml Syringe) 10 ml FLUSH ASDIRECTED PRN PRN Reason: Keep Vein Open Last Admin: 03/25/21 06:20 Dose: 10 ml Documented by: Sodium Chloride (Sodium Chloride 0.9% 2.5 Ml Syringe) 2.5 ml FLUSH ASDIRECTED PRN PRN Reason: Keep Vein Open Last Admin: 03/22/21 18:26 Dose: 2.5 ml Documented by: Sodium Phosphate (Phosphorus #1 250 Mg Tab) 250 mg PO QID [facility] Last Admin: 03/26/21 06:00 Dose: 250 mg Documented by: Vancomycin HCl (Vancomycin 125 Mg Cap) 125 mg PO QID [facility] Last Admin: 03/26/21 06:00 Dose: 125 mg Documented by: Discontinued Medications Sodium Chloride (Normal Saline) 1,000 mls @ 125 mls/hr IV STAT ONE Stop: 03/18/21 22:45 Last Infusion: 03/18/21 15:59 Dose: 999 mls/hr Documented by: Potassium Chloride 40 meq/ (Premix) 100 mls @ 25 mls/hr IV ONETIME ONE Stop: 03/18/21 19:50 Last Admin: 03/18/21 17:49 Dose: 25 mls/hr Documented by: Sodium Chloride (Normal Saline) 1,000 mls @ 125 mls/hr IV STAT ONE Stop: 03/18/21 23:51 Last Admin: 03/18/21 17:13 Dose: 125 mls/hr Documented by: Potassium Chloride/Dextrose/Sod Cl (D5 Ns With 20 Meq Kcl) 1,000 mls @ 125 mls/hr IV ASDIRECTED [facility] Last Admin: 03/19/21 02:12 Dose: 125 mls/hr Documented by: Lactated Ringer's (Ringers, Lactated) 1,000 mls @ 125 mls/hr IV Q8H [facility] Last Admin: 03/20/21 05:01 Dose: 125 mls/hr Documented by: Ciprofloxacin/Dextrose 400 mg/ (Premix) 200 mls @ 200 mls/hr IV Q12H [facility] Last Admin: 03/19/21 01:00 Dose: 200 mls/hr Documented by: Metronidazole 500 mg/ Premix 100 mls @ 100 mls/hr IV QID [facility] Last Admin: 03/19/21 06:00 Dose: 100 mls/hr Documented by: Potassium Phosphate 15 mmole/Potassium Chloride 20 meq/Sodium Chloride 515 mls @ 67.5 mls/hr IV ONETIME ONE Stop: 03/19/21 16:37 Last Admin: 03/19/21 09:12 Dose: 67.5 mls/hr Documented by: Potassium Phosphate 15 mmole/Potassium Chloride 20 meq/Sodium Chloride 515 mls @ 67.5 mls/hr IV ONETIME ONE Stop: 03/20/21 16:07 Last Admin: 03/20/21 09:20 Dose: 67.5 mls/hr Documented by: Potassium Chloride 40 meq/ (Dextrose/Sodium Chloride) 1,020 mls @ 125 mls/hr IV Q8H [facility] Stop: 03/21/21 20:29 Last Admin: 03/21/21 22:23 Dose: Not Given Documented by: Potassium Phosphate 20 mmole/ (Sodium Chloride) 506.6667 mls @ 168.889 mls/hr IV ONETIME ONE Stop: 03/21/21 11:29 Last Admin: 03/21/21 09:04 Dose: 168.889 mls/hr Documented by: Potassium Chloride 40 meq/ (Dextrose/Sodium Chloride) 1,020 mls @ 125 mls/hr IV Q8H [facility] Last Admin: 03/23/21 02:46 Dose: 125 mls/hr Documented by: Lactated Ringer's (Ringers, Lactated) 1,000 mls @ 999 mls/hr IV ONETIME ONE Stop: 03/22/21 09:19 Last Admin: 03/22/21 11:29 Dose: 999 mls/hr Documented by: Potassium Phosphate 15 mmole/ (Sodium Chloride) 505 mls @ 67.5 mls/hr IV ONETIME ONE Stop: 03/22/21 15:48 Last Admin: 03/22/21 11:29 Dose: 67.5 mls/hr Documented by: Lactated Ringer's (Ringers, Lactated) 1,000 mls @ 75 mls/hr IV ASDIRECTED [facility] Last Admin: 03/26/21 02:32 Dose: 75 mls/hr Documented by: Magnesium Sulfate (Magnesium Sulfate In Water 2 Gm/50 Ml) 2 gm in 50 mls @ 50 mls/hr IV ONETIME ONE Stop: 03/23/21 11:44 Last Admin: 03/23/21 11:18 Dose: 50 mls/hr Documented by: Potassium Chloride (Potassium Chloride 20 Meq Tab.Er) 40 meq PO ONETIME ONE Stop: 03/19/21 08:19 Last Admin: 03/19/21 09:19 Dose: 40 meq Documented by: Potassium Chloride (Potassium Chloride 20 Meq Tab.Er) 40 meq PO ONETIME ONE Stop: 03/19/21 15:01 Last Admin: 03/19/21 15:18 Dose: 40 meq Documented by: Potassium Chloride (Potassium Chloride 20 Meq Tab.Er) 40 meq PO BIDMEALS [facility] Last Admin: 03/23/21 08:55 Dose: 40 meq Documented by: Potassium Chloride (Potassium Chloride 20 Meq Tab.Er) 40 meq PO BIDMEALS [facility] Stop: 03/25/21 17:01 Last Admin: 03/25/21 17:36 Dose: 40 meq Documented by: Vancomycin HCl (Vancomycin 125 Mg Cap) 125 mg PO Q4H [facility] Last Admin: 03/19/21 06:35 Dose: 125 mg Documented by: - Exam Quality Assessment: No: Supplemental Oxygen General: Alert, Oriented, Cooperative, No Acute Distress Neck: Supple Lungs: Clear to Auscultation, Normal Respiratory Effort Cardiovascular: Regular Rate, Regular Rhythm GI/Abdominal Exam: Normal Bowel Sounds, Soft, Non-Tender Extremities: Normal Inspection, Normal Range of Motion, Non-Tender, No Pedal Edema Skin: Warm, Dry Neurological: No New Focal Deficit Psy/Mental Status: Alert, Normal Affect, Normal Mood - Patient Data Lab Results Last 24 hrs: Laboratory Results - last 24 hr 03/25/21 03/25/21 03/26/21 Range/Units 11:34 17:45 05:35 WBC 11.53 H (4.0-11.0) K/uL RBC 3.85 L (4.50-5.90) M/uL Hgb 13.5 (13.0-17.0) g/dL Hct 38.3 (38.0-50.0) % MCV 99.5 H (80.0-98.0) fL MCH 35.1 H (27.0-32.0) pg MCHC 35.2 (31.0-37.0) g/dL RDW Std Deviation 52.3 (28.0-62.0) fl RDW Coeff of Caleb 15 (11.0-15.0) % Plt Count 463 H (150-400) K/uL MPV 9.90 (7.40-12.00) fL Neut % (Auto) 75.7 (48.0-80.0) % Lymph % (Auto) 13.2 L (16.0-40.0) % [facility] % (Auto) 10.7 (0.0-15.0) % Eos % (Auto) 0.2 (0.0-7.0) % Baso % (Auto) 0.2 (0.0-1.5) % Neut # (Auto) 8.7 H (1.4-5.7) K/uL Lymph # (Auto) 1.5 (0.6-2.4) K/uL [facility] # (Auto) 1.2 H (0.0-0.8) K/uL Eos # (Auto) 0.0 (0.0-0.7) K/uL Baso # (Auto) 0.0 (0.0-0.1) K/uL Nucleated RBC % 0.0 /100WBC Nucleated RBCs # 0 K/uL Sodium (136-148) mmol/L Potassium (3.5-5.1) mmol/L Chloride (98-107) mmol/L Carbon Dioxide (21.0-32.0) mmol/L BUN (7.0-18.0) mg/dL Creatinine (0.8-1.3) mg/dL Est Cr Clr Drug Dosing mL/min Estimated GFR (MDRD) ml/min Glucose (74-106) mg/dL POC Glucose 133 H 132 H (70-99) mg/dL Calcium (8.5-10.1) mg/dL Phosphorus (2.6-4.7) mg/dL Magnesium (1.8-2.4) mg/dL 03/26/21 Range/Units 05:35 WBC (4.0-11.0) K/uL RBC (4.50-5.90) M/uL Hgb (13.0-17.0) g/dL Hct (38.0-50.0) % MCV (80.0-98.0) fL MCH (27.0-32.0) pg MCHC (31.0-37.0) g/dL RDW Std Deviation (28.0-62.0) fl RDW Coeff of Caleb (11.0-15.0) % Plt Count (150-400) K/uL MPV (7.40-12.00) fL Neut % (Auto) (48.0-80.0) % Lymph % (Auto) (16.0-40.0) % [facility] % (Auto) (0.0-15.0) % Eos % (Auto) (0.0-7.0) % Baso % (Auto) (0.0-1.5) % Neut # (Auto) (1.4-5.7) K/uL Lymph # (Auto) (0.6-2.4) K/uL [facility] # (Auto) (0.0-0.8) K/uL Eos # (Auto) (0.0-0.7) K/uL Baso # (Auto) (0.0-0.1) K/uL Nucleated RBC % /100WBC Nucleated RBCs # K/uL Sodium 133 L (136-148) mmol/L Potassium 3.3 L (3.5-5.1) mmol/L Chloride 101 (98-107) mmol/L Carbon Dioxide 18.0 L (21.0-32.0) mmol/L BUN 20 H (7.0-18.0) mg/dL Creatinine 1.2 (0.8-1.3) mg/dL Est Cr Clr Drug Dosing 58.55 mL/min Estimated GFR (MDRD) > 60.0 ml/min Glucose 131 H (74-106) mg/dL POC Glucose (70-99) mg/dL Calcium 8.5 (8.5-10.1) mg/dL Phosphorus 4.7 (2.6-4.7) mg/dL Magnesium 2.0 (1.8-2.4) mg/dL Result Diagrams: 03/26/21 05:35 03/26/21 05:35 Sepsis Event Note - Evaluation Sepsis Screening Result: No Definite Risk - Focused Exam Vital Signs: Vital Signs Temp Pulse Resp BP Pulse Ox 03/26/21 04:00 98.2 F 85 16 109/72 96 03/25/21 23:49 98.2 F 88 16 108/78 97 03/25/21 20:51 97.3 F 85 17 94/73 98 - Problem List & Annotations (1) C. difficile colitis SNOMED Code(s): 918727595 Code(s): A04.72 - ENTEROCOLITIS D/T CLOSTRIDIUM DIFFICILE, NOT SPCF RECUR Status: Acute Current Visit: Yes (2) Hypophosphatemia SNOMED Code(s): 8141742 Code(s): E83.39 - OTHER DISORDERS OF PHOSPHORUS METABOLISM Status: Resolved Current Visit: Yes (3) Port-A-Cath in place SNOMED Code(s): 396579431 Code(s): Z95.828 - PRESENCE OF OTHER VASCULAR IMPLANTS AND GRAFTS Status: Acute Current Visit: Yes (4) Tongue carcinoma Status: Chronic Current Visit: Yes (5) Dehydration SNOMED Code(s): 69578288 Code(s): E86.0 - DEHYDRATION Status: Acute Current Visit: No (6) Diarrhea SNOMED Code(s): 88488353 Code(s): R19.7 - DIARRHEA, UNSPECIFIED Status: Acute Current Visit: No Qualifiers: Diarrhea type: unspecified type Qualified Code(s): R19.7 - Diarrhea, unspecified (7) Hypokalemia SNOMED Code(s): 97260923 Code(s): E87.6 - HYPOKALEMIA Status: Acute Current Visit: No - Problem List Review Problem List Initiated/Reviewed/Updated: Yes - My Orders Last 24 Hours: My Active Orders 03/26/21 08:04 Lactated Ringers [Ringers, Lactated] 1,000 ml IV .BOLUS 03/26/21 08:15 Lactated Ringers [Ringers, Lactated] 1,000 ml IV Q13H 03/27/21 05:11 BASIC METABOLIC PANEL,BMP [CHEM] AM CBC WITH AUTO DIFF [HEME] AM MAGNESIUM [CHEM] AM PHOSPHORUS [CHEM] AM 03/28/21 05:11 BASIC METABOLIC PANEL,BMP [CHEM] AM CBC WITH AUTO DIFF [HEME] AM MAGNESIUM [CHEM] AM PHOSPHORUS [CHEM] AM 03/29/21 05:11 BASIC METABOLIC PANEL,BMP [CHEM] AM CBC WITH AUTO DIFF [HEME] AM MAGNESIUM [CHEM] AM PHOSPHORUS [CHEM] AM - Plan Plan:: 70 y/o M admitted for diarrhea, eric, hypokalemia, c.diff 1. C. difficile colitis -leukocytosis stable -Continue vancomycin 125 mg 4 times daily p.o. -Continue Flagyl 500 mg IV 4 times daily -Continue IV fluid replacement due to continued stools, will give extra 1 L today as he is negative nearly a liter overnight. -LR 75mls/hr -Continue PPI -Generalized weakness and deconditioning, PT consulted 2. Tongue carcinoma -Continue gabapentin 3. Hypothyroidism -Continue levothyroxine VTE prophylaxis: Heparin GI prophylaxis: Protonix CODE STATUS: DNR/DNI Dispo: 2 to 3 days pending improvement
[2021-03-26] MEDS: Levothyroxine 50 MCG Tab PO SCH (09:37)
[2021-03-26] MEDS: Acidophilus with Citrus Pectin Tab PO SCH ×2 (09:38→21:32)
[2021-03-26] MEDS ORDERED: Potassium Chloride 20 MEQ Tab.ER PO ONE (09:39)
[2021-03-26] MEDS: Pantoprazole 40 MG in Sodium Chloride 0.9% 10 ML IV SCH (17:39)
[2021-03-27] MEDS: Vancomycin 125 MG Cap PO SCH ×4 (00:48→17:42)
[2021-03-27] MEDS: metroNIDAZOLE/Normal Saline 500 MG in Premix Bag 1 BAG IV SCH ×3 (03:53→18:51)
[2021-03-27] MEDS: Gabapentin 300 MG Cap PO SCH ×3 (06:19→22:22)
[2021-03-27] MEDS: Heparin Sodium 5,000 Units/ML Vial SUBCUT SCH ×3 (06:19→20:30)
[2021-03-27 06:30] LABS: BLOOD UREA NITROGEN,BUN 16 mg/dL (7.0-18.0); CHLORIDE,CL 100 mmol/L (98-107); GLUCOSE RANDOM 123 mg/dL (74-106); POTASSIUM,K 2.9 mmol/L (3.5-5.1); SODIUM,NA 131 mmol/L (136-148)
[2021-03-27] MEDS: Lactated Ringers 1,000 ML IV SCH ×3 (07:45→20:29)
[2021-03-27] MEDS ORDERED: Magnesium Sulfate/Water 2 GM/50 ML BAG IV ONE (08:12)
[2021-03-27] MEDS ORDERED: Sodium Chloride 0.9% with KCl 1,000 ML IV ONE (08:13)
--- NOTE | 2021-03-27 08:13 | PCM.PN ---
- General Info Date of Service: 03/27/21 Admission Dx/Problem (Free Text): Admission Diagnosis/Problem Admission Diagnosis/Problem Hypokalemia, C. difficile colitis, hypophosphatemia Subjective Update: Continues to report that he is steadily improving. He is sitting up in a chair currently. Denies any chest pain or shortness of breath. Had bowel movement recently which he feels is starting to form up slightly but still having 3-4 stools every shift. Reporting he is eating more and currently is wanting popsicle. Functional Status: Reports: Pain Controlled, Tolerating Diet, Ambulating, Urinating - Review of Systems General: Reports: Fatigue (Feels like he is being woken up frequently during the evening and unable to sleep). Denies: Weakness HEENT: Reports: No Symptoms. Denies: Headaches, Sore Throat, Visual Changes Pulmonary: Reports: No Symptoms. Denies: Shortness of Breath Cardiovascular: Reports: No Symptoms. Denies: Chest Pain Gastrointestinal: Reports: Diarrhea (Steadily improving). Denies: Abdominal Pain, Nausea, Vomiting Genitourinary: Reports: No Symptoms. Denies: Dysuria, Frequency Musculoskeletal: Reports: No Symptoms Skin: Reports: No Symptoms Neurological: Reports: No Symptoms Psychiatric: Reports: No Symptoms - Patient Data Vitals - Most Recent: Last Vital Signs Temp 97.5 F 03/27/21 04:07 Pulse 83 03/27/21 04:07 Resp 16 03/27/21 04:07 BP 101/69 03/27/21 04:07 Pulse Ox 98 03/27/21 04:07 Orthostatic Blood Pressure [ 83/54 Standing] Orthostatic Blood Pressure [ 99/66 Sitting] Orthostatic Blood Pressure [ 109/75 Supine] Weight - Most Recent: 70.261 kg I&O - Last 24 Hours: Intake & Output 03/26/21 03/27/21 03/27/21 22:59 06:59 14:59 Intake Total 4276 2102 Output Total 1400 Balance 427 702 Lab Results Last 24 Hours: Laboratory Results - last 24 hr 03/26/21 03/26/21 03/27/21 Range/Units 09:40 18:06 06:01 WBC 10.53 (4.0-11.0) K/uL RBC 3.48 L (4.50-5.90) M/uL Hgb 12.1 L (13.0-17.0) g/dL Hct 34.1 L (38.0-50.0) % MCV 98.0 (80.0-98.0) fL MCH 34.8 H (27.0-32.0) pg MCHC 35.5 (31.0-37.0) g/dL RDW Std Deviation 51.1 (28.0-62.0) fl RDW Coeff of Caleb 14 (11.0-15.0) % Plt Count 347 (150-400) K/uL MPV 9.30 (7.40-12.00) fL Neut % (Auto) 80.6 H (48.0-80.0) % Lymph % (Auto) 8.6 L (16.0-40.0) % [place] % (Auto) 10.3 (0.0-15.0) % Eos % (Auto) 0.4 (0.0-7.0) % Baso % (Auto) 0.1 (0.0-1.5) % Neut # (Auto) 8.5 H (1.4-5.7) K/uL Lymph # (Auto) 0.9 (0.6-2.4) K/uL [place] # (Auto) 1.1 H (0.0-0.8) K/uL Eos # (Auto) 0.0 (0.0-0.7) K/uL Baso # (Auto) 0.0 (0.0-0.1) K/uL Nucleated RBC % 0.0 /100WBC Nucleated RBCs # 0 K/uL Sodium (136-148) mmol/L Potassium (3.5-5.1) mmol/L Chloride (98-107) mmol/L Carbon Dioxide (21.0-32.0) mmol/L BUN (7.0-18.0) mg/dL Creatinine (0.8-1.3) mg/dL Est Cr Clr Drug Dosing mL/min Estimated GFR (MDRD) ml/min Glucose (74-106) mg/dL POC Glucose 119 H 113 H (70-99) mg/dL Calcium (8.5-10.1) mg/dL Phosphorus (2.6-4.7) mg/dL Magnesium (1.8-2.4) mg/dL 03/27/21 03/27/21 Range/Units 06:01 07:07 WBC (4.0-11.0) K/uL RBC (4.50-5.90) M/uL Hgb (13.0-17.0) g/dL Hct (38.0-50.0) % MCV (80.0-98.0) fL MCH (27.0-32.0) pg MCHC (31.0-37.0) g/dL RDW Std Deviation (28.0-62.0) fl RDW Coeff of Caleb (11.0-15.0) % Plt Count (150-400) K/uL MPV (7.40-12.00) fL Neut % (Auto) (48.0-80.0) % Lymph % (Auto) (16.0-40.0) % [place] % (Auto) (0.0-15.0) % Eos % (Auto) (0.0-7.0) % Baso % (Auto) (0.0-1.5) % Neut # (Auto) (1.4-5.7) K/uL Lymph # (Auto) (0.6-2.4) K/uL [place] # (Auto) (0.0-0.8) K/uL Eos # (Auto) (0.0-0.7) K/uL Baso # (Auto) (0.0-0.1) K/uL Nucleated RBC % /100WBC Nucleated RBCs # K/uL Sodium 131 L (136-148) mmol/L Potassium 2.9 L (3.5-5.1) mmol/L Chloride 100 (98-107) mmol/L Carbon Dioxide 17.0 L (21.0-32.0) mmol/L BUN 16 (7.0-18.0) mg/dL Creatinine 0.8 (0.8-1.3) mg/dL Est Cr Clr Drug Dosing 87.83 mL/min Estimated GFR (MDRD) > 60.0 ml/min Glucose 123 H (74-106) mg/dL POC Glucose 103 H (70-99) mg/dL Calcium 8.0 L (8.5-10.1) mg/dL Phosphorus 2.7 (2.6-4.7) mg/dL Magnesium 1.7 L (1.8-2.4) mg/dL Med Orders - Current: Current Medications Acetaminophen (Acetaminophen 325 Mg Tab) 650 mg PO Q4H PRN PRN Reason: Pain (Mild 1-3)/fever Acidophilus/Pectin (Acidophilus With Thurmond Pectin Tab) 1 tab PO BID [facility] Last Admin: 03/26/21 21:32 Dose: 1 tab Documented by: Albuterol/Ipratropium (Albuterol/Ipratropium 3.0-0.5 Mg/3 Ml Neb Soln) 3 ml NEB Q4HRRT PRN PRN Reason: Shortness Of Breath/wheezing Industry Butter/Phenylephrine (Industry Butter/Phenylephrine Rectal Supp) 1 each RECTAL QID PRN PRN Reason: hemorrhoidal pain Last Admin: 03/25/21 10:45 Dose: 1 each Documented by: Gabapentin (Gabapentin 300 Mg Cap) 300 mg PO TID [facility] Last Admin: 03/27/21 06:19 Dose: 300 mg Documented by: Heparin Sodium (Porcine) (Heparin Sodium 5,000 Units/Ml Vial) 5,000 units SUBCUT Q8H [facility] Last Admin: 03/27/21 06:19 Dose: 5,000 units Documented by: Pantoprazole Sodium 40 mg/ (Sodium Chloride) 10 mls @ 200 mls/hr IV Q24H [facility] Last Admin: 03/26/21 17:39 Dose: 200 mls/hr Documented by: Metronidazole 500 mg/ Premix 100 mls @ 100 mls/hr IV Q8H [facility] Last Admin: 03/27/21 03:53 Dose: 100 mls/hr Documented by: Lactated Ringer's (Ringers, Lactated) 1,000 mls @ 75 mls/hr IV Q13H [facility] Last Admin: 03/27/21 07:45 Dose: Not Given Documented by: Levothyroxine Sodium (Levothyroxine 50 Mcg Tab) 50 mcg PO ACBREAKFAST [facility] Last Admin: 03/26/21 09:37 Dose: 50 mcg Documented by: Morphine Sulfate (Morphine 2 Mg/Ml Syringe) 1 mg IVPUSH Q4H PRN PRN Reason: Pain Ondansetron HCl (Ondansetron 4 Mg/2 Ml Sdv) 4 mg IVPUSH Q4H PRN PRN Reason: Nausea/Vomiting Last Admin: 03/23/21 22:35 Dose: 4 mg Documented by: Sodium Chloride (Sodium Chloride 0.9% 10 Ml Syringe) 10 ml FLUSH ASDIRECTED PRN PRN Reason: Keep Vein Open Last Admin: 03/25/21 06:20 Dose: 10 ml Documented by: Sodium Chloride (Sodium Chloride 0.9% 2.5 Ml Syringe) 2.5 ml FLUSH ASDIRECTED PRN PRN Reason: Keep Vein Open Last Admin: 03/22/21 18:26 Dose: 2.5 ml Documented by: Vancomycin HCl (Vancomycin 125 Mg Cap) 125 mg PO QID [facility] Last Admin: 03/27/21 06:19 Dose: 125 mg Documented by: Discontinued Medications Sodium Chloride (Normal Saline) 1,000 mls @ 125 mls/hr IV STAT ONE Stop: 03/18/21 22:45 Last Infusion: 03/18/21 15:59 Dose: 999 mls/hr Documented by: Potassium Chloride 40 meq/ (Premix) 100 mls @ 25 mls/hr IV ONETIME ONE Stop: 03/18/21 19:50 Last Admin: 03/18/21 17:49 Dose: 25 mls/hr Documented by: Sodium Chloride (Normal Saline) 1,000 mls @ 125 mls/hr IV STAT ONE Stop: 03/18/21 23:51 Last Admin: 03/18/21 17:13 Dose: 125 mls/hr Documented by: Potassium Chloride/Dextrose/Sod Cl (D5 Ns With 20 Meq Kcl) 1,000 mls @ 125 mls/hr IV ASDIRECTED [facility] Last Admin: 03/19/21 02:12 Dose: 125 mls/hr Documented by: Lactated Ringer's (Ringers, Lactated) 1,000 mls @ 125 mls/hr IV Q8H [facility] Last Admin: 03/20/21 05:01 Dose: 125 mls/hr Documented by: Ciprofloxacin/Dextrose 400 mg/ (Premix) 200 mls @ 200 mls/hr IV Q12H [facility] Last Admin: 03/19/21 01:00 Dose: 200 mls/hr Documented by: Metronidazole 500 mg/ Premix 100 mls @ 100 mls/hr IV QID [facility] Last Admin: 03/19/21 06:00 Dose: 100 mls/hr Documented by: Potassium Phosphate 15 mmole/Potassium Chloride 20 meq/Sodium Chloride 515 mls @ 67.5 mls/hr IV ONETIME ONE Stop: 03/19/21 16:37 Last Admin: 03/19/21 09:12 Dose: 67.5 mls/hr Documented by: Potassium Phosphate 15 mmole/Potassium Chloride 20 meq/Sodium Chloride 515 mls @ 67.5 mls/hr IV ONETIME ONE Stop: 03/20/21 16:07 Last Admin: 03/20/21 09:20 Dose: 67.5 mls/hr Documented by: Potassium Chloride 40 meq/ (Dextrose/Sodium Chloride) 1,020 mls @ 125 mls/hr IV Q8H [facility] Stop: 03/21/21 20:29 Last Admin: 03/21/21 22:23 Dose: Not Given Documented by: Potassium Phosphate 20 mmole/ (Sodium Chloride) 506.6667 mls @ 168.889 mls/hr IV ONETIME ONE Stop: 03/21/21 11:29 Last Admin: 03/21/21 09:04 Dose: 168.889 mls/hr Documented by: Potassium Chloride 40 meq/ (Dextrose/Sodium Chloride) 1,020 mls @ 125 mls/hr IV Q8H [facility] Last Admin: 03/23/21 02:46 Dose: 125 mls/hr Documented by: Lactated Ringer's (Ringers, Lactated) 1,000 mls @ 999 mls/hr IV ONETIME ONE Stop: 03/22/21 09:19 Last Admin: 03/22/21 11:29 Dose: 999 mls/hr Documented by: Potassium Phosphate 15 mmole/ (Sodium Chloride) 505 mls @ 67.5 mls/hr IV ONETIME ONE Stop: 03/22/21 15:48 Last Admin: 03/22/21 11:29 Dose: 67.5 mls/hr Documented by: Lactated Ringer's (Ringers, Lactated) 1,000 mls @ 75 mls/hr IV ASDIRECTED [facility] Last Admin: 03/26/21 02:32 Dose: 75 mls/hr Documented by: Magnesium Sulfate (Magnesium Sulfate In Water 2 Gm/50 Ml) 2 gm in 50 mls @ 50 mls/hr IV ONETIME ONE Stop: 03/23/21 11:44 Last Admin: 03/23/21 11:18 Dose: 50 mls/hr Documented by: Lactated Ringer's (Ringers, Lactated) 1,000 mls @ 999 mls/hr IV .BOLUS ONE Stop: 03/26/21 09:04 Last Admin: 03/26/21 09:38 Dose: 999 mls/hr Documented by: Potassium Chloride (Potassium Chloride 20 Meq Tab.Er) 40 meq PO ONETIME ONE Stop: 03/19/21 08:19 Last Admin: 03/19/21 09:19 Dose: 40 meq Documented by: Potassium Chloride (Potassium Chloride 20 Meq Tab.Er) 40 meq PO ONETIME ONE Stop: 03/19/21 15:01 Last Admin: 03/19/21 15:18 Dose: 40 meq Documented by: Potassium Chloride (Potassium Chloride 20 Meq Tab.Er) 40 meq PO BIDMEALS [facility] Last Admin: 03/23/21 08:55 Dose: 40 meq Documented by: Potassium Chloride (Potassium Chloride 20 Meq Tab.Er) 40 meq PO BIDMEALS [facility] Stop: 03/25/21 17:01 Last Admin: 03/25/21 17:36 Dose: 40 meq Documented by: Potassium Chloride (Potassium Chloride 20 Meq Tab.Er) 40 meq PO ONETIME ONE Stop: 03/26/21 09:40 Last Admin: 03/26/21 11:01 Dose: 40 meq Documented by: Sodium Phosphate (Phosphorus #1 250 Mg Tab) 250 mg PO QID [facility] Last Admin: 03/26/21 06:00 Dose: 250 mg Documented by: Vancomycin HCl (Vancomycin 125 Mg Cap) 125 mg PO Q4H [facility] Last Admin: 03/19/21 06:35 Dose: 125 mg Documented by: - Exam Quality Assessment: DVT Prophylaxis. No: Supplemental Oxygen General: Alert, Oriented, Cooperative, No Acute Distress Neck: Supple Lungs: Clear to Auscultation, Normal Respiratory Effort Cardiovascular: Regular Rate, Regular Rhythm GI/Abdominal Exam: Normal Bowel Sounds, Soft, Non-Tender Extremities: Normal Inspection, Normal Range of Motion, Non-Tender, No Pedal Edema Skin: Warm, Dry Neurological: No New Focal Deficit Psy/Mental Status: Alert, Normal Affect, Normal Mood - Patient Data Lab Results Last 24 hrs: Laboratory Results - last 24 hr 03/26/21 03/26/21 03/27/21 Range/Units 09:40 18:06 06:01 WBC 10.53 (4.0-11.0) K/uL RBC 3.48 L (4.50-5.90) M/uL Hgb 12.1 L (13.0-17.0) g/dL Hct 34.1 L (38.0-50.0) % MCV 98.0 (80.0-98.0) fL MCH 34.8 H (27.0-32.0) pg MCHC 35.5 (31.0-37.0) g/dL RDW Std Deviation 51.1 (28.0-62.0) fl RDW Coeff of Caleb 14 (11.0-15.0) % Plt Count 347 (150-400) K/uL MPV 9.30 (7.40-12.00) fL Neut % (Auto) 80.6 H (48.0-80.0) % Lymph % (Auto) 8.6 L (16.0-40.0) % [place] % (Auto) 10.3 (0.0-15.0) % Eos % (Auto) 0.4 (0.0-7.0) % Baso % (Auto) 0.1 (0.0-1.5) % Neut # (Auto) 8.5 H (1.4-5.7) K/uL Lymph # (Auto) 0.9 (0.6-2.4) K/uL [place] # (Auto) 1.1 H (0.0-0.8) K/uL Eos # (Auto) 0.0 (0.0-0.7) K/uL Baso # (Auto) 0.0 (0.0-0.1) K/uL Nucleated RBC % 0.0 /100WBC Nucleated RBCs # 0 K/uL Sodium (136-148) mmol/L Potassium (3.5-5.1) mmol/L Chloride (98-107) mmol/L Carbon Dioxide (21.0-32.0) mmol/L BUN (7.0-18.0) mg/dL Creatinine (0.8-1.3) mg/dL Est Cr Clr Drug Dosing mL/min Estimated GFR (MDRD) ml/min Glucose (74-106) mg/dL POC Glucose 119 H 113 H (70-99) mg/dL Calcium (8.5-10.1) mg/dL Phosphorus (2.6-4.7) mg/dL Magnesium (1.8-2.4) mg/dL 03/27/21 03/27/21 Range/Units 06:01 07:07 WBC (4.0-11.0) K/uL RBC (4.50-5.90) M/uL Hgb (13.0-17.0) g/dL Hct (38.0-50.0) % MCV (80.0-98.0) fL MCH (27.0-32.0) pg MCHC (31.0-37.0) g/dL RDW Std Deviation (28.0-62.0) fl RDW Coeff of Caleb (11.0-15.0) % Plt Count (150-400) K/uL MPV (7.40-12.00) fL Neut % (Auto) (48.0-80.0) % Lymph % (Auto) (16.0-40.0) % [place] % (Auto) (0.0-15.0) % Eos % (Auto) (0.0-7.0) % Baso % (Auto) (0.0-1.5) % Neut # (Auto) (1.4-5.7) K/uL Lymph # (Auto) (0.6-2.4) K/uL [place] # (Auto) (0.0-0.8) K/uL Eos # (Auto) (0.0-0.7) K/uL Baso # (Auto) (0.0-0.1) K/uL Nucleated RBC % /100WBC Nucleated RBCs # K/uL Sodium 131 L (136-148) mmol/L Potassium 2.9 L (3.5-5.1) mmol/L Chloride 100 (98-107) mmol/L Carbon Dioxide 17.0 L (21.0-32.0) mmol/L BUN 16 (7.0-18.0) mg/dL Creatinine 0.8 (0.8-1.3) mg/dL Est Cr Clr Drug Dosing 87.83 mL/min Estimated GFR (MDRD) > 60.0 ml/min Glucose 123 H (74-106) mg/dL POC Glucose 103 H (70-99) mg/dL Calcium 8.0 L (8.5-10.1) mg/dL Phosphorus 2.7 (2.6-4.7) mg/dL Magnesium 1.7 L (1.8-2.4) mg/dL Result Diagrams: 03/27/21 06:01 03/27/21 06:01 Sepsis Event Note - Evaluation Sepsis Screening Result: No Definite Risk - Focused Exam Vital Signs: Vital Signs Temp Pulse Resp BP Pulse Ox 03/27/21 04:07 97.5 F 83 16 101/69 98 03/27/21 00:47 97.5 F 78 16 106/61 96 03/26/21 21:33 97.2 F 79 17 119/74 99 - Problem List & Annotations (1) C. difficile colitis SNOMED Code(s): 875670024 Code(s): A04.72 - ENTEROCOLITIS D/T CLOSTRIDIUM DIFFICILE, NOT SPCF RECUR Status: Acute Current Visit: Yes (2) Hypophosphatemia SNOMED Code(s): 1616275 Code(s): E83.39 - OTHER DISORDERS OF PHOSPHORUS METABOLISM Status: Resolved Current Visit: Yes (3) Port-A-Cath in place SNOMED Code(s): 125773346 Code(s): Z95.828 - PRESENCE OF OTHER VASCULAR IMPLANTS AND GRAFTS Status: Acute Current Visit: Yes (4) Tongue carcinoma Status: Chronic Current Visit: Yes (5) Dehydration SNOMED Code(s): 25863500 Code(s): E86.0 - DEHYDRATION Status: Acute Current Visit: No (6) Diarrhea SNOMED Code(s): 39442888 Code(s): R19.7 - DIARRHEA, UNSPECIFIED Status: Acute Current Visit: No Qualifiers: Diarrhea type: unspecified type Qualified Code(s): R19.7 - Diarrhea, unspecified (7) Hypokalemia SNOMED Code(s): 66685341 Code(s): E87.6 - HYPOKALEMIA Status: Acute Current Visit: No - Problem List Review Problem List Initiated/Reviewed/Updated: Yes - My Orders Last 24 Hours: My Active Orders 03/26/21 08:15 Lactated Ringers [Ringers, Lactated] 1,000 ml IV Q13H 03/27/21 08:12 Magnesium Sulfate 2 GM ONETIME Magnesium Sulfate/Water [Magnesium Sulfate in Water 2 GM/50 ML] 2 gm in 50 ml IV ONETIME 03/27/21 08:13 Sodium Chloride 0.9% with KCl [Normal Saline with 40 mEq KCl] 1,000 ml IV ONETIME 03/27/21 17:00 Potassium Chloride [Klor-Con M20] 40 meq PO BIDMEALS 03/28/21 05:11 BASIC METABOLIC PANEL,BMP [CHEM] AM CBC WITH AUTO DIFF [HEME] AM MAGNESIUM [CHEM] AM PHOSPHORUS [CHEM] AM 03/29/21 05:11 BASIC METABOLIC PANEL,BMP [CHEM] AM CBC WITH AUTO DIFF [HEME] AM MAGNESIUM [CHEM] AM PHOSPHORUS [CHEM] AM - Plan Plan:: 70 y/o M admitted for diarrhea, eric, hypokalemia, c.diff 1. C. difficile colitis -leukocytosis stable -Continue vancomycin 125 mg 4 times daily p.o. -Continue Flagyl 500 mg IV 4 times daily -Continue IV fluid replacement due to continued stools, will give extra 1 L today as he is negative nearly a liter overnight. -LR 75mls/hr -Continue PPI -Generalized weakness and deconditioning, PT consulted-hypokalemia noted today we will give 40 p.o. twice daily as well as 40 MEQ potassium IV, monitor in a.m. 2. Tongue carcinoma -Continue gabapentin 3. Hypothyroidism -Continue levothyroxine VTE prophylaxis: Heparin GI prophylaxis: Protonix CODE STATUS: DNR/DNI Dispo: 2 to 3 days pending improvement. Patient steadily improving but patient is high risk for readmission if he is discharged too early as he will likely return with significant electrolyte abnormalities and dehydration due to continued diarrhea.
[2021-03-27] MEDS: Acidophilus with Citrus Pectin Tab PO SCH ×2 (08:15→20:30)
[2021-03-27] MEDS: Levothyroxine 50 MCG Tab PO SCH (08:15)
[2021-03-27] MEDS: Potassium Chloride 10% 20 MEQ/15 ML Soln 30 ML UD Cup PO SCH ×2 (09:53→17:42)
[2021-03-27] MEDS: Phosphorus #1 250 MG Tab PO SCH ×2 (11:56→17:43)
[2021-03-27] MEDS ORDERED: Potassium Chloride 20 MEQ Tab.ER PO SCH (17:00)
[2021-03-27] MEDS: Pantoprazole 40 MG in Sodium Chloride 0.9% 10 ML IV SCH (17:45)
[2021-03-28] MEDS: Lactated Ringers 1,000 ML IV SCH ×3 (00:32→12:31)
[2021-03-28] MEDS: Phosphorus #1 250 MG Tab PO SCH ×4 (00:37→18:08)
[2021-03-28] MEDS: Vancomycin 125 MG Cap PO SCH ×4 (00:37→18:08)
[2021-03-28] MEDS: metroNIDAZOLE/Normal Saline 500 MG in Premix Bag 1 BAG IV SCH ×3 (03:56→18:10)
[2021-03-28] MEDS: Heparin Sodium 5,000 Units/ML Vial SUBCUT SCH ×3 (05:21→22:21)
[2021-03-28] MEDS: Gabapentin 300 MG Cap PO SCH ×3 (05:21→22:21)
[2021-03-28 06:30] LABS: BLOOD UREA NITROGEN,BUN 10 mg/dL (7.0-18.0); CARBON DIOXIDE,CO2 18.6 mmol/L (21.0-32.0); CHLORIDE,CL 103 mmol/L (98-107); GLUCOSE RANDOM 97 mg/dL (74-106); POTASSIUM,K 3.1 mmol/L (3.5-5.1); SODIUM,NA 133 mmol/L (136-148)
[2021-03-28] MEDS: Levothyroxine 50 MCG Tab PO SCH (08:03)
--- NOTE | 2021-03-28 08:16 | PCM.PN ---
- General Info Date of Service: 03/28/21 Admission Dx/Problem (Free Text): Admission Diagnosis/Problem Admission Diagnosis/Problem Hypokalemia, C. difficile colitis, hypophosphatemia Subjective Update: Continues to improve daily. Had 2 bowel movements overnight and then 1 large bowel movement this morning. Continues to be diarrhea but also thickening. Denies any chest pain shortness of breath. Requests going back to potassium tablets of solution is quite intolerable to taste. Denies any other concerns getting eager to go home consider home in the next few days as diarrhea continues to improve. Functional Status: Reports: Pain Controlled, Tolerating Diet, Ambulating, Urinating - Review of Systems General: Reports: Weakness (Improving) Pulmonary: Reports: No Symptoms. Denies: Shortness of Breath Cardiovascular: Reports: No Symptoms. Denies: Chest Pain Gastrointestinal: Reports: Diarrhea. Denies: Abdominal Pain, Nausea, Vomiting Genitourinary: Reports: No Symptoms. Denies: Dysuria, Frequency, Burning Musculoskeletal: Reports: No Symptoms Skin: Reports: No Symptoms Neurological: Reports: No Symptoms Psychiatric: Reports: No Symptoms - Patient Data Vitals - Most Recent: Last Vital Signs Temp 97.6 F 03/28/21 04:00 Pulse 65 03/28/21 04:00 Resp 18 03/28/21 04:00 BP 126/65 03/28/21 04:00 Pulse Ox 96 03/28/21 04:00 Orthostatic Blood Pressure [ 83/54 Standing] Orthostatic Blood Pressure [ 99/66 Sitting] Orthostatic Blood Pressure [ 109/75 Supine] Weight - Most Recent: 70.261 kg I&O - Last 24 Hours: Intake & Output 03/27/21 03/28/21 03/28/21 22:59 06:59 14:59 Intake Total 820 700 Output Total 700 600 Balance 120 100 Lab Results Last 24 Hours: Laboratory Results - last 24 hr 03/28/21 03/28/21 Range/Units 05:35 05:35 WBC 10.50 (4.0-11.0) K/uL RBC 3.34 L (4.50-5.90) M/uL Hgb 11.6 L (13.0-17.0) g/dL Hct 33.4 L (38.0-50.0) % MCV 100.0 H (80.0-98.0) fL MCH 34.7 H (27.0-32.0) pg MCHC 34.7 (31.0-37.0) g/dL RDW Std Deviation 52.9 (28.0-62.0) fl RDW Coeff of Caleb 15 (11.0-15.0) % Plt Count 355 (150-400) K/uL MPV 9.60 (7.40-12.00) fL Neut % (Auto) 76.7 (48.0-80.0) % Lymph % (Auto) 12.4 L (16.0-40.0) % Trinity % (Auto) 10.5 (0.0-15.0) % Eos % (Auto) 0.3 (0.0-7.0) % Baso % (Auto) 0.1 (0.0-1.5) % Neut # (Auto) 8.1 H (1.4-5.7) K/uL Lymph # (Auto) 1.3 (0.6-2.4) K/uL Trinity # (Auto) 1.1 H (0.0-0.8) K/uL Eos # (Auto) 0.0 (0.0-0.7) K/uL Baso # (Auto) 0.0 (0.0-0.1) K/uL Nucleated RBC % 0.0 /100WBC Nucleated RBCs # 0 K/uL Sodium 133 L (136-148) mmol/L Potassium 3.1 L (3.5-5.1) mmol/L Chloride 103 (98-107) mmol/L Carbon Dioxide 18.6 L (21.0-32.0) mmol/L BUN 10 (7.0-18.0) mg/dL Creatinine 0.9 (0.8-1.3) mg/dL Est Cr Clr Drug Dosing 78.07 mL/min Estimated GFR (MDRD) > 60.0 ml/min Glucose 97 (74-106) mg/dL Calcium 7.8 L (8.5-10.1) mg/dL Phosphorus 2.3 L (2.6-4.7) mg/dL Magnesium 1.9 (1.8-2.4) mg/dL Med Orders - Current: Current Medications Acetaminophen (Acetaminophen 325 Mg Tab) 650 mg PO Q4H PRN PRN Reason: Pain (Mild 1-3)/fever Acidophilus/Pectin (Acidophilus With [place] Pectin Tab) 1 tab PO BID [facility] Last Admin: 03/27/21 20:30 Dose: 1 tab Documented by: Albuterol/Ipratropium (Albuterol/Ipratropium 3.0-0.5 Mg/3 Ml Neb Soln) 3 ml NEB Q4HRRT PRN PRN Reason: Shortness Of Breath/wheezing [place] Butter/Phenylephrine ([place] Butter/Phenylephrine Rectal Supp) 1 each RECTAL QID PRN PRN Reason: hemorrhoidal pain Last Admin: 03/25/21 10:45 Dose: 1 each Documented by: Gabapentin (Gabapentin 300 Mg Cap) 300 mg PO TID [facility] Last Admin: 03/28/21 05:21 Dose: 300 mg Documented by: Heparin Sodium (Porcine) (Heparin Sodium 5,000 Units/Ml Vial) 5,000 units SUBCUT Q8H [facility] Last Admin: 03/28/21 05:21 Dose: 5,000 units Documented by: Pantoprazole Sodium 40 mg/ (Sodium Chloride) 10 mls @ 200 mls/hr IV Q24H [facility] Last Admin: 03/27/21 17:45 Dose: 200 mls/hr Documented by: Metronidazole 500 mg/ Premix 100 mls @ 100 mls/hr IV Q8H [facility] Last Admin: 03/28/21 03:56 Dose: 100 mls/hr Documented by: Lactated Ringer's (Ringers, Lactated) 1,000 mls @ 75 mls/hr IV Q13H [facility] Last Admin: 03/28/21 00:32 Dose: Not Given Documented by: Levothyroxine Sodium (Levothyroxine 50 Mcg Tab) 50 mcg PO ACBREAKFAST [facility] Last Admin: 03/28/21 08:03 Dose: 50 mcg Documented by: Morphine Sulfate (Morphine 2 Mg/Ml Syringe) 1 mg IVPUSH Q4H PRN PRN Reason: Pain Ondansetron HCl (Ondansetron 4 Mg/2 Ml Sdv) 4 mg IVPUSH Q4H PRN PRN Reason: Nausea/Vomiting Last Admin: 03/23/21 22:35 Dose: 4 mg Documented by: Potassium Chloride (Potassium Chloride 10% 20 Meq/15 Ml Soln 30 Ml Ud Cup) 40 meq PO BIDMEALS [facility] Last Admin: 03/27/21 17:42 Dose: 40 meq Documented by: Sodium Chloride (Sodium Chloride 0.9% 10 Ml Syringe) 10 ml FLUSH ASDIRECTED PRN PRN Reason: Keep Vein Open Last Admin: 03/25/21 06:20 Dose: 10 ml Documented by: Sodium Chloride (Sodium Chloride 0.9% 2.5 Ml Syringe) 2.5 ml FLUSH ASDIRECTED PRN PRN Reason: Keep Vein Open Last Admin: 03/22/21 18:26 Dose: 2.5 ml Documented by: Sodium Phosphate (Phosphorus #1 250 Mg Tab) 250 mg PO QID [facility] Last Admin: 03/28/21 05:21 Dose: 250 mg Documented by: Vancomycin HCl (Vancomycin 125 Mg Cap) 125 mg PO QID [facility] Last Admin: 03/28/21 05:22 Dose: 125 mg Documented by: Discontinued Medications Sodium Chloride (Normal Saline) 1,000 mls @ 125 mls/hr IV STAT ONE Stop: 03/18/21 22:45 Last Infusion: 03/18/21 15:59 Dose: 999 mls/hr Documented by: Potassium Chloride 40 meq/ (Premix) 100 mls @ 25 mls/hr IV ONETIME ONE Stop: 03/18/21 19:50 Last Admin: 03/18/21 17:49 Dose: 25 mls/hr Documented by: Sodium Chloride (Normal Saline) 1,000 mls @ 125 mls/hr IV STAT ONE Stop: 03/18/21 23:51 Last Admin: 03/18/21 17:13 Dose: 125 mls/hr Documented by: Potassium Chloride/Dextrose/Sod Cl (D5 Ns With 20 Meq Kcl) 1,000 mls @ 125 mls/hr IV ASDIRECTED [facility] Last Admin: 03/19/21 02:12 Dose: 125 mls/hr Documented by: Lactated Ringer's (Ringers, Lactated) 1,000 mls @ 125 mls/hr IV Q8H [facility] Last Admin: 03/20/21 05:01 Dose: 125 mls/hr Documented by: Ciprofloxacin/Dextrose 400 mg/ (Premix) 200 mls @ 200 mls/hr IV Q12H [facility] Last Admin: 03/19/21 01:00 Dose: 200 mls/hr Documented by: Metronidazole 500 mg/ Premix 100 mls @ 100 mls/hr IV QID [facility] Last Admin: 03/19/21 06:00 Dose: 100 mls/hr Documented by: Potassium Phosphate 15 mmole/Potassium Chloride 20 meq/Sodium Chloride 515 mls @ 67.5 mls/hr IV ONETIME ONE Stop: 03/19/21 16:37 Last Admin: 03/19/21 09:12 Dose: 67.5 mls/hr Documented by: Potassium Phosphate 15 mmole/Potassium Chloride 20 meq/Sodium Chloride 515 mls @ 67.5 mls/hr IV ONETIME ONE Stop: 03/20/21 16:07 Last Admin: 03/20/21 09:20 Dose: 67.5 mls/hr Documented by: Potassium Chloride 40 meq/ (Dextrose/Sodium Chloride) 1,020 mls @ 125 mls/hr IV Q8H [facility] Stop: 03/21/21 20:29 Last Admin: 03/21/21 22:23 Dose: Not Given Documented by: Potassium Phosphate 20 mmole/ (Sodium Chloride) 506.6667 mls @ 168.889 mls/hr IV ONETIME ONE Stop: 03/21/21 11:29 Last Admin: 03/21/21 09:04 Dose: 168.889 mls/hr Documented by: Potassium Chloride 40 meq/ (Dextrose/Sodium Chloride) 1,020 mls @ 125 mls/hr IV Q8H [facility] Last Admin: 03/23/21 02:46 Dose: 125 mls/hr Documented by: Lactated Ringer's (Ringers, Lactated) 1,000 mls @ 999 mls/hr IV ONETIME ONE Stop: 03/22/21 09:19 Last Admin: 03/22/21 11:29 Dose: 999 mls/hr Documented by: Potassium Phosphate 15 mmole/ (Sodium Chloride) 505 mls @ 67.5 mls/hr IV ONETIME ONE Stop: 03/22/21 15:48 Last Admin: 03/22/21 11:29 Dose: 67.5 mls/hr Documented by: Lactated Ringer's (Ringers, Lactated) 1,000 mls @ 75 mls/hr IV ASDIRECTED [facility] Last Admin: 03/26/21 02:32 Dose: 75 mls/hr Documented by: Magnesium Sulfate (Magnesium Sulfate In Water 2 Gm/50 Ml) 2 gm in 50 mls @ 50 mls/hr IV ONETIME ONE Stop: 03/23/21 11:44 Last Admin: 03/23/21 11:18 Dose: 50 mls/hr Documented by: Lactated Ringer's (Ringers, Lactated) 1,000 mls @ 999 mls/hr IV .BOLUS ONE Stop: 03/26/21 09:04 Last Admin: 03/26/21 09:38 Dose: 999 mls/hr Documented by: Magnesium Sulfate (Magnesium Sulfate In Water 2 Gm/50 Ml) 2 gm in 50 mls @ 50 mls/hr IV ONETIME ONE Stop: 03/27/21 09:11 Last Admin: 03/27/21 09:44 Dose: 50 mls/hr Documented by: Potassium Chloride/Sodium Chloride (Normal Saline With 40 Meq Kcl) 1,000 mls @ 125 mls/hr IV ONETIME ONE Stop: 03/27/21 16:12 Last Admin: 03/27/21 09:41 Dose: 125 mls/hr Documented by: Potassium Chloride (Potassium Chloride 20 Meq Tab.Er) 40 meq PO ONETIME ONE Stop: 03/19/21 08:19 Last Admin: 03/19/21 09:19 Dose: 40 meq Documented by: Potassium Chloride (Potassium Chloride 20 Meq Tab.Er) 40 meq PO ONETIME ONE Stop: 03/19/21 15:01 Last Admin: 03/19/21 15:18 Dose: 40 meq Documented by: Potassium Chloride (Potassium Chloride 20 Meq Tab.Er) 40 meq PO BIDMEALS [facility] Last Admin: 03/23/21 08:55 Dose: 40 meq Documented by: Potassium Chloride (Potassium Chloride 20 Meq Tab.Er) 40 meq PO BIDMEALS [facility] Stop: 03/25/21 17:01 Last Admin: 03/25/21 17:36 Dose: 40 meq Documented by: Potassium Chloride (Potassium Chloride 20 Meq Tab.Er) 40 meq PO ONETIME ONE Stop: 03/26/21 09:40 Last Admin: 03/26/21 11:01 Dose: 40 meq Documented by: Potassium Chloride (Potassium Chloride 20 Meq Tab.Er) 40 meq PO BIDMEALS [facility] Sodium Phosphate (Phosphorus #1 250 Mg Tab) 250 mg PO QID [facility] Last Admin: 03/26/21 06:00 Dose: 250 mg Documented by: Vancomycin HCl (Vancomycin 125 Mg Cap) 125 mg PO Q4H [facility] Last Admin: 03/19/21 06:35 Dose: 125 mg Documented by: - Exam Quality Assessment: DVT Prophylaxis. No: Supplemental Oxygen General: Alert, Oriented, Cooperative Lungs: Clear to Auscultation, Normal Respiratory Effort Cardiovascular: Regular Rate, Regular Rhythm GI/Abdominal Exam: Normal Bowel Sounds, Soft, Non-Tender Extremities: Normal Inspection, Normal Range of Motion, Non-Tender, No Pedal Edema Neurological: No New Focal Deficit Psy/Mental Status: Alert, Normal Affect, Normal Mood - Patient Data Lab Results Last 24 hrs: Laboratory Results - last 24 hr 03/28/21 03/28/21 Range/Units 05:35 05:35 WBC 10.50 (4.0-11.0) K/uL RBC 3.34 L (4.50-5.90) M/uL Hgb 11.6 L (13.0-17.0) g/dL Hct 33.4 L (38.0-50.0) % MCV 100.0 H (80.0-98.0) fL MCH 34.7 H (27.0-32.0) pg MCHC 34.7 (31.0-37.0) g/dL RDW Std Deviation 52.9 (28.0-62.0) fl RDW Coeff of Caleb 15 (11.0-15.0) % Plt Count 355 (150-400) K/uL MPV 9.60 (7.40-12.00) fL Neut % (Auto) 76.7 (48.0-80.0) % Lymph % (Auto) 12.4 L (16.0-40.0) % Trinity % (Auto) 10.5 (0.0-15.0) % Eos % (Auto) 0.3 (0.0-7.0) % Baso % (Auto) 0.1 (0.0-1.5) % Neut # (Auto) 8.1 H (1.4-5.7) K/uL Lymph # (Auto) 1.3 (0.6-2.4) K/uL Trinity # (Auto) 1.1 H (0.0-0.8) K/uL Eos # (Auto) 0.0 (0.0-0.7) K/uL Baso # (Auto) 0.0 (0.0-0.1) K/uL Nucleated RBC % 0.0 /100WBC Nucleated RBCs # 0 K/uL Sodium 133 L (136-148) mmol/L Potassium 3.1 L (3.5-5.1) mmol/L Chloride 103 (98-107) mmol/L Carbon Dioxide 18.6 L (21.0-32.0) mmol/L BUN 10 (7.0-18.0) mg/dL Creatinine 0.9 (0.8-1.3) mg/dL Est Cr Clr Drug Dosing 78.07 mL/min Estimated GFR (MDRD) > 60.0 ml/min Glucose 97 (74-106) mg/dL Calcium 7.8 L (8.5-10.1) mg/dL Phosphorus 2.3 L (2.6-4.7) mg/dL Magnesium 1.9 (1.8-2.4) mg/dL Result Diagrams: 03/28/21 05:35 03/28/21 05:35 Sepsis Event Note - Evaluation Sepsis Screening Result: No Definite Risk - Focused Exam Vital Signs: Vital Signs Temp Pulse Resp BP Pulse Ox 03/28/21 04:00 97.6 F 65 18 126/65 96 03/28/21 00:00 97.9 F 69 18 120/69 98 03/27/21 20:32 96.3 F L 69 18 122/68 98 - Problem List & Annotations (1) C. difficile colitis SNOMED Code(s): 691813455 Code(s): A04.72 - ENTEROCOLITIS D/T CLOSTRIDIUM DIFFICILE, NOT SPCF RECUR Status: Acute Current Visit: Yes (2) Hypophosphatemia SNOMED Code(s): 8141919 Code(s): E83.39 - OTHER DISORDERS OF PHOSPHORUS METABOLISM Status: Resolved Current Visit: Yes (3) Port-A-Cath in place SNOMED Code(s): 152328427 Code(s): Z95.828 - PRESENCE OF OTHER VASCULAR IMPLANTS AND GRAFTS Status: Acute Current Visit: Yes (4) Tongue carcinoma Status: Chronic Current Visit: Yes (5) Dehydration SNOMED Code(s): 44280668 Code(s): E86.0 - DEHYDRATION Status: Acute Current Visit: No (6) Diarrhea SNOMED Code(s): 35362192 Code(s): R19.7 - DIARRHEA, UNSPECIFIED Status: Acute Current Visit: No Qualifiers: Diarrhea type: unspecified type Qualified Code(s): R19.7 - Diarrhea, unspec ified (7) Hypokalemia SNOMED Code(s): 07047238 Code(s): E87.6 - HYPOKALEMIA Status: Acute Current Visit: No - Problem List Review Problem List Initiated/Reviewed/Updated: Yes - My Orders Last 24 Hours: My Active Orders 03/27/21 09:12 Potassium Chloride 40 meq PO BIDMEALS 03/27/21 12:00 Phosphorus #1 [Neutra-Phos] 250 mg PO QID 03/29/21 05:11 BASIC METABOLIC PANEL,BMP [CHEM] AM CBC WITH AUTO DIFF [HEME] AM MAGNESIUM [CHEM] AM PHOSPHORUS [CHEM] AM - Plan Plan:: 70 y/o M admitted for diarrhea, eric, hypokalemia, c.diff 1. C. difficile colitis -Continues to slowly improve. -Continue vancomycin 125 mg 4 times daily p.o. -Continue Flagyl 500 mg IV 4 times daily -Continue IV fluid replacement due to continued stools -LR 75mls/hr -Continue PPI -Generalized weakness and deconditioning, PT consulted -hypokalemia noted today we will give 40 p.o. twice daily -Replacing phosphate orally as well 2. Tongue carcinoma -Continue gabapentin 3. Hypothyroidism -Continue levothyroxine VTE prophylaxis: Heparin GI prophylaxis: Protonix CODE STATUS: DNR/DNI Dispo: 2 to 3 days pending improvement. Patient steadily improving but patient is high risk for readmission if he is discharged too early as he will likely return with significant electrolyte abnormalities and dehydration due to continued diarrhea.
[2021-03-28] MEDS: Acidophilus with Citrus Pectin Tab PO SCH ×2 (10:38→22:21)
[2021-03-28] MEDS: Potassium Chloride 10% 20 MEQ/15 ML Soln 30 ML UD Cup PO SCH (10:46)
[2021-03-28] MEDS: Potassium Chloride 20 MEQ Tab.ER PO SCH ×2 (12:28→18:08)
[2021-03-28] MEDS: Pantoprazole 40 MG in Sodium Chloride 0.9% 10 ML IV SCH (18:07)
[2021-03-29] MEDS: Lactated Ringers 1,000 ML IV SCH ×4 (00:03→22:21)
[2021-03-29] MEDS: Phosphorus #1 250 MG Tab PO SCH ×4 (00:05→18:15)
[2021-03-29] MEDS: Vancomycin 125 MG Cap PO SCH ×4 (00:05→18:15)
[2021-03-29] MEDS: metroNIDAZOLE/Normal Saline 500 MG in Premix Bag 1 BAG IV SCH ×3 (03:54→18:21)
[2021-03-29 06:07] LABS: BLOOD UREA NITROGEN,BUN 9 mg/dL (7.0-18.0); CARBON DIOXIDE,CO2 18.4 mmol/L (21.0-32.0); CHLORIDE,CL 104 mmol/L (98-107); GLUCOSE RANDOM 114 mg/dL (74-106); POTASSIUM,K 3.4 mmol/L (3.5-5.1); SODIUM,NA 135 mmol/L (136-148)
[2021-03-29] MEDS: Heparin Sodium 5,000 Units/ML Vial SUBCUT SCH ×3 (06:20→22:18)
[2021-03-29] MEDS: Levothyroxine 50 MCG Tab PO SCH ×2 (06:23→06:30)
[2021-03-29] MEDS: Gabapentin 300 MG Cap PO SCH ×3 (06:23→22:18)
[2021-03-29] MEDS ORDERED: Potassium Phosphates 15 MMOLE in Sodium Chloride 0.9% 500 ML IV ONE (09:00)
[2021-03-29] MEDS: Potassium Chloride 20 MEQ Tab.ER PO SCH ×2 (09:57→18:14)
[2021-03-29] MEDS: Acidophilus with Citrus Pectin Tab PO SCH ×2 (09:58→22:18)
--- NOTE | 2021-03-29 13:59 | PCM.PN ---
- General Info Date of Service: 03/29/21 Admission Dx/Problem (Free Text): Admission Diagnosis/Problem Admission Diagnosis/Problem Hypokalemia, C. difficile colitis, hypophosphatemia Subjective Update: Reports he is continuing to feel improved today. Denies any chest pain shortness of breath. Reports intermittent nausea but this is baseline. Reports stools have improved had possibly 2-3 overnight. Tolerating ensures and boost drinks. Getting close to possible discharge home. Functional Status: Reports: Pain Controlled, Tolerating Diet, Ambulating, Urinating - Review of Systems General: Reports: No Symptoms. Denies: Fatigue, Malaise HEENT: Reports: No Symptoms. Denies: Headaches, Sore Throat, Visual Changes Pulmonary: Reports: No Symptoms. Denies: Shortness of Breath Cardiovascular: Reports: No Symptoms. Denies: Chest Pain Gastrointestinal: Reports: Diarrhea (Significant improvement), Nausea (Intermittently). Denies: Abdominal Pain, Vomiting Genitourinary: Reports: No Symptoms. Denies: Dysuria, Frequency Skin: Reports: No Symptoms Neurological: Reports: No Symptoms Psychiatric: Reports: No Symptoms - Patient Data Vitals - Most Recent: Last Vital Signs Temp 96.2 F L 03/29/21 12:25 Pulse 88 03/29/21 12:25 Resp 16 03/29/21 12:25 BP 112/76 03/29/21 12:25 Pulse Ox 99 03/29/21 12:25 Orthostatic Blood Pressure [ 83/54 Standing] Orthostatic Blood Pressure [ 99/66 Sitting] Orthostatic Blood Pressure [ 109/75 Supine] Weight - Most Recent: 70.261 kg I&O - Last 24 Hours: Intake & Output 03/28/21 03/29/21 03/29/21 22:59 06:59 14:59 Intake Total 1580 2662 Output Total 1100 2400 Balance 480 262 Lab Results Last 24 Hours: Laboratory Results - last 24 hr 03/29/21 03/29/21 Range/Units 05:40 05:40 WBC 10.61 (4.0-11.0) K/uL RBC 3.33 L (4.50-5.90) M/uL Hgb 11.7 L (13.0-17.0) g/dL Hct 33.4 L (38.0-50.0) % MCV 100.3 H (80.0-98.0) fL MCH 35.1 H (27.0-32.0) pg MCHC 35.0 (31.0-37.0) g/dL RDW Std Deviation 53.6 (28.0-62.0) fl RDW Coeff of Caleb 15 (11.0-15.0) % Plt Count 345 (150-400) K/uL MPV 9.50 (7.40-12.00) fL Neut % (Auto) 80.6 H (48.0-80.0) % Lymph % (Auto) 9.8 L (16.0-40.0) % [place] % (Auto) 9.3 (0.0-15.0) % Eos % (Auto) 0.2 (0.0-7.0) % Baso % (Auto) 0.1 (0.0-1.5) % Neut # (Auto) 8.6 H (1.4-5.7) K/uL Lymph # (Auto) 1.0 (0.6-2.4) K/uL [place] # (Auto) 1.0 H (0.0-0.8) K/uL Eos # (Auto) 0.0 (0.0-0.7) K/uL Baso # (Auto) 0.0 (0.0-0.1) K/uL Nucleated RBC % 0.0 /100WBC Nucleated RBCs # 0 K/uL Sodium 135 L (136-148) mmol/L Potassium 3.4 L (3.5-5.1) mmol/L Chloride 104 (98-107) mmol/L Carbon Dioxide 18.4 L (21.0-32.0) mmol/L BUN 9 (7.0-18.0) mg/dL Creatinine 0.7 L (0.8-1.3) mg/dL Est Cr Clr Drug Dosing 100.37 mL/min Estimated GFR (MDRD) > 60.0 ml/min Glucose 114 H (74-106) mg/dL Calcium 7.9 L (8.5-10.1) mg/dL Phosphorus 2.5 L (2.6-4.7) mg/dL Magnesium 1.9 (1.8-2.4) mg/dL Med Orders - Current: Current Medications Acetaminophen (Acetaminophen 325 Mg Tab) 650 mg PO Q4H PRN PRN Reason: Pain (Mild 1-3)/fever Acidophilus/Pectin (Acidophilus With [place] Pectin Tab) 1 tab PO BID [facility] Last Admin: 03/29/21 09:58 Dose: 1 tab Documented by: Albuterol/Ipratropium (Albuterol/Ipratropium 3.0-0.5 Mg/3 Ml Neb Soln) 3 ml NEB Q4HRRT PRN PRN Reason: Shortness Of Breath/wheezing [place] Butter/Phenylephrine ([place] Butter/Phenylephrine Rectal Supp) 1 each RECTAL QID PRN PRN Reason: hemorrhoidal pain Last Admin: 03/25/21 10:45 Dose: 1 each Documented by: Gabapentin (Gabapentin 300 Mg Cap) 300 mg PO TID [facility] Last Admin: 03/29/21 06:23 Dose: 300 mg Documented by: Heparin Sodium (Porcine) (Heparin Sodium 5,000 Units/Ml Vial) 5,000 units SUBCUT Q8H [facility] Last Admin: 03/29/21 06:20 Dose: 5,000 units Documented by: Pantoprazole Sodium 40 mg/ (Sodium Chloride) 10 mls @ 200 mls/hr IV Q24H [facility] Last Admin: 03/28/21 18:07 Dose: 200 mls/hr Documented by: Metronidazole 500 mg/ Premix 100 mls @ 100 mls/hr IV Q8H [facility] Last Admin: 03/29/21 12:03 Dose: 100 mls/hr Documented by: Lactated Ringer's (Ringers, Lactated) 1,000 mls @ 75 mls/hr IV Q13H [facility] Last Admin: 03/29/21 05:48 Dose: Not Given Documented by: Potassium Phosphate 15 mmole/ (Sodium Chloride) 505 mls @ 67.5 mls/hr IV ONETIME ONE Stop: 03/29/21 16:28 Last Admin: 03/29/21 09:58 Dose: 67.5 mls/hr Documented by: Levothyroxine Sodium (Levothyroxine 50 Mcg Tab) 50 mcg PO ACBREAKFAST [facility] Last Admin: 03/29/21 06:30 Dose: Not Given Documented by: Morphine Sulfate (Morphine 2 Mg/Ml Syringe) 1 mg IVPUSH Q4H PRN PRN Reason: Pain Ondansetron HCl (Ondansetron 4 Mg/2 Ml Sdv) 4 mg IVPUSH Q4H PRN PRN Reason: Nausea/Vomiting Last Admin: 03/23/21 22:35 Dose: 4 mg Documented by: Potassium Chloride (Potassium Chloride 20 Meq Tab.Er) 40 meq PO BIDMEALS [facility] Last Admin: 03/29/21 09:57 Dose: 40 meq Documented by: Sodium Chloride (Sodium Chloride 0.9% 10 Ml Syringe) 10 ml FLUSH ASDIRECTED PRN PRN Reason: Keep Vein Open Last Admin: 03/25/21 06:20 Dose: 10 ml Documented by: Sodium Chloride (Sodium Chloride 0.9% 2.5 Ml Syringe) 2.5 ml FLUSH ASDIRECTED PRN PRN Reason: Keep Vein Open Last Admin: 03/22/21 18:26 Dose: 2.5 ml Documented by: Sodium Phosphate (Phosphorus #1 250 Mg Tab) 250 mg PO QID [facility] Last Admin: 03/29/21 12:10 Dose: 250 mg Documented by: Vancomycin HCl (Vancomycin 125 Mg Cap) 125 mg PO QID [facility] Last Admin: 03/29/21 12:10 Dose: 125 mg Documented by: Discontinued Medications Sodium Chloride (Normal Saline) 1,000 mls @ 125 mls/hr IV STAT ONE Stop: 03/18/21 22:45 Last Infusion: 03/18/21 15:59 Dose: 999 mls/hr Documented by: Potassium Chloride 40 meq/ (Premix) 100 mls @ 25 mls/hr IV ONETIME ONE Stop: 03/18/21 19:50 Last Admin: 03/18/21 17:49 Dose: 25 mls/hr Documented by: Sodium Chloride (Normal Saline) 1,000 mls @ 125 mls/hr IV STAT ONE Stop: 03/18/21 23:51 Last Admin: 03/18/21 17:13 Dose: 125 mls/hr Documented by: Potassium Chloride/Dextrose/Sod Cl (D5 Ns With 20 Meq Kcl) 1,000 mls @ 125 mls/hr IV ASDIRECTED [facility] Last Admin: 03/19/21 02:12 Dose: 125 mls/hr Documented by: Lactated Ringer's (Ringers, Lactated) 1,000 mls @ 125 mls/hr IV Q8H [facility] Last Admin: 03/20/21 05:01 Dose: 125 mls/hr Documented by: Ciprofloxacin/Dextrose 400 mg/ (Premix) 200 mls @ 200 mls/hr IV Q12H [facility] Last Admin: 03/19/21 01:00 Dose: 200 mls/hr Documented by: Metronidazole 500 mg/ Premix 100 mls @ 100 mls/hr IV QID [facility] Last Admin: 03/19/21 06:00 Dose: 100 mls/hr Documented by: Potassium Phosphate 15 mmole/Potassium Chloride 20 meq/Sodium Chloride 515 mls @ 67.5 mls/hr IV ONETIME ONE Stop: 03/19/21 16:37 Last Admin: 03/19/21 09:12 Dose: 67.5 mls/hr Documented by: Potassium Phosphate 15 mmole/Potassium Chloride 20 meq/Sodium Chloride 515 mls @ 67.5 mls/hr IV ONETIME ONE Stop: 03/20/21 16:07 Last Admin: 03/20/21 09:20 Dose: 67.5 mls/hr Documented by: Potassium Chloride 40 meq/ (Dextrose/Sodium Chloride) 1,020 mls @ 125 mls/hr IV Q8H [facility] Stop: 03/21/21 20:29 Last Admin: 03/21/21 22:23 Dose: Not Given Documented by: Potassium Phosphate 20 mmole/ (Sodium Chloride) 506.6667 mls @ 168.889 mls/hr IV ONETIME ONE Stop: 03/21/21 11:29 Last Admin: 03/21/21 09:04 Dose: 168.889 mls/hr Documented by: Potassium Chloride 40 meq/ (Dextrose/Sodium Chloride) 1,020 mls @ 125 mls/hr IV Q8H [facility] Last Admin: 03/23/21 02:46 Dose: 125 mls/hr Documented by: Lactated Ringer's (Ringers, Lactated) 1,000 mls @ 999 mls/hr IV ONETIME ONE Stop: 03/22/21 09:19 Last Admin: 03/22/21 11:29 Dose: 999 mls/hr Documented by: Potassium Phosphate 15 mmole/ (Sodium Chloride) 505 mls @ 67.5 mls/hr IV ONETIME ONE Stop: 03/22/21 15:48 Last Admin: 03/22/21 11:29 Dose: 67.5 mls/hr Documented by: Lactated Ringer's (Ringers, Lactated) 1,000 mls @ 75 mls/hr IV ASDIRECTED [facility] Last Admin: 03/26/21 02:32 Dose: 75 mls/hr Documented by: Magnesium Sulfate (Magnesium Sulfate In Water 2 Gm/50 Ml) 2 gm in 50 mls @ 50 mls/hr IV ONETIME ONE Stop: 03/23/21 11:44 Last Admin: 03/23/21 11:18 Dose: 50 mls/hr Documented by: Lactated Ringer's (Ringers, Lactated) 1,000 mls @ 999 mls/hr IV .BOLUS ONE Stop: 03/26/21 09:04 Last Admin: 03/26/21 09:38 Dose: 999 mls/hr Documented by: Magnesium Sulfate (Magnesium Sulfate In Water 2 Gm/50 Ml) 2 gm in 50 mls @ 50 mls/hr IV ONETIME ONE Stop: 03/27/21 09:11 Last Admin: 03/27/21 09:44 Dose: 50 mls/hr Documented by: Potassium Chloride/Sodium Chloride (Normal Saline With 40 Meq Kcl) 1,000 mls @ 125 mls/hr IV ONETIME ONE Stop: 03/27/21 16:12 Last Admin: 03/27/21 09:41 Dose: 125 mls/hr Documented by: Potassium Chloride (Potassium Chloride 20 Meq Tab.Er) 40 meq PO ONETIME ONE Stop: 03/19/21 08:19 Last Admin: 03/19/21 09:19 Dose: 40 meq Documented by: Potassium Chloride (Potassium Chloride 20 Meq Tab.Er) 40 meq PO ONETIME ONE Stop: 03/19/21 15:01 Last Admin: 03/19/21 15:18 Dose: 40 meq Documented by: Potassium Chloride (Potassium Chloride 20 Meq Tab.Er) 40 meq PO BIDMEALS [facility] Last Admin: 03/23/21 08:55 Dose: 40 meq Documented by: Potassium Chloride (Potassium Chloride 20 Meq Tab.Er) 40 meq PO BIDMEALS [facility] Stop: 03/25/21 17:01 Last Admin: 03/25/21 17:36 Dose: 40 meq Documented by: Potassium Chloride (Potassium Chloride 20 Meq Tab.Er) 40 meq PO ONETIME ONE Stop: 03/26/21 09:40 Last Admin: 03/26/21 11:01 Dose: 40 meq Documented by: Potassium Chloride (Potassium Chloride 20 Meq Tab.Er) 40 meq PO BIDMEALS [facility] Potassium Chloride (Potassium Chloride 10% 20 Meq/15 Ml Soln 30 Ml Ud Cup) 40 m eq PO BIDMEALS [facility] Last Admin: 03/28/21 10:46 Dose: Not Given Documented by: Sodium Phosphate (Phosphorus #1 250 Mg Tab) 250 mg PO QID [facility] Last Admin: 03/26/21 06:00 Dose: 250 mg Documented by: Vancomycin HCl (Vancomycin 125 Mg Cap) 125 mg PO Q4H [facility] Last Admin: 03/19/21 06:35 Dose: 125 mg Documented by: - Exam General: Alert, Oriented, Cooperative, No Acute Distress Lungs: Clear to Auscultation, Normal Respiratory Effort Cardiovascular: Regular Rate, Regular Rhythm GI/Abdominal Exam: Normal Bowel Sounds, Soft, Non-Tender Back Exam: Normal Inspection, Full Range of Motion Extremities: Normal Inspection, Normal Range of Motion, Non-Tender, No Pedal Edema Skin: Warm, Dry Neurological: No New Focal Deficit Psy/Mental Status: Alert, Normal Affect, Normal Mood - Patient Data Lab Results Last 24 hrs: Laboratory Results - last 24 hr 03/29/21 03/29/21 Range/Units 05:40 05:40 WBC 10.61 (4.0-11.0) K/uL RBC 3.33 L (4.50-5.90) M/uL Hgb 11.7 L (13.0-17.0) g/dL Hct 33.4 L (38.0-50.0) % MCV 100.3 H (80.0-98.0) fL MCH 35.1 H (27.0-32.0) pg MCHC 35.0 (31.0-37.0) g/dL RDW Std Deviation 53.6 (28.0-62.0) fl RDW Coeff of Caleb 15 (11.0-15.0) % Plt Count 345 (150-400) K/uL MPV 9.50 (7.40-12.00) fL Neut % (Auto) 80.6 H (48.0-80.0) % Lymph % (Auto) 9.8 L (16.0-40.0) % [place] % (Auto) 9.3 (0.0-15.0) % Eos % (Auto) 0.2 (0.0-7.0) % Baso % (Auto) 0.1 (0.0-1.5) % Neut # (Auto) 8.6 H (1.4-5.7) K/uL Lymph # (Auto) 1.0 (0.6-2.4) K/uL [place] # (Auto) 1.0 H (0.0-0.8) K/uL Eos # (Auto) 0.0 (0.0-0.7) K/uL Baso # (Auto) 0.0 (0.0-0.1) K/uL Nucleated RBC % 0.0 /100WBC Nucleated RBCs # 0 K/uL Sodium 135 L (136-148) mmol/L Potassium 3.4 L (3.5-5.1) mmol/L Chloride 104 (98-107) mmol/L Carbon Dioxide 18.4 L (21.0-32.0) mmol/L BUN 9 (7.0-18.0) mg/dL Creatinine 0.7 L (0.8-1.3) mg/dL Est Cr Clr Drug Dosing 100.37 mL/min Estimated GFR (MDRD) > 60.0 ml/min Glucose 114 H (74-106) mg/dL Calcium 7.9 L (8.5-10.1) mg/dL Phosphorus 2.5 L (2.6-4.7) mg/dL Magnesium 1.9 (1.8-2.4) mg/dL Result Diagrams: 03/29/21 05:40 03/29/21 05:40 Sepsis Event Note - Evaluation Sepsis Screening Result: No Definite Risk - Focused Exam Vital Signs: Vital Signs Temp Pulse Resp BP Pulse Ox 03/29/21 12:25 96.2 F L 88 16 112/76 99 03/29/21 08:05 96.8 F L 82 14 107/69 98 03/29/21 04:00 97.1 F 80 18 123/76 100 - Problem List & Annotations (1) C. difficile colitis SNOMED Code(s): 818790367 Code(s): A04.72 - ENTEROCOLITIS D/T CLOSTRIDIUM DIFFICILE, NOT SPCF RECUR Status: Acute Current Visit: Yes (2) Hypophosphatemia SNOMED Code(s): 4891311 Code(s): E83.39 - OTHER DISORDERS OF PHOSPHORUS METABOLISM Status: Resolved Current Visit: Yes (3) Port-A-Cath in place SNOMED Code(s): 609623031 Code(s): Z95.828 - PRESENCE OF OTHER VASCULAR IMPLANTS AND GRAFTS Status: Acute Current Visit: Yes (4) Tongue carcinoma Status: Chronic Current Visit: Yes (5) Dehydration SNOMED Code(s): 75950800 Code(s): E86.0 - DEHYDRATION Status: Acute Current Visit: No (6) Diarrhea SNOMED Code(s): 75558871 Code(s): R19.7 - DIARRHEA, UNSPECIFIED Status: Acute Current Visit: No Qualifiers: Diarrhea type: unspecified type Qualified Code(s): R19.7 - Diarrhea, unspecified (7) Hypokalemia SNOMED Code(s): 19147215 Code(s): E87.6 - HYPOKALEMIA Status: Acute Current Visit: No - Problem List Review Problem List Initiated/Reviewed/Updated: Yes - My Orders Last 24 Hours: My Active Orders 03/29/21 09:00 Potassium Phosphates 15 mmole Sodium Chloride 0.9% [Normal Saline] 500 ml IV ONETIME 03/29/21 12:33 Education And Training Coordinator Discontinue [Cardiac Monitoring Discontinue] [RC] Click to Edit 03/30/21 05:11 BASIC METABOLIC PANEL,BMP [CHEM] AM CBC WITH AUTO DIFF [HEME] AM MAGNESIUM [CHEM] AM PHOSPHORUS [CHEM] AM - Plan Plan:: 70 y/o M admitted for diarrhea, eric, hypokalemia, c.diff 1. C. difficile colitis -Continues to slowly improve. -Continue vancomycin 125 mg 4 times daily p.o. -Continue Flagyl 500 mg IV 4 times daily -Continue IV fluid replacement due to continued stools -LR 75mls/hr -Continue PPI -Generalized weakness and deconditioning, PT consulted -hypokalemia noted today we will give 40 p.o. twice daily -Replacing phosphate orally as well as well as IV today. 2. Tongue carcinoma -Continue gabapentin 3. Hypothyroidism -Continue levothyroxine VTE prophylaxis: Heparin GI prophylaxis: Protonix CODE STATUS: DNR/DNI Dispo: Possible home in the next 1 to 2 days patient steadily improving but patient is high risk for readmission if he is discharged too early as he will likely return with significant electrolyte abnormalities and dehydration due to continued diarrhea.
[2021-03-29] MEDS: Pantoprazole 40 MG in Sodium Chloride 0.9% 10 ML IV SCH (18:16)
[2021-03-30] MEDS: Vancomycin 125 MG Cap PO SCH ×5 (00:34→23:26)
[2021-03-30] MEDS: Phosphorus #1 250 MG Tab PO SCH ×5 (00:35→23:26)
[2021-03-30] MEDS: Ondansetron 4 MG/2 ML SDV IVPUSH PRN (00:51)
[2021-03-30] MEDS: metroNIDAZOLE/Normal Saline 500 MG in Premix Bag 1 BAG IV SCH ×3 (03:43→18:14)
[2021-03-30] MEDS: Lactated Ringers 1,000 ML IV SCH ×2 (04:04→11:27)
[2021-03-30] MEDS: Heparin Sodium 5,000 Units/ML Vial SUBCUT SCH ×3 (06:19→21:41)
[2021-03-30] MEDS: Gabapentin 300 MG Cap PO SCH ×3 (06:23→21:41)
[2021-03-30] MEDS: Levothyroxine 50 MCG Tab PO SCH (06:30)
[2021-03-30 06:43] LABS: BLOOD UREA NITROGEN,BUN 11 mg/dL (7.0-18.0); CARBON DIOXIDE,CO2 18.3 mmol/L (21.0-32.0); CHLORIDE,CL 106 mmol/L (98-107); GLUCOSE RANDOM 124 mg/dL (74-106); POTASSIUM,K 3.5 mmol/L (3.5-5.1); SODIUM,NA 137 mmol/L (136-148)
[2021-03-30] MEDS: Acidophilus with Citrus Pectin Tab PO SCH ×2 (09:42→21:41)
[2021-03-30] MEDS: Potassium Chloride 20 MEQ Tab.ER PO SCH ×2 (09:42→17:14)
[2021-03-30] MEDS ORDERED: Potassium Chloride 10% 20 MEQ/15 ML Soln 30 ML UD Cup PO ONE (12:30)
[2021-03-30] MEDS ORDERED: Magnesium Sulfate/Water 2 GM/50 ML BAG IV ONE (12:30)
[2021-03-30] MEDS ORDERED: Potassium Chloride 20 MEQ Tab.ER PO ONE (13:45)
--- NOTE | 2021-03-30 14:08 | PCM.PN ---
- General Info Date of Service: 03/30/21 Admission Dx/Problem (Free Text): Admission Diagnosis/Problem Admission Diagnosis/Problem Hypokalemia, C. difficile colitis, hypophosphatemia Subjective Update: Reports he is continuing to feel improved today. Denies any chest pain shortness of breath. Reports intermittent nausea but this is baseline. Reports stools have improved had possibly 2 overnight. Tolerating ensures and boost drinks. Functional Status: Reports: Tolerating Diet, Urinating - Review of Systems General: Reports: Weakness. Denies: Fever, Fatigue Pulmonary: Denies: Shortness of Breath, Pleuritic Chest Pain Cardiovascular: Denies: Chest Pain, Palpitations, Dyspnea on Exertion Gastrointestinal: Reports: Decreased Appetite, Diarrhea, Nausea. Denies: Abdominal Pain, Constipation, Difficulty Swallowing, Hematochezia, Melena, Vomiting Genitourinary: Denies: Frequency, Burning, Pain Musculoskeletal: Denies: Neck Pain, Shoulder Pain Skin: Denies: Jaundice, Mottled, Pallor Neurological: Denies: Confusion, Dizziness - Patient Data Vitals - Most Recent: Last Vital Signs Temp 36.2 C 03/30/21 12:00 Pulse 71 03/30/21 12:00 Resp 16 03/30/21 12:00 BP 104/66 03/30/21 12:00 Pulse Ox 99 03/30/21 12:00 Orthostatic Blood Pressure [ 83/54 Standing] Orthostatic Blood Pressure [ 99/66 Sitting] Orthostatic Blood Pressure [ 109/75 Supine] Weight - Most Recent: 70.261 kg I&O - Last 24 Hours: Intake & Output 03/29/21 03/30/21 03/30/21 22:59 06:59 14:59 Intake Total 3149 1308 Output Total 1050 1000 Balance 2094 308 Lab Results Last 24 Hours: Laboratory Results - last 24 hr 03/30/21 03/30/21 Range/Units 05:35 05:35 WBC 8.14 (4.0-11.0) K/uL RBC 3.36 L (4.50-5.90) M/uL Hgb 11.8 L (13.0-17.0) g/dL Hct 34.2 L (38.0-50.0) % MCV 101.8 H (80.0-98.0) fL MCH 35.1 H (27.0-32.0) pg MCHC 34.5 (31.0-37.0) g/dL RDW Std Deviation 56.1 (28.0-62.0) fl RDW Coeff of Caleb 15 (11.0-15.0) % Plt Count 358 (150-400) K/uL MPV 9.80 (7.40-12.00) fL Neut % (Auto) 76.1 (48.0-80.0) % Lymph % (Auto) 10.4 L (16.0-40.0) % Sibley % (Auto) 13.1 (0.0-15.0) % Eos % (Auto) 0.2 (0.0-7.0) % Baso % (Auto) 0.2 (0.0-1.5) % Neut # (Auto) 6.2 H (1.4-5.7) K/uL Lymph # (Auto) 0.9 (0.6-2.4) K/uL S[place]y # (Auto) 1.1 H (0.0-0.8) K/uL Eos # (Auto) 0.0 (0.0-0.7) K/uL Baso # (Auto) 0.0 (0.0-0.1) K/uL Nucleated RBC % 0.0 /100WBC Nucleated RBCs # 0 K/uL Sodium 137 (136-148) mmol/L Potassium 3.5 (3.5-5.1) mmol/L Chloride 106 (98-107) mmol/L Carbon Dioxide 18.3 L (21.0-32.0) mmol/L BUN 11 (7.0-18.0) mg/dL Creatinine 0.8 (0.8-1.3) mg/dL Est Cr Clr Drug Dosing 87.83 mL/min Estimated GFR (MDRD) > 60.0 ml/min Glucose 124 H (74-106) mg/dL Calcium 8.0 L (8.5-10.1) mg/dL Phosphorus 2.9 (2.6-4.7) mg/dL Magnesium 1.7 L (1.8-2.4) mg/dL Med Orders - Current: Current Medications Acetaminophen (Acetaminophen 325 Mg Tab) 650 mg PO Q4H PRN PRN Reason: Pain (Mild 1-3)/fever Acidophilus/Pectin (Acidophilus With [place] Pectin Tab) 1 tab PO BID [facility] Last Admin: 03/30/21 09:42 Dose: 1 tab Documented by: Albuterol/Ipratropium (Albuterol/Ipratropium 3.0-0.5 Mg/3 Ml Neb Soln) 3 ml NEB Q4HRRT PRN PRN Reason: Shortness Of Breath/wheezing [place] Butter/Phenylephrine ([place] Butter/Phenylephrine Rectal Supp) 1 each RECTAL QID PRN PRN Reason: hemorrhoidal pain Last Admin: 03/25/21 10:45 Dose: 1 each Documented by: Gabapentin (Gabapentin 300 Mg Cap) 300 mg PO TID [facility] Last Admin: 03/30/21 06:23 Dose: 300 mg Documented by: Heparin Sodium (Porcine) (Heparin Sodium 5,000 Units/Ml Vial) 5,000 units SUBCUT Q8H [facility] Last Admin: 03/30/21 13:27 Dose: 5,000 units Documented by: Pantoprazole Sodium 40 mg/ (Sodium Chloride) 10 mls @ 200 mls/hr IV Q24H [facility] Last Admin: 03/29/21 18:16 Dose: 200 mls/hr Documented by: Metronidazole 500 mg/ Premix 100 mls @ 100 mls/hr IV Q8H [facility] Last Admin: 03/30/21 11:29 Dose: 100 mls/hr Documented by: Lactated Ringer's (Ringers, Lactated) 1,000 mls @ 75 mls/hr IV Q13H [facility] Last Admin: 03/30/21 11:27 Dose: 75 mls/hr Documented by: Levothyroxine Sodium (Levothyroxine 50 Mcg Tab) 50 mcg PO ACBREAKFAST [facility] Last Admin: 03/30/21 06:30 Dose: 50 mcg Documented by: Morphine Sulfate (Morphine 2 Mg/Ml Syringe) 1 mg IVPUSH Q4H PRN PRN Reason: Pain Ondansetron HCl (Ondansetron 4 Mg/2 Ml Sdv) 4 mg IVPUSH Q4H PRN PRN Reason: Nausea/Vomiting Last Admin: 03/30/21 00:51 Dose: 4 mg Documented by: Potassium Chloride (Potassium Chloride 20 Meq Tab.Er) 40 meq PO BIDMEALS [facility] Last Admin: 03/30/21 09:42 Dose: 40 meq Documented by: Sodium Chloride (Sodium Chloride 0.9% 10 Ml Syringe) 10 ml FLUSH ASDIRECTED PRN PRN Reason: Keep Vein Open Last Admin: 03/25/21 06:20 Dose: 10 ml Documented by: Sodium Chloride (Sodium Chloride 0.9% 2.5 Ml Syringe) 2.5 ml FLUSH ASDIRECTED P RN PRN Reason: Keep Vein Open Last Admin: 03/22/21 18:26 Dose: 2.5 ml Documented by: Sodium Phosphate (Phosphorus #1 250 Mg Tab) 250 mg PO QID [facility] Last Admin: 03/30/21 12:29 Dose: 250 mg Documented by: Vancomycin HCl (Vancomycin 125 Mg Cap) 125 mg PO QID [facility] Last Admin: 03/30/21 12:29 Dose: 125 mg Documented by: Discontinued Medications Sodium Chloride (Normal Saline) 1,000 mls @ 125 mls/hr IV STAT ONE Stop: 03/18/21 22:45 Last Infusion: 03/18/21 15:59 Dose: 999 mls/hr Documented by: Potassium Chloride 40 meq/ (Premix) 100 mls @ 25 mls/hr IV ONETIME ONE Stop: 03/18/21 19:50 Last Admin: 03/18/21 17:49 Dose: 25 mls/hr Documented by: Sodium Chloride (Normal Saline) 1,000 mls @ 125 mls/hr IV STAT ONE Stop: 03/18/21 23:51 Last Admin: 03/18/21 17:13 Dose: 125 mls/hr Documented by: Potassium Chloride/Dextrose/Sod Cl (D5 Ns With 20 Meq Kcl) 1,000 mls @ 125 mls /hr IV ASDIRECTED [facility] Last Admin: 03/19/21 02:12 Dose: 125 mls/hr Documented by: Lactated Ringer's (Ringers, Lactated) 1,000 mls @ 125 mls/hr IV Q8H [facility] Last Admin: 03/20/21 05:01 Dose: 125 mls/hr Documented by: Ciprofloxacin/Dextrose 400 mg/ (Premix) 200 mls @ 200 mls/hr IV Q12H [facility] Last Admin: 03/19/21 01:00 Dose: 200 mls/hr Documented by: Metronidazole 500 mg/ Premix 100 mls @ 100 mls/hr IV QID [facility] Last Admin: 03/19/21 06:00 Dose: 100 mls/hr Documented by: Potassium Phosphate 15 mmole/Potassium Chloride 20 meq/Sodium Chloride 515 mls @ 67.5 mls/hr IV ONETIME ONE Stop: 03/19/21 16:37 Last Admin: 03/19/21 09:12 Dose: 67.5 mls/hr Documented by: Potassium Phosphate 15 mmole/Potassium Chloride 20 meq/Sodium Chloride 515 mls @ 67.5 mls/hr IV ONETIME ONE Stop: 03/20/21 16:07 Last Admin: 03/20/21 09:20 Dose: 67.5 mls/hr Documented by: Potassium Chloride 40 meq/ (Dextrose/Sodium Chloride) 1,020 mls @ 125 mls/hr IV Q8H [facility] Stop: 03/21/21 20:29 Last Admin: 03/21/21 22:23 Dose: Not Given Documented by: Potassium Phosphate 20 mmole/ (Sodium Chloride) 506.6667 mls @ 168.889 mls/hr IV ONETIME ONE Stop: 03/21/21 11:29 Last Admin: 03/21/21 09:04 Dose: 168.889 mls/hr Documented by: Potassium Chloride 40 meq/ (Dextrose/Sodium Chloride) 1,020 mls @ 125 mls/hr IV Q8H [facility] Last Admin: 03/23/21 02:46 Dose: 125 mls/hr Documented by: Lactated Ringer's (Ringers, Lactated) 1,000 mls @ 999 mls/hr IV ONETIME ONE Stop: 03/22/21 09:19 Last Admin: 03/22/21 11:29 Dose: 999 mls/hr Documented by: Potassium Phosphate 15 mmole/ (Sodium Chloride) 505 mls @ 67.5 mls/hr IV ONETIME ONE Stop: 03/22/21 15:48 Last Admin: 03/22/21 11:29 Dose: 67.5 mls/hr Documented by: Lactated Ringer's (Ringers, Lactated) 1,000 mls @ 75 mls/hr IV ASDIRECTED [facility] Last Admin: 03/26/21 02:32 Dose: 75 mls/hr Documented by: Magnesium Sulfate (Magnesium Sulfate In Water 2 Gm/50 Ml) 2 gm in 50 mls @ 50 mls/hr IV ONETIME ONE Stop: 03/23/21 11:44 Last Admin: 03/23/21 11:18 Dose: 50 mls/hr Documented by: Lactated Ringer's (Ringers, Lactated) 1,000 mls @ 999 mls/hr IV .BOLUS ONE Stop: 03/26/21 09:04 Last Admin: 03/26/21 09:38 Dose: 999 mls/hr Documented by: Magnesium Sulfate (Magnesium Sulfate In Water 2 Gm/50 Ml) 2 gm in 50 mls @ 50 mls/hr IV ONETIME ONE Stop: 03/27/21 09:11 Last Admin: 03/27/21 09:44 Dose: 50 mls/hr Documented by: Potassium Chloride/Sodium Chloride (Normal Saline With 40 Meq Kcl) 1,000 mls @ 125 mls/hr IV ONETIME ONE Stop: 03/27/21 16:12 Last Admin: 03/27/21 09:41 Dose: 125 mls/hr Documented by: Potassium Phosphate 15 mmole/ (Sodium Chloride) 505 mls @ 67.5 mls/hr IV ONETIME ONE Stop: 03/29/21 16:28 Last Admin: 03/29/21 09:58 Dose: 67.5 mls/hr Documented by: Magnesium Sulfate (Magnesium Sulfate In Water 2 Gm/50 Ml) 2 gm in 50 mls @ 50 mls/hr IV ONETIME ONE Stop: 03/30/21 13:29 Last Admin: 03/30/21 13:25 Dose: 50 mls/hr Documented by: Potassium Chloride (Potassium Chloride 20 Meq Tab.Er) 40 meq PO ONETIME ONE Stop: 03/19/21 08:19 Last Admin: 03/19/21 09:19 Dose: 40 meq Documented by: Potassium Chloride (Potassium Chloride 20 Meq Tab.Er) 40 meq PO ONETIME ONE Stop: 03/19/21 15:01 Last Admin: 03/19/21 15:18 Dose: 40 meq Documented by: Potassium Chloride (Potassium Chloride 20 Meq Tab.Er) 40 meq PO BIDMEALS [facility] Last Admin: 03/23/21 08:55 Dose: 40 meq Documented by: Potassium Chloride (Potassium Chloride 20 Meq Tab.Er) 40 meq PO BIDMEALS [facility] Stop: 03/25/21 17:01 Last Admin: 03/25/21 17:36 Dose: 40 meq Documented by: Potassium Chloride (Potassium Chloride 20 Meq Tab.Er) 40 meq PO ONETIME ONE Stop: 03/26/21 09:40 Last Admin: 03/26/21 11:01 Dose: 40 meq Documented by: Potassium Chloride (Potassium Chloride 20 Meq Tab.Er) 40 meq PO BIDMEALS [facility] Potassium Chloride (Potassium Chloride 10% 20 Meq/15 Ml Soln 30 Ml Ud Cup) 40 meq PO BIDMEALS [facility] Last Admin: 03/28/21 10:46 Dose: Not Given Documented by: Potassium Chloride (Potassium Chloride 10% 20 Meq/15 Ml Soln 30 Ml Ud Cup) 40 meq PO ONETIME ONE Stop: 03/30/21 12:31 Potassium Chloride (Potassium Chloride 20 Meq Tab.Er) 40 meq PO ONETIME ONE Stop: 03/30/21 13:46 Sodium Phosphate (Phosphorus #1 250 Mg Tab) 250 mg PO QID [facility] Last Admin: 03/26/21 06:00 Dose: 250 mg Documented by: Vancomycin HCl (Vancomycin 125 Mg Cap) 125 mg PO Q4H [facility] Last Admin: 03/19/21 06:35 Dose: 125 mg Documented by: - Exam General: Alert, Oriented, Cooperative, No Acute Distress Neck: Supple Lungs: Clear to Auscultation, Normal Respiratory Effort Cardiovascular: Regular Rate, Regular Rhythm GI/Abdominal Exam: Normal Bowel Sounds, Soft, Non-Tender - Patient Data Lab Results Last 24 hrs: Laboratory Results - last 24 hr 03/30/21 03/30/21 Range/Units 05:35 05:35 WBC 8.14 (4.0-11.0) K/uL RBC 3.36 L (4.50-5.90) M/uL Hgb 11.8 L (13.0-17.0) g/dL Hct 34.2 L (38.0-50.0) % MCV 101.8 H (80.0-98.0) fL MCH 35.1 H (27.0-32.0) pg MCHC 34.5 (31.0-37.0) g/dL RDW Std Deviation 56.1 (28.0-62.0) fl RDW Coeff of Caleb 15 (11.0-15.0) % Plt Count 358 (150-400) K/uL MPV 9.80 (7.40-12.00) fL Neut % (Auto) 76.1 (48.0-80.0) % Lymph % (Auto) 10.4 L (16.0-40.0) % S[place]y % (Auto) 13.1 (0.0-15.0) % Eos % (Auto) 0.2 (0.0-7.0) % Baso % (Auto) 0.2 (0.0-1.5) % Neut # (Auto) 6.2 H (1.4-5.7) K/uL Lymph # (Auto) 0.9 (0.6-2.4) K/uL [place]y # (Auto) 1.1 H (0.0-0.8) K/uL Eos # (Auto) 0.0 (0.0-0.7) K/uL Baso # (Auto) 0.0 (0.0-0.1) K/uL Nucleated RBC % 0.0 /100WBC Nucleated RBCs # 0 K/uL Sodium 137 (136-148) mmol/L Potassium 3.5 (3.5-5.1) mmol/L Chloride 106 (98-107) mmol/L Carbon Dioxide 18.3 L (21.0-32.0) mmol/L BUN 11 (7.0-18.0) mg/dL Creatinine 0.8 (0.8-1.3) mg/dL Est Cr Clr Drug Dosing 87.83 mL/min Estimated GFR (MDRD) > 60.0 ml/min Glucose 124 H (74-106) mg/dL Calcium 8.0 L (8.5-10.1) mg/dL Phosphorus 2.9 (2.6-4.7) mg/dL Magnesium 1.7 L (1.8-2.4) mg/dL Result Diagrams: 03/30/21 05:35 03/30/21 05:35 Sepsis Event Note - Evaluation Sepsis Screening Result: No Definite Risk - Focused Exam Vital Signs: Vital Signs Temp Pulse Resp BP Pulse Ox 03/30/21 12:00 36.2 C 71 16 104/66 99 03/30/21 08:00 36.8 C 78 18 108/75 99 03/30/21 03:40 36.2 C 75 16 115/75 99 - Problem List & Annotations (1) Tongue carcinoma Status: Chronic Current Visit: Yes (2) Port-A-Cath in place SNOMED Code(s): 008089280 Code(s): Z95.828 - PRESENCE OF OTHER VASCULAR IMPLANTS AND GRAFTS Status: Acute Current Visit: Yes (3) Dehydration SNOMED Code(s): 92410068 Code(s): E86.0 - DEHYDRATION Status: Acute Current Visit: No (4) Diarrhea SNOMED Code(s): 62164419 Code(s): R19.7 - DIARRHEA, UNSPECIFIED Status: Acute Current Visit: No Qualifiers: Diarrhea type: unspecified type Qualified Code(s): R19.7 - Diarrhea, unspecified (5) Hypokalemia SNOMED Code(s): 33328801 Code(s): E87.6 - HYPOKALEMIA Status: Acute Current Visit: No - Problem List Review Problem List Initiated/Reviewed/Updated: Yes - Plan Plan:: 70 y/o M admitted for diarrhea, eric, hypokalemia, c.diff 1. C. difficile colitis -Continues to slowly improve. -Continue vancomycin 125 mg 4 times daily p.o. -Continue Flagyl 500 mg IV 4 times daily -Continue IV fluid replacement due to continued stools -LR 75mls/hr -Continue PPI -Generalized weakness and deconditioning, PT consulted -hypokalemia noted today we will give 40 p.o. once 2. Tongue carcinoma -Continue gabapentin 3. Hypothyroidism -Continue levothyroxine VTE prophylaxis: Heparin GI prophylaxis: Protonix CODE STATUS: DNR/DNI Dispo: Possible home in the next 1 to 2 days patient steadily improving but patient is high risk for readmission if he is discharged too early as he will likely return with significant electrolyte abnormalities and dehydration due to continued diarrhea, may benefit from outpatient IV fluids infusions
[2021-03-30] MEDS: Pantoprazole 40 MG in Sodium Chloride 0.9% 10 ML IV SCH (17:14)
[2021-03-31] MEDS: Lactated Ringers 1,000 ML IV SCH ×4 (01:10→21:49)
[2021-03-31] MEDS: metroNIDAZOLE/Normal Saline 500 MG in Premix Bag 1 BAG IV SCH ×3 (03:02→18:23)
[2021-03-31] MEDS: Heparin Sodium 5,000 Units/ML Vial SUBCUT SCH ×3 (06:23→21:47)
[2021-03-31] MEDS: Vancomycin 125 MG Cap PO SCH ×3 (06:24→17:06)
[2021-03-31] MEDS: Gabapentin 300 MG Cap PO SCH ×3 (06:24→21:46)
[2021-03-31] MEDS: Phosphorus #1 250 MG Tab PO SCH ×3 (06:24→17:06)
[2021-03-31] MEDS: Levothyroxine 50 MCG Tab PO SCH (06:30)
[2021-03-31 06:59] LABS: BLOOD UREA NITROGEN,BUN 8 mg/dL (7.0-18.0); CARBON DIOXIDE,CO2 18.7 mmol/L (21.0-32.0); CHLORIDE,CL 107 mmol/L (98-107); GLUCOSE RANDOM 118 mg/dL (74-106); POTASSIUM,K 3.9 mmol/L (3.5-5.1); SODIUM,NA 138 mmol/L (136-148)
--- NOTE | 2021-03-31 09:29 | PCM.PN ---
- General Info Date of Service: 03/31/21 Admission Dx/Problem (Free Text): Admission Diagnosis/Problem Admission Diagnosis/Problem Hypokalemia, C. difficile colitis, hypophosphatemia Subjective Update: Reports he is continuing to feel improved today. Denies any chest pain shortness of breath. Tolerating ensures and boost drinks, has 4 semi solid stools overnight Functional Status: Reports: Tolerating Diet, Urinating - Review of Systems General: Reports: Weakness, Malaise Pulmonary: Denies: Shortness of Breath, Pleuritic Chest Pain Cardiovascular: Denies: Chest Pain Gastrointestinal: Reports: Decreased Appetite. Denies: Abdominal Pain, Constipation Genitourinary: Denies: Dysuria, Frequency, Burning, Pain Musculoskeletal: Denies: Neck Pain, Shoulder Pain, Arm Pain Skin: Denies: Cyanosis, Jaundice, Mottled Neurological: Denies: Confusion, Dizziness, Headache - Patient Data Vitals - Most Recent: Last Vital Signs Temp 36.2 C 03/31/21 03:07 Pulse 74 03/31/21 03:07 Resp 16 03/31/21 03:07 BP 122/77 03/31/21 03:07 Pulse Ox 99 03/31/21 03:07 Orthostatic Blood Pressure [ 83/54 Standing] Orthostatic Blood Pressure [ 99/66 Sitting] Orthostatic Blood Pressure [ 109/75 Supine] Weight - Most Recent: 70.261 kg I&O - Last 24 Hours: Intake & Output 03/30/21 03/31/21 03/31/21 22:59 06:59 14:59 Intake Total 231 1918 Output Total 1900 2300 Balance 415 -382 Lab Results Last 24 Hours: Laboratory Results - last 24 hr 03/31/21 03/31/21 Range/Units 05:55 05:55 WBC 6.30 (4.0-11.0) K/uL RBC 3.32 L (4.50-5.90) M/uL Hgb 11.7 L (13.0-17.0) g/dL Hct 34.4 L (38.0-50.0) % MCV 103.6 H (80.0-98.0) fL MCH 35.2 H (27.0-32.0) pg MCHC 34.0 (31.0-37.0) g/dL RDW Std Deviation 58.2 (28.0-62.0) fl RDW Coeff of Caleb 16 H (11.0-15.0) % Plt Count 327 (150-400) K/uL MPV 9.90 (7.40-12.00) fL Neut % (Auto) 71.2 (48.0-80.0) % Lymph % (Auto) 12.9 L (16.0-40.0) % Dillon % (Auto) 15.4 H (0.0-15.0) % Eos % (Auto) 0.3 (0.0-7.0) % Baso % (Auto) 0.2 (0.0-1.5) % Neut # (Auto) 4.5 (1.4-5.7) K/uL Lymph # (Auto) 0.8 (0.6-2.4) K/uL Dillon # (Auto) 1.0 H (0.0-0.8) K/uL Eos # (Auto) 0.0 (0.0-0.7) K/uL Baso # (Auto) 0.0 (0.0-0.1) K/uL Nucleated RBC % 0.0 /100WBC Nucleated RBCs # 0 K/uL Sodium 138 (136-148) mmol/L Potassium 3.9 (3.5-5.1) mmol/L Chloride 107 (98-107) mmol/L Carbon Dioxide 18.7 L (21.0-32.0) mmol/L BUN 8 (7.0-18.0) mg/dL Creatinine 0.8 (0.8-1.3) mg/dL Est Cr Clr Drug Dosing 87.83 mL/min Estimated GFR (MDRD) > 60.0 ml/min Glucose 118 H (74-106) mg/dL Calcium 7.9 L (8.5-10.1) mg/dL Phosphorus 2.7 (2.6-4.7) mg/dL Magnesium 2.0 (1.8-2.4) mg/dL Med Orders - Current: Current Medications Acetaminophen (Acetaminophen 325 Mg Tab) 650 mg PO Q4H PRN PRN Reason: Pain (Mild 1-3)/fever Acidophilus/Pectin (Acidophilus With [place] Pectin Tab) 1 tab PO BID BOB Last Admin: 03/30/21 21:41 Dose: 1 tab Documented by: Albuterol/Ipratropium (Albuterol/Ipratropium 3.0-0.5 Mg/3 Ml Neb Soln) 3 ml NEB Q4HRRT PRN PRN Reason: Shortness Of Breath/wheezing Eolia Butter/Phenylephrine (Eolia Butter/Phenylephrine Rectal Supp) 1 each RECTAL QID PRN PRN Reason: hemorrhoidal pain Last Admin: 03/25/21 10:45 Dose: 1 each Documented by: Gabapentin (Gabapentin 300 Mg Cap) 300 mg PO TID [facility] Last Admin: 03/31/21 06:24 Dose: 300 mg Documented by: Heparin Sodium (Porcine) (Heparin Sodium 5,000 Units/Ml Vial) 5,000 units SUBCUT Q8H [facility] Last Admin: 03/31/21 06:23 Dose: 5,000 units Documented by: Pantoprazole Sodium 40 mg/ (Sodium Chloride) 10 mls @ 200 mls/hr IV Q24H [facility] Last Admin: 03/30/21 17:14 Dose: 200 mls/hr Documented by: Metronidazole 500 mg/ Premix 100 mls @ 100 mls/hr IV Q8H [facility] Last Admin: 03/31/21 03:02 Dose: 100 mls/hr Documented by: Lactated Ringer's (Ringers, Lactated) 1,000 mls @ 75 mls/hr IV Q13H [facility] Last Admin: 03/31/21 06:17 Dose: Not Given Documented by: Levothyroxine Sodium (Levothyroxine 50 Mcg Tab) 50 mcg PO ACBREAKFAST [facility] Last Admin: 03/31/21 06:30 Dose: 50 mcg Documented by: Morphine Sulfate (Morphine 2 Mg/Ml Syringe) 1 mg IVPUSH Q4H PRN PRN Reason: Pain Ondansetron HCl (Ondansetron 4 Mg/2 Ml Sdv) 4 mg IVPUSH Q4H PRN PRN Reason: Nausea/Vomiting Last Admin: 03/30/21 00:51 Dose: 4 mg Documented by: Potassium Chloride (Potassium Chloride 20 Meq Tab.Er) 40 meq PO BIDMEALS [facility] Last Admin: 03/30/21 17:14 Dose: 40 meq Documented by: Sodium Chloride (Sodium Chloride 0.9% 10 Ml Syringe) 10 ml FLUSH ASDIRECTED PRN PRN Reason: Keep Vein Open Last Admin: 03/25/21 06:20 Dose: 10 ml Documented by: Sodium Chloride (Sodium Chloride 0.9% 2.5 Ml Syringe) 2.5 ml FLUSH ASDIRECTED PRN PRN Reason: Keep Vein Open Last Admin: 03/22/21 18:26 Dose: 2.5 ml Documented by: Sodium Phosphate (Phosphorus #1 250 Mg Tab) 250 mg PO QID [facility] Last Admin: 03/31/21 06:24 Dose: 250 mg Documented by: Vancomycin HCl (Vancomycin 125 Mg Cap) 125 mg PO QID [facility] Last Admin: 03/31/21 06:24 Dose: 125 mg Documented by: Discontinued Medications Sodium Chloride (Normal Saline) 1,000 mls @ 125 mls/hr IV STAT ONE Stop: 03/18/21 22:45 Last Infusion: 03/18/21 15:59 Dose: 999 mls/hr Documented by: Potassium Chloride 40 meq/ (Premix) 100 mls @ 25 mls/hr IV ONETIME ONE Stop: 03/18/21 19:50 Last Admin: 03/18/21 17:49 Dose: 25 mls/hr Documented by: Sodium Chloride (Normal Saline) 1,000 mls @ 125 mls/hr IV STAT ONE Stop: 03/18/21 23:51 Last Admin: 03/18/21 17:13 Dose: 125 mls/hr Documented by: Potassium Chloride/Dextrose/Sod Cl (D5 Ns With 20 Meq Kcl) 1,000 mls @ 125 mls/hr IV ASDIRECTED [facility] Last Admin: 03/19/21 02:12 Dose: 125 mls/hr Documented by: Lactated Ringer's (Ringers, Lactated) 1,000 mls @ 125 mls/hr IV Q8H [facility] Last Admin: 03/20/21 05:01 Dose: 125 mls/hr Documented by: Ciprofloxacin/Dextrose 400 mg/ (Premix) 200 mls @ 200 mls/hr IV Q12H [facility] Last Admin: 03/19/21 01:00 Dose: 200 mls/hr Documented by: Metronidazole 500 mg/ Premix 100 mls @ 100 mls/hr IV QID [facility] Last Admin: 03/19/21 06:00 Dose: 100 mls/hr Documented by: Potassium Phosphate 15 mmole/Potassium Chloride 20 meq/Sodium Chloride 515 mls @ 67.5 mls/hr IV ONETIME ONE Stop: 03/19/21 16:37 Last Admin: 03/19/21 09:12 Dose: 67.5 mls/hr Documented by: Potassium Phosphate 15 mmole/Potassium Chloride 20 meq/Sodium Chloride 515 mls @ 67.5 mls/hr IV ONETIME ONE Stop: 03/20/21 16:07 Last Admin: 03/20/21 09:20 Dose: 67.5 mls/hr Documented by: Potassium Chloride 40 meq/ (Dextrose/Sodium Chloride) 1,020 mls @ 125 mls/hr IV Q8H [facility] Stop: 03/21/21 20:29 Last Admin: 03/21/21 22:23 Dose: Not Given Documented by: Potassium Phosphate 20 mmole/ (Sodium Chloride) 506.6667 mls @ 168.889 mls/hr IV ONETIME ONE Stop: 03/21/21 11:29 Last Admin: 03/21/21 09:04 Dose: 168.889 mls/hr Documented by: Potassium Chloride 40 meq/ (Dextrose/Sodium Chloride) 1,020 mls @ 125 mls/hr IV Q8H [facility] Last Admin: 03/23/21 02:46 Dose: 125 mls/hr Documented by: Lactated Ringer's (Ringers, Lactated) 1,000 mls @ 999 mls/hr IV ONETIME ONE Stop: 03/22/21 09:19 Last Admin: 03/22/21 11:29 Dose: 999 mls/hr Documented by: Potassium Phosphate 15 mmole/ (Sodium Chloride) 505 mls @ 67.5 mls/hr IV ONETIME ONE Stop: 03/22/21 15:48 Last Admin: 03/22/21 11:29 Dose: 67.5 mls/hr Documented by: Lactated Ringer's (Ringers, Lactated) 1,000 mls @ 75 mls/hr IV ASDIRECTED [facility] Last Admin: 03/26/21 02:32 Dose: 75 mls/hr Documented by: Magnesium Sulfate (Magnesium Sulfate In Water 2 Gm/50 Ml) 2 gm in 50 mls @ 50 mls/hr IV ONETIME ONE Stop: 03/23/21 11:44 Last Admin: 03/23/21 11:18 Dose: 50 mls/hr Documented by: Lactated Ringer's (Ringers, Lactated) 1,000 mls @ 999 mls/hr IV .BOLUS ONE Stop: 03/26/21 09:04 Last Admin: 03/26/21 09:38 Dose: 999 mls/hr Documented by: Magnesium Sulfate (Magnesium Sulfate In Water 2 Gm/50 Ml) 2 gm in 50 mls @ 50 mls/hr IV ONETIME ONE Stop: 03/27/21 09:11 Last Admin: 03/27/21 09:44 Dose: 50 mls/hr Documented by: Potassium Chloride/Sodium Chloride (Normal Saline With 40 Meq Kcl) 1,000 mls @ 125 mls/hr IV ONETIME ONE Stop: 03/27/21 16:12 Last Admin: 03/27/21 09:41 Dose: 125 mls/hr Documented by: Potassium Phosphate 15 mmole/ (Sodium Chloride) 505 mls @ 67.5 mls/hr IV ONETIME ONE Stop: 03/29/21 16:28 Last Admin: 03/29/21 09:58 Dose: 67.5 mls/hr Documented by: Magnesium Sulfate (Magnesium Sulfate In Water 2 Gm/50 Ml) 2 gm in 50 mls @ 50 mls/hr IV ONETIME ONE Stop: 03/30/21 13:29 Last Admin: 03/30/21 13:25 Dose: 50 mls/hr Documented by: Potassium Chloride (Potassium Chloride 20 Meq Tab.Er) 40 meq PO ONETIME ONE Stop: 03/19/21 08:19 Last Admin: 03/19/21 09:19 Dose: 40 meq Documented by: Potassium Chloride (Potassium Chloride 20 Meq Tab.Er) 40 meq PO ONETIME ONE Stop: 03/19/21 15:01 Last Admin: 03/19/21 15:18 Dose: 40 meq Documented by: Potassium Chloride (Potassium Chloride 20 Meq Tab.Er) 40 meq PO BIDMEALS [facility] Last Admin: 03/23/21 08:55 Dose: 40 meq Documented by: Potassium Chloride (Potassium Chloride 20 Meq Tab.Er) 40 meq PO BIDMEALS [facility] Stop: 03/25/21 17:01 Last Admin: 03/25/21 17:36 Dose: 40 meq Documented by: Potassium Chloride (Potassium Chloride 20 Meq Tab.Er) 40 meq PO ONETIME ONE Stop: 03/26/21 09:40 Last Admin: 03/26/21 11:01 Dose: 40 meq Documented by: Potassium Chloride (Potassium Chloride 20 Meq Tab.Er) 40 meq PO BIDMEALS [facility] Potassium Chloride (Potassium Chloride 10% 20 Meq/15 Ml Soln 30 Ml Ud Cup) 40 meq PO BIDMEALS [facility] Last Admin: 03/28/21 10:46 Dose: Not Given Documented by: Potassium Chloride (Potassium Chloride 10% 20 Meq/15 Ml Soln 30 Ml Ud Cup) 40 meq PO ONETIME ONE Stop: 03/30/21 12:31 Last Admin: 03/30/21 14:17 Dose: Not Given Documented by: Potassium Chloride (Potassium Chloride 20 Meq Tab.Er) 40 meq PO ONETIME ONE Stop: 03/30/21 13:46 Last Admin: 03/30/21 14:17 Dose: 40 meq Documented by: Sodium Phosphate (Phosphorus #1 250 Mg Tab) 250 mg PO QID [facility] Last Admin: 03/26/21 06:00 Dose: 250 mg Documented by: Vancomycin HCl (Vancomycin 125 Mg Cap) 125 mg PO Q4H [facility] Last Admin: 03/19/21 06:35 Dose: 125 mg Documented by: - Exam General: Alert, Oriented Lungs: Clear to Auscultation Cardiovascular: Regular Rate, Regular Rhythm GI/Abdominal Exam: Normal Bowel Sounds, Soft, Non-Tender Extremities: Normal Inspection, Normal Range of Motion - Patient Data Lab Results Last 24 hrs: Laboratory Results - last 24 hr 03/31/21 03/31/21 Range/Units 05:55 05:55 WBC 6.30 (4.0-11.0) K/uL RBC 3.32 L (4.50-5.90) M/uL Hgb 11.7 L (13.0-17.0) g/dL Hct 34.4 L (38.0-50.0) % MCV 103.6 H (80.0-98.0) fL MCH 35.2 H (27.0-32.0) pg MCHC 34.0 (31.0-37.0) g/dL RDW Std Deviation 58.2 (28.0-62.0) fl RDW Coeff of Caleb 16 H (11.0-15.0) % Plt Count 327 (150-400) K/uL MPV 9.90 (7.40-12.00) fL Neut % (Auto) 71.2 (48.0-80.0) % Lymph % (Auto) 12.9 L (16.0-40.0) % Dillon % (Auto) 15.4 H (0.0-15.0) % Eos % (Auto) 0.3 (0.0-7.0) % Baso % (Auto) 0.2 (0.0-1.5) % Neut # (Auto) 4.5 (1.4-5.7) K/uL Lymph # (Auto) 0.8 (0.6-2.4) K/uL Dillon # (Auto) 1.0 H (0.0-0.8) K/uL Eos # (Auto) 0.0 (0.0-0.7) K/uL Baso # (Auto) 0.0 (0.0-0.1) K/uL Nucleated RBC % 0.0 /100WBC Nucleated RBCs # 0 K/uL Sodium 138 (136-148) mmol/L Potassium 3.9 (3.5-5.1) mmol/L Chloride 107 (98-107) mmol/L Carbon Dioxide 18.7 L (21.0-32.0) mmol/L BUN 8 (7.0-18.0) mg/dL Creatinine 0.8 (0.8-1.3) mg/dL Est Cr Clr Drug Dosing 87.83 mL/min Estimated GFR (MDRD) > 60.0 ml/min Glucose 118 H (74-106) mg/dL Calcium 7.9 L (8.5-10.1) mg/dL Phosphorus 2.7 (2.6-4.7) mg/dL Magnesium 2.0 (1.8-2.4) mg/dL Result Diagrams: 03/31/21 05:55 03/31/21 05:55 Sepsis Event Note - Evaluation Sepsis Screening Result: No Definite Risk - Focused Exam Vital Signs: Vital Signs Temp Pulse Resp BP Pulse Ox 03/31/21 03:07 36.2 C 74 16 122/77 99 03/30/21 23:23 36.7 C 70 14 122/74 100 - Problem List & Annotations (1) Tongue carcinoma Status: Chronic Current Visit: Yes (2) Port-A-Cath in place SNOMED Code(s): 805713597 Code(s): Z95.828 - PRESENCE OF OTHER VASCULAR IMPLANTS AND GRAFTS Status: Acute Current Visit: Yes (3) Dehydration SNOMED Code(s): 09471604 Code(s): E86.0 - DEHYDRATION Status: Acute Current Visit: No (4) Diarrhea SNOMED Code(s): 11537680 Code(s): R19.7 - DIARRHEA, UNSPECIFIED Status: Acute Current Visit: No Qualifiers: Diarrhea type: unspecified type Qualified Code(s): R19.7 - Diarrhea, unspecified (5) Hypokalemia SNOMED Code(s): 03370019 Code(s): E87.6 - HYPOKALEMIA Status: Acute Current Visit: No - Problem List Review Problem List Initiated/Reviewed/Updated: Yes - Plan Plan:: 70 y/o M admitted for diarrhea, eric, hypokalemia, c.diff 1. C. difficile colitis -Continues to slowly improve, may eed opion of GI for possible fecal transplant at some point as the response is slow -Continue vancomycin 125 mg 4 times daily p.o. -Continue Flagyl 500 mg IV 4 times daily -Continue IV fluid replacement due to continued stools -LR 75mls/hr -Continue PPI -Generalized weakness and deconditioning, PT consulted -hypokalemia noted today we will give 40 p.o. once 2. Tongue carcinoma -Continue gabapentin 3. Hypothyroidism -Continue levothyroxine VTE prophylaxis: Heparin GI prophylaxis: Protonix CODE STATUS: DNR/DNI Dispo: Possible home in the next 1 to 2 days patient steadily improving but patient is high risk for readmission if he is discharged too early as he will likely return with significant electrolyte abnormalities and dehydration due to continued diarrhea, may benefit from outpatient IV fluids infusions
[2021-03-31] MEDS: Acidophilus with Citrus Pectin Tab PO SCH ×2 (09:34→21:46)
[2021-03-31] MEDS: Potassium Chloride 20 MEQ Tab.ER PO SCH ×2 (09:34→17:06)
[2021-03-31] MEDS: Pantoprazole 40 MG in Sodium Chloride 0.9% 10 ML IV SCH (17:06)
[2021-04-01] MEDS: Phosphorus #1 250 MG Tab PO SCH ×4 (00:31→17:10)
[2021-04-01] MEDS: Vancomycin 125 MG Cap PO SCH ×4 (00:31→18:24)
[2021-04-01] MEDS: metroNIDAZOLE/Normal Saline 500 MG in Premix Bag 1 BAG IV SCH ×3 (02:51→18:24)
[2021-04-01] MEDS: Carboxymethylcellulose Sodium 0.5% Ophth Soln 0.4 ML UD Box of 30 EYEBOTH PRN ×3 (02:52→22:20)
[2021-04-01] MEDS: Heparin Sodium 5,000 Units/ML Vial SUBCUT SCH ×3 (06:01→22:20)
[2021-04-01] MEDS: Gabapentin 300 MG Cap PO SCH ×3 (06:01→22:20)
[2021-04-01] MEDS: Lactated Ringers 1,000 ML IV SCH (06:14)
[2021-04-01] MEDS: Levothyroxine 50 MCG Tab PO SCH (06:30)
[2021-04-01 06:33] LABS: BLOOD UREA NITROGEN,BUN 7 mg/dL (7.0-18.0); CHLORIDE,CL 109 mmol/L (98-107); GLUCOSE RANDOM 121 mg/dL (74-106); POTASSIUM,K 3.7 mmol/L (3.5-5.1); SODIUM,NA 139 mmol/L (136-148)
[2021-04-01] MEDS ORDERED: Magnesium Sulfate/Water 2 GM/50 ML BAG IV ONE (08:30)
[2021-04-01] MEDS: Potassium Chloride 20 MEQ Tab.ER PO SCH ×2 (09:19→17:10)
[2021-04-01] MEDS: Acidophilus with Citrus Pectin Tab PO SCH ×2 (09:20→20:09)
--- NOTE | 2021-04-01 13:23 | PCM.PN ---
- General Info Date of Service: 04/01/21 Admission Dx/Problem (Free Text): Admission Diagnosis/Problem Admission Diagnosis/Problem Hypokalemia, C. difficile colitis, hypophosphatemia Subjective Update: Continues to have loose stools. Reports that he intermittently gets decent stools and then continues to have diarrhea. He is drinking well and eating Ensure and boost. Patient requesting softer foods today poached egg and some cream of wheat. Will increase diet. Functional Status: Reports: Pain Controlled, Tolerating Diet, Ambulating, Urinating - Review of Systems General: Reports: Weakness (Generalized). Denies: Fatigue, Malaise HEENT: Reports: No Symptoms Pulmonary: Reports: No Symptoms. Denies: Shortness of Breath Cardiovascular: Reports: No Symptoms. Denies: Chest Pain Gastrointestinal: Reports: Diarrhea. Denies: Abdominal Pain, Nausea, Vomiting Genitourinary: Reports: No Symptoms Musculoskeletal: Reports: No Symptoms Skin: Reports: No Symptoms Neurological: Reports: No Symptoms Psychiatric: Reports: No Symptoms - Patient Data Vitals - Most Recent: Last Vital Signs Temp 97.1 F 04/01/21 11:48 Pulse 106 H 04/01/21 11:48 Resp 16 04/01/21 07:52 BP 141/91 H 04/01/21 11:48 Pulse Ox 95 04/01/21 11:48 Orthostatic Blood Pressure [ 83/54 Standing] Orthostatic Blood Pressure [ 99/66 Sitting] Orthostatic Blood Pressure [ 109/75 Supine] Weight - Most Recent: 70.261 kg I&O - Last 24 Hours: Intake & Output 03/31/21 04/01/21 04/01/21 22:59 06:59 14:59 Intake Total 1999 3058 Output Total 600 2800 Balance 1400 258 Lab Results Last 24 Hours: Laboratory Results - last 24 hr 04/01/21 04/01/21 Range/Units 05:45 05:45 WBC 5.97 (4.0-11.0) K/uL RBC 3.28 L (4.50-5.90) M/uL Hgb 11.7 L (13.0-17.0) g/dL Hct 34.1 L (38.0-50.0) % MCV 104.0 H (80.0-98.0) fL MCH 35.7 H (27.0-32.0) pg MCHC 34.3 (31.0-37.0) g/dL RDW Std Deviation 58.9 (28.0-62.0) fl RDW Coeff of Caleb 16 H (11.0-15.0) % Plt Count 301 (150-400) K/uL MPV 9.30 (7.40-12.00) fL Neut % (Auto) 72.6 (48.0-80.0) % Lymph % (Auto) 12.6 L (16.0-40.0) % [place] % (Auto) 14.2 (0.0-15.0) % Eos % (Auto) 0.3 (0.0-7.0) % Baso % (Auto) 0.3 (0.0-1.5) % Neut # (Auto) 4.3 (1.4-5.7) K/uL Lymph # (Auto) 0.8 (0.6-2.4) K/uL [place] # (Auto) 0.9 H (0.0-0.8) K/uL Eos # (Auto) 0.0 (0.0-0.7) K/uL Baso # (Auto) 0.0 (0.0-0.1) K/uL Nucleated RBC % 0.0 /100WBC Nucleated RBCs # 0 K/uL Sodium 139 (136-148) mmol/L Potassium 3.7 (3.5-5.1) mmol/L Chloride 109 H (98-107) mmol/L Carbon Dioxide 19.0 L (21.0-32.0) mmol/L BUN 7 (7.0-18.0) mg/dL Creatinine 0.8 (0.8-1.3) mg/dL Est Cr Clr Drug Dosing 87.83 mL/min Estimated GFR (MDRD) > 60.0 ml/min Glucose 121 H (74-106) mg/dL Calcium 7.9 L (8.5-10.1) mg/dL Phosphorus 2.7 (2.6-4.7) mg/dL Magnesium 1.7 L (1.8-2.4) mg/dL Med Orders - Current: Current Medications Acetaminophen (Acetaminophen 325 Mg Tab) 650 mg PO Q4H PRN PRN Reason: Pain (Mild 1-3)/fever Acidophilus/Pectin (Acidophilus With [place] Pectin Tab) 1 tab PO BID [facility] Last Admin: 04/01/21 09:20 Dose: 1 tab Documented by: Albuterol/Ipratropium (Albuterol/Ipratropium 3.0-0.5 Mg/3 Ml Neb Soln) 3 ml NEB Q4HRRT PRN PRN Reason: Shortness Of Breath/wheezing Artificial Tears (Carboxymethylcellulose Sodium 0.5% Ophth Soln 0.4 Ml Ud Box Of 30) 0 each EYEBOTH TID PRN PRN Reason: Dry Eyes Last Admin: 04/01/21 11:41 Dose: 1 drop Documented by: [place] Butter/Phenylephrine ([place] Butter/Phenylephrine Rectal Supp) 1 each RECTAL QID PRN PRN Reason: hemorrhoidal pain Last Admin: 03/25/21 10:45 Dose: 1 each Documented by: Gabapentin (Gabapentin 300 Mg Cap) 300 mg PO TID [facility] Last Admin: 04/01/21 06:01 Dose: 300 mg Documented by: Heparin Sodium (Porcine) (Heparin Sodium 5,000 Units/Ml Vial) 5,000 units SUBCUT Q8H [facility] Last Admin: 04/01/21 06:01 Dose: 5,000 units Documented by: Pantoprazole Sodium 40 mg/ (Sodium Chloride) 10 mls @ 200 mls/hr IV Q24H [facility] Last Admin: 03/31/21 17:06 Dose: 200 mls/hr Documented by: Metronidazole 500 mg/ Premix 100 mls @ 100 mls/hr IV Q8H [facility] Last Admin: 04/01/21 11:42 Dose: 100 mls/hr Documented by: Levothyroxine Sodium (Levothyroxine 50 Mcg Tab) 50 mcg PO ACBREAKFAST [facility] Last Admin: 04/01/21 06:30 Dose: 50 mcg Documented by: Morphine Sulfate (Morphine 2 Mg/Ml Syringe) 1 mg IVPUSH Q4H PRN PRN Reason: Pain Ondansetron HCl (Ondansetron 4 Mg/2 Ml Sdv) 4 mg IVPUSH Q4H PRN PRN Reason: Nausea/Vomiting Last Admin: 03/30/21 00:51 Dose: 4 mg Documented by: Potassium Chloride (Potassium Chloride 20 Meq Tab.Er) 40 meq PO BIDMEALS [facility] Last Admin: 04/01/21 09:19 Dose: 40 meq Documented by: Sodium Chloride (Sodium Chloride 0.9% 10 Ml Syringe) 10 ml FLUSH ASDIRECTED PRN PRN Reason: Keep Vein Open Last Admin: 03/25/21 06:20 Dose: 10 ml Documented by: Sodium Chloride (Sodium Chloride 0.9% 2.5 Ml Syringe) 2.5 ml FLUSH ASDIRECTED PRN PRN Reason: Keep Vein Open Last Admin: 03/22/21 18:26 Dose: 2.5 ml Documented by: Sodium Phosphate (Phosphorus #1 250 Mg Tab) 250 mg PO QID [facility] Last Admin: 04/01/21 11:41 Dose: 250 mg Documented by: Vancomycin HCl (Vancomycin 125 Mg Cap) 125 mg PO QID [facility] Last Admin: 04/01/21 11:41 Dose: 125 mg Documented by: Discontinued Medications Sodium Chloride (Normal Saline) 1,000 mls @ 125 mls/hr IV STAT ONE Stop: 03/18/21 22:45 Last Infusion: 03/18/21 15:59 Dose: 999 mls/hr Documented by: Potassium Chloride 40 meq/ (Premix) 100 mls @ 25 mls/hr IV ONETIME ONE Stop: 03/18/21 19:50 Last Admin: 03/18/21 17:49 Dose: 25 mls/hr Documented by: Sodium Chloride (Normal Saline) 1,000 mls @ 125 mls/hr IV STAT ONE Stop: 03/18/21 23:51 Last Admin: 03/18/21 17:13 Dose: 125 mls/hr Documented by: Potassium Chloride/Dextrose/Sod Cl (D5 Ns With 20 Meq Kcl) 1,000 mls @ 125 mls/hr IV ASDIRECTED [facility] Last Admin: 03/19/21 02:12 Dose: 125 mls/hr Documented by: Lactated Ringer's (Ringers, Lactated) 1,000 mls @ 125 mls/hr IV Q8H [facility] Last Admin: 03/20/21 05:01 Dose: 125 mls/hr Documented by: Ciprofloxacin/Dextrose 400 mg/ (Premix) 200 mls @ 200 mls/hr IV Q12H [facility] Last Admin: 03/19/21 01:00 Dose: 200 mls/hr Documented by: Metronidazole 500 mg/ Premix 100 mls @ 100 mls/hr IV QID [facility] Last Admin: 03/19/21 06:00 Dose: 100 mls/hr Documented by: Potassium Phosphate 15 mmole/Potassium Chloride 20 meq/Sodium Chloride 515 mls @ 67.5 mls/hr IV ONETIME ONE Stop: 03/19/21 16:37 Last Admin: 03/19/21 09:12 Dose: 67.5 mls/hr Documented by: Potassium Phosphate 15 mmole/Potassium Chloride 20 meq/Sodium Chloride 515 mls @ 67.5 mls/hr IV ONETIME ONE Stop: 03/20/21 16:07 Last Admin: 03/20/21 09:20 Dose: 67.5 mls/hr Documented by: Potassium Chloride 40 meq/ (Dextrose/Sodium Chloride) 1,020 mls @ 125 mls/hr IV Q8H [facility] Stop: 03/21/21 20:29 Last Admin: 03/21/21 22:23 Dose: Not Given Documented by: Potassium Phosphate 20 mmole/ (Sodium Chloride) 506.6667 mls @ 168.889 mls/hr IV ONETIME ONE Stop: 03/21/21 11:29 Last Admin: 03/21/21 09:04 Dose: 168.889 mls/hr Documented by: Potassium Chloride 40 meq/ (Dextrose/Sodium Chloride) 1,020 mls @ 125 mls/hr IV Q8H [facility] Last Admin: 03/23/21 02:46 Dose: 125 mls/hr Documented by: Lactated Ringer's (Ringers, Lactated) 1,000 mls @ 999 mls/hr IV ONETIME ONE Stop: 03/22/21 09:19 Last Admin: 03/22/21 11:29 Dose: 999 mls/hr Documented by: Potassium Phosphate 15 mmole/ (Sodium Chloride) 505 mls @ 67.5 mls/hr IV ONETIME ONE Stop: 03/22/21 15:48 Last Admin: 03/22/21 11:29 Dose: 67.5 mls/hr Documented by: Lactated Ringer's (Ringers, Lactated) 1,000 mls @ 75 mls/hr IV ASDIRECTED [facility] Last Admin: 03/26/21 02:32 Dose: 75 mls/hr Documented by: Magnesium Sulfate (Magnesium Sulfate In Water 2 Gm/50 Ml) 2 gm in 50 mls @ 50 mls/hr IV ONETIME ONE Stop: 03/23/21 11:44 Last Admin: 03/23/21 11:18 Dose: 50 mls/hr Documented by: Lactated Ringer's (Ringers, Lactated) 1,000 mls @ 999 mls/hr IV .BOLUS ONE Stop: 03/26/21 09:04 Last Admin: 03/26/21 09:38 Dose: 999 mls/hr Documented by: Lactated Ringer's (Ringers, Lactated) 1,000 mls @ 75 mls/hr IV Q13H [facility] Last Admin: 04/01/21 06:14 Dose: 75 mls/hr Documented by: Magnesium Sulfate (Magnesium Sulfate In Water 2 Gm/50 Ml) 2 gm in 50 mls @ 50 mls/hr IV ONETIME ONE Stop: 03/27/21 09:11 Last Admin: 03/27/21 09:44 Dose: 50 mls/hr Documented by: Potassium Chloride/Sodium Chloride (Normal Saline With 40 Meq Kcl) 1,000 mls @ 125 mls/hr IV ONETIME ONE Stop: 03/27/21 16:12 Last Admin: 03/27/21 09:41 Dose: 125 mls/hr Documented by: Potassium Phosphate 15 mmole/ (Sodium Chloride) 505 mls @ 67.5 mls/hr IV ONETIM E ONE Stop: 03/29/21 16:28 Last Admin: 03/29/21 09:58 Dose: 67.5 mls/hr Documented by: Magnesium Sulfate (Magnesium Sulfate In Water 2 Gm/50 Ml) 2 gm in 50 mls @ 50 mls/hr IV ONETIME ONE Stop: 03/30/21 13:29 Last Admin: 03/30/21 13:25 Dose: 50 mls/hr Documented by: Magnesium Sulfate (Magnesium Sulfate In Water 2 Gm/50 Ml) 2 gm in 50 mls @ 50 mls/hr IV ONETIME ONE Stop: 04/01/21 09:29 Last Admin: 04/01/21 09:20 Dose: 50 mls/hr Documented by: Potassium Chloride (Potassium Chloride 20 Meq Tab.Er) 40 meq PO ONETIME ONE Stop: 03/19/21 08:19 Last Admin: 03/19/21 09:19 Dose: 40 meq Documented by: Potassium Chloride (Potassium Chloride 20 Meq Tab.Er) 40 meq PO ONETIME ONE Stop: 03/19/21 15:01 Last Admin: 03/19/21 15:18 Dose: 40 meq Documented by: Potassium Chloride (Potassium Chloride 20 Meq Tab.Er) 40 meq PO BIDMEALS [facility] Last Admin: 03/23/21 08:55 Dose: 40 meq Documented by: Potassium Chloride (Potassium Chloride 20 Meq Tab.Er) 40 meq PO BIDMEALS [facility] Stop: 03/25/21 17:01 Last Admin: 03/25/21 17:36 Dose: 40 meq Documented by: Potassium Chloride (Potassium Chloride 20 Meq Tab.Er) 40 meq PO ONETIME ONE Stop: 03/26/21 09:40 Last Admin: 03/26/21 11:01 Dose: 40 meq Documented by: Potassium Chloride (Potassium Chloride 20 Meq Tab.Er) 40 meq PO BIDMEALS [facility] Potassium Chloride (Potassium Chloride 10% 20 Meq/15 Ml Soln 30 Ml Ud Cup) 40 meq PO BIDMEALS [facility] Last Admin: 03/28/21 10:46 Dose: Not Given Documented by: Potassium Chloride (Potassium Chloride 10% 20 Meq/15 Ml Soln 30 Ml Ud Cup) 40 meq PO ONETIME ONE Stop: 03/30/21 12:31 Last Admin: 03/30/21 14:17 Dose: Not Given Documented by: Potassium Chloride (Potassium Chloride 20 Meq Tab.Er) 40 meq PO ONETIME ONE Stop: 03/30/21 13:46 Last Admin: 03/30/21 14:17 Dose: 40 meq Documented by: Sodium Phosphate (Phosphorus #1 250 Mg Tab) 250 mg PO QID [facility] Last Admin: 03/26/21 06:00 Dose: 250 mg Documented by: Vancomycin HCl (Vancomycin 125 Mg Cap) 125 mg PO Q4H [facility] Last Admin: 03/19/21 06:35 Dose: 125 mg Documented by: - Exam General: Alert, Oriented, Cooperative, Other (Cachectic) Lungs: Clear to Auscultation, Normal Respiratory Effort Cardiovascular: Regular Rate, Regular Rhythm GI/Abdominal Exam: Normal Bowel Sounds, Soft, Non-Tender Extremities: Normal Inspection, Normal Range of Motion, Non-Tender, No Pedal Edema Wound/Incisions: Healing Well Neurological: No New Focal Deficit Psy/Mental Status: Alert, Normal Affect, Normal Mood - Patient Data Lab Results Last 24 hrs: Laboratory Results - last 24 hr 04/01/21 04/01/21 Range/Units 05:45 05:45 WBC 5.97 (4.0-11.0) K/uL RBC 3.28 L (4.50-5.90) M/uL Hgb 11.7 L (13.0-17.0) g/dL Hct 34.1 L (38.0-50.0) % MCV 104.0 H (80.0-98.0) fL MCH 35.7 H (27.0-32.0) pg MCHC 34.3 (31.0-37.0) g/dL RDW Std Deviation 58.9 (28.0-62.0) fl RDW Coeff of Caleb 16 H (11.0-15.0) % Plt Count 301 (150-400) K/uL MPV 9.30 (7.40-12.00) fL Neut % (Auto) 72.6 (48.0-80.0) % Lymph % (Auto) 12.6 L (16.0-40.0) % [place] % (Auto) 14.2 (0.0-15.0) % Eos % (Auto) 0.3 (0.0-7.0) % Baso % (Auto) 0.3 (0.0-1.5) % Neut # (Auto) 4.3 (1.4-5.7) K/uL Lymph # (Auto) 0.8 (0.6-2.4) K/uL [place] # (Auto) 0.9 H (0.0-0.8) K/uL Eos # (Auto) 0.0 (0.0-0.7) K/uL Baso # (Auto) 0.0 (0.0-0.1) K/uL Nucleated RBC % 0.0 /100WBC Nucleated RBCs # 0 K/uL Sodium 139 (136-148) mmol/L Potassium 3.7 (3.5-5.1) mmol/L Chloride 109 H (98-107) mmol/L Carbon Dioxide 19.0 L (21.0-32.0) mmol/L BUN 7 (7.0-18.0) mg/dL Creatinine 0.8 (0.8-1.3) mg/dL Est Cr Clr Drug Dosing 87.83 mL/min Estimated GFR (MDRD) > 60.0 ml/min Glucose 121 H (74-106) mg/dL Calcium 7.9 L (8.5-10.1) mg/dL Phosphorus 2.7 (2.6-4.7) mg/dL Magnesium 1.7 L (1.8-2.4) mg/dL Result Diagrams: 04/01/21 05:45 04/01/21 05:45 Sepsis Event Note - Evaluation Sepsis Screening Result: No Definite Risk - Focused Exam Vital Signs: Vital Signs Temp Pulse Resp BP Pulse Ox 04/01/21 11:48 97.1 F 106 H 141/91 H 95 04/01/21 07:52 96.7 F L 80 16 116/76 98 04/01/21 02:56 97.8 F 69 17 125/80 98 - Problem List & Annotations (1) C. difficile colitis SNOMED Code(s): 317338729 Code(s): A04.72 - ENTEROCOLITIS D/T CLOSTRIDIUM DIFFICILE, NOT SPCF RECUR Status: Acute Current Visit: Yes (2) Hypophosphatemia SNOMED Code(s): 8938457 Code(s): E83.39 - OTHER DISORDERS OF PHOSPHORUS METABOLISM Status: Resolved Current Visit: Yes (3) Port-A-Cath in place SNOMED Code(s): 863636219 Code(s): Z95.828 - PRESENCE OF OTHER VASCULAR IMPLANTS AND GRAFTS Status: Acute Current Visit: Yes (4) Tongue carcinoma Status: Chronic Current Visit: Yes (5) Dehydration SNOMED Code(s): 86358650 Code(s): E86.0 - DEHYDRATION Status: Acute Current Visit: No (6) Diarrhea SNOMED Code(s): 68722440 Code(s): R19.7 - DIARRHEA, UNSPECIFIED Status: Acute Current Visit: No Qualifiers: Diarrhea type: unspecified type Qualified Code(s): R19.7 - Diarrhea, unspecified (7) Hypokalemia SNOMED Code(s): 79911295 Code(s): E87.6 - HYPOKALEMIA Status: Acute Current Visit: No - Problem List Review Problem List Initiated/Reviewed/Updated: Yes - My Orders Last 24 Hours: My Active Orders 04/01/21 Lunch Soft Diet [DIET] - Plan Plan:: 70 y/o M admitted for diarrhea, eric, hypokalemia, c.diff 1. C. difficile colitis -Continues to slowly improve, may need opinion of GI for possible fecal transplant at some point as the response is slow -We will do this with GI and/or ID in a.m. if continued slow response -Continue vancomycin 125 mg 4 times daily p.o. -Continue Flagyl 500 mg IV 4 times daily -Continue IV fluid replacement due to continued stools -Continue PPI -Generalized weakness and deconditioning, PT consulted -hypokalemia noted today we will give 40 p.o. once 2. Tongue carcinoma -Continue gabapentin 3. Hypothyroidism -Continue levothyroxine VTE prophylaxis: Heparin GI prophylaxis: Protonix CODE STATUS: DNR/DNI Dispo: We will discuss with ID or GI in a.m. regarding slow response and nearing end of vancomycin treatment. Patient may need to be considered for fecal transplant to cure C. difficile.
[2021-04-01] MEDS: Pantoprazole 40 MG in Sodium Chloride 0.9% 10 ML IV SCH (17:11)
[2021-04-02] MEDS: Phosphorus #1 250 MG Tab PO SCH ×4 (00:16→18:12)
[2021-04-02] MEDS: Vancomycin 125 MG Cap PO SCH ×4 (00:16→18:12)
[2021-04-02] MEDS: metroNIDAZOLE/Normal Saline 500 MG in Premix Bag 1 BAG IV SCH ×3 (03:18→18:13)
[2021-04-02] MEDS: Heparin Sodium 5,000 Units/ML Vial SUBCUT SCH ×3 (05:20→20:31)
[2021-04-02] MEDS: Gabapentin 300 MG Cap PO SCH ×3 (05:20→21:48)
[2021-04-02 06:53] LABS: BLOOD UREA NITROGEN,BUN 8 mg/dL (7.0-18.0); CARBON DIOXIDE,CO2 18.6 mmol/L (21.0-32.0); CHLORIDE,CL 105 mmol/L (98-107); GLUCOSE RANDOM 123 mg/dL (74-106); POTASSIUM,K 3.3 mmol/L (3.5-5.1); SODIUM,NA 137 mmol/L (136-148)
[2021-04-02] MEDS: Potassium Chloride 20 MEQ Tab.ER PO SCH (08:02)
[2021-04-02] MEDS: Levothyroxine 50 MCG Tab PO SCH (08:03)
[2021-04-02] MEDS: Acidophilus with Citrus Pectin Tab PO SCH ×2 (08:03→20:25)
[2021-04-02] MEDS ORDERED: Potassium Chloride 20 MEQ Tab.ER PO ONE (08:05)
[2021-04-02] MEDS ORDERED: Potassium Chloride 10 MEQ Tab.ER PO ONE (08:30)
[2021-04-02] MEDS ORDERED: Lactated Ringers 1,000 ML IV ONE ×2 (08:39→14:13)
[2021-04-02] MEDS: Lactated Ringers 1,000 ML IV SCH (10:09)
--- NOTE | 2021-04-02 11:32 | PCM.PN ---
- General Info Date of Service: 04/02/21 Admission Dx/Problem (Free Text): Admission Diagnosis/Problem Admission Diagnosis/Problem Hypokalemia, C. difficile colitis, hypophosphatemia Subjective Update: Continues to have loose bowel movements had a large liquid 900 mill bowel movement this morning. Denies any chest pain shortness of breath. Blood pressure is lower overnight with trial of no IV fluids. Denies any lightheadedness dizziness or near syncope. Tolerating softer foods such as oatmeal cream await. Functional Status: Reports: Pain Controlled, Tolerating Diet, Ambulating, Urinating - Review of Systems General: Reports: Weakness HEENT: Reports: No Symptoms. Denies: Headaches, Sore Throat, Visual Changes Pulmonary: Reports: No Symptoms. Denies: Shortness of Breath Cardiovascular: Reports: No Symptoms. Denies: Chest Pain Gastrointestinal: Denies: Abdominal Pain, Diarrhea (3-4 liquid bowel movements daily), Nausea, Vomiting Genitourinary: Reports: No Symptoms. Denies: Dysuria, Frequency, Burning Musculoskeletal: Reports: No Symptoms Skin: Reports: No Symptoms Neurological: Reports: No Symptoms Psychiatric: Reports: No Symptoms - Patient Data Vitals - Most Recent: Last Vital Signs Temp 99.4 F 04/02/21 07:56 Pulse 100 04/02/21 10:10 Resp 18 04/02/21 07:56 BP 85/59 L 04/02/21 10:10 Pulse Ox 95 04/02/21 07:56 Orthostatic Blood Pressure [ 83/54 Standing] Orthostatic Blood Pressure [ 99/66 Sitting] Orthostatic Blood Pressure [ 109/75 Supine] Weight - Most Recent: 70.261 kg I&O - Last 24 Hours: Intake & Output 04/01/21 04/02/21 04/02/21 22:59 06:59 14:59 Intake Total 2050 1200 Output Total 950 1300 Balance 1100 -100 Lab Results Last 24 Hours: Laboratory Results - last 24 hr 04/02/21 04/02/21 Range/Units 05:51 05:51 WBC 6.64 (4.0-11.0) K/uL RBC 3.42 L (4.50-5.90) M/uL Hgb 12.1 L (13.0-17.0) g/dL Hct 35.7 L (38.0-50.0) % MCV 104.4 H (80.0-98.0) fL MCH 35.4 H (27.0-32.0) pg MCHC 33.9 (31.0-37.0) g/dL RDW Std Deviation 59.7 (28.0-62.0) fl RDW Coeff of Caleb 16 H (11.0-15.0) % Plt Count 301 (150-400) K/uL MPV 10.00 (7.40-12.00) fL Neut % (Auto) 64.7 (48.0-80.0) % Lymph % (Auto) 17.2 (16.0-40.0) % [place] % (Auto) 17.3 H (0.0-15.0) % Eos % (Auto) 0.6 (0.0-7.0) % Baso % (Auto) 0.2 (0.0-1.5) % Neut # (Auto) 4.3 (1.4-5.7) K/uL Lymph # (Auto) 1.1 (0.6-2.4) K/uL [place] # (Auto) 1.2 H (0.0-0.8) K/uL Eos # (Auto) 0.0 (0.0-0.7) K/uL Baso # (Auto) 0.0 (0.0-0.1) K/uL Nucleated RBC % 0.0 /100WBC Nucleated RBCs # 0 K/uL Sodium 137 (136-148) mmol/L Potassium 3.3 L (3.5-5.1) mmol/L Chloride 105 (98-107) mmol/L Carbon Dioxide 18.6 L (21.0-32.0) mmol/L BUN 8 (7.0-18.0) mg/dL Creatinine 0.8 (0.8-1.3) mg/dL Est Cr Clr Drug Dosing 87.83 mL/min Estimated GFR (MDRD) > 60.0 ml/min Glucose 123 H (74-106) mg/dL Calcium 7.7 L (8.5-10.1) mg/dL Phosphorus 3.0 (2.6-4.7) mg/dL Magnesium 1.9 (1.8-2.4) mg/dL Med Orders - Current: Current Medications Acetaminophen (Acetaminophen 325 Mg Tab) 650 mg PO Q4H PRN PRN Reason: Pain (Mild 1-3)/fever Acidophilus/Pectin (Acidophilus With Cros[place] Pectin Tab) 1 tab PO BID [facility] Last Admin: 04/02/21 08:03 Dose: 1 tab Documented by: Albuterol/Ipratropium (Albuterol/Ipratropium 3.0-0.5 Mg/3 Ml Neb Soln) 3 ml NEB Q4HRRT PRN PRN Reason: Shortness Of Breath/wheezing Artificial Tears (Carboxymethylcellulose Sodium 0.5% Ophth Soln 0.4 Ml Ud Box Of 30) 0 each EYEBOTH TID PRN PRN Reason: Dry Eyes Last Admin: 04/01/21 22:20 Dose: 1 drop Documented by: [place] Butter/Phenylephrine ([place] Butter/Phenylephrine Rectal Supp) 1 each RECTAL QID PRN PRN Reason: hemorrhoidal pain Last Admin: 03/25/21 10:45 Dose: 1 each Documented by: Gabapentin (Gabapentin 300 Mg Cap) 300 mg PO TID [facility] Last Admin: 04/02/21 05:20 Dose: 300 mg Documented by: Heparin Sodium (Porcine) (Heparin Sodium 5,000 Units/Ml Vial) 5,000 units SUBCUT Q8H [facility] Last Admin: 04/02/21 05:20 Dose: 5,000 units Documented by: Pantoprazole Sodium 40 mg/ (Sodium Chloride) 10 mls @ 200 mls/hr IV Q24H [facility] Last Admin: 04/01/21 17:11 Dose: 200 mls/hr Documented by: Metronidazole 500 mg/ Premix 100 mls @ 100 mls/hr IV Q8H [facility] Last Admin: 04/02/21 11:07 Dose: 100 mls/hr Documented by: Lactated Ringer's (Ringers, Lactated) 1,000 mls @ 75 mls/hr IV Q13H [facility] Last Admin: 04/02/21 10:09 Dose: 75 mls/hr Documented by: Levothyroxine Sodium (Levothyroxine 50 Mcg Tab) 50 mcg PO ACBREAKFAST [facility] Last Admin: 04/02/21 08:03 Dose: 50 mcg Documented by: Morphine Sulfate (Morphine 2 Mg/Ml Syringe) 1 mg IVPUSH Q4H PRN PRN Reason: Pain Ondansetron HCl (Ondansetron 4 Mg/2 Ml Sdv) 4 mg IVPUSH Q4H PRN PRN Reason: Nausea/Vomiting Last Admin: 03/30/21 00:51 Dose: 4 mg Documented by: Potassium Chloride (Potassium Chloride 10 Meq Tab.Er) 40 meq PO BIDMEALS [facility] Sodium Chloride (Sodium Chloride 0.9% 10 Ml Syringe) 10 ml FLUSH ASDIRECTED PRN PRN Reason: Keep Vein Open Last Admin: 03/25/21 06:20 Dose: 10 ml Documented by: Sodium Chloride (Sodium Chloride 0.9% 2.5 Ml Syringe) 2.5 ml FLUSH ASDIRECTED PRN PRN Reason: Keep Vein Open Last Admin: 03/22/21 18:26 Dose: 2.5 ml Documented by: Sodium Phosphate (Phosphorus #1 250 Mg Tab) 250 mg PO QID [facility] Last Admin: 04/02/21 05:20 Dose: 250 mg Documented by: Vancomycin HCl (Vancomycin 125 Mg Cap) 250 mg PO QID BOB Discontinued Medications Sodium Chloride (Normal Saline) 1,000 mls @ 125 mls/hr IV STAT ONE Stop: 03/18/21 22:45 Last Infusion: 03/18/21 15:59 Dose: 999 mls/hr Documented by: Potassium Chloride 40 meq/ (Premix) 100 mls @ 25 mls/hr IV ONETIME ONE Stop: 03/18/21 19:50 Last Admin: 03/18/21 17:49 Dose: 25 mls/hr Documented by: Sodium Chloride (Normal Saline) 1,000 mls @ 125 mls/hr IV STAT ONE Stop: 03/18/21 23:51 Last Admin: 03/18/21 17:13 Dose: 125 mls/hr Documented by: Potassium Chloride/Dextrose/Sod Cl (D5 Ns With 20 Meq Kcl) 1,000 mls @ 125 mls/hr IV ASDIRECTED [facility] Last Admin: 03/19/21 02:12 Dose: 125 mls/hr Documented by: Lactated Ringer's (Ringers, Lactated) 1,000 mls @ 125 mls/hr IV Q8H [facility] Last Admin: 03/20/21 05:01 Dose: 125 mls/hr Documented by: Ciprofloxacin/Dextrose 400 mg/ (Premix) 200 mls @ 200 mls/hr IV Q12H [facility] Last Admin: 03/19/21 01:00 Dose: 200 mls/hr Documented by: Metronidazole 500 mg/ Premix 100 mls @ 100 mls/hr IV QID [facility] Last Admin: 03/19/21 06:00 Dose: 100 mls/hr Documented by: Potassium Phosphate 15 mmole/Potassium Chloride 20 meq/Sodium Chloride 515 mls @ 67.5 mls/hr IV ONETIME ONE Stop: 03/19/21 16:37 Last Admin: 03/19/21 09:12 Dose: 67.5 mls/hr Documented by: Potassium Phosphate 15 mmole/Potassium Chloride 20 meq/Sodium Chloride 515 mls @ 67.5 mls/hr IV ONETIME ONE Stop: 03/20/21 16:07 Last Admin: 03/20/21 09:20 Dose: 67.5 mls/hr Documented by: Potassium Chloride 40 meq/ (Dextrose/Sodium Chloride) 1,020 mls @ 125 mls/hr IV Q8H [facility] Stop: 03/21/21 20:29 Last Admin: 03/21/21 22:23 Dose: Not Given Documented by: Potassium Phosphate 20 mmole/ (Sodium Chloride) 506.6667 mls @ 168.889 mls/hr IV ONETIME ONE Stop: 03/21/21 11:29 Last Admin: 03/21/21 09:04 Dose: 168.889 mls/hr Documented by: Potassium Chloride 40 meq/ (Dextrose/Sodium Chloride) 1,020 mls @ 125 mls/hr IV Q8H [facility] Last Admin: 03/23/21 02:46 Dose: 125 mls/hr Documented by: Lactated Ringer's (Ringers, Lactated) 1,000 mls @ 999 mls/hr IV ONETIME ONE Stop: 03/22/21 09:19 Last Admin: 03/22/21 11:29 Dose: 999 mls/hr Documented by: Potassium Phosphate 15 mmole/ (Sodium Chloride) 505 mls @ 67.5 mls/hr IV ONETIME ONE Stop: 03/22/21 15:48 Last Admin: 03/22/21 11:29 Dose: 67.5 mls/hr Documented by: Lactated Ringer's (Ringers, Lactated) 1,000 mls @ 75 mls/hr IV ASDIRECTED [facility] Last Admin: 03/26/21 02:32 Dose: 75 mls/hr Documented by: Magnesium Sulfate (Magnesium Sulfate In Water 2 Gm/50 Ml) 2 gm in 50 mls @ 50 mls/hr IV ONETIME ONE Stop: 03/23/21 11:44 Last Admin: 03/23/21 11:18 Dose: 50 mls/hr Documented by: Lactated Ringer's (Ringers, Lactated) 1,000 mls @ 999 mls/hr IV .BOLUS ONE Stop: 03/26/21 09:04 Last Admin: 03/26/21 09:38 Dose: 999 mls/hr Documented by: Lactated Ringer's (Ringers, Lactated) 1,000 mls @ 75 mls/hr IV Q13H BOB Last Admin: 04/01/21 06:14 Dose: 75 mls/hr Documented by: Magnesium Sulfate (Magnesium Sulfate In Water 2 Gm/50 Ml) 2 gm in 50 mls @ 50 mls/hr IV ONETIME ONE Stop: 03/27/21 09:11 Last Admin: 03/27/21 09:44 Dose: 50 mls/hr Documented by: Potassium Chloride/Sodium Chloride (Normal Saline With 40 Meq Kcl) 1,000 mls @ 125 mls/hr IV ONETIME ONE Stop: 03/27/21 16:12 Last Admin: 03/27/21 09:41 Dose: 125 mls/hr Documented by: Potassium Phosphate 15 mmole/ (Sodium Chloride) 505 mls @ 67.5 mls/hr IV ONETIME ONE Stop: 03/29/21 16:28 Last Admin: 03/29/21 09:58 Dose: 67.5 mls/hr Documented by: Magnesium Sulfate (Magnesium Sulfate In Water 2 Gm/50 Ml) 2 gm in 50 mls @ 50 mls/hr IV ONETIME ONE Stop: 03/30/21 13:29 Last Admin: 03/30/21 13:25 Dose: 50 mls/hr Documented by: Magnesium Sulfate (Magnesium Sulfate In Water 2 Gm/50 Ml) 2 gm in 50 mls @ 50 mls/hr IV ONETIME ONE Stop: 04/01/21 09:29 Last Admin: 04/01/21 09:20 Dose: 50 mls/hr Documented by: Lactated Ringer's (Ringers, Lactated) 1,000 mls @ 999 mls/hr IV .BOLUS ONE Stop: 04/02/21 09:39 Last Admin: 04/02/21 09:02 Dose: 999 mls/hr Documented by: Potassium Chloride (Potassium Chloride 20 Meq Tab.Er) 40 meq PO ONETIME ONE Stop: 03/19/21 08:19 Last Admin: 03/19/21 09:19 Dose: 40 meq Documented by: Potassium Chloride (Potassium Chloride 20 Meq Tab.Er) 40 meq PO ONETIME ONE Stop: 03/19/21 15:01 Last Admin: 03/19/21 15:18 Dose: 40 meq Documented by: Potassium Chloride (Potassium Chloride 20 Meq Tab.Er) 40 meq PO BIDMEALS [facility] Last Admin: 03/23/21 08:55 Dose: 40 meq Documented by: Potassium Chloride (Potassium Chloride 20 Meq Tab.Er) 40 meq PO BIDMEALS [facility] Stop: 03/25/21 17:01 Last Admin: 03/25/21 17:36 Dose: 40 meq Documented by: Potassium Chloride (Potassium Chloride 20 Meq Tab.Er) 40 meq PO ONETIME ONE Stop: 03/26/21 09:40 Last Admin: 03/26/21 11:01 Dose: 40 meq Documented by: Potassium Chloride (Potassium Chloride 20 Meq Tab.Er) 40 meq PO BIDMEALS [facility] Potassium Chloride (Potassium Chloride 10% 20 Meq/15 Ml Soln 30 Ml Ud Cup) 40 meq PO BIDMEALS [facility] Last Admin: 03/28/21 10:46 Dose: Not Given Documented by: Potassium Chloride (Potassium Chloride 20 Meq Tab.Er) 40 meq PO BIDMEALS [facility] Last Admin: 04/02/21 08:02 Dose: 40 meq Documented by: Potassium Chloride (Potassium Chloride 10% 20 Meq/15 Ml Soln 30 Ml Ud Cup) 40 meq PO ONETIME ONE Stop: 03/30/21 12:31 Last Admin: 03/30/21 14:17 Dose: Not Given Documented by: Potassium Chloride (Potassium Chloride 20 Meq Tab.Er) 40 meq PO ONETIME ONE Stop: 03/30/21 13:46 Last Admin: 03/30/21 14:17 Dose: 40 meq Documented by: Potassium Chloride (Potassium Chloride 10 Meq Tab.Er) 40 meq PO ONETIME ONE Stop: 04/02/21 08:31 Last Admin: 04/02/21 09:01 Dose: 40 meq Documented by: Sodium Phosphate (Phosphorus #1 250 Mg Tab) 250 mg PO QID [facility] Last Admin: 03/26/21 06:00 Dose: 250 mg Documented by: Vancomycin HCl (Vancomycin 125 Mg Cap) 125 mg PO Q4H [facility] Last Admin: 03/19/21 06:35 Dose: 125 mg Documented by: Vancomycin HCl (Vancomycin 125 Mg Cap) 125 mg PO QID [facility] Last Admin: 04/02/21 05:20 Dose: 125 mg Documented by: - Exam General: Alert, Oriented, Cooperative, No Acute Distress Lungs: Clear to Auscultation, Normal Respiratory Effort Cardiovascular: Regular Rate, Regular Rhythm GI/Abdominal Exam: Normal Bowel Sounds, Soft, Non-Tender Back Exam: Normal Inspection, Full Range of Motion Extremities: Normal Inspection, Normal Range of Motion, Non-Tender, No Pedal Edema Neurological: No New Focal Deficit Psy/Mental Status: Alert, Normal Affect, Normal Mood - Patient Data Lab Results Last 24 hrs: Laboratory Results - last 24 hr 04/02/21 04/02/21 Range/Units 05:51 05:51 WBC 6.64 (4.0-11.0) K/uL RBC 3.42 L (4.50-5.90) M/uL Hgb 12.1 L (13.0-17.0) g/dL Hct 35.7 L (38.0-50.0) % MCV 104.4 H (80.0-98.0) fL MCH 35.4 H (27.0-32.0) pg MCHC 33.9 (31.0-37.0) g/dL RDW Std Deviation 59.7 (28.0-62.0) fl RDW Coeff of Caleb 16 H (11.0-15.0) % Plt Count 301 (150-400) K/uL MPV 10.00 (7.40-12.00) fL Neut % (Auto) 64.7 (48.0-80.0) % Lymph % (Auto) 17.2 (16.0-40.0) % [place] % (Auto) 17.3 H (0.0-15.0) % Eos % (Auto) 0.6 (0.0-7.0) % Baso % (Auto) 0.2 (0.0-1.5) % Neut # (Auto) 4.3 (1.4-5.7) K/uL Lymph # (Auto) 1.1 (0.6-2.4) K/uL [place] # (Auto) 1.2 H (0.0-0.8) K/uL Eos # (Auto) 0.0 (0.0-0.7) K/uL Baso # (Auto) 0.0 (0.0-0.1) K/uL Nucleated RBC % 0.0 /100WBC Nucleated RBCs # 0 K/uL Sodium 137 (136-148) mmol/L Potassium 3.3 L (3.5-5.1) mmol/L Chloride 105 (98-107) mmol/L Carbon Dioxide 18.6 L (21.0-32.0) mmol/L BUN 8 (7.0-18.0) mg/dL Creatinine 0.8 (0.8-1.3) mg/dL Est Cr Clr Drug Dosing 87.83 mL/min Estimated GFR (MDRD) > 60.0 ml/min Glucose 123 H (74-106) mg/dL Calcium 7.7 L (8.5-10.1) mg/dL Phosphorus 3.0 (2.6-4.7) mg/dL Magnesium 1.9 (1.8-2.4) mg/dL Result Diagrams: 04/02/21 05:51 04/02/21 05:51 Sepsis Event Note - Evaluation Sepsis Screening Result: No Definite Risk - Focused Exam Vital Signs: Vital Signs Temp Pulse Resp BP Pulse Ox 04/02/21 10:10 100 85/59 L 04/02/21 07:56 99.4 F 115 H 18 80/55 L 95 04/02/21 03:31 97.3 F 88 16 95/64 98 04/02/21 00:17 97.3 F 81 16 92/64 97 - Problem List & Annotations (1) C. difficile colitis SNOMED Code(s): 165072602 Code(s): A04.72 - ENTEROCOLITIS D/T CLOSTRIDIUM DIFFICILE, NOT SPCF RECUR Status: Acute Current Visit: Yes (2) Hypophosphatemia SNOMED Code(s): 6462943 Code(s): E83.39 - OTHER DISORDERS OF PHOSPHORUS METABOLISM Status: Resolved Current Visit: Yes (3) Port-A-Cath in place SNOMED Code(s): 897006846 Code(s): Z95.828 - PRESENCE OF OTHER VASCULAR IMPLANTS AND GRAFTS Status: Acute Current Visit: Yes (4) Tongue carcinoma Status: Chronic Current Visit: Yes (5) Dehydration SNOMED Code(s): 11251694 Code(s): E86.0 - DEHYDRATION Status: Acute Current Visit: No (6) Diarrhea SNOMED Code(s): 96254777 Code(s): R19.7 - DIARRHEA, UNSPECIFIED Status: Acute Current Visit: No Qualifiers: Diarrhea type: unspecified type Qualified Code(s): R19.7 - Diarrhea, unspecified (7) Hypokalemia SNOMED Code(s): 74987432 Code(s): E87.6 - HYPOKALEMIA Status: Acute Current Visit: No - Problem List Review Problem List Initiated/Reviewed/Updated: Yes - My Orders Last 24 Hours: My Active Orders 04/01/21 Lunch Soft Diet [DIET] 04/02/21 09:45 Lactated Ringers [Ringers, Lactated] 1,000 ml IV Q13H 04/02/21 12:00 Vancomycin [Vancocin 125 MG Capsule] 250 mg PO QID 04/02/21 17:00 Potassium Chloride [Klor-Con 10] 40 meq PO BIDMEALS 04/03/21 05:11 BASIC METABOLIC PANEL,BMP [CHEM] AM CBC WITH AUTO DIFF [HEME] AM MAGNESIUM [CHEM] AM PHOSPHORUS [CHEM] AM 04/04/21 05:11 BASIC METABOLIC PANEL,BMP [CHEM] AM CBC WITH AUTO DIFF [HEME] AM MAGNESIUM [CHEM] AM PHOSPHORUS [CHEM] AM 04/05/21 05:11 BASIC METABOLIC PANEL,BMP [CHEM] AM CBC WITH AUTO DIFF [HEME] AM MAGNESIUM [CHEM] AM PHOSPHORUS [CHEM] AM - Plan Plan:: 70 y/o M admitted for diarrhea, eric, hypokalemia, c.diff 1. C. difficile colitis -Continues to slowly improve -Spoke with Dr. Gordon infectious disease, at [facility] due to slow improvement. He is agreeable with continued Flagyl IV 500 mg 4 times daily he did recommend increasing vancomycin orally to 250 mg 4 times daily and monitor response. He said in a day or 2 if that does not improve you also could continue consider Imodium 2 mg daily as needed diarrhea and monitor response. H e requested that if there was little to no response after these changes to please contact it began. Patient has not had a colonoscopy at all. I appreciate his assistance with this patient. -Restart IV fluids blood pressure low this morning given 1 L bolus we will continue LR at 75. -Continue vancomycin 125 mg 4 times daily p.o. -Continue Flagyl 500 mg IV 4 times daily -Generalized weakness and deconditioning, PT consulted -hypokalemia noted today we will give 40 p.o. once -Continue to monitor electrolytes daily and replace as needed 2. Tongue carcinoma -Continue gabapentin 3. Hypothyroidism -Continue levothyroxine VTE prophylaxis: Heparin CODE STATUS: DNR/DNI Dispo: Make changes as recommended by ID we will continue to monitor.
[2021-04-02] MEDS: Carboxymethylcellulose Sodium 0.5% Ophth Soln 0.4 ML UD Box of 30 EYEBOTH PRN (16:31)
[2021-04-02] MEDS: Potassium Chloride 10 MEQ Tab.ER PO SCH (16:32)
[2021-04-02] MEDS: Cocoa Butter/Phenylephrine Rectal Supp RECTAL PRN (18:26)
[2021-04-03] MEDS: Vancomycin 125 MG Cap PO SCH ×5 (00:37→17:56)
[2021-04-03] MEDS: Phosphorus #1 250 MG Tab PO SCH ×4 (00:37→17:56)
[2021-04-03] MEDS: Lactated Ringers 1,000 ML IV SCH ×2 (00:43→16:49)
[2021-04-03] MEDS: metroNIDAZOLE/Normal Saline 500 MG in Premix Bag 1 BAG IV SCH ×3 (03:24→18:59)
[2021-04-03] MEDS: Heparin Sodium 5,000 Units/ML Vial SUBCUT SCH ×3 (05:05→21:30)
[2021-04-03] MEDS: Gabapentin 300 MG Cap PO SCH ×3 (05:05→21:47)
[2021-04-03 06:16] LABS: BLOOD UREA NITROGEN,BUN 6 mg/dL (7.0-18.0); CARBON DIOXIDE,CO2 18.7 mmol/L (21.0-32.0); CHLORIDE,CL 106 mmol/L (98-107); GLUCOSE RANDOM 113 mg/dL (74-106); POTASSIUM,K 3.9 mmol/L (3.5-5.1); SODIUM,NA 137 mmol/L (136-148)
[2021-04-03] MEDS: Levothyroxine 50 MCG Tab PO SCH (06:38)
[2021-04-03] MEDS: Acidophilus with Citrus Pectin Tab PO SCH ×2 (08:35→21:00)
[2021-04-03] MEDS: Potassium Chloride 10 MEQ Tab.ER PO SCH ×2 (08:35→16:50)
--- NOTE | 2021-04-03 11:41 | PCM.PN ---
- General Info Date of Service: 04/03/21 Admission Dx/Problem (Free Text): Admission Diagnosis/Problem Admission Diagnosis/Problem Hypokalemia, C. difficile colitis, hypophosphatemia Subjective Update: Continues to have loose bowel movements, Denies any chest pain shortness of breath. Blood pressure is lower overnight with trial of no IV fluids. Denies any lightheadedness dizziness or near syncope. says stool is little formed but per nursing its watery Functional Status: Reports: Pain Controlled, Tolerating Diet, Ambulating, Urinating - Review of Systems General: Reports: Weakness. Denies: Fever, Fatigue, Malaise Pulmonary: Denies: Shortness of Breath, Pleuritic Chest Pain Cardiovascular: Denies: Chest Pain, Palpitations, Dyspnea on Exertion Gastrointestinal: Denies: Abdominal Pain, Constipation, Decreased Appetite Genitourinary: Denies: Dysuria, Frequency, Burning Musculoskeletal: Denies: Neck Pain, Shoulder Pain, Arm Pain Skin: Denies: Cyanosis, Jaundice, Mottled Neurological: Denies: Confusion, Dizziness, Headache, Numbness - Patient Data Vitals - Most Recent: Last Vital Signs Temp 36.3 C 04/03/21 08:00 Pulse 74 04/03/21 08:00 Resp 18 04/03/21 08:00 BP 86/56 L 04/03/21 08:00 Pulse Ox 97 04/03/21 08:00 Orthostatic Blood Pressure [ 83/54 Standing] Orthostatic Blood Pressure [ 99/66 Sitting] Orthostatic Blood Pressure [ 109/75 Supine] Weight - Most Recent: 70.261 kg I&O - Last 24 Hours: Intake & Output 04/02/21 04/03/21 04/03/21 22:59 06:59 14:59 Intake Total 4192 860 Output Total 2100 1150 Balance 2092 -290 Lab Results Last 24 Hours: Laboratory Results - last 24 hr 04/03/21 04/03/21 Range/Units 05:23 05:23 WBC 6.66 (4.0-11.0) K/uL RBC 3.45 L (4.50-5.90) M/uL Hgb 12.2 L (13.0-17.0) g/dL Hct 36.3 L (38.0-50.0) % MCV 105.2 H (80.0-98.0) fL MCH 35.4 H (27.0-32.0) pg MCHC 33.6 (31.0-37.0) g/dL RDW Std Deviation 61.0 (28.0-62.0) fl RDW Coeff of Caleb 16 H (11.0-15.0) % Plt Count 285 (150-400) K/uL MPV 9.90 (7.40-12.00) fL Neut % (Auto) 74.3 (48.0-80.0) % Lymph % (Auto) 21.5 (16.0-40.0) % Nolan % (Auto) 3.5 (0.0-15.0) % Eos % (Auto) 0.5 (0.0-7.0) % Baso % (Auto) 0.2 (0.0-1.5) % Neut # (Auto) 5.0 (1.4-5.7) K/uL Lymph # (Auto) 1.4 (0.6-2.4) K/uL Nolan # (Auto) 0.2 (0.0-0.8) K/uL Eos # (Auto) 0.0 (0.0-0.7) K/uL Baso # (Auto) 0.0 (0.0-0.1) K/uL Nucleated RBC % 0.0 /100WBC Nucleated RBCs # 0 K/uL Sodium 137 (136-148) mmol/L Potassium 3.9 (3.5-5.1) mmol/L Chloride 106 (98-107) mmol/L Carbon Dioxide 18.7 L (21.0-32.0) mmol/L BUN 6 L (7.0-18.0) mg/dL Creatinine 0.9 (0.8-1.3) mg/dL Est Cr Clr Drug Dosing 78.07 mL/min Estimated GFR (MDRD) > 60.0 ml/min Glucose 113 H (74-106) mg/dL Calcium 7.7 L (8.5-10.1) mg/dL Phosphorus 2.5 L (2.6-4.7) mg/dL Magnesium 1.7 L (1.8-2.4) mg/dL Med Orders - Current: Current Medications Acetaminophen (Acetaminophen 325 Mg Tab) 650 mg PO Q4H PRN PRN Reason: Pain (Mild 1-3)/fever Acidophilus/Pectin (Acidophilus With [place] Pectin Tab) 1 tab PO BID [facility] Last Admin: 04/03/21 08:35 Dose: 1 tab Documented by: Albuterol/Ipratropium (Albuterol/Ipratropium 3.0-0.5 Mg/3 Ml Neb Soln) 3 ml NEB Q4HRRT PRN PRN Reason: Shortness Of Breath/wheezing Artificial Tears (Carboxymethylcellulose Sodium 0.5% Ophth Soln 0.4 Ml Ud Box Of 30) 0 each EYEBOTH TID PRN PRN Reason: Dry Eyes Last Admin: 04/02/21 16:31 Dose: 1 drop Documented by: Temple Butter/Phenylephrine (Temple Butter/Phenylephrine Rectal Supp) 1 each RECTAL QID PRN PRN Reason: hemorrhoidal pain Last Admin: 04/02/21 18:26 Dose: 1 each Documented by: Gabapentin (Gabapentin 300 Mg Cap) 300 mg PO TID [facility] Last Admin: 04/03/21 05:05 Dose: 300 mg Documented by: Heparin Sodium (Porcine) (Heparin Sodium 5,000 Units/Ml Vial) 5,000 units SUBCUT Q8H [facility] Last Admin: 04/03/21 05:05 Dose: 5,000 units Documented by: Metronidazole 500 mg/ Premix 100 mls @ 100 mls/hr IV Q8H [facility] Last Admin: 04/03/21 03:24 Dose: 100 mls/hr Documented by: Lactated Ringer's (Ringers, Lactated) 1,000 mls @ 75 mls/hr IV Q13H [facility] Last Admin: 04/03/21 00:43 Dose: 75 mls/hr Documented by: Levothyroxine Sodium (Levothyroxine 50 Mcg Tab) 50 mcg PO ACBREAKFAST [facility] Last Admin: 04/03/21 06:38 Dose: 50 mcg Documented by: Morphine Sulfate (Morphine 2 Mg/Ml Syringe) 1 mg IVPUSH Q4H PRN PRN Reason: Pain Ondansetron HCl (Ondansetron 4 Mg/2 Ml Sdv) 4 mg IVPUSH Q4H PRN PRN Reason: Nausea/Vomiting Last Admin: 03/30/21 00:51 Dose: 4 mg Documented by: Potassium Chloride (Potassium Chloride 10 Meq Tab.Er) 40 meq PO BIDMEALS [facility] Last Admin: 04/03/21 08:35 Dose: 40 meq Documented by: Sodium Chloride (Sodium Chloride 0.9% 10 Ml Syringe) 10 ml FLUSH ASDIRECTED PRN PRN Reason: Keep Vein Open Last Admin: 03/25/21 06:20 Dose: 10 ml Documented by: Sodium Chloride (Sodium Chloride 0.9% 2.5 Ml Syringe) 2.5 ml FLUSH ASDIRECTED PRN PRN Reason: Keep Vein Open Last Admin: 03/22/21 18:26 Dose: 2.5 ml Documented by: Sodium Phosphate (Phosphorus #1 250 Mg Tab) 250 mg PO QID [facility] Last Admin: 04/03/21 05:05 Dose: 250 mg Documented by: Vancomycin HCl (Vancomycin 125 Mg Cap) 250 mg PO QID [facility] Last Admin: 04/03/21 05:04 Dose: 250 mg Documented by: Discontinued Medications Sodium Chloride (Normal Saline) 1,000 mls @ 125 mls/hr IV STAT ONE Stop: 03/18/21 22:45 Last Infusion: 03/18/21 15:59 Dose: 999 mls/hr Documented by: Potassium Chloride 40 meq/ (Premix) 100 mls @ 25 mls/hr IV ONETIME ONE Stop: 03/18/21 19:50 Last Admin: 03/18/21 17:49 Dose: 25 mls/hr Documented by: Sodium Chloride (Normal Saline) 1,000 mls @ 125 mls/hr IV STAT ONE Stop: 03/18/21 23:51 Last Admin: 03/18/21 17:13 Dose: 125 mls/hr Documented by: Potassium Chloride/Dextrose/Sod Cl (D5 Ns With 20 Meq Kcl) 1,000 mls @ 125 mls/hr IV ASDIRECTED [facility] Last Admin: 03/19/21 02:12 Dose: 125 mls/hr Documented by: Lactated Ringer's (Ringers, Lactated) 1,000 mls @ 125 mls/hr IV Q8H [facility] Last Admin: 03/20/21 05:01 Dose: 125 mls/hr Documented by: Pantoprazole Sodium 40 mg/ (Sodium Chloride) 10 mls @ 200 mls/hr IV Q24H [facility] Last Admin: 04/01/21 17:11 Dose: 200 mls/hr Documented by: Ciprofloxacin/Dextrose 400 mg/ (Premix) 200 mls @ 200 mls/hr IV Q12H [facility] Last Admin: 03/19/21 01:00 Dose: 200 mls/hr Documented by: Metronidazole 500 mg/ Premix 100 mls @ 100 mls/hr IV QID [facility] Last Admin: 03/19/21 06:00 Dose: 100 mls/hr Documented by: Potassium Phosphate 15 mmole/Potassium Chloride 20 meq/Sodium Chloride 515 mls @ 67.5 mls/hr IV ONETIME ONE Stop: 03/19/21 16:37 Last Admin: 03/19/21 09:12 Dose: 67.5 mls/hr Documented by: Potassium Phosphate 15 mmole/Potassium Chloride 20 meq/Sodium Chloride 515 mls @ 67.5 mls/hr IV ONETIME ONE Stop: 03/20/21 16:07 Last Admin: 03/20/21 09:20 Dose: 67.5 mls/hr Documented by: Potassium Chloride 40 meq/ (Dextrose/Sodium Chloride) 1,020 mls @ 125 mls/hr IV Q8H [facility] Stop: 03/21/21 20:29 Last Admin: 03/21/21 22:23 Dose: Not Given Documented by: Potassium Phosphate 20 mmole/ (Sodium Chloride) 506.6667 mls @ 168.889 mls/hr IV ONETIME ONE Stop: 03/21/21 11:29 Last Admin: 03/21/21 09:04 Dose: 168.889 mls/hr Documented by: Potassium Chloride 40 meq/ (Dextrose/Sodium Chloride) 1,020 mls @ 125 mls/hr IV Q8H [facility] Last Admin: 03/23/21 02:46 Dose: 125 mls/hr Documented by: Lactated Ringer's (Ringers, Lactated) 1,000 mls @ 999 mls/hr IV ONETIME ONE Stop: 03/22/21 09:19 Last Admin: 03/22/21 11:29 Dose: 999 mls/hr Documented by: Potassium Phosphate 15 mmole/ (Sodium Chloride) 505 mls @ 67.5 mls/hr IV ONETIME ONE Stop: 03/22/21 15:48 Last Admin: 03/22/21 11:29 Dose: 67.5 mls/hr Documented by: Lactated Ringer's (Ringers, Lactated) 1,000 mls @ 75 mls/hr IV ASDIRECTED [facility] Last Admin: 03/26/21 02:32 Dose: 75 mls/hr Documented by: Magnesium Sulfate (Magnesium Sulfate In Water 2 Gm/50 Ml) 2 gm in 50 mls @ 50 mls/hr IV ONETIME ONE Stop: 03/23/21 11:44 Last Admin: 03/23/21 11:18 Dose: 50 mls/hr Documented by: Lactated Ringer's (Ringers, Lactated) 1,000 mls @ 999 mls/hr IV .BOLUS ONE Stop: 03/26/21 09:04 Last Admin: 03/26/21 09:38 Dose: 999 mls/hr Documented by: Lactated Ringer's (Ringers, Lactated) 1,000 mls @ 75 mls/hr IV Q13H [facility] Last Admin: 04/01/21 06:14 Dose: 75 mls/hr Documented by: Magnesium Sulfate (Magnesium Sulfate In Water 2 Gm/50 Ml) 2 gm in 50 mls @ 50 mls/hr IV ONETIME ONE Stop: 03/27/21 09:11 Last Admin: 03/27/21 09:44 Dose: 50 mls/hr Documented by: Potassium Chloride/Sodium Chloride (Normal Saline With 40 Meq Kcl) 1,000 mls @ 125 mls/hr IV ONETIME ONE Stop: 03/27/21 16:12 Last Admin: 03/27/21 09:41 Dose: 125 mls/hr Documented by: Potassium Phosphate 15 mmole/ (Sodium Chloride) 505 mls @ 67.5 mls/hr IV ONETIME ONE Stop: 03/29/21 16:28 Last Admin: 03/29/21 09:58 Dose: 67.5 mls/hr Documented by: Magnesium Sulfate (Magnesium Sulfate In Water 2 Gm/50 Ml) 2 gm in 50 mls @ 50 mls/hr IV ONETIME ONE Stop: 03/30/21 13:29 Last Admin: 03/30/21 13:25 Dose: 50 mls/hr Documented by: Magnesium Sulfate (Magnesium Sulfate In Water 2 Gm/50 Ml) 2 gm in 50 mls @ 50 mls/hr IV ONETIME ONE Stop: 04/01/21 09:29 Last Admin: 04/01/21 09:20 Dose: 50 mls/hr Documented by: Lactated Ringer's (Ringers, Lactated) 1,000 mls @ 999 mls/hr IV .BOLUS ONE Stop: 04/02/21 09:39 Last Admin: 04/02/21 09:02 Dose: 999 mls/hr Documented by: Lactated Ringer's (Ringers, Lactated) 1,000 mls @ 999 mls/hr IV .BOLUS ONE Stop: 04/02/21 15:13 Last Admin: 04/02/21 15:12 Dose: 999 mls/hr Documented by: Potassium Chloride (Potassium Chloride 20 Meq Tab.Er) 40 meq PO ONETIME ONE Stop: 03/19/21 08:19 Last Admin: 03/19/21 09:19 Dose: 40 meq Documented by: Potassium Chloride (Potassium Chloride 20 Meq Tab.Er) 40 meq PO ONETIME ONE Stop: 03/19/21 15:01 Last Admin: 03/19/21 15:18 Dose: 40 meq Documented by: Potassium Chloride (Potassium Chloride 20 Meq Tab.Er) 40 meq PO BIDMEALS [facility] Last Admin: 03/23/21 08:55 Dose: 40 meq Documented by: Potassium Chloride (Potassium Chloride 20 Meq Tab.Er) 40 meq PO BIDMEALS [facility] Stop: 03/25/21 17:01 Last Admin: 03/25/21 17:36 Dose: 40 meq Documented by: Potassium Chloride (Potassium Chloride 20 Meq Tab.Er) 40 meq PO ONETIME ONE Stop: 03/26/21 09:40 Last Admin: 03/26/21 11:01 Dose: 40 meq Documented by: Potassium Chloride (Potassium Chloride 20 Meq Tab.Er) 40 meq PO BIDMEALS [facility] Potassium Chloride (Potassium Chloride 10% 20 Meq/15 Ml Soln 30 Ml Ud Cup) 40 meq PO BIDMEALS [facility] Last Admin: 03/28/21 10:46 Dose: Not Given Documented by: Potassium Chloride (Potassium Chloride 20 Meq Tab.Er) 40 meq PO BIDMEALS [facility] Last Admin: 04/02/21 08:02 Dose: 40 meq Documented by: Potassium Chloride (Potassium Chloride 10% 20 Meq/15 Ml Soln 30 Ml Ud Cup) 40 meq PO ONETIME ONE Stop: 03/30/21 12:31 Last Admin: 03/30/21 14:17 Dose: Not Given Documented by: Potassium Chloride (Potassium Chloride 20 Meq Tab.Er) 40 meq PO ONETIME ONE Stop: 03/30/21 13:46 Last Admin: 03/30/21 14:17 Dose: 40 meq Documented by: Potassium Chloride (Potassium Chloride 10 Meq Tab.Er) 40 meq PO ONETIME ONE Stop: 04/02/21 08:31 Last Admin: 04/02/21 09:01 Dose: 40 meq Documented by: Sodium Phosphate (Phosphorus #1 250 Mg Tab) 250 mg PO QID [facility] Last Admin: 03/26/21 06:00 Dose: 250 mg Documented by: Vancomycin HCl (Vancomycin 125 Mg Cap) 125 mg PO Q4H [facility] Last Admin: 03/19/21 06:35 Dose: 125 mg Documented by: Vancomycin HCl (Vancomycin 125 Mg Cap) 125 mg PO QID [facility] Last Admin: 04/02/21 05:20 Dose: 125 mg Documented by: - Exam Quality Assessment: Supplemental Oxygen General: Alert, Oriented Lungs: Clear to Auscultation Cardiovascular: Regular Rate, Regular Rhythm GI/Abdominal Exam: Normal Bowel Sounds, Soft, Non-Tender Extremities: Normal Inspection, Normal Range of Motion - Patient Data Lab Results Last 24 hrs: Laboratory Results - last 24 hr 04/03/21 04/03/21 Range/Units 05:23 05:23 WBC 6.66 (4.0-11.0) K/uL RBC 3.45 L (4.50-5.90) M/uL Hgb 12.2 L (13.0-17.0) g/dL Hct 36.3 L (38.0-50.0) % MCV 105.2 H (80.0-98.0) fL MCH 35.4 H (27.0-32.0) pg MCHC 33.6 (31.0-37.0) g/dL RDW Std Deviation 61.0 (28.0-62.0) fl RDW Coeff of Caleb 16 H (11.0-15.0) % Plt Count 285 (150-400) K/uL MPV 9.90 (7.40-12.00) fL Neut % (Auto) 74.3 (48.0-80.0) % Lymph % (Auto) 21.5 (16.0-40.0) % Nolan % (Auto) 3.5 (0.0-15.0) % Eos % (Auto) 0.5 (0.0-7.0) % Baso % (Auto) 0.2 (0.0-1.5) % Neut # (Auto) 5.0 (1.4-5.7) K/uL Lymph # (Auto) 1.4 (0.6-2.4) K/uL Nolan # (Auto) 0.2 (0.0-0.8) K/uL Eos # (Auto) 0.0 (0.0-0.7) K/uL Baso # (Auto) 0.0 (0.0-0.1) K/uL Nucleated RBC % 0.0 /100WBC Nucleated RBCs # 0 K/uL Sodium 137 (136-148) mmol/L Potassium 3.9 (3.5-5.1) mmol/L Chloride 106 (98-107) mmol/L Carbon Dioxide 18.7 L (21.0-32.0) mmol/L BUN 6 L (7.0-18.0) mg/dL Creatinine 0.9 (0.8-1.3) mg/dL Est Cr Clr Drug Dosing 78.07 mL/min Estimated GFR (MDRD) > 60.0 ml/min Glucose 113 H (74-106) mg/dL Calcium 7.7 L (8.5-10.1) mg/dL Phosphorus 2.5 L (2.6-4.7) mg/dL Magnesium 1.7 L (1.8-2.4) mg/dL Result Diagrams: 04/03/21 05:23 04/03/21 05:23 Sepsis Event Note - Evaluation Sepsis Screening Result: No Definite Risk - Focused Exam Vital Signs: Vital Signs Temp Pulse Resp BP Pulse Ox 04/03/21 08:00 36.3 C 74 18 86/56 L 97 04/03/21 04:00 36.4 C 88 18 108/60 99 04/03/21 00:00 36.4 C 86 19 92/62 98 - Problem List & Annotations (1) Tongue carcinoma Status: Chronic Current Visit: Yes (2) Port-A-Cath in place SNOMED Code(s): 623293023 Code(s): Z95.828 - PRESENCE OF OTHER VASCULAR IMPLANTS AND GRAFTS Status: Acute Current Visit: Yes (3) Dehydration SNOMED Code(s): 57128657 Code(s): E86.0 - DEHYDRATION Status: Acute Current Visit: No (4) Diarrhea SNOMED Code(s): 36815014 Code(s): R19.7 - DIARRHEA, UNSPECIFIED Status: Acute Current Visit: No Qualifiers: Diarrhea type: unspecified type Qualified Code(s): R19.7 - Diarrhea, unspecified (5) Hypokalemia SNOMED Code(s): 37788321 Code(s): E87.6 - HYPOKALEMIA Status: Acute Current Visit: No - Problem List Review Problem List Initiated/Reviewed/Updated: Yes - Plan Plan:: 70 y/o M admitted for diarrhea, eric, hypokalemia, c.diff 1. C. difficile colitis -Continues to slowly improve -Spoke with Dr. Gordon infectious disease, at [facility] due to slow improvement. He is agreeable with continued Flagyl IV 500 mg 4 times daily he did recommend increasing vancomycin orally to 250 mg 4 times daily and monitor response. He said in a day or 2 if that does not improve you also could continue consider Imodium 2 mg daily as needed diarrhea and monitor response. He requested that if there was little to no response after these changes to please contact it began. Patient has not had a colonoscopy at all. I appreciate his assistance with this patient. -Restart IV fluids blood pressure low this morning given 1 L bolus we will continue LR at 75. -Continue vancomycin 125 mg 4 times daily p.o. -Continue Flagyl 500 mg IV 4 times daily -Generalized weakness and deconditioning, PT consulted -hypomagnesemia , will replete -Continue to monitor electrolytes daily and replace as needed 2. Tongue carcinoma -Continue gabapentin 3. Hypothyroidism -Continue levothyroxine VTE prophylaxis: Heparin CODE STATUS: DNR/DNI Dispo: Make changes as recommended by ID we will continue to monitor.
[2021-04-03] MEDS ORDERED: Magnesium Sulfate/Water 2 GM/50 ML BAG IV ONE (12:00)
[2021-04-04] MEDS: Lactated Ringers 1,000 ML IV SCH ×2 (00:45→08:38)
[2021-04-04] MEDS: metroNIDAZOLE/Normal Saline 500 MG in Premix Bag 1 BAG IV SCH ×3 (03:00→18:45)
[2021-04-04] MEDS: Heparin Sodium 5,000 Units/ML Vial SUBCUT SCH ×3 (05:18→21:53)
[2021-04-04] MEDS: Gabapentin 300 MG Cap PO SCH ×3 (05:19→21:53)
[2021-04-04] MEDS: Vancomycin 125 MG Cap PO SCH ×4 (05:19→17:17)
[2021-04-04] MEDS: Phosphorus #1 250 MG Tab PO SCH ×4 (05:19→17:17)
[2021-04-04 05:48] LABS: BLOOD UREA NITROGEN,BUN 7 mg/dL (7.0-18.0); CARBON DIOXIDE,CO2 21.6 mmol/L (21.0-32.0); CHLORIDE,CL 104 mmol/L (98-107); GLUCOSE RANDOM 103 mg/dL (74-106); POTASSIUM,K 4.1 mmol/L (3.5-5.1); SODIUM,NA 135 mmol/L (136-148)
[2021-04-04] MEDS: Acidophilus with Citrus Pectin Tab PO SCH ×2 (08:39→21:53)
[2021-04-04] MEDS: Levothyroxine 50 MCG Tab PO SCH (08:40)
[2021-04-04] MEDS: Potassium Chloride 10 MEQ Tab.ER PO SCH ×2 (08:40→09:39)
--- NOTE | 2021-04-04 08:40 | PCM.PN ---
<Miroslava Apodaca M - Last Filed: 04/04/21 10:22> - General Info Date of Service: 04/04/21 Admission Dx/Problem (Free Text): Admission Diagnosis/Problem Admission Diagnosis/Problem Hypokalemia, C. difficile colitis, hypophosphatemia Subjective Update: Denies any chest pain or shortness of breath. No abdominal pain. Reports he has not had stool in many hours. Per nursing documentation he had 3 stools last night which reportedly are still loose he reports they feel as though they are forming up. Denies any sore throat sinus congestion or trouble breathing. No dysuria. He is eating and drinking well with no nausea. Functional Status: Reports: Pain Controlled, Tolerating Diet, Ambulating, Urinating - Review of Systems General: Reports: Weakness (Generalized) HEENT: Reports: No Symptoms. Denies: Headaches, Sore Throat, Visual Changes Pulmonary: Reports: No Symptoms. Denies: Shortness of Breath Cardiovascular: Reports: No Symptoms. Denies: Chest Pain Gastrointestinal: Reports: Diarrhea (Improving slowly). Denies: Abdominal Pain, Nausea, Vomiting Genitourinary: Reports: No Symptoms. Denies: Dysuria, Frequency, Burning Musculoskeletal: Reports: No Symptoms. Denies: Neck Pain Skin: Reports: No Symptoms Neurological: Reports: No Symptoms Psychiatric: Reports: No Symptoms - Patient Data Vitals - Most Recent: Last Vital Signs Temp 97.3 F 04/04/21 04:00 Pulse 77 04/04/21 04:00 Resp 17 04/04/21 04:00 BP 90/60 04/04/21 04:00 Pulse Ox 96 04/04/21 04:00 Orthostatic Blood Pressure [ 83/54 Standing] Orthostatic Blood Pressure [ 99/66 Sitting] Orthostatic Blood Pressure [ 109/75 Supine] Weight - Most Recent: 70.261 kg I&O - Last 24 Hours: Intake & Output 04/03/21 04/04/21 04/04/21 22:59 06:59 14:59 Intake Total 2074 1800 Output Total 1230 1100 Balance 844 700 Lab Results Last 24 Hours: Laboratory Results - last 24 hr 04/04/21 04/04/21 Range/Units 05:13 05:13 WBC 7.80 (4.0-11.0) K/uL RBC 2.95 L (4.50-5.90) M/uL Hgb 10.4 L (13.0-17.0) g/dL Hct 30.7 L (38.0-50.0) % MCV 104.1 H (80.0-98.0) fL MCH 35.3 H (27.0-32.0) pg MCHC 33.9 (31.0-37.0) g/dL RDW Std Deviation 59.0 (28.0-62.0) fl RDW Coeff of Caleb 16 H (11.0-15.0) % Plt Count 213 (150-400) K/uL MPV 9.40 (7.40-12.00) fL Neut % (Auto) 86.1 H (48.0-80.0) % Lymph % (Auto) 6.9 L (16.0-40.0) % [place] % (Auto) 6.8 (0.0-15.0) % Eos % (Auto) 0.1 (0.0-7.0) % Baso % (Auto) 0.1 (0.0-1.5) % Neut # (Auto) 6.7 H (1.4-5.7) K/uL Lymph # (Auto) 0.5 L (0.6-2.4) K/uL [place] # (Auto) 0.5 (0.0-0.8) K/uL Eos # (Auto) 0.0 (0.0-0.7) K/uL Baso # (Auto) 0.0 (0.0-0.1) K/uL Nucleated RBC % 0.0 /100WBC Nucleated RBCs # 0 K/uL Sodium 135 L (136-148) mmol/L Potassium 4.1 (3.5-5.1) mmol/L Chloride 104 (98-107) mmol/L Carbon Dioxide 21.6 (21.0-32.0) mmol/L BUN 7 (7.0-18.0) mg/dL Creatinine 0.7 L (0.8-1.3) mg/dL Est Cr Clr Drug Dosing 100.37 mL/min Estimated GFR (MDRD) > 60.0 ml/min Glucose 103 (74-106) mg/dL Calcium 7.1 L (8.5-10.1) mg/dL Phosphorus 2.8 (2.6-4.7) mg/dL Magnesium 1.8 (1.8-2.4) mg/dL Med Orders - Current: Current Medications Acetaminophen (Acetaminophen 325 Mg Tab) 650 mg PO Q4H PRN PRN Reason: Pain (Mild 1-3)/fever Acidophilus/Pectin (Acidophilus With Dickey Pectin Tab) 1 tab PO BID [facility] Last Admin: 04/03/21 21:00 Dose: 1 tab Documented by: Albuterol/Ipratropium (Albuterol/Ipratropium 3.0-0.5 Mg/3 Ml Neb Soln) 3 ml NEB Q4HRRT PRN PRN Reason: Shortness Of Breath/wheezing Artificial Tears (Carboxymethylcellulose Sodium 0.5% Ophth Soln 0.4 Ml Ud Box Of 30) 0 each EYEBOTH TID PRN PRN Reason: Dry Eyes Last Admin: 04/02/21 16:31 Dose: 1 drop Documented by: [place] Butter/Phenylephrine ([place] Butter/Phenylephrine Rectal Supp) 1 each RECTAL QID PRN PRN Reason: hemorrhoidal pain Last Admin: 04/02/21 18:26 Dose: 1 each Documented by: Gabapentin (Gabapentin 300 Mg Cap) 300 mg PO TID [facility] Last Admin: 04/04/21 05:19 Dose: 300 mg Documented by: Heparin Sodium (Porcine) (Heparin Sodium 5,000 Units/Ml Vial) 5,000 units SUBCUT Q8H [facility] Last Admin: 04/04/21 05:18 Dose: 5,000 units Documented by: Metronidazole 500 mg/ Premix 100 mls @ 100 mls/hr IV Q8H [facility] Last Admin: 04/04/21 03:00 Dose: 100 mls/hr Documented by: Lactated Ringer's (Ringers, Lactated) 1,000 mls @ 75 mls/hr IV Q13H [facility] Last Admin: 04/04/21 08:38 Dose: 75 mls/hr Documented by: Levothyroxine Sodium (Levothyroxine 50 Mcg Tab) 50 mcg PO ACBREAKFAST [facility] Last Admin: 04/03/21 06:38 Dose: 50 mcg Documented by: Morphine Sulfate (Morphine 2 Mg/Ml Syringe) 1 mg IVPUSH Q4H PRN PRN Reason: Pain Ondansetron HCl (Ondansetron 4 Mg/2 Ml Sdv) 4 mg IVPUSH Q4H PRN PRN Reason: Nausea/Vomiting Last Admin: 03/30/21 00:51 Dose: 4 mg Documented by: Potassium Chloride (Potassium Chloride 10 Meq Tab.Er) 40 meq PO DAILY [facility] Sodium Chloride (Sodium Chloride 0.9% 10 Ml Syringe) 10 ml FLUSH ASDIRECTED PRN PRN Reason: Keep Vein Open Last Admin: 03/25/21 06:20 Dose: 10 ml Documented by: Sodium Chloride (Sodium Chloride 0.9% 2.5 Ml Syringe) 2.5 ml FLUSH ASDIRECTED PRN PRN Reason: Keep Vein Open Last Admin: 03/22/21 18:26 Dose: 2.5 ml Documented by: Sodium Phosphate (Phosphorus #1 250 Mg Tab) 250 mg PO QID [facility] Last Admin: 04/04/21 05:19 Dose: 250 mg Documented by: Vancomycin HCl (Vancomycin 125 Mg Cap) 250 mg PO QID [facility] Last Admin: 04/04/21 05:19 Dose: 250 mg Documented by: Discontinued Medications Sodium Chloride (Normal Saline) 1,000 mls @ 125 mls/hr IV STAT ONE Stop: 03/18/21 22:45 Last Infusion: 03/18/21 15:59 Dose: 999 mls/hr Documented by: Potassium Chloride 40 meq/ (Premix) 100 mls @ 25 mls/hr IV ONETIME ONE Stop: 03/18/21 19:50 Last Admin: 03/18/21 17:49 Dose: 25 mls/hr Documented by: Sodium Chloride (Normal Saline) 1,000 mls @ 125 mls/hr IV STAT ONE Stop: 03/18/21 23:51 Last Admin: 03/18/21 17:13 Dose: 125 mls/hr Documented by: Potassium Chloride/Dextrose/Sod Cl (D5 Ns With 20 Meq Kcl) 1,000 mls @ 125 mls/hr IV ASDIRECTED [facility] Last Admin: 03/19/21 02:12 Dose: 125 mls/hr Documented by: Lactated Ringer's (Ringers, Lactated) 1,000 mls @ 125 mls/hr IV Q8H [facility] Last Admin: 03/20/21 05:01 Dose: 125 mls/hr Documented by: Pantoprazole Sodium 40 mg/ (Sodium Chloride) 10 mls @ 200 mls/hr IV Q24H [facility] Last Admin: 04/01/21 17:11 Dose: 200 mls/hr Documented by: Ciprofloxacin/Dextrose 400 mg/ (Premix) 200 mls @ 200 mls/hr IV Q12H [facility] Last Admin: 03/19/21 01:00 Dose: 200 mls/hr Documented by: Metronidazole 500 mg/ Premix 100 mls @ 100 mls/hr IV QID [facility] Last Admin: 03/19/21 06:00 Dose: 100 mls/hr Documented by: Potassium Phosphate 15 mmole/Potassium Chloride 20 meq/Sodium Chloride 515 mls @ 67.5 mls/hr IV ONETIME ONE Stop: 03/19/21 16:37 Last Admin: 03/19/21 09:12 Dose: 67.5 mls/hr Documented by: Potassium Phosphate 15 mmole/Potassium Chloride 20 meq/Sodium Chloride 515 mls @ 67.5 mls/hr IV ONETIME ONE Stop: 03/20/21 16:07 Last Admin: 03/20/21 09:20 Dose: 67.5 mls/hr Documented by: Potassium Chloride 40 meq/ (Dextrose/Sodium Chloride) 1,020 mls @ 125 mls/hr IV Q8H [facility] Stop: 03/21/21 20:29 Last Admin: 03/21/21 22:23 Dose: Not Given Documented by: Potassium Phosphate 20 mmole/ (Sodium Chloride) 506.6667 mls @ 168.889 mls/hr IV ONETIME ONE Stop: 03/21/21 11:29 Last Admin: 03/21/21 09:04 Dose: 168.889 mls/hr Documented by: Potassium Chloride 40 meq/ (Dextrose/Sodium Chloride) 1,020 mls @ 125 mls/hr IV Q8H [facility] Last Admin: 03/23/21 02:46 Dose: 125 mls/hr Documented by: Lactated Ringer's (Ringers, Lactated) 1,000 mls @ 999 mls/hr IV ONETIME ONE Stop: 03/22/21 09:19 Last Admin: 03/22/21 11:29 Dose: 999 mls/hr Documented by: Potassium Phosphate 15 mmole/ (Sodium Chloride) 505 mls @ 67.5 mls/hr IV ONETIME ONE Stop: 03/22/21 15:48 Last Admin: 03/22/21 11:29 Dose: 67.5 mls/hr Documented by: Lactated Ringer's (Ringers, Lactated) 1,000 mls @ 75 mls/hr IV ASDIRECTED [facility] Last Admin: 03/26/21 02:32 Dose: 75 mls/hr Documented by: Magnesium Sulfate (Magnesium Sulfate In Water 2 Gm/50 Ml) 2 gm in 50 mls @ 50 mls/hr IV ONETIME ONE Stop: 03/23/21 11:44 Last Admin: 03/23/21 11:18 Dose: 50 mls/hr Documented by: Lactated Ringer's (Ringers, Lactated) 1,000 mls @ 999 mls/hr IV .BOLUS ONE Stop: 03/26/21 09:04 Last Admin: 03/26/21 09:38 Dose: 999 mls/hr Documented by: Lactated Ringer's (Ringers, Lactated) 1,000 mls @ 75 mls/hr IV Q13H [facility] Last Admin: 04/01/21 06:14 Dose: 75 mls/hr Documented by: Magnesium Sulfate (Magnesium Sulfate In Water 2 Gm/50 Ml) 2 gm in 50 mls @ 50 mls/hr IV ONETIME ONE Stop: 03/27/21 09:11 Last Admin: 03/27/21 09:44 Dose: 50 mls/hr Documented by: Potassium Chloride/Sodium Chloride (Normal Saline With 40 Meq Kcl) 1,000 mls @ 125 mls/hr IV ONETIME ONE Stop: 03/27/21 16:12 Last Admin: 03/27/21 09:41 Dose: 125 mls/hr Documented by: Potassium Phosphate 15 mmole/ (Sodium Chloride) 505 mls @ 67.5 mls/hr IV ONETIME ONE Stop: 03/29/21 16:28 Last Admin: 03/29/21 09:58 Dose: 67.5 mls/hr Documented by: Magnesium Sulfate (Magnesium Sulfate In Water 2 Gm/50 Ml) 2 gm in 50 mls @ 50 mls/hr IV ONETIME ONE Stop: 03/30/21 13:29 Last Admin: 03/30/21 13:25 Dose: 50 mls/hr Documented by: Magnesium Sulfate (Magnesium Sulfate In Water 2 Gm/50 Ml) 2 gm in 50 mls @ 50 mls/hr IV ONETIME ONE Stop: 04/01/21 09:29 Last Admin: 04/01/21 09:20 Dose: 50 mls/hr Documented by: Lactated Ringer's (Ringers, Lactated) 1,000 mls @ 999 mls/hr IV .BOLUS ONE Stop: 04/02/21 09:39 Last Admin: 04/02/21 09:02 Dose: 999 mls/hr Documented by: Lactated Ringer's (Ringers, Lactated) 1,000 mls @ 999 mls/hr IV .BOLUS ONE Stop: 04/02/21 15:13 Last Admin: 04/02/21 15:12 Dose: 999 mls/hr Documented by: Magnesium Sulfate (Magnesium Sulfate In Water 2 Gm/50 Ml) 2 gm in 50 mls @ 50 mls/hr IV ONETIME ONE Stop: 04/03/21 12:59 Last Admin: 04/03/21 12:46 Dose: 50 mls/hr Documented by: Potassium Chloride (Potassium Chloride 20 Meq Tab.Er) 40 meq PO ONETIME ONE Stop: 03/19/21 08:19 Last Admin: 03/19/21 09:19 Dose: 40 meq Documented by: Potassium Chloride (Potassium Chloride 20 Meq Tab.Er) 40 meq PO ONETIME ONE Stop: 03/19/21 15:01 Last Admin: 03/19/21 15:18 Dose: 40 meq Documented by: Potassium Chloride (Potassium Chloride 20 Meq Tab.Er) 40 meq PO BIDMEALS [facility] Last Admin: 03/23/21 08:55 Dose: 40 meq Documented by: Potassium Chloride (Potassium Chloride 20 Meq Tab.Er) 40 meq PO BIDMEALS [facility] Stop: 03/25/21 17:01 Last Admin: 03/25/21 17:36 Dose: 40 meq Documented by: Potassium Chloride (Potassium Chloride 20 Meq Tab.Er) 40 meq PO ONETIME ONE Stop: 03/26/21 09:40 Last Admin: 03/26/21 11:01 Dose: 40 meq Documented by: Potassium Chloride (Potassium Chloride 20 Meq Tab.Er) 40 meq PO BIDMEALS [facility] Potassium Chloride (Potassium Chloride 10% 20 Meq/15 Ml Soln 30 Ml Ud Cup) 40 meq PO BIDMEALS [facility] Last Admin: 03/28/21 10:46 Dose: Not Given Documented by: Potassium Chloride (Potassium Chloride 20 Meq Tab.Er) 40 meq PO BIDMEALS [facility] Last Admin: 04/02/21 08:02 Dose: 40 meq Documented by: Potassium Chloride (Potassium Chloride 10% 20 Meq/15 Ml Soln 30 Ml Ud Cup) 40 meq PO ONETIME ONE Stop: 03/30/21 12:31 Last Admin: 03/30/21 14:17 Dose: Not Given Documented by: Potassium Chloride (Potassium Chloride 20 Meq Tab.Er) 40 meq PO ONETIME ONE Stop: 03/30/21 13:46 Last Admin: 03/30/21 14:17 Dose: 40 meq Documented by: Potassium Chloride (Potassium Chloride 10 Meq Tab.Er) 40 meq PO BIDMEALS [facility] Last Admin: 04/03/21 16:50 Dose: 40 meq Documented by: Potassium Chloride (Potassium Chloride 10 Meq Tab.Er) 40 meq PO ONETIME ONE Stop: 04/02/21 08:31 Last Admin: 04/02/21 09:01 Dose: 40 meq Documented by: Sodium Phosphate (Phosphorus #1 250 Mg Tab) 250 mg PO QID [facility] Last Admin: 03/26/21 06:00 Dose: 250 mg Documented by: Vancomycin HCl (Vancomycin 125 Mg Cap) 125 mg PO Q4H [facility] Last Admin: 03/19/21 06:35 Dose: 125 mg Documented by: Vancomycin HCl (Vancomycin 125 Mg Cap) 125 mg PO QID [facility] Last Admin: 04/02/21 05:20 Dose: 125 mg Documented by: - Exam Quality Assessment: DVT Prophylaxis. No: Supplemental Oxygen, Urine Catheter General: Alert, Oriented, Cooperative, No Acute Distress Lungs: Clear to Auscultation, Normal Respiratory Effort Cardiovascular: Regular Rate, Regular Rhythm GI/Abdominal Exam: Normal Bowel Sounds, Soft, Non-Tender Extremities: Normal Inspection, Normal Range of Motion, Non-Tender, No Pedal Edema Neurological: No New Focal Deficit Psy/Mental Status: Alert, Normal Affect, Normal Mood - Patient Data Lab Results Last 24 hrs: Laboratory Results - last 24 hr 04/04/21 04/04/21 Range/Units 05:13 05:13 WBC 7.80 (4.0-11.0) K/uL RBC 2.95 L (4.50-5.90) M/uL Hgb 10.4 L (13.0-17.0) g/dL Hct 30.7 L (38.0-50.0) % MCV 104.1 H (80.0-98.0) fL MCH 35.3 H (27.0-32.0) pg MCHC 33.9 (31.0-37.0) g/dL RDW Std Deviation 59.0 (28.0-62.0) fl RDW Coeff of Caleb 16 H (11.0-15.0) % Plt Count 213 (150-400) K/uL MPV 9.40 (7.40-12.00) fL Neut % (Auto) 86.1 H (48.0-80.0) % Lymph % (Auto) 6.9 L (16.0-40.0) % [place] % (Auto) 6.8 (0.0-15.0) % Eos % (Auto) 0.1 (0.0-7.0) % Baso % (Auto) 0.1 (0.0-1.5) % Neut # (Auto) 6.7 H (1.4-5.7) K/uL Lymph # (Auto) 0.5 L (0.6-2.4) K/uL [place] # (Auto) 0.5 (0.0-0.8) K/uL Eos # (Auto) 0.0 (0.0-0.7) K/uL Baso # (Auto) 0.0 (0.0-0.1) K/uL Nucleated RBC % 0.0 /100WBC Nucleated RBCs # 0 K/uL Sodium 135 L (136-148) mmol/L Potassium 4.1 (3.5-5.1) mmol/L Chloride 104 (98-107) mmol/L Carbon Dioxide 21.6 (21.0-32.0) mmol/L BUN 7 (7.0-18.0) mg/dL Creatinine 0.7 L (0.8-1.3) mg/dL Est Cr Clr Drug Dosing 100.37 mL/min Estimated GFR (MDRD) > 60.0 ml/min Glucose 103 (74-106) mg/dL Calcium 7.1 L (8.5-10.1) mg/dL Phosphorus 2.8 (2.6-4.7) mg/dL Magnesium 1.8 (1.8-2.4) mg/dL Result Diagrams: 04/04/21 05:13 04/04/21 05:13 Sepsis Event Note - Evaluation Sepsis Screening Result: No Definite Risk - Focused Exam Vital Signs: Vital Signs Temp Pulse Resp BP Pulse Ox 04/04/21 04:00 97.3 F 77 17 90/60 96 04/04/21 00:00 100 F 99 19 90/61 97 - Problem List & Annotations (1) C. difficile colitis SNOMED Code(s): 882578788 Code(s): A04.72 - ENTEROCOLITIS D/T CLOSTRIDIUM DIFFICILE, NOT SPCF RECUR Status: Acute Current Visit: Yes (2) Hypophosphatemia SNOMED Code(s): 1688663 Code(s): E83.39 - OTHER DISORDERS OF PHOSPHORUS METABOLISM Status: Resolved Current Visit: Yes (3) Port-A-Cath in place SNOMED Code(s): 145986911 Code(s): Z95.828 - PRESENCE OF OTHER VASCULAR IMPLANTS AND GRAFTS Status: Acute Current Visit: Yes (4) Tongue carcinoma Status: Chronic Current Visit: Yes (5) Dehydration SNOMED Code(s): 70728814 Code(s): E86.0 - DEHYDRATION Status: Acute Current Visit: No (6) Diarrhea SNOMED Code(s): 98091207 Code(s): R19.7 - DIARRHEA, UNSPECIFIED Status: Acute Current Visit: No Qualifiers: Diarrhea type: unspecified type Qualified Code(s): R19.7 - Diarrhea, unspecified (7) Hypokalemia SNOMED Code(s): 55850429 Code(s): E87.6 - HYPOKALEMIA Status: Acute Current Visit: No - Problem List Review Problem List Initiated/Reviewed/Updated: Yes - My Orders Last 24 Hours: My Active Orders 04/04/21 09:00 Potassium Chloride [Klor-Con 10] 40 meq PO DAILY 04/05/21 05:11 BASIC METABOLIC PANEL,BMP [CHEM] AM CBC WITH AUTO DIFF [HEME] AM MAGNESIUM [CHEM] AM PHOSPHORUS [CHEM] AM - Plan Plan:: 70 y/o M admitted for diarrhea, eric, hypokalemia, c.diff 1. C. difficile colitis -Continues to slowly improve -Spoke with Dr. Gordon infectious disease, at [facility] on 04/02/2021. He is agreeable with continued Flagyl IV 500 mg 4 times daily he did recommend increasing vancomycin orally to 250 mg 4 times daily and monitor response. He said in a day or 2 if that does not improve you also could continue consider Imodium 2 mg daily as needed diarrhea and monitor response. He requested that if there was little to no response after these changes to please contact him. Patient has not had a colonoscopy at all. I appreciate his assistance with this patient. -Blood pressures remain systolically in the 90s. Patient denies any dizziness. -Continue LR at 75 mL/h -Continue vancomycin 250 mg 4 times daily p.o. -Continue Flagyl 500 mg IV 4 times daily -Generalized weakness and deconditioning, PT consulted -Continue to monitor electrolytes daily and replace as needed - Strict I/O to monitor stools more closely. 2. Tongue carcinoma -Continue gabapentin 3. Hypothyroidism -Continue levothyroxine VTE prophylaxis: Heparin CODE STATUS: DNR/DNI Dispo: Continues to slowly improve, patient continues to be high risk for readmission if discharged prior to stools being more under control. <Ok Delgado - Last Filed: 04/04/21 21:34> - Patient Data Vitals - Most Recent: Last Vital Signs Temp 36.6 C 04/04/21 19:50 Pulse 76 04/04/21 19:50 Resp 18 04/04/21 19:50 BP 89/56 L 04/04/21 19:50 Pulse Ox 97 04/04/21 19:50 Orthostatic Blood Pressure [ 83/54 Standing] Orthostatic Blood Pressure [ 99/66 Sitting] Orthostatic Blood Pressure [ 109/75 Supine] I&O - Last 24 Hours: Intake & Output 04/04/21 04/04/21 04/04/21 06:59 14:59 22:59 Intake Total 1800 2810 Output Total 1100 625 Balance 700 2185 Lab Results Last 24 Hours: Laboratory Results - last 24 hr 04/04/21 04/04/21 Range/Units 05:13 05:13 WBC 7.80 (4.0-11.0) K/uL RBC 2.95 L (4.50-5.90) M/uL Hgb 10.4 L (13.0-17.0) g/dL Hct 30.7 L (38.0-50.0) % MCV 104.1 H (80.0-98.0) fL MCH 35.3 H (27.0-32.0) pg MCHC 33.9 (31.0-37.0) g/dL RDW Std Deviation 59.0 (28.0-62.0) fl RDW Coeff of Caleb 16 H (11.0-15.0) % Plt Count 213 (150-400) K/uL MPV 9.40 (7.40-12.00) fL Neut % (Auto) 86.1 H (48.0-80.0) % Lymph % (Auto) 6.9 L (16.0-40.0) % [place] % (Auto) 6.8 (0.0-15.0) % Eos % (Auto) 0.1 (0.0-7.0) % Baso % (Auto) 0.1 (0.0-1.5) % Neut # (Auto) 6.7 H (1.4-5.7) K/uL Lymph # (Auto) 0.5 L (0.6-2.4) K/uL [place] # (Auto) 0.5 (0.0-0.8) K/uL Eos # (Auto) 0.0 (0.0-0.7) K/uL Baso # (Auto) 0.0 (0.0-0.1) K/uL Nucleated RBC % 0.0 /100WBC Nucleated RBCs # 0 K/uL Sodium 135 L (136-148) mmol/L Potassium 4.1 (3.5-5.1) mmol/L Chloride 104 (98-107) mmol/L Carbon Dioxide 21.6 (21.0-32.0) mmol/L BUN 7 (7.0-18.0) mg/dL Creatinine 0.7 L (0.8-1.3) mg/dL Est Cr Clr Drug Dosing 100.37 mL/min Estimated GFR (MDRD) > 60.0 ml/min Glucose 103 (74-106) mg/dL Calcium 7.1 L (8.5-10.1) mg/dL Phosphorus 2.8 (2.6-4.7) mg/dL Magnesium 1.8 (1.8-2.4) mg/dL Med Orders - Current: Current Medications Acetaminophen (Acetaminophen 325 Mg Tab) 650 mg PO Q4H PRN PRN Reason: Pain (Mild 1-3)/fever Acidophilus/Pectin (Acidophilus With Dickey Pectin Tab) 1 tab PO BID [facility] Last Admin: 04/04/21 08:39 Dose: 1 tab Documented by: Albuterol/Ipratropium (Albuterol/Ipratropium 3.0-0.5 Mg/3 Ml Neb Soln) 3 ml NEB Q4HRRT PRN PRN Reason: Shortness Of Breath/wheezing Artificial Tears (Carboxymethylcellulose Sodium 0.5% Ophth Soln 0.4 Ml Ud Box Of 30) 0 each EYEBOTH TID PRN PRN Reason: Dry Eyes Last Admin: 04/04/21 18:55 Dose: 1 drop Documented by: [place] Butter/Phenylephrine ([place] Butter/Phenylephrine Rectal Supp) 1 each RECTAL QID PRN PRN Reason: hemorrhoidal pain Last Admin: 04/02/21 18:26 Dose: 1 each Documented by: Gabapentin (Gabapentin 300 Mg Cap) 300 mg PO TID [facility] Last Admin: 04/04/21 13:52 Dose: 300 mg Documented by: Heparin Sodium (Porcine) (Heparin Sodium 5,000 Units/Ml Vial) 5,000 units SUBCUT Q8H [facility] Last Admin: 04/04/21 13:52 Dose: 5,000 units Documented by: Metronidazole 500 mg/ Premix 100 mls @ 100 mls/hr IV Q8H [facility] Last Admin: 04/04/21 18:45 Dose: 100 mls/hr Documented by: Lactated Ringer's (Ringers, Lactated) 1,000 mls @ 75 mls/hr IV Q13H [facility] Last Admin: 04/04/21 08:38 Dose: 75 mls/hr Documented by: Levothyroxine Sodium (Levothyroxine 50 Mcg Tab) 50 mcg PO ACBREAKFAST [facility] Last Admin: 04/04/21 08:40 Dose: 50 mcg Documented by: Morphine Sulfate (Morphine 2 Mg/Ml Syringe) 1 mg IVPUSH Q4H PRN PRN Reason: Pain Ondansetron HCl (Ondansetron 4 Mg/2 Ml Sdv) 4 mg IVPUSH Q4H PRN PRN Reason: Nausea/Vomiting Last Admin: 03/30/21 00:51 Dose: 4 mg Documented by: Potassium Chloride (Potassium Chloride 10 Meq Tab.Er) 40 meq PO DAILY [facility] Last Admin: 04/04/21 08:40 Dose: 40 meq Documented by: Sodium Chloride (Sodium Chloride 0.9% 10 Ml Syringe) 10 ml FLUSH ASDIRECTED PRN PRN Reason: Keep Vein Open Last Admin: 03/25/21 06:20 Dose: 10 ml Documented by: Sodium Chloride (Sodium Chloride 0.9% 2.5 Ml Syringe) 2.5 ml FLUSH ASDIRECTED PRN PRN Reason: Keep Vein Open Last Admin: 03/22/21 18:26 Dose: 2.5 ml Documented by: Sodium Phosphate (Phosphorus #1 250 Mg Tab) 250 mg PO QID [facility] Last Admin: 04/04/21 17:17 Dose: 250 mg Documented by: Vancomycin HCl (Vancomycin 125 Mg Cap) 250 mg PO QID [facility] Last Admin: 04/04/21 17:17 Dose: 250 mg Documented by: Discontinued Medications Sodium Chloride (Normal Saline) 1,000 mls @ 125 mls/hr IV STAT ONE Stop: 03/18/21 22:45 Last Infusion: 03/18/21 15:59 Dose: 999 mls/hr Documented by: Potassium Chloride 40 meq/ (Premix) 100 mls @ 25 mls/hr IV ONETIME ONE Stop: 03/18/21 19:50 Last Admin: 03/18/21 17:49 Dose: 25 mls/hr Documented by: Sodium Chloride (Normal Saline) 1,000 mls @ 125 mls/hr IV STAT ONE Stop: 03/18/21 23:51 Last Admin: 03/18/21 17:13 Dose: 125 mls/hr Documented by: Potassium Chloride/Dextrose/Sod Cl (D5 Ns With 20 Meq Kcl) 1,000 mls @ 125 mls/hr IV ASDIRECTED [facility] Last Admin: 03/19/21 02:12 Dose: 125 mls/hr Documented by: Lactated Ringer's (Ringers, Lactated) 1,000 mls @ 125 mls/hr IV Q8H [facility] Last Admin: 03/20/21 05:01 Dose: 125 mls/hr Documented by: Pantoprazole Sodium 40 mg/ (Sodium Chloride) 10 mls @ 200 mls/hr IV Q24H [facility] Last Admin: 04/01/21 17:11 Dose: 200 mls/hr Documented by: Ciprofloxacin/Dextrose 400 mg/ (Premix) 200 mls @ 200 mls/hr IV Q12H [facility] Last Admin: 03/19/21 01:00 Dose: 200 mls/hr Documented by: Metronidazole 500 mg/ Premix 100 mls @ 100 mls/hr IV QID [facility] Last Admin: 03/19/21 06:00 Dose: 100 mls/hr Documented by: Potassium Phosphate 15 mmole/Potassium Chloride 20 meq/Sodium Chloride 515 mls @ 67.5 mls/hr IV ONETIME ONE Stop: 03/19/21 16:37 Last Admin: 03/19/21 09:12 Dose: 67.5 mls/hr Documented by: Potassium Phosphate 15 mmole/Potassium Chloride 20 meq/Sodium Chloride 515 mls @ 67.5 mls/hr IV ONETIME ONE Stop: 03/20/21 16:07 Last Admin: 03/20/21 09:20 Dose: 67.5 mls/hr Documented by: Potassium Chloride 40 meq/ (Dextrose/Sodium Chloride) 1,020 mls @ 125 mls/hr IV Q8H [facility] Stop: 03/21/21 20:29 Last Admin: 03/21/21 22:23 Dose: Not Given Documented by: Potassium Phosphate 20 mmole/ (Sodium Chloride) 506.6667 mls @ 168.889 mls/hr IV ONETIME ONE Stop: 03/21/21 11:29 Last Admin: 03/21/21 09:04 Dose: 168.889 mls/hr Documented by: Potassium Chloride 40 meq/ (Dextrose/Sodium Chloride) 1,020 mls @ 125 mls/hr IV Q8H [facility] Last Admin: 03/23/21 02:46 Dose: 125 mls/hr Documented by: Lactated Ringer's (Ringers, Lactated) 1,000 mls @ 999 mls/hr IV ONETIME ONE Stop: 03/22/21 09:19 Last Admin: 03/22/21 11:29 Dose: 999 mls/hr Documented by: Potassium Phosphate 15 mmole/ (Sodium Chloride) 505 mls @ 67.5 mls/hr IV ONETIME ONE Stop: 03/22/21 15:48 Last Admin: 03/22/21 11:29 Dose: 67.5 mls/hr Documented by: Lactated Ringer's (Ringers, Lactated) 1,000 mls @ 75 mls/hr IV ASDIRECTED [facility] Last Admin: 03/26/21 02:32 Dose: 75 mls/hr Documented by: Magnesium Sulfate (Magnesium Sulfate In Water 2 Gm/50 Ml) 2 gm in 50 mls @ 50 mls/hr IV ONETIME ONE Stop: 03/23/21 11:44 Last Admin: 03/23/21 11:18 Dose: 50 mls/hr Documented by: Lactated Ringer's (Ringers, Lactated) 1,000 mls @ 999 mls/hr IV .BOLUS ONE Stop: 03/26/21 09:04 Last Admin: 03/26/21 09:38 Dose: 999 mls/hr Documented by: Lactated Ringer's (Ringers, Lactated) 1,000 mls @ 75 mls/hr IV Q13H [facility] Last Admin: 04/01/21 06:14 Dose: 75 mls/hr Documented by: Magnesium Sulfate (Magnesium Sulfate In Water 2 Gm/50 Ml) 2 gm in 50 mls @ 50 mls/hr IV ONETIME ONE Stop: 03/27/21 09:11 Last Admin: 03/27/21 09:44 Dose: 50 mls/hr Documented by: Potassium Chloride/Sodium Chloride (Normal Saline With 40 Meq Kcl) 1,000 mls @ 125 mls/hr IV ONETIME ONE Stop: 03/27/21 16:12 Last Admin: 03/27/21 09:41 Dose: 125 mls/hr Documented by: Potassium Phosphate 15 mmole/ (Sodium Chloride) 505 mls @ 67.5 mls/hr IV ONETIME ONE Stop: 03/29/21 16:28 Last Admin: 03/29/21 09:58 Dose: 67.5 mls/hr Documented by: Magnesium Sulfate (Magnesium Sulfate In Water 2 Gm/50 Ml) 2 gm in 50 mls @ 50 mls/hr IV ONETIME ONE Stop: 03/30/21 13:29 Last Admin: 03/30/21 13:25 Dose: 50 mls/hr Documented by: Magnesium Sulfate (Magnesium Sulfate In Water 2 Gm/50 Ml) 2 gm in 50 mls @ 50 mls/hr IV ONETIME ONE Stop: 04/01/21 09:29 Last Admin: 04/01/21 09:20 Dose: 50 mls/hr Documented by: Lactated Ringer's (Ringers, Lactated) 1,000 mls @ 999 mls/hr IV .BOLUS ONE Stop: 04/02/21 09:39 Last Admin: 04/02/21 09:02 Dose: 999 mls/hr Documented by: Lactated Ringer's (Ringers, Lactated) 1,000 mls @ 999 mls/hr IV .BOLUS ONE Stop: 04/02/21 15:13 Last Admin: 04/02/21 15:12 Dose: 999 mls/hr Documented by: Magnesium Sulfate (Magnesium Sulfate In Water 2 Gm/50 Ml) 2 gm in 50 mls @ 50 mls/hr IV ONETIME ONE Stop: 04/03/21 12:59 Last Admin: 04/03/21 12:46 Dose: 50 mls/hr Documented by: Magnesium Sulfate (Magnesium Sulfate In Water 2 Gm/50 Ml) 2 gm in 50 mls @ 50 mls/hr IV ONETIME ONE Stop: 04/04/21 11:29 Last Admin: 04/04/21 11:00 Dose: 50 mls/hr Documented by: Potassium Chloride (Potassium Chloride 20 Meq Tab.Er) 40 meq PO ONETIME ONE Stop: 03/19/21 08:19 Last Admin: 03/19/21 09:19 Dose: 40 meq Documented by: Potassium Chloride (Potassium Chloride 20 Meq Tab.Er) 40 meq PO ONETIME ONE Stop: 03/19/21 15:01 Last Admin: 03/19/21 15:18 Dose: 40 meq Documented by: Potassium Chloride (Potassium Chloride 20 Meq Tab.Er) 40 meq PO BIDMEALS [facility] Last Admin: 03/23/21 08:55 Dose: 40 meq Documented by: Potassium Chloride (Potassium Chloride 20 Meq Tab.Er) 40 meq PO BIDMEALS [facility] Stop: 03/25/21 17:01 Last Admin: 03/25/21 17:36 Dose: 40 meq Documented by: Potassium Chloride (Potassium Chloride 20 Meq Tab.Er) 40 meq PO ONETIME ONE Stop: 03/26/21 09:40 Last Admin: 03/26/21 11:01 Dose: 40 meq Documented by: Potassium Chloride (Potassium Chloride 20 Meq Tab.Er) 40 meq PO BIDMEALS [facility] Potassium Chloride (Potassium Chloride 10% 20 Meq/15 Ml Soln 30 Ml Ud Cup) 40 meq PO BIDMEALS [facility] Last Admin: 03/28/21 10:46 Dose: Not Given Documented by: Potassium Chloride (Potassium Chloride 20 Meq Tab.Er) 40 meq PO BIDMEALS [facility] Last Admin: 04/02/21 08:02 Dose: 40 meq Documented by: Potassium Chloride (Potassium Chloride 10% 20 Meq/15 Ml Soln 30 Ml Ud Cup) 40 meq PO ONETIME ONE Stop: 03/30/21 12:31 Last Admin: 03/30/21 14:17 Dose: Not Given Documented by: Potassium Chloride (Potassium Chloride 20 Meq Tab.Er) 40 meq PO ONETIME ONE Stop: 03/30/21 13:46 Last Admin: 03/30/21 14:17 Dose: 40 meq Documented by: Potassium Chloride (Potassium Chloride 10 Meq Tab.Er) 40 meq PO BIDMEALS [facility] Last Admin: 04/04/21 09:39 Dose: Not Given Documented by: Potassium Chloride (Potassium Chloride 10 Meq Tab.Er) 40 meq PO ONETIME ONE Stop: 04/02/21 08:31 Last Admin: 04/02/21 09:01 Dose: 40 meq Documented by: Sodium Phosphate (Phosphorus #1 250 Mg Tab) 250 mg PO QID [facility] Last Admin: 03/26/21 06:00 Dose: 250 mg Documented by: Vancomycin HCl (Vancomycin 125 Mg Cap) 125 mg PO Q4H [facility] Last Admin: 03/19/21 06:35 Dose: 125 mg Documented by: Vancomycin HCl (Vancomycin 125 Mg Cap) 125 mg PO QID [facility] Last Admin: 04/02/21 05:20 Dose: 125 mg Documented by: - Patient Data Lab Results Last 24 hrs: Laboratory Results - last 24 hr 04/04/21 04/04/21 Range/Units 05:13 05:13 WBC 7.80 (4.0-11.0) K/uL RBC 2.95 L (4.50-5.90) M/uL Hgb 10.4 L (13.0-17.0) g/dL Hct 30.7 L (38.0-50.0) % MCV 104.1 H (80.0-98.0) fL MCH 35.3 H (27.0-32.0) pg MCHC 33.9 (31.0-37.0) g/dL RDW Std Deviation 59.0 (28.0-62.0) fl RDW Coeff of Caleb 16 H (11.0-15.0) % Plt Count 213 (150-400) K/uL MPV 9.40 (7.40-12.00) fL Neut % (Auto) 86.1 H (48.0-80.0) % Lymph % (Auto) 6.9 L (16.0-40.0) % [place] % (Auto) 6.8 (0.0-15.0) % Eos % (Auto) 0.1 (0.0-7.0) % Baso % (Auto) 0.1 (0.0-1.5) % Neut # (Auto) 6.7 H (1.4-5.7) K/uL Lymph # (Auto) 0.5 L (0.6-2.4) K/uL [place] # (Auto) 0.5 (0.0-0.8) K/uL Eos # (Auto) 0.0 (0.0-0.7) K/uL Baso # (Auto) 0.0 (0.0-0.1) K/uL Nucleated RBC % 0.0 /100WBC Nucleated RBCs # 0 K/uL Sodium 135 L (136-148) mmol/L Potassium 4.1 (3.5-5.1) mmol/L Chloride 104 (98-107) mmol/L Carbon Dioxide 21.6 (21.0-32.0) mmol/L BUN 7 (7.0-18.0) mg/dL Creatinine 0.7 L (0.8-1.3) mg/dL Est Cr Clr Drug Dosing 100.37 mL/min Estimated GFR (MDRD) > 60.0 ml/min Glucose 103 (74-106) mg/dL Calcium 7.1 L (8.5-10.1) mg/dL Phosphorus 2.8 (2.6-4.7) mg/dL Magnesium 1.8 (1.8-2.4) mg/dL Result Diagrams: 04/04/21 05:13 04/04/21 05:13 Sepsis Event Note - Focused Exam Vital Signs: Vital Signs Temp Pulse Resp BP Pulse Ox 04/04/21 19:50 36.6 C 76 18 89/56 L 97 04/04/21 16:00 36.6 C 74 18 86/57 L 97 04/04/21 12:01 37.2 C 78 18 84/52 L 97 - Problem List & Annotations (1) Tongue carcinoma Status: Chronic Current Visit: Yes (2) Port-A-Cath in place SNOMED Code(s): 638248265 Code(s): Z95.828 - PRESENCE OF OTHER VASCULAR IMPLANTS AND GRAFTS Status: Acute Current Visit: Yes (3) Dehydration SNOMED Code(s): 63890195 Code(s): E86.0 - DEHYDRATION Status: Acute Current Visit: No (4) Diarrhea SNOMED Code(s): 68629273 Code(s): R19.7 - DIARRHEA, UNSPECIFIED Status: Acute Current Visit: No Qualifiers: Diarrhea type: unspecified type Qualified Code(s): R19.7 - Diarrhea, unspec ified (5) Hypokalemia SNOMED Code(s): 50686970 Code(s): E87.6 - HYPOKALEMIA Status: Acute Current Visit: No
[2021-04-04] MEDS ORDERED: Magnesium Sulfate/Water 2 GM/50 ML BAG IV ONE (10:30)
[2021-04-04] MEDS: Carboxymethylcellulose Sodium 0.5% Ophth Soln 0.4 ML UD Box of 30 EYEBOTH PRN (18:55)
[2021-04-05] MEDS: Vancomycin 125 MG Cap PO SCH ×4 (00:14→17:59)
[2021-04-05] MEDS: Phosphorus #1 250 MG Tab PO SCH ×4 (00:15→17:59)
[2021-04-05] MEDS: Lactated Ringers 1,000 ML IV SCH ×4 (00:22→17:30)
[2021-04-05] MEDS: metroNIDAZOLE/Normal Saline 500 MG in Premix Bag 1 BAG IV SCH ×3 (04:17→18:01)
[2021-04-05 06:06] LABS: BLOOD UREA NITROGEN,BUN 6 mg/dL (7.0-18.0); CARBON DIOXIDE,CO2 23.8 mmol/L (21.0-32.0); CHLORIDE,CL 103 mmol/L (98-107); GLUCOSE RANDOM 122 mg/dL (74-106); POTASSIUM,K 3.8 mmol/L (3.5-5.1); SODIUM,NA 134 mmol/L (136-148)
[2021-04-05] MEDS: Heparin Sodium 5,000 Units/ML Vial SUBCUT SCH ×3 (06:37→21:08)
[2021-04-05] MEDS: Gabapentin 300 MG Cap PO SCH ×3 (06:39→21:08)
[2021-04-05] MEDS: Levothyroxine 50 MCG Tab PO SCH (06:39)
[2021-04-05] MEDS ORDERED: Magnesium Sulfate/Water 2 GM/50 ML BAG IV ONE (08:22)
[2021-04-05] MEDS: Potassium Chloride 10 MEQ Tab.ER PO SCH (08:46)
[2021-04-05] MEDS: Acidophilus with Citrus Pectin Tab PO SCH ×2 (08:46→21:08)
--- NOTE | 2021-04-05 09:03 | PCM.PN ---
- General Info Date of Service: 04/05/21 Admission Dx/Problem (Free Text): Admission Diagnosis/Problem Admission Diagnosis/Problem Hypokalemia, C. difficile colitis, hypophosphatemia Subjective Update: Patient reports he is feeling much better. Denies any chest pain shortness of breath. No abdominal pain. Reports he had 1 stool overnight and one early this morning which is approximately 50 mL. Patient reports his appetite is significantly improving and ate rest crispies and mashed his gravy as well as some Ensure yesterday. He reports feeling a little bit stronger. He was encouraged to get out of bed and sit in a chair as well as possibly take a shower today. We did discuss possible custodial but he reports this is the last resort and feels as though he is improving. Functional Status: Reports: Pain Controlled, Tolerating Diet, Ambulating, Urinating - Review of Systems General: Reports: Weakness (Steadily improving). Denies: Fever HEENT: Reports: No Symptoms. Denies: Headaches, Sore Throat, Visual Changes Pulmonary: Reports: No Symptoms. Denies: Shortness of Breath Cardiovascular: Reports: No Symptoms. Denies: Chest Pain Gastrointestinal: Reports: Diarrhea (Only once overnight). Denies: Abdominal Pain, Nausea, Vomiting Genitourinary: Reports: No Symptoms. Denies: Dysuria, Frequency, Burning Musculoskeletal: Reports: No Symptoms Skin: Reports: No Symptoms Neurological: Reports: No Symptoms Psychiatric: Reports: No Symptoms - Patient Data Vitals - Most Recent: Last Vital Signs Temp 99.7 F 04/05/21 08:00 Pulse 80 04/05/21 08:00 Resp 17 04/05/21 08:00 BP 83/51 L 04/05/21 08:00 Pulse Ox 96 04/05/21 08:00 Orthostatic Blood Pressure [ 83/54 Standing] Orthostatic Blood Pressure [ 99/66 Sitting] Orthostatic Blood Pressure [ 109/75 Supine] Weight - Most Recent: 70.261 kg I&O - Last 24 Hours: Intake & Output 04/04/21 04/05/21 04/05/21 22:59 06:59 14:59 Intake Total 2810 1453 Output Total 588 800 Balance 2182 653 Lab Results Last 24 Hours: Laboratory Results - last 24 hr 04/05/21 04/05/21 Range/Units 05:06 05:06 WBC 4.87 (4.0-11.0) K/uL RBC 2.88 L (4.50-5.90) M/uL Hgb 10.0 L (13.0-17.0) g/dL Hct 30.0 L (38.0-50.0) % MCV 104.2 H (80.0-98.0) fL MCH 34.7 H (27.0-32.0) pg MCHC 33.3 (31.0-37.0) g/dL RDW Std Deviation 59.1 (28.0-62.0) fl RDW Coeff of Caleb 15 (11.0-15.0) % Plt Count 196 (150-400) K/uL MPV 9.80 (7.40-12.00) fL Neut % (Auto) 78.6 (48.0-80.0) % Lymph % (Auto) 10.7 L (16.0-40.0) % [place] % (Auto) 10.1 (0.0-15.0) % Eos % (Auto) 0.4 (0.0-7.0) % Baso % (Auto) 0.2 (0.0-1.5) % Neut # (Auto) 3.8 (1.4-5.7) K/uL Lymph # (Auto) 0.5 L (0.6-2.4) K/uL [place] # (Auto) 0.5 (0.0-0.8) K/uL Eos # (Auto) 0.0 (0.0-0.7) K/uL Baso # (Auto) 0.0 (0.0-0.1) K/uL Nucleated RBC % 0.0 /100WBC Nucleated RBCs # 0 K/uL Sodium 134 L (136-148) mmol/L Potassium 3.8 (3.5-5.1) mmol/L Chloride 103 (98-107) mmol/L Carbon Dioxide 23.8 (21.0-32.0) mmol/L BUN 6 L (7.0-18.0) mg/dL Creatinine 0.7 L (0.8-1.3) mg/dL Est Cr Clr Drug Dosing 100.37 mL/min Estimated GFR (MDRD) > 60.0 ml/min Glucose 122 H (74-106) mg/dL Calcium 6.9 L (8.5-10.1) mg/dL Phosphorus 2.4 L (2.6-4.7) mg/dL Magnesium 1.7 L (1.8-2.4) mg/dL Med Orders - Current: Current Medications Acetaminophen (Acetaminophen 325 Mg Tab) 650 mg PO Q4H PRN PRN Reason: Pain (Mild 1-3)/fever Acidophilus/Pectin (Acidophilus With Bowie Pectin Tab) 1 tab PO BID [facility] Last Admin: 04/05/21 08:46 Dose: 1 tab Documented by: Albuterol/Ipratropium (Albuterol/Ipratropium 3.0-0.5 Mg/3 Ml Neb Soln) 3 ml NEB Q4HRRT PRN PRN Reason: Shortness Of Breath/wheezing Artificial Tears (Carboxymethylcellulose Sodium 0.5% Ophth Soln 0.4 Ml Ud Box Of 30) 0 each EYEBOTH TID PRN PRN Reason: Dry Eyes Last Admin: 04/04/21 18:55 Dose: 1 drop Documented by: Jupiter Butter/Phenylephrine (Jupiter Butter/Phenylephrine Rectal Supp) 1 each RECTAL QID PRN PRN Reason: hemorrhoidal pain Last Admin: 04/02/21 18:26 Dose: 1 each Documented by: Gabapentin (Gabapentin 300 Mg Cap) 300 mg PO TID [facility] Last Admin: 04/05/21 06:39 Dose: 300 mg Documented by: Heparin Sodium (Porcine) (Heparin Sodium 5,000 Units/Ml Vial) 5,000 units SUBCUT Q8H [facility] Last Admin: 04/05/21 06:37 Dose: 5,000 units Documented by: Metronidazole 500 mg/ Premix 100 mls @ 100 mls/hr IV Q8H [facility] Last Admin: 04/05/21 04:17 Dose: 100 mls/hr Documented by: Lactated Ringer's (Ringers, Lactated) 1,000 mls @ 75 mls/hr IV Q13H [facility] Last Admin: 04/05/21 05:20 Dose: Not Given Documented by: Magnesium Sulfate (Magnesium Sulfate In Water 2 Gm/50 Ml) 2 gm in 50 mls @ 50 mls/hr IV ONETIME ONE Stop: 04/05/21 09:21 Last Admin: 04/05/21 08:45 Dose: 50 mls/hr Documented by: Levothyroxine Sodium (Levothyroxine 50 Mcg Tab) 50 mcg PO ACBREAKFAST [facility] Last Admin: 04/05/21 06:39 Dose: 50 mcg Documented by: Morphine Sulfate (Morphine 2 Mg/Ml Syringe) 1 mg IVPUSH Q4H PRN PRN Reason: Pain Ondansetron HCl (Ondansetron 4 Mg/2 Ml Sdv) 4 mg IVPUSH Q4H PRN PRN Reason: Nausea/Vomiting Last Admin: 03/30/21 00:51 Dose: 4 mg Documented by: Potassium Chloride (Potassium Chloride 10 Meq Tab.Er) 40 meq PO DAILY [facility] Last Admin: 04/05/21 08:46 Dose: 40 meq Documented by: Sodium Chloride (Sodium Chloride 0.9% 10 Ml Syringe) 10 ml FLUSH ASDIRECTED PRN PRN Reason: Keep Vein Open Last Admin: 03/25/21 06:20 Dose: 10 ml Documented by: Sodium Chloride (Sodium Chloride 0.9% 2.5 Ml Syringe) 2.5 ml FLUSH ASDIRECTED PRN PRN Reason: Keep Vein Open Last Admin: 03/22/21 18:26 Dose: 2.5 ml Documented by: Sodium Phosphate (Phosphorus #1 250 Mg Tab) 250 mg PO QID [facility] Last Admin: 04/05/21 06:38 Dose: 250 mg Documented by: Vancomycin HCl (Vancomycin 125 Mg Cap) 250 mg PO QID [facility] Last Admin: 04/05/21 06:39 Dose: 250 mg Documented by: Discontinued Medications Sodium Chloride (Normal Saline) 1,000 mls @ 125 mls/hr IV STAT ONE Stop: 03/18/21 22:45 Last Infusion: 03/18/21 15:59 Dose: 999 mls/hr Documented by: Potassium Chloride 40 meq/ (Premix) 100 mls @ 25 mls/hr IV ONETIME ONE Stop: 03/18/21 19:50 Last Admin: 03/18/21 17:49 Dose: 25 mls/hr Documented by: Sodium Chloride (Normal Saline) 1,000 mls @ 125 mls/hr IV STAT ONE Stop: 03/18/21 23:51 Last Admin: 03/18/21 17:13 Dose: 125 mls/hr Documented by: Potassium Chloride/Dextrose/Sod Cl (D5 Ns With 20 Meq Kcl) 1,000 mls @ 125 mls/hr IV ASDIRECTED [facility] Last Admin: 03/19/21 02:12 Dose: 125 mls/hr Documented by: Lactated Ringer's (Ringers, Lactated) 1,000 mls @ 125 mls/hr IV Q8H [facility] Last Admin: 03/20/21 05:01 Dose: 125 mls/hr Documented by: Pantoprazole Sodium 40 mg/ (Sodium Chloride) 10 mls @ 200 mls/hr IV Q24H [facility] Last Admin: 04/01/21 17:11 Dose: 200 mls/hr Documented by: Ciprofloxacin/Dextrose 400 mg/ (Premix) 200 mls @ 200 mls/hr IV Q12H [facility] Last Admin: 03/19/21 01:00 Dose: 200 mls/hr Documented by: Metronidazole 500 mg/ Premix 100 mls @ 100 mls/hr IV QID [facility] Last Admin: 03/19/21 06:00 Dose: 100 mls/hr Documented by: Potassium Phosphate 15 mmole/Potassium Chloride 20 meq/Sodium Chloride 515 mls @ 67.5 mls/hr IV ONETIME ONE Stop: 03/19/21 16:37 Last Admin: 03/19/21 09:12 Dose: 67.5 mls/hr Documented by: Potassium Phosphate 15 mmole/Potassium Chloride 20 meq/Sodium Chloride 515 mls @ 67.5 mls/hr IV ONETIME ONE Stop: 03/20/21 16:07 Last Admin: 03/20/21 09:20 Dose: 67.5 mls/hr Documented by: Potassium Chloride 40 meq/ (Dextrose/Sodium Chloride) 1,020 mls @ 125 mls/hr IV Q8H [facility] Stop: 03/21/21 20:29 Last Admin: 03/21/21 22:23 Dose: Not Given Documented by: Potassium Phosphate 20 mmole/ (Sodium Chloride) 506.6667 mls @ 168.889 mls/hr IV ONETIME ONE Stop: 03/21/21 11:29 Last Admin: 03/21/21 09:04 Dose: 168.889 mls/hr Documented by: Potassium Chloride 40 meq/ (Dextrose/Sodium Chloride) 1,020 mls @ 125 mls/hr IV Q8H [facility] Last Admin: 03/23/21 02:46 Dose: 125 mls/hr Documented by: Lactated Ringer's (Ringers, Lactated) 1,000 mls @ 999 mls/hr IV ONETIME ONE Stop: 03/22/21 09:19 Last Admin: 03/22/21 11:29 Dose: 999 mls/hr Documented by: Potassium Phosphate 15 mmole/ (Sodium Chloride) 505 mls @ 67.5 mls/hr IV ONETIME ONE Stop: 03/22/21 15:48 Last Admin: 03/22/21 11:29 Dose: 67.5 mls/hr Documented by: Lactated Ringer's (Ringers, Lactated) 1,000 mls @ 75 mls/hr IV ASDIRECTED [facility] Last Admin: 03/26/21 02:32 Dose: 75 mls/hr Documented by: Magnesium Sulfate (Magnesium Sulfate In Water 2 Gm/50 Ml) 2 gm in 50 mls @ 50 mls/hr IV ONETIME ONE Stop: 03/23/21 11:44 Last Admin: 03/23/21 11:18 Dose: 50 mls/hr Documented by: Lactated Ringer's (Ringers, Lactated) 1,000 mls @ 999 mls/hr IV .BOLUS ONE Stop: 03/26/21 09:04 Last Admin: 03/26/21 09:38 Dose: 999 mls/hr Documented by: Lactated Ringer's (Ringers, Lactated) 1,000 mls @ 75 mls/hr IV Q13H [facility] Last Admin: 04/01/21 06:14 Dose: 75 mls/hr Documented by: Magnesium Sulfate (Magnesium Sulfate In Water 2 Gm/50 Ml) 2 gm in 50 mls @ 50 mls/hr IV ONETIME ONE Stop: 03/27/21 09:11 Last Admin: 03/27/21 09:44 Dose: 50 mls/hr Documented by: Potassium Chloride/Sodium Chloride (Normal Saline With 40 Meq Kcl) 1,000 mls @ 125 mls/hr IV ONETIME ONE Stop: 03/27/21 16:12 Last Admin: 03/27/21 09:41 Dose: 125 mls/hr Documented by: Potassium Phosphate 15 mmole/ (Sodium Chloride) 505 mls @ 67.5 mls/hr IV ONETIME ONE Stop: 03/29/21 16:28 Last Admin: 03/29/21 09:58 Dose: 67.5 mls/hr Documented by: Magnesium Sulfate (Magnesium Sulfate In Water 2 Gm/50 Ml) 2 gm in 50 mls @ 50 mls/hr IV ONETIME ONE Stop: 03/30/21 13:29 Last Admin: 03/30/21 13:25 Dose: 50 mls/hr Documented by: Magnesium Sulfate (Magnesium Sulfate In Water 2 Gm/50 Ml) 2 gm in 50 mls @ 50 mls/hr IV ONETIME ONE Stop: 04/01/21 09:29 Last Admin: 04/01/21 09:20 Dose: 50 mls/hr Documented by: Lactated Ringer's (Ringers, Lactated) 1,000 mls @ 999 mls/hr IV .BOLUS ONE Stop: 04/02/21 09:39 Last Admin: 04/02/21 09:02 Dose: 999 mls/hr Documented by: Lactated Ringer's (Ringers, Lactated) 1,000 mls @ 999 mls/hr IV .BOLUS ONE Stop: 04/02/21 15:13 Last Admin: 04/02/21 15:12 Dose: 999 mls/hr Documented by: Magnesium Sulfate (Magnesium Sulfate In Water 2 Gm/50 Ml) 2 gm in 50 mls @ 50 mls/hr IV ONETIME ONE Stop: 04/03/21 12:59 Last Admin: 04/03/21 12:46 Dose: 50 mls/hr Documented by: Magnesium Sulfate (Magnesium Sulfate In Water 2 Gm/50 Ml) 2 gm in 50 mls @ 50 mls/hr IV ONETIME ONE Stop: 04/04/21 11:29 Last Admin: 04/04/21 11:00 Dose: 50 mls/hr Documented by: Potassium Chloride (Potassium Chloride 20 Meq Tab.Er) 40 meq PO ONETIME ONE Stop: 03/19/21 08:19 Last Admin: 03/19/21 09:19 Dose: 40 meq Documented by: Potassium Chloride (Potassium Chloride 20 Meq Tab.Er) 40 meq PO ONETIME ONE Stop: 03/19/21 15:01 Last Admin: 03/19/21 15:18 Dose: 40 meq Documented by: Potassium Chloride (Potassium Chloride 20 Meq Tab.Er) 40 meq PO BIDMEALS [facility] Last Admin: 03/23/21 08:55 Dose: 40 meq Documented by: Potassium Chloride (Potassium Chloride 20 Meq Tab.Er) 40 meq PO BIDMEALS [facility] Stop: 03/25/21 17:01 Last Admin: 03/25/21 17:36 Dose: 40 meq Documented by: Potassium Chloride (Potassium Chloride 20 Meq Tab.Er) 40 meq PO ONETIME ONE Stop: 03/26/21 09:40 Last Admin: 03/26/21 11:01 Dose: 40 meq Documented by: Potassium Chloride (Potassium Chloride 20 Meq Tab.Er) 40 meq PO BIDMEALS [facility] Potassium Chloride (Potassium Chloride 10% 20 Meq/15 Ml Soln 30 Ml Ud Cup) 40 meq PO BIDMEALS [facility] Last Admin: 03/28/21 10:46 Dose: Not Given Documented by: Potassium Chloride (Potassium Chloride 20 Meq Tab.Er) 40 meq PO BIDMEALS [facility] Last Admin: 04/02/21 08:02 Dose: 40 meq Documented by: Potassium Chloride (Potassium Chloride 10% 20 Meq/15 Ml Soln 30 Ml Ud Cup) 40 meq PO ONETIME ONE Stop: 03/30/21 12:31 Last Admin: 03/30/21 14:17 Dose: Not Given Documented by: Potassium Chloride (Potassium Chloride 20 Meq Tab.Er) 40 meq PO ONETIME ONE Stop: 03/30/21 13:46 Last Admin: 03/30/21 14:17 Dose: 40 meq Documented by: Potassium Chloride (Potassium Chloride 10 Meq Tab.Er) 40 meq PO BIDMEALS [facility] Last Admin: 04/04/21 09:39 Dose: Not Given Documented by: Potassium Chloride (Potassium Chloride 10 Meq Tab.Er) 40 meq PO ONETIME ONE Stop: 04/02/21 08:31 Last Admin: 04/02/21 09:01 Dose: 40 meq Documented by: Sodium Phosphate (Phosphorus #1 250 Mg Tab) 250 mg PO QID [facility] Last Admin: 03/26/21 06:00 Dose: 250 mg Documented by: Vancomycin HCl (Vancomycin 125 Mg Cap) 125 mg PO Q4H [facility] Last Admin: 03/19/21 06:35 Dose: 125 mg Documented by: Vancomycin HCl (Vancomycin 125 Mg Cap) 125 mg PO QID [facility] Last Admin: 04/02/21 05:20 Dose: 125 mg Documented by: - Exam Quality Assessment: DVT Prophylaxis. No: Supplemental Oxygen General: Alert, Oriented, Cooperative, No Acute Distress Lungs: Clear to Auscultation, Normal Respiratory Effort Cardiovascular: Regular Rate, Regular Rhythm GI/Abdominal Exam: Normal Bowel Sounds, Soft, Non-Tender Extremities: Normal Inspection, Normal Range of Motion, Non-Tender, No Pedal Edema Neurological: No New Focal Deficit Psy/Mental Status: Alert, Normal Affect, Normal Mood - Patient Data Lab Results Last 24 hrs: Laboratory Results - last 24 hr 04/05/21 04/05/21 Range/Units 05:06 05:06 WBC 4.87 (4.0-11.0) K/uL RBC 2.88 L (4.50-5.90) M/uL Hgb 10.0 L (13.0-17.0) g/dL Hct 30.0 L (38.0-50.0) % MCV 104.2 H (80.0-98.0) fL MCH 34.7 H (27.0-32.0) pg MCHC 33.3 (31.0-37.0) g/dL RDW Std Deviation 59.1 (28.0-62.0) fl RDW Coeff of Caleb 15 (11.0-15.0) % Plt Count 196 (150-400) K/uL MPV 9.80 (7.40-12.00) fL Neut % (Auto) 78.6 (48.0-80.0) % Lymph % (Auto) 10.7 L (16.0-40.0) % [place] % (Auto) 10.1 (0.0-15.0) % Eos % (Auto) 0.4 (0.0-7.0) % Baso % (Auto) 0.2 (0.0-1.5) % Neut # (Auto) 3.8 (1.4-5.7) K/uL Lymph # (Auto) 0.5 L (0.6-2.4) K/uL [place] # (Auto) 0.5 (0.0-0.8) K/uL Eos # (Auto) 0.0 (0.0-0.7) K/uL Baso # (Auto) 0.0 (0.0-0.1) K/uL Nucleated RBC % 0.0 /100WBC Nucleated RBCs # 0 K/uL Sodium 134 L (136-148) mmol/L Potassium 3.8 (3.5-5.1) mmol/L Chloride 103 (98-107) mmol/L Carbon Dioxide 23.8 (21.0-32.0) mmol/L BUN 6 L (7.0-18.0) mg/dL Creatinine 0.7 L (0.8-1.3) mg/dL Est Cr Clr Drug Dosing 100.37 mL/min Estimated GFR (MDRD) > 60.0 ml/min Glucose 122 H (74-106) mg/dL Calcium 6.9 L (8.5-10.1) mg/dL Phosphorus 2.4 L (2.6-4.7) mg/dL Magnesium 1.7 L (1.8-2.4) mg/dL Result Diagrams: 04/05/21 05:06 04/05/21 05:06 Sepsis Event Note - Evaluation Sepsis Screening Result: No Definite Risk - Focused Exam Vital Signs: Vital Signs Temp Pulse Resp BP Pulse Ox 04/05/21 08:00 99.7 F 80 17 83/51 L 96 04/05/21 04:22 98.6 F 84 18 95 04/05/21 00:13 98.5 F 75 18 93/61 95 - Problem List & Annotations (1) C. difficile colitis SNOMED Code(s): 564841286 Code(s): A04.72 - ENTEROCOLITIS D/T CLOSTRIDIUM DIFFICILE, NOT SPCF RECUR Status: Acute Current Visit: Yes (2) Hypophosphatemia SNOMED Code(s): 6115972 Code(s): E83.39 - OTHER DISORDERS OF PHOSPHORUS METABOLISM Status: Resolved Current Visit: Yes (3) Port-A-Cath in place SNOMED Code(s): 938388529 Code(s): Z95.828 - PRESENCE OF OTHER VASCULAR IMPLANTS AND GRAFTS Status: Acute Current Visit: Yes (4) Tongue carcinoma Status: Chronic Current Visit: Yes (5) Dehydration SNOMED Code(s): 97550511 Code(s): E86.0 - DEHYDRATION Status: Acute Current Visit: No (6) Diarrhea SNOMED Code(s): 30208964 Code(s): R19.7 - DIARRHEA, UNSPECIFIED Status: Acute Current Visit: No Qualifiers: Diarrhea type: unspecified type Qualified Code(s): R19.7 - Diarrhea, unspecified (7) Hypokalemia SNOMED Code(s): 66346428 Code(s): E87.6 - HYPOKALEMIA Status: Acute Current Visit: No - Problem List Review Problem List Initiated/Reviewed/Updated: Yes - My Orders Last 24 Hours: My Active Orders 04/04/21 09:00 Potassium Chloride [Klor-Con 10] 40 meq PO DAILY 04/04/21 10:23 Communication Order [RC] ROUTINE 04/05/21 08:22 Magnesium Sulfate/Water [Magnesium Sulfate in Water 2 GM/50 ML] 2 gm in 50 ml IV ONETIME - Plan Plan:: 70 y/o M admitted for diarrhea, eric, hypokalemia, c.diff 1. C. difficile colitis -Improving. Only 1 stool overnight. Appetite is improving and he is starting to eat much more without having significant nausea or abdominal cramping. -Spoke with Dr. Gordon infectious disease, at [facility] on 04/02/2021. He is agreeable with continued Flagyl IV 500 mg 4 times daily he did recommend increasing vancomycin orally to 250 mg 4 times daily and monitor response. He said in a day or 2 if that does not improve you also could continue consider Imodium 2 mg daily as needed diarrhea and monitor response. He requested that if there was little to no response after these changes to please contact him. Patient has not had a colonoscopy at all. I appreciate his assistance with this patient. -Blood pressures remain systolically in the 90s. Patient denies any dizziness. -Continue LR at 75 mL/h -Continue vancomycin 250 mg 4 times daily p.o. -Continue Flagyl 500 mg IV 4 times daily -Generalized weakness and deconditioning, PT consulted -Continue to monitor electrolytes daily and replace as needed - Strict I/O to monitor stools more closely. 2. Tongue carcinoma -Continue gabapentin 3. Hypothyroidism -Continue levothyroxine VTE prophylaxis: Heparin CODE STATUS: DNR/DNI Dispo: Continues to slowly improve, patient continues to be high risk for readmission if discharged prior to stools being more under control.
[2021-04-05] MEDS ORDERED: Sodium Chloride 0.9% 2.5 ML Syringe FLUSH PRN (11:00)
[2021-04-05] MEDS ORDERED: Sodium Chloride 0.9% 10 ML Syringe FLUSH SCH (11:45)
[2021-04-06] MEDS: Vancomycin 125 MG Cap PO SCH ×4 (00:32→19:18)
[2021-04-06] MEDS: Phosphorus #1 250 MG Tab PO SCH ×4 (00:32→19:17)
[2021-04-06] MEDS: metroNIDAZOLE/Normal Saline 500 MG in Premix Bag 1 BAG IV SCH ×3 (03:49→19:47)
[2021-04-06] MEDS: Lactated Ringers 1,000 ML IV SCH ×3 (05:21→19:17)
[2021-04-06 05:59] LABS: BLOOD UREA NITROGEN,BUN 4 mg/dL (7.0-18.0); CARBON DIOXIDE,CO2 22.7 mmol/L (21.0-32.0); CHLORIDE,CL 103 mmol/L (98-107); GLUCOSE RANDOM 101 mg/dL (74-106); POTASSIUM,K 5.5 mmol/L (3.5-5.1); SODIUM,NA 138 mmol/L (136-148)
[2021-04-06] MEDS: Heparin Sodium 5,000 Units/ML Vial SUBCUT SCH ×3 (06:17→21:17)
[2021-04-06] MEDS: Gabapentin 300 MG Cap PO SCH ×3 (06:17→21:18)
[2021-04-06] MEDS: Levothyroxine 50 MCG Tab PO SCH (06:30)
[2021-04-06] MEDS: Acidophilus with Citrus Pectin Tab PO SCH ×2 (08:43→21:18)
[2021-04-06] MEDS: Potassium Chloride 10 MEQ Tab.ER PO SCH (08:46)
[2021-04-06] MEDS ORDERED: Magnesium Oxide 400 MG Tab PO ONE (10:49)
--- NOTE | 2021-04-06 11:52 | PCM.PN ---
- General Info Date of Service: 04/06/21 Admission Dx/Problem (Free Text): Admission Diagnosis/Problem Admission Diagnosis/Problem Hypokalemia, C. difficile colitis, hypophosphatemia Subjective Update: Patient reports he is feeling much better. diarrhea has improved a lot, has some chills overnight, no fever - Review of Systems General: Reports: Weakness. Denies: Fever, Fatigue, Malaise Cardiovascular: Denies: Chest Pain, Palpitations Gastrointestinal: Denies: Abdominal Pain, Constipation, Decreased Appetite Genitourinary: Denies: Dysuria, Frequency Musculoskeletal: Denies: Shoulder Pain, Arm Pain Skin: Denies: Cyanosis, Jaundice, Mottled - Patient Data Vitals - Most Recent: Last Vital Signs Temp 36.9 C 04/06/21 08:00 Pulse 87 04/06/21 08:00 Resp 14 04/06/21 08:00 BP 95/60 04/06/21 08:00 Pulse Ox 95 04/06/21 08:00 Orthostatic Blood Pressure [ 83/54 Standing] Orthostatic Blood Pressure [ 99/66 Sitting] Orthostatic Blood Pressure [ 109/75 Supine] Weight - Most Recent: 70.261 kg I&O - Last 24 Hours: Intake & Output 04/05/21 04/06/21 04/06/21 22:59 06:59 14:59 Intake Total 590 2127 Output Total 275 1320 Balance 315 807 Lab Results Last 24 Hours: Laboratory Results - last 24 hr 04/05/21 04/06/21 04/06/21 Range/Units 13:20 05:20 05:20 WBC 9.31 (4.0-11.0) K/uL RBC 3.53 L (4.50-5.90) M/uL Hgb 12.5 L (13.0-17.0) g/dL Hct 37.4 L (38.0-50.0) % MCV 105.9 H (80.0-98.0) fL MCH 35.4 H (27.0-32.0) pg MCHC 33.4 (31.0-37.0) g/dL RDW Std Deviation 61.0 (28.0-62.0) fl RDW Coeff of Caleb 16 H (11.0-15.0) % Plt Count 263 (150-400) K/uL MPV 10.30 (7.40-12.00) fL Neut % (Auto) 72.2 (48.0-80.0) % Lymph % (Auto) 23.3 (16.0-40.0) % [place] % (Auto) 4.0 (0.0-15.0) % Eos % (Auto) 0.3 (0.0-7.0) % Baso % (Auto) 0.2 (0.0-1.5) % Neut # (Auto) 6.7 H (1.4-5.7) K/uL Lymph # (Auto) 2.2 (0.6-2.4) K/uL [place] # (Auto) 0.4 (0.0-0.8) K/uL Eos # (Auto) 0.0 (0.0-0.7) K/uL Baso # (Auto) 0.0 (0.0-0.1) K/uL Nucleated RBC % 0.0 /100WBC Nucleated RBCs # 0 K/uL Sodium 138 (136-148) mmol/L Potassium 5.5 H (3.5-5.1) mmol/L Chloride 103 (98-107) mmol/L Carbon Dioxide 22.7 (21.0-32.0) mmol/L BUN 4 L (7.0-18.0) mg/dL Creatinine 1.0 (0.8-1.3) mg/dL Est Cr Clr Drug Dosing 70.26 mL/min Estimated GFR (MDRD) > 60.0 ml/min Glucose 101 (74-106) mg/dL Calcium 7.6 L (8.5-10.1) mg/dL Phosphorus 3.5 (2.6-4.7) mg/dL Magnesium 1.9 (1.8-2.4) mg/dL Urine Color DARK YELLOW Urine Appearance CLEAR Urine pH 5.0 (5.0-8.0) Ur Specific [place] >= 1.030 (1.001-1.035) Urine Protein NEGATIVE (NEGATIVE) mg/dL Urine Glucose (UA) NEGATIVE (NEGATIVE) mg/dL Urine Ketones 15 H (NEGATIVE) mg/dL Urine Occult Blood NEGATIVE (NEGATIVE) Urine Nitrite POSITIVE H (NEGATIVE) Urine Bilirubin NEGATIVE (NEGATIVE) Urine Urobilinogen 0.2 (<2.0) EU/dL Ur Leukocyte Esterase TRACE H (NEGATIVE) U Hyaline Cast (Auto) 2-5 (0-2/LPF) Urine RBC 0-1 (0-2/HPF) Urine WBC 0-2 (0-5/HPF) Ur Epithelial Cells OCCASIONAL (NONE-FEW) Urine Bacteria FEW (NEGATIVE) Urine Mucus LIGHT (NONE-MOD) Med Orders - Current: Current Medications Acetaminophen (Acetaminophen 325 Mg Tab) 650 mg PO Q4H PRN PRN Reason: Pain (Mild 1-3)/fever Acidophilus/Pectin (Acidophilus With [place] Pectin Tab) 1 tab PO BID [facility] Last Admin: 04/06/21 08:43 Dose: 1 tab Documented by: Albuterol/Ipratropium (Albuterol/Ipratropium 3.0-0.5 Mg/3 Ml Neb Soln) 3 ml NEB Q4HRRT PRN PRN Reason: Shortness Of Breath/wheezing Artificial Tears (Carboxymethylcellulose Sodium 0.5% Ophth Soln 0.4 Ml Ud Box Of 30) 0 each EYEBOTH TID PRN PRN Reason: Dry Eyes Last Admin: 04/04/21 18:55 Dose: 1 drop Documented by: Martin Butter/Phenylephrine (Martin Butter/Phenylephrine Rectal Supp) 1 each RECTAL QID PRN PRN Reason: hemorrhoidal pain Last Admin: 04/02/21 18:26 Dose: 1 each Documented by: Gabapentin (Gabapentin 300 Mg Cap) 300 mg PO TID [facility] Last Admin: 04/06/21 06:17 Dose: 300 mg Documented by: Heparin Sodium (Porcine) (Heparin Sodium 5,000 Units/Ml Vial) 5,000 units SUBCUT Q8H [facility] Last Admin: 04/06/21 06:17 Dose: 5,000 units Documented by: Metronidazole 500 mg/ Premix 100 mls @ 100 mls/hr IV Q8H [facility] Last Admin: 04/06/21 03:49 Dose: 100 mls/hr Documented by: Lactated Ringer's (Ringers, Lactated) 1,000 mls @ 75 mls/hr IV Q13H [facility] Last Admin: 04/06/21 05:21 Dose: Not Given Documented by: Levothyroxine Sodium (Levothyroxine 50 Mcg Tab) 50 mcg PO ACBREAKFAST [facility] Last Admin: 04/06/21 06:30 Dose: 50 mcg Documented by: Morphine Sulfate (Morphine 2 Mg/Ml Syringe) 1 mg IVPUSH Q4H PRN PRN Reason: Pain Ondansetron HCl (Ondansetron 4 Mg/2 Ml Sdv) 4 mg IVPUSH Q4H PRN PRN Reason: Nausea/Vomiting Last Admin: 03/30/21 00:51 Dose: 4 mg Documented by: Sodium Chloride (Sodium Chloride 0.9% 2.5 Ml Syringe) 2.5 ml FLUSH ASDIRECTED PRN PRN Reason: Keep Vein Open Sodium Chloride (Sodium Chloride 0.9% 10 Ml Syringe) 10 ml FLUSH ASDIRECTED [facility] Sodium Phosphate (Phosphorus #1 250 Mg Tab) 250 mg PO QID [facility] Last Admin: 04/06/21 06:17 Dose: 250 mg Documented by: Vancomycin HCl (Vancomycin 125 Mg Cap) 250 mg PO QID [facility] Last Admin: 04/06/21 06:17 Dose: 250 mg Documented by: Discontinued Medications Sodium Chloride (Normal Saline) 1,000 mls @ 125 mls/hr IV STAT ONE Stop: 03/18/21 22:45 Last Infusion: 03/18/21 15:59 Dose: 999 mls/hr Documented by: Potassium Chloride 40 meq/ (Premix) 100 mls @ 25 mls/hr IV ONETIME ONE Stop: 03/18/21 19:50 Last Admin: 03/18/21 17:49 Dose: 25 mls/hr Documented by: Sodium Chloride (Normal Saline) 1,000 mls @ 125 mls/hr IV STAT ONE Stop: 03/18/21 23:51 Last Admin: 03/18/21 17:13 Dose: 125 mls/hr Documented by: Potassium Chloride/Dextrose/Sod Cl (D5 Ns With 20 Meq Kcl) 1,000 mls @ 125 mls/hr IV ASDIRECTED [facility] Last Admin: 03/19/21 02:12 Dose: 125 mls/hr Documented by: Lactated Ringer's (Ringers, Lactated) 1,000 mls @ 125 mls/hr IV Q8H [facility] Last Admin: 03/20/21 05:01 Dose: 125 mls/hr Documented by: Pantoprazole Sodium 40 mg/ (Sodium Chloride) 10 mls @ 200 mls/hr IV Q24H [facility] Last Admin: 04/01/21 17:11 Dose: 200 mls/hr Documented by: Ciprofloxacin/Dextrose 400 mg/ (Premix) 200 mls @ 200 mls/hr IV Q12H [facility] Last Admin: 03/19/21 01:00 Dose: 200 mls/hr Documented by: Metronidazole 500 mg/ Premix 100 mls @ 100 mls/hr IV QID [facility] Last Admin: 03/19/21 06:00 Dose: 100 mls/hr Documented by: Potassium Phosphate 15 mmole/Potassium Chloride 20 meq/Sodium Chloride 515 mls @ 67.5 mls/hr IV ONETIME ONE Stop: 03/19/21 16:37 Last Admin: 03/19/21 09:12 Dose: 67.5 mls/hr Documented by: Potassium Phosphate 15 mmole/Potassium Chloride 20 meq/Sodium Chloride 515 mls @ 67.5 mls/hr IV ONETIME ONE Stop: 03/20/21 16:07 Last Admin: 03/20/21 09:20 Dose: 67.5 mls/hr Documented by: Potassium Chloride 40 meq/ (Dextrose/Sodium Chloride) 1,020 mls @ 125 mls/hr IV Q8H [facility] Stop: 03/21/21 20:29 Last Admin: 03/21/21 22:23 Dose: Not Given Documented by: Potassium Phosphate 20 mmole/ (Sodium Chloride) 506.6667 mls @ 168.889 mls/hr IV ONETIME ONE Stop: 03/21/21 11:29 Last Admin: 03/21/21 09:04 Dose: 168.889 mls/hr Documented by: Potassium Chloride 40 meq/ (Dextrose/Sodium Chloride) 1,020 mls @ 125 mls/hr IV Q8H [facility] Last Admin: 03/23/21 02:46 Dose: 125 mls/hr Documented by: Lactated Ringer's (Ringers, Lactated) 1,000 mls @ 999 mls/hr IV ONETIME ONE Stop: 03/22/21 09:19 Last Admin: 03/22/21 11:29 Dose: 999 mls/hr Documented by: Potassium Phosphate 15 mmole/ (Sodium Chloride) 505 mls @ 67.5 mls/hr IV ONETIME ONE Stop: 03/22/21 15:48 Last Admin: 03/22/21 11:29 Dose: 67.5 mls/hr Documented by: Lactated Ringer's (Ringers, Lactated) 1,000 mls @ 75 mls/hr IV ASDIRECTED [facility] Last Admin: 03/26/21 02:32 Dose: 75 mls/hr Documented by: Magnesium Sulfate (Magnesium Sulfate In Water 2 Gm/50 Ml) 2 gm in 50 mls @ 50 mls/hr IV ONETIME ONE Stop: 03/23/21 11:44 Last Admin: 03/23/21 11:18 Dose: 50 mls/hr Documented by: Lactated Ringer's (Ringers, Lactated) 1,000 mls @ 999 mls/hr IV .BOLUS ONE Stop: 03/26/21 09:04 Last Admin: 03/26/21 09:38 Dose: 999 mls/hr Documented by: Lactated Ringer's (Ringers, Lactated) 1,000 mls @ 75 mls/hr IV Q13H [facility] Last Admin: 04/01/21 06:14 Dose: 75 mls/hr Documented by: Magnesium Sulfate (Magnesium Sulfate In Water 2 Gm/50 Ml) 2 gm in 50 mls @ 50 mls/hr IV ONETIME ONE Stop: 03/27/21 09:11 Last Admin: 03/27/21 09:44 Dose: 50 mls/hr Documented by: Potassium Chloride/Sodium Chloride (Normal Saline With 40 Meq Kcl) 1,000 mls @ 125 mls/hr IV ONETIME ONE Stop: 03/27/21 16:12 Last Admin: 03/27/21 09:41 Dose: 125 mls/hr Documented by: Potassium Phosphate 15 mmole/ (Sodium Chloride) 505 mls @ 67.5 mls/hr IV ONETIME ONE Stop: 03/29/21 16:28 Last Admin: 03/29/21 09:58 Dose: 67.5 mls/hr Documented by: Magnesium Sulfate (Magnesium Sulfate In Water 2 Gm/50 Ml) 2 gm in 50 mls @ 50 mls/hr IV ONETIME ONE Stop: 03/30/21 13:29 Last Admin: 03/30/21 13:25 Dose: 50 mls/hr Documented by: Magnesium Sulfate (Magnesium Sulfate In Water 2 Gm/50 Ml) 2 gm in 50 mls @ 50 mls/hr IV ONETIME ONE Stop: 04/01/21 09:29 Last Admin: 04/01/21 09:20 Dose: 50 mls/hr Documented by: Lactated Ringer's (Ringers, Lactated) 1,000 mls @ 999 mls/hr IV .BOLUS ONE Stop: 04/02/21 09:39 Last Admin: 04/02/21 09:02 Dose: 999 mls/hr Documented by: Lactated Ringer's (Ringers, Lactated) 1,000 mls @ 999 mls/hr IV .BOLUS ONE Stop: 04/02/21 15:13 Last Admin: 04/02/21 15:12 Dose: 999 mls/hr Documented by: Magnesium Sulfate (Magnesium Sulfate In Water 2 Gm/50 Ml) 2 gm in 50 mls @ 50 mls/hr IV ONETIME ONE Stop: 04/03/21 12:59 Last Admin: 04/03/21 12:46 Dose: 50 mls/hr Documented by: Magnesium Sulfate (Magnesium Sulfate In Water 2 Gm/50 Ml) 2 gm in 50 mls @ 50 mls/hr IV ONETIME ONE Stop: 04/04/21 11:29 Last Admin: 04/04/21 11:00 Dose: 50 mls/hr Documented by: Magnesium Sulfate (Magnesium Sulfate In Water 2 Gm/50 Ml) 2 gm in 50 mls @ 50 mls/hr IV ONETIME ONE Stop: 04/05/21 09:21 Last Admin: 04/05/21 08:45 Dose: 50 mls/hr Documented by: Magnesium Oxide (Magnesium Oxide 400 Mg Tab) 800 mg PO ONETIME ONE Stop: 04/06/21 10:50 Potassium Chloride (Potassium Chloride 20 Meq Tab.Er) 40 meq PO ONETIME ONE Stop: 03/19/21 08:19 Last Admin: 03/19/21 09:19 Dose: 40 meq Documented by: Potassium Chloride (Potassium Chloride 20 Meq Tab.Er) 40 meq PO ONETIME ONE Stop: 03/19/21 15:01 Last Admin: 03/19/21 15:18 Dose: 40 meq Documented by: Potassium Chloride (Potassium Chloride 20 Meq Tab.Er) 40 meq PO BIDMEALS [facility] Last Admin: 03/23/21 08:55 Dose: 40 meq Documented by: Potassium Chloride (Potassium Chloride 20 Meq Tab.Er) 40 meq PO BIDMEALS [facility] Stop: 03/25/21 17:01 Last Admin: 03/25/21 17:36 Dose: 40 meq Documented by: Potassium Chloride (Potassium Chloride 20 Meq Tab.Er) 40 meq PO ONETIME ONE Stop: 03/26/21 09:40 Last Admin: 03/26/21 11:01 Dose: 40 meq Documented by: Potassium Chloride (Potassium Chloride 20 Meq Tab.Er) 40 meq PO BIDMEALS [facility] Potassium Chloride (Potassium Chloride 10% 20 Meq/15 Ml Soln 30 Ml Ud Cup) 40 meq PO BIDMEALS [facility] Last Admin: 03/28/21 10:46 Dose: Not Given Documented by: Potassium Chloride (Potassium Chloride 20 Meq Tab.Er) 40 meq PO BIDMEALS [facility] Last Admin: 04/02/21 08:02 Dose: 40 meq Documented by: Potassium Chloride (Potassium Chloride 10% 20 Meq/15 Ml Soln 30 Ml Ud Cup) 40 meq PO ONETIME ONE Stop: 03/30/21 12:31 Last Admin: 03/30/21 14:17 Dose: Not Given Documented by: Potassium Chloride (Potassium Chloride 20 Meq Tab.Er) 40 meq PO ONETIME ONE Stop: 03/30/21 13:46 Last Admin: 03/30/21 14:17 Dose: 40 meq Documented by: Potassium Chloride (Potassium Chloride 10 Meq Tab.Er) 40 meq PO BIDMEALS [facility] Last Admin: 04/04/21 09:39 Dose: Not Given Documented by: Potassium Chloride (Potassium Chloride 10 Meq Tab.Er) 40 meq PO ONETIME ONE Stop: 04/02/21 08:31 Last Admin: 04/02/21 09:01 Dose: 40 meq Documented by: Potassium Chloride (Potassium Chloride 10 Meq Tab.Er) 40 meq PO DAILY [facility] Last Admin: 04/06/21 08:46 Dose: Not Given Documented by: Sodium Chloride (Sodium Chloride 0.9% 10 Ml Syringe) 10 ml FLUSH ASDIRECTED PRN PRN Reason: Keep Vein Open Last Admin: 03/25/21 06:20 Dose: 10 ml Documented by: Sodium Chloride (Sodium Chloride 0.9% 2.5 Ml Syringe) 2.5 ml FLUSH ASDIRECTED PRN PRN Reason: Keep Vein Open Last Admin: 03/22/21 18:26 Dose: 2.5 ml Documented by: Sodium Phosphate (Phosphorus #1 250 Mg Tab) 250 mg PO QID [facility] Last Admin: 03/26/21 06:00 Dose: 250 mg Documented by: Vancomycin HCl (Vancomycin 125 Mg Cap) 125 mg PO Q4H [facility] Last Admin: 03/19/21 06:35 Dose: 125 mg Documented by: Vancomycin HCl (Vancomycin 125 Mg Cap) 125 mg PO QID [facility] Last Admin: 04/02/21 05:20 Dose: 125 mg Documented by: - Exam Quality Assessment: Supplemental Oxygen General: Alert, Oriented Lungs: Clear to Auscultation, Normal Respiratory Effort Cardiovascular: Regular Rate, Regular Rhythm GI/Abdominal Exam: Normal Bowel Sounds, Soft, Non-Tender - Patient Data Lab Results Last 24 hrs: Laboratory Results - last 24 hr 04/05/21 04/06/21 04/06/21 Range/Units 13:20 05:20 05:20 WBC 9.31 (4.0-11.0) K/uL RBC 3.53 L (4.50-5.90) M/uL Hgb 12.5 L (13.0-17.0) g/dL Hct 37.4 L (38.0-50.0) % MCV 105.9 H (80.0-98.0) fL MCH 35.4 H (27.0-32.0) pg MCHC 33.4 (31.0-37.0) g/dL RDW Std Deviation 61.0 (28.0-62.0) fl RDW Coeff of Caleb 16 H (11.0-15.0) % Plt Count 263 (150-400) K/uL MPV 10.30 (7.40-12.00) fL Neut % (Auto) 72.2 (48.0-80.0) % Lymph % (Auto) 23.3 (16.0-40.0) % [place] % (Auto) 4.0 (0.0-15.0) % Eos % (Auto) 0.3 (0.0-7.0) % Baso % (Auto) 0.2 (0.0-1.5) % Neut # (Auto) 6.7 H (1.4-5.7) K/uL Lymph # (Auto) 2.2 (0.6-2.4) K/uL [place] # (Auto) 0.4 (0.0-0.8) K/uL Eos # (Auto) 0.0 (0.0-0.7) K/uL Baso # (Auto) 0.0 (0.0-0.1) K/uL Nucleated RBC % 0.0 /100WBC Nucleated RBCs # 0 K/uL Sodium 138 (136-148) mmol/L Potassium 5.5 H (3.5-5.1) mmol/L Chloride 103 (98-107) mmol/L Carbon Dioxide 22.7 (21.0-32.0) mmol/L BUN 4 L (7.0-18.0) mg/dL Creatinine 1.0 (0.8-1.3) mg/dL Est Cr Clr Drug Dosing 70.26 mL/min Estimated GFR (MDRD) > 60.0 ml/min Glucose 101 (74-106) mg/dL Calcium 7.6 L (8.5-10.1) mg/dL Phosphorus 3.5 (2.6-4.7) mg/dL Magnesium 1.9 (1.8-2.4) mg/dL Urine Color DARK YELLOW Urine Appearance CLEAR Urine pH 5.0 (5.0-8.0) Ur Specific [place] >= 1.030 (1.001-1.035) Urine Protein NEGATIVE (NEGATIVE) mg/dL Urine Glucose (UA) NEGATIVE (NEGATIVE) mg/dL Urine Ketones 15 H (NEGATIVE) mg/dL Urine Occult Blood NEGATIVE (NEGATIVE) Urine Nitrite POSITIVE H (NEGATIVE) Urine Bilirubin NEGATIVE (NEGATIVE) Urine Urobilinogen 0.2 (<2.0) EU/dL Ur Leukocyte Esterase TRACE H (NEGATIVE) U Hyaline Cast (Auto) 2-5 (0-2/LPF) Urine RBC 0-1 (0-2/HPF) Urine WBC 0-2 (0-5/HPF) Ur Epithelial Cells OCCASIONAL (NONE-FEW) Urine Bacteria FEW (NEGATIVE) Urine Mucus LIGHT (NONE-MOD) Result Diagrams: 04/06/21 05:20 04/06/21 05:20 Sepsis Event Note - Evaluation Sepsis Screening Result: No Definite Risk - Focused Exam Vital Signs: Vital Signs Temp Temp Pulse Resp BP Pulse Ox 04/06/21 08:00 36.9 C 87 14 95/60 95 04/06/21 04:29 36.8 C 68 18 90/62 95 04/06/21 00:50 36.6 C 81 20 92/59 L 95 - Problem List & Annotations (1) Tongue carcinoma Status: Chronic Current Visit: Yes (2) Port-A-Cath in place SNOMED Code(s): 073357905 Code(s): Z95.828 - PRESENCE OF OTHER VASCULAR IMPLANTS AND GRAFTS Status: Acute Current Visit: Yes (3) Dehydration SNOMED Code(s): 55687249 Code(s): E86.0 - DEHYDRATION Status: Acute Current Visit: No (4) Diarrhea SNOMED Code(s): 94815778 Code(s): R19.7 - DIARRHEA, UNSPECIFIED Status: Acute Current Visit: No Qualifiers: Diarrhea type: unspecified type Qualified Code(s): R19.7 - Diarrhea, uns pecified (5) Hypokalemia SNOMED Code(s): 67209810 Code(s): E87.6 - HYPOKALEMIA Status: Acute Current Visit: No - Problem List Review Problem List Initiated/Reviewed/Updated: Yes - Plan Plan:: 70 y/o M admitted for diarrhea, eric, hypokalemia, c.diff 1. C. difficile colitis -Improving. Only 2 stool overnight. Appetite is improving and he is starting to eat much more without having significant nausea or abdominal cramping. -Spoke with Dr. Gordon infectious disease, at [facility] on 04/02/2021. He is agreeable with continued Flagyl IV 500 mg 4 times daily he did recommend increasing vancomycin orally to 250 mg 4 times daily and monitor response. He said in a day or 2 if that does not improve you also could continue consider Imodium 2 mg daily as needed diarrhea and monitor response. He requested that if there was little to no response after these changes to please contact him. Patient has not had a colonoscopy at all. I appreciate his assistance with this patient. -Blood pressures remain systolically in the 90s. Patient denies any dizziness. -Continue LR at 75 mL/h -Continue vancomycin 250 mg 4 times daily p.o. -Continue Flagyl 500 mg IV 4 times daily -Generalized weakness and deconditioning, PT consulted -Continue to monitor electrolytes daily and replace as needed -Strict I/O to monitor stools more closely. 2. Tongue carcinoma -Continue gabapentin 3. Hypothyroidism -Continue levothyroxine 4. UTI: patients UA shows mild UTI, will hold off on IV antibiotics due to risk of worsening c diff, awaiting cultures , start on oral antibiotics based on C/S, watch for worsening signs of infection such as fever, leucocytosis etc VTE prophylaxis: Heparin CODE STATUS: DNR/DNI Dispo: Continues to slowly improve, patient continues to be high risk for readmission if discharged prior to stools being more under control. possible dc thursday
[2021-04-06] MEDS: Nitrofurantoin Monohydrate/Macrocrystalline 100 MG Cap PO SCH (21:18)
[2021-04-06] MEDS: Carboxymethylcellulose Sodium 0.5% Ophth Soln 0.4 ML UD Box of 30 EYEBOTH PRN (21:20)
[2021-04-07] MEDS: Phosphorus #1 250 MG Tab PO SCH ×5 (00:14→23:38)
[2021-04-07] MEDS: Vancomycin 125 MG Cap PO SCH ×5 (00:14→23:38)
[2021-04-07] MEDS: metroNIDAZOLE/Normal Saline 500 MG in Premix Bag 1 BAG IV SCH ×3 (03:20→18:09)
[2021-04-07] MEDS: Lactated Ringers 1,000 ML IV SCH ×3 (03:24→21:45)
[2021-04-07 06:19] LABS: BLOOD UREA NITROGEN,BUN 4 mg/dL (7.0-18.0); CARBON DIOXIDE,CO2 26.7 mmol/L (21.0-32.0); CHLORIDE,CL 99 mmol/L (98-107); GLUCOSE RANDOM 100 mg/dL (74-106); POTASSIUM,K 3.4 mmol/L (3.5-5.1); SODIUM,NA 133 mmol/L (136-148)
[2021-04-07] MEDS: Heparin Sodium 5,000 Units/ML Vial SUBCUT SCH ×3 (06:45→21:55)
[2021-04-07] MEDS: Levothyroxine 50 MCG Tab PO SCH (06:46)
[2021-04-07] MEDS: Gabapentin 300 MG Cap PO SCH ×3 (06:46→21:54)
[2021-04-07] MEDS: Nitrofurantoin Monohydrate/Macrocrystalline 100 MG Cap PO SCH ×2 (08:56→21:54)
[2021-04-07] MEDS: Acidophilus with Citrus Pectin Tab PO SCH ×2 (08:57→21:54)
[2021-04-07] MEDS ORDERED: Magnesium Sulfate/Water 2 GM/50 ML Premix Bag IV ONE (12:10)
[2021-04-07] MEDS ORDERED: Potassium Chloride 20 MEQ Tab.ER PO ONE (12:10)
--- NOTE | 2021-04-07 12:18 | PCM.PN ---
- General Info Date of Service: 04/07/21 - Review of Systems Systems Review Comment:: one stool this morning and one stool last night, no fevers - Patient Data Vitals - Most Recent: Last Vital Signs Temp 36.2 C 04/07/21 11:55 Pulse 76 04/07/21 11:55 Resp 14 04/07/21 11:55 BP 100/68 04/07/21 11:55 Pulse Ox 95 04/07/21 11:55 Orthostatic Blood Pressure [ 83/54 Standing] Orthostatic Blood Pressure [ 99/66 Sitting] Orthostatic Blood Pressure [ 109/75 Supine] Weight - Most Recent: 70.261 kg I&O - Last 24 Hours: Intake & Output 04/06/21 04/07/21 04/07/21 22:59 06:59 14:59 Intake Total 700 1488 Output Total 800 720 Balance -100 768 Lab Results Last 24 Hours: Laboratory Results - last 24 hr 04/07/21 04/07/21 Range/Units 05:24 05:24 WBC 4.97 (4.0-11.0) K/uL RBC 3.03 L (4.50-5.90) M/uL Hgb 10.6 L (13.0-17.0) g/dL Hct 31.7 L (38.0-50.0) % MCV 104.6 H (80.0-98.0) fL MCH 35.0 H (27.0-32.0) pg MCHC 33.4 (31.0-37.0) g/dL RDW Std Deviation 59.4 (28.0-62.0) fl RDW Coeff of Caleb 16 H (11.0-15.0) % Plt Count 182 (150-400) K/uL MPV 10.30 (7.40-12.00) fL Neut % (Auto) 82.3 H (48.0-80.0) % Lymph % (Auto) 10.5 L (16.0-40.0) % [place] % (Auto) 6.6 (0.0-15.0) % Eos % (Auto) 0.6 (0.0-7.0) % Baso % (Auto) 0.0 (0.0-1.5) % Neut # (Auto) 4.1 (1.4-5.7) K/uL Lymph # (Auto) 0.5 L (0.6-2.4) K/uL [place] # (Auto) 0.3 (0.0-0.8) K/uL Eos # (Auto) 0.0 (0.0-0.7) K/uL Baso # (Auto) 0.0 (0.0-0.1) K/uL Nucleated RBC % 0.0 /100WBC Nucleated RBCs # 0 K/uL Sodium 133 L (136-148) mmol/L Potassium 3.4 L (3.5-5.1) mmol/L Chloride 99 (98-107) mmol/L Carbon Dioxide 26.7 (21.0-32.0) mmol/L BUN 4 L (7.0-18.0) mg/dL Creatinine 0.6 L (0.8-1.3) mg/dL Est Cr Clr Drug Dosing 117.10 mL/min Estimated GFR (MDRD) > 60.0 ml/min Glucose 100 (74-106) mg/dL Calcium 7.2 L (8.5-10.1) mg/dL Phosphorus 3.3 (2.6-4.7) mg/dL Magnesium 1.7 L (1.8-2.4) mg/dL Guillaume Results Last 24 Hours: Microbiology 04/05/21 13:20 Urine Culture - Final Urine, Clean Catch Normal Urogenital Breonna Med Orders - Current: Current Medications Acetaminophen (Acetaminophen 325 Mg Tab) 650 mg PO Q4H PRN PRN Reason: Pain (Mild 1-3)/fever Acidophilus/Pectin (Acidophilus With Grimes Pectin Tab) 1 tab PO BID BOB Last Admin: 04/07/21 08:57 Dose: 1 tab Documented by: Albuterol/Ipratropium (Albuterol/Ipratropium 3.0-0.5 Mg/3 Ml Neb Soln) 3 ml NEB Q4HRRT PRN PRN Reason: Shortness Of Breath/wheezing Artificial Tears (Carboxymethylcellulose Sodium 0.5% Ophth Soln 0.4 Ml Ud Box Of 30) 0 each EYEBOTH TID PRN PRN Reason: Dry Eyes Last Admin: 04/06/21 21:20 Dose: 1 drop Documented by: Lamar Butter/Phenylephrine (Lamar Butter/Phenylephrine Rectal Supp) 1 each RECTAL QID PRN PRN Reason: hemorrhoidal pain Last Admin: 04/02/21 18:26 Dose: 1 each Documented by: Gabapentin (Gabapentin 300 Mg Cap) 300 mg PO TID [facility] Last Admin: 04/07/21 06:46 Dose: 300 mg Documented by: Heparin Sodium (Porcine) (Heparin Sodium 5,000 Units/Ml Vial) 5,000 units SUBCUT Q8H [facility] Last Admin: 04/07/21 06:45 Dose: 5,000 units Documented by: Metronidazole 500 mg/ Premix 100 mls @ 100 mls/hr IV Q8H [facility] Last Admin: 04/07/21 11:15 Dose: 100 mls/hr Documented by: Lactated Ringer's (Ringers, Lactated) 1,000 mls @ 75 mls/hr IV Q13H [facility] Last Admin: 04/07/21 08:56 Dose: Not Given Documented by: Levothyroxine Sodium (Levothyroxine 50 Mcg Tab) 50 mcg PO ACBREAKFAST [facility] Last Admin: 04/07/21 06:46 Dose: 50 mcg Documented by: Magnesium Sulfate (Magnesium Sulfate/Water 2 Gm/50 Ml Premix Bag) 2 gm IV ONETIME ONE Stop: 04/07/21 12:11 Morphine Sulfate (Morphine 2 Mg/Ml Syringe) 1 mg IVPUSH Q4H PRN PRN Reason: Pain Nitrofurantoin Macrocrystals (Nitrofurantoin Monohydrate/Macrocrystalline 100 Mg Cap) 100 mg PO BID [facility] Last Admin: 04/07/21 08:56 Dose: 100 mg Documented by: Ondansetron HCl (Ondansetron 4 Mg/2 Ml Sdv) 4 mg IVPUSH Q4H PRN PRN Reason: Nausea/Vomiting Last Admin: 03/30/21 00:51 Dose: 4 mg Documented by: Potassium Chloride (Potassium Chloride 20 Meq Tab.Er) 40 meq PO ONETIME ONE Stop: 04/07/21 12:11 Sodium Chloride (Sodium Chloride 0.9% 2.5 Ml Syringe) 2.5 ml FLUSH ASDIRECTED PRN PRN Reason: Keep Vein Open Sodium Chloride (Sodium Chloride 0.9% 10 Ml Syringe) 10 ml FLUSH ASDIRECTED [facility] Sodium Phosphate (Phosphorus #1 250 Mg Tab) 250 mg PO QID [facility] Last Admin: 04/07/21 11:14 Dose: 250 mg Documented by: Vancomycin HCl (Vancomycin 125 Mg Cap) 250 mg PO QID [facility] Last Admin: 04/07/21 11:14 Dose: 250 mg Documented by: Discontinued Medications Sodium Chloride (Normal Saline) 1,000 mls @ 125 mls/hr IV STAT ONE Stop: 03/18/21 22:45 Last Infusion: 03/18/21 15:59 Dose: 999 mls/hr Documented by: Potassium Chloride 40 meq/ (Premix) 100 mls @ 25 mls/hr IV ONETIME ONE Stop: 03/18/21 19:50 Last Admin: 03/18/21 17:49 Dose: 25 mls/hr Documented by: Sodium Chloride (Normal Saline) 1,000 mls @ 125 mls/hr IV STAT ONE Stop: 03/18/21 23:51 Last Admin: 03/18/21 17:13 Dose: 125 mls/hr Documented by: Potassium Chloride/Dextrose/Sod Cl (D5 Ns With 20 Meq Kcl) 1,000 mls @ 125 mls/hr IV ASDIRECTED [facility] Last Admin: 03/19/21 02:12 Dose: 125 mls/hr Documented by: Lactated Ringer's (Ringers, Lactated) 1,000 mls @ 125 mls/hr IV Q8H [facility] Last Admin: 03/20/21 05:01 Dose: 125 mls/hr Documented by: Pantoprazole Sodium 40 mg/ (Sodium Chloride) 10 mls @ 200 mls/hr IV Q24H [facility] Last Admin: 04/01/21 17:11 Dose: 200 mls/hr Documented by: Ciprofloxacin/Dextrose 400 mg/ (Premix) 200 mls @ 200 mls/hr IV Q12H [facility] Last Admin: 03/19/21 01:00 Dose: 200 mls/hr Documented by: Metronidazole 500 mg/ Premix 100 mls @ 100 mls/hr IV QID [facility] Last Admin: 03/19/21 06:00 Dose: 100 mls/hr Documented by: Potassium Phosphate 15 mmole/Potassium Chloride 20 meq/Sodium Chloride 515 mls @ 67.5 mls/hr IV ONETIME ONE Stop: 03/19/21 16:37 Last Admin: 03/19/21 09:12 Dose: 67.5 mls/hr Documented by: Potassium Phosphate 15 mmole/Potassium Chloride 20 meq/Sodium Chloride 515 mls @ 67.5 mls/hr IV ONETIME ONE Stop: 03/20/21 16:07 Last Admin: 03/20/21 09:20 Dose: 67.5 mls/hr Documented by: Potassium Chloride 40 meq/ (Dextrose/Sodium Chloride) 1,020 mls @ 125 mls/hr IV Q8H [facility] Stop: 03/21/21 20:29 Last Admin: 03/21/21 22:23 Dose: Not Given Documented by: Potassium Phosphate 20 mmole/ (Sodium Chloride) 506.6667 mls @ 168.889 mls/hr IV ONETIME ONE Stop: 03/21/21 11:29 Last Admin: 03/21/21 09:04 Dose: 168.889 mls/hr Documented by: Potassium Chloride 40 meq/ (Dextrose/Sodium Chloride) 1,020 mls @ 125 mls/hr IV Q8H [facility] Last Admin: 03/23/21 02:46 Dose: 125 mls/hr Documented by: Lactated Ringer's (Ringers, Lactated) 1,000 mls @ 999 mls/hr IV ONETIME ONE Stop: 03/22/21 09:19 Last Admin: 03/22/21 11:29 Dose: 999 mls/hr Documented by: Potassium Phosphate 15 mmole/ (Sodium Chloride) 505 mls @ 67.5 mls/hr IV ONETIME ONE Stop: 03/22/21 15:48 Last Admin: 03/22/21 11:29 Dose: 67.5 mls/hr Documented by: Lactated Ringer's (Ringers, Lactated) 1,000 mls @ 75 mls/hr IV ASDIRECTED [facility] Last Admin: 03/26/21 02:32 Dose: 75 mls/hr Documented by: Magnesium Sulfate (Magnesium Sulfate In Water 2 Gm/50 Ml) 2 gm in 50 mls @ 50 mls/hr IV ONETIME ONE Stop: 03/23/21 11:44 Last Admin: 03/23/21 11:18 Dose: 50 mls/hr Documented by: Lactated Ringer's (Ringers, Lactated) 1,000 mls @ 999 mls/hr IV .BOLUS ONE Stop: 03/26/21 09:04 Last Admin: 03/26/21 09:38 Dose: 999 mls/hr Documented by: Lactated Ringer's (Ringers, Lactated) 1,000 mls @ 75 mls/hr IV Q13H [facility] Last Admin: 04/01/21 06:14 Dose: 75 mls/hr Documented by: Magnesium Sulfate (Magnesium Sulfate In Water 2 Gm/50 Ml) 2 gm in 50 mls @ 50 mls/hr IV ONETIME ONE Stop: 03/27/21 09:11 Last Admin: 03/27/21 09:44 Dose: 50 mls/hr Documented by: Potassium Chloride/Sodium Chloride (Normal Saline With 40 Meq Kcl) 1,000 mls @ 125 mls/hr IV ONETIME ONE Stop: 03/27/21 16:12 Last Admin: 03/27/21 09:41 Dose: 125 mls/hr Documented by: Potassium Phosphate 15 mmole/ (Sodium Chloride) 505 mls @ 67.5 mls/hr IV ONETIME ONE Stop: 03/29/21 16:28 Last Admin: 03/29/21 09:58 Dose: 67.5 mls/hr Documented by: Magnesium Sulfate (Magnesium Sulfate In Water 2 Gm/50 Ml) 2 gm in 50 mls @ 50 mls/hr IV ONETIME ONE Stop: 03/30/21 13:29 Last Admin: 03/30/21 13:25 Dose: 50 mls/hr Documented by: Magnesium Sulfate (Magnesium Sulfate In Water 2 Gm/50 Ml) 2 gm in 50 mls @ 50 mls/hr IV ONETIME ONE Stop: 04/01/21 09:29 Last Admin: 04/01/21 09:20 Dose: 50 mls/hr Documented by: Lactated Ringer's (Ringers, Lactated) 1,000 mls @ 999 mls/hr IV .BOLUS ONE Stop: 04/02/21 09:39 Last Admin: 04/02/21 09:02 Dose: 999 mls/hr Documented by: Lactated Ringer's (Ringers, Lactated) 1,000 mls @ 999 mls/hr IV .BOLUS ONE Stop: 04/02/21 15:13 Last Admin: 04/02/21 15:12 Dose: 999 mls/hr Documented by: Magnesium Sulfate (Magnesium Sulfate In Water 2 Gm/50 Ml) 2 gm in 50 mls @ 50 mls/hr IV ONETIME ONE Stop: 04/03/21 12:59 Last Admin: 04/03/21 12:46 Dose: 50 mls/hr Documented by: Magnesium Sulfate (Magnesium Sulfate In Water 2 Gm/50 Ml) 2 gm in 50 mls @ 50 mls/hr IV ONETIME ONE Stop: 04/04/21 11:29 Last Admin: 04/04/21 11:00 Dose: 50 mls/hr Documented by: Magnesium Sulfate (Magnesium Sulfate In Water 2 Gm/50 Ml) 2 gm in 50 mls @ 50 mls/hr IV ONETIME ONE Stop: 04/05/21 09:21 Last Admin: 04/05/21 08:45 Dose: 50 mls/hr Documented by: Magnesium Oxide (Magnesium Oxide 400 Mg Tab) 800 mg PO ONETIME ONE Stop: 04/06/21 10:50 Last Admin: 04/06/21 12:00 Dose: 800 mg Documented by: Potassium Chloride (Potassium Chloride 20 Meq Tab.Er) 40 meq PO ONETIME ONE Stop: 03/19/21 08:19 Last Admin: 03/19/21 09:19 Dose: 40 meq Documented by: Potassium Chloride (Potassium Chloride 20 Meq Tab.Er) 40 meq PO ONETIME ONE Stop: 03/19/21 15:01 Last Admin: 03/19/21 15:18 Dose: 40 meq Documented by: Potassium Chloride (Potassium Chloride 20 Meq Tab.Er) 40 meq PO BIDMEALS [facility] Last Admin: 03/23/21 08:55 Dose: 40 meq Documented by: Potassium Chloride (Potassium Chloride 20 Meq Tab.Er) 40 meq PO BIDMEALS [facility] Stop: 03/25/21 17:01 Last Admin: 03/25/21 17:36 Dose: 40 meq Documented by: Potassium Chloride (Potassium Chloride 20 Meq Tab.Er) 40 meq PO ONETIME ONE Stop: 03/26/21 09:40 Last Admin: 03/26/21 11:01 Dose: 40 meq Documented by: Potassium Chloride (Potassium Chloride 20 Meq Tab.Er) 40 meq PO BIDMEALS [facility] Potassium Chloride (Potassium Chloride 10% 20 Meq/15 Ml Soln 30 Ml Ud Cup) 40 meq PO BIDMEALS [facility] Last Admin: 03/28/21 10:46 Dose: Not Given Documented by: Potassium Chloride (Potassium Chloride 20 Meq Tab.Er) 40 meq PO BIDMEALS [facility] Last Admin: 04/02/21 08:02 Dose: 40 meq Documented by: Potassium Chloride (Potassium Chloride 10% 20 Meq/15 Ml Soln 30 Ml Ud Cup) 40 meq PO ONETIME ONE Stop: 03/30/21 12:31 Last Admin: 03/30/21 14:17 Dose: Not Given Documented by: Potassium Chloride (Potassium Chloride 20 Meq Tab.Er) 40 meq PO ONETIME ONE Stop: 03/30/21 13:46 Last Admin: 03/30/21 14:17 Dose: 40 meq Documented by: Potassium Chloride (Potassium Chloride 10 Meq Tab.Er) 40 meq PO BIDMEALS [facility] Last Admin: 04/04/21 09:39 Dose: Not Given Documented by: Potassium Chloride (Potassium Chloride 10 Meq Tab.Er) 40 meq PO ONETIME ONE Stop: 04/02/21 08:31 Last Admin: 04/02/21 09:01 Dose: 40 meq Documented by: Potassium Chloride (Potassium Chloride 10 Meq Tab.Er) 40 meq PO DAILY [facility] Last Admin: 04/06/21 08:46 Dose: Not Given Documented by: Sodium Chloride (Sodium Chloride 0.9% 10 Ml Syringe) 10 ml FLUSH ASDIRECTED PRN PRN Reason: Keep Vein Open Last Admin: 03/25/21 06:20 Dose: 10 ml Documented by: Sodium Chloride (Sodium Chloride 0.9% 2.5 Ml Syringe) 2.5 ml FLUSH ASDIRECTED PRN PRN Reason: Keep Vein Open Last Admin: 03/22/21 18:26 Dose: 2.5 ml Documented by: Sodium Phosphate (Phosphorus #1 250 Mg Tab) 250 mg PO QID [facility] Last Admin: 03/26/21 06:00 Dose: 250 mg Documented by: Vancomycin HCl (Vancomycin 125 Mg Cap) 125 mg PO Q4H [facility] Last Admin: 03/19/21 06:35 Dose: 125 mg Documented by: Vancomycin HCl (Vancomycin 125 Mg Cap) 125 mg PO QID [facility] Last Admin: 04/02/21 05:20 Dose: 125 mg Documented by: - Exam General: Alert, Oriented, Cooperative, No Acute Distress Neck: Supple Lungs: Clear to Auscultation, Normal Respiratory Effort Cardiovascular: Regular Rate, Regular Rhythm GI/Abdominal Exam: Normal Bowel Sounds, Soft, Non-Tender Extremities: Non-Tender, No Pedal Edema Skin: Warm, Dry, Intact Neurological: No New Focal Deficit - Patient Data Lab Results Last 24 hrs: Laboratory Results - last 24 hr 04/07/21 04/07/21 Range/Units 05:24 05:24 WBC 4.97 (4.0-11.0) K/uL RBC 3.03 L (4.50-5.90) M/uL Hgb 10.6 L (13.0-17.0) g/dL Hct 31.7 L (38.0-50.0) % MCV 104.6 H (80.0-98.0) fL MCH 35.0 H (27.0-32.0) pg MCHC 33.4 (31.0-37.0) g/dL RDW Std Deviation 59.4 (28.0-62.0) fl RDW Coeff of Caleb 16 H (11.0-15.0) % Plt Count 182 (150-400) K/uL MPV 10.30 (7.40-12.00) fL Neut % (Auto) 82.3 H (48.0-80.0) % Lymph % (Auto) 10.5 L (16.0-40.0) % [place] % (Auto) 6.6 (0.0-15.0) % Eos % (Auto) 0.6 (0.0-7.0) % Baso % (Auto) 0.0 (0.0-1.5) % Neut # (Auto) 4.1 (1.4-5.7) K/uL Lymph # (Auto) 0.5 L (0.6-2.4) K/uL [place] # (Auto) 0.3 (0.0-0.8) K/uL Eos # (Auto) 0.0 (0.0-0.7) K/uL Baso # (Auto) 0.0 (0.0-0.1) K/uL Nucleated RBC % 0.0 /100WBC Nucleated RBCs # 0 K/uL Sodium 133 L (136-148) mmol/L Potassium 3.4 L (3.5-5.1) mmol/L Chloride 99 (98-107) mmol/L Carbon Dioxide 26.7 (21.0-32.0) mmol/L BUN 4 L (7.0-18.0) mg/dL Creatinine 0.6 L (0.8-1.3) mg/dL Est Cr Clr Drug Dosing 117.10 mL/min Estimated GFR (MDRD) > 60.0 ml/min Glucose 100 (74-106) mg/dL Calcium 7.2 L (8.5-10.1) mg/dL Phosphorus 3.3 (2.6-4.7) mg/dL Magnesium 1.7 L (1.8-2.4) mg/dL Result Diagrams: 04/07/21 05:24 04/07/21 05:24 Guillaume Results Last 24 hrs: Microbiology 04/05/21 13:20 Urine Culture - Final Urine, Clean Catch Normal Urogenital Breonna Sepsis Event Note - Evaluation Sepsis Screening Result: No Definite Risk - Focused Exam Vital Signs: Vital Signs Temp Pulse Resp BP Pulse Ox 04/07/21 11:55 36.2 C 76 14 100/68 95 04/07/21 08:45 36.3 C 80 14 104/66 94 L 04/07/21 03:25 36.4 C 68 17 101/67 94 L 04/07/21 00:12 36.3 C 67 18 91/59 L 96 - Problem List Review Problem List Initiated/Reviewed/Updated: Yes - My Orders Last 24 Hours: My Active Orders 04/07/21 12:10 Magnesium Sulfate/Water [Magnesium Sulfate in Water 2 GM/50 ML] 2 gm IV ONETIME ONE Potassium Chloride [Klor-Con M20] 40 meq PO ONETIME ONE - Plan Plan:: 70 y/o M admitted for diarrhea, eric, hypokalemia, c.diff 1. C. difficile colitis -Improving with higher dose of vanncomycin. --Continue LR at 75 mL/h -Continue vancomycin 250 mg 4 times daily p.o. -Continue Flagyl 500 mg IV 4 times daily -Generalized weakness and deconditioning, PT consulted -Continue to monitor electrolytes daily and replace as needed -Strict I/O to monitor stools more closely. 2. Tongue carcinoma -Continue gabapentin 3. Hypothyroidism -Continue levothyroxine 4. UTI: patients UA shows mild UTI, will hold off on IV antibiotics due to risk of worsening c diff, awaiting cultures , start on oral antibiotics based on C/S, watch for worsening signs of infection such as fever, leucocytosis etc VTE prophylaxis: Heparin CODE STATUS: DNR/DNI Dispo: Continues to slowly improve, patient continues to be high risk for readmission if discharged prior to stools being more under control. possible dc thursday
[2021-04-07] MEDS ORDERED: Magnesium Sulfate/Water 2 GM/50 ML BAG IV ONE (13:00)
[2021-04-08] MEDS: metroNIDAZOLE/Normal Saline 500 MG in Premix Bag 1 BAG IV SCH ×2 (02:57→11:21)
[2021-04-08 05:52] LABS: BLOOD UREA NITROGEN,BUN 5 mg/dL (7.0-18.0); CARBON DIOXIDE,CO2 28.1 mmol/L (21.0-32.0); CHLORIDE,CL 100 mmol/L (98-107); GLUCOSE RANDOM 121 mg/dL (74-106); POTASSIUM,K 3.9 mmol/L (3.5-5.1); SODIUM,NA 135 mmol/L (136-148)
[2021-04-08] MEDS: Phosphorus #1 250 MG Tab PO SCH ×2 (06:02→11:23)
[2021-04-08] MEDS: Vancomycin 125 MG Cap PO SCH ×2 (06:02→11:23)
[2021-04-08] MEDS: Heparin Sodium 5,000 Units/ML Vial SUBCUT SCH ×2 (06:02→14:10)
[2021-04-08] MEDS: Gabapentin 300 MG Cap PO SCH ×2 (06:03→14:10)
[2021-04-08] MEDS: Levothyroxine 50 MCG Tab PO SCH ×2 (06:12→09:30)
[2021-04-08] MEDS: Nitrofurantoin Monohydrate/Macrocrystalline 100 MG Cap PO SCH (09:29)
[2021-04-08] MEDS: Acidophilus with Citrus Pectin Tab PO SCH (09:29)
[2021-04-08] MEDS: Lactated Ringers 1,000 ML IV SCH (09:31)
[2021-04-08 14:14] VITALS: BP 124/72; PULSE 83
--- NOTE | 2021-04-08 15:45 | PCM.DCSUM1 ---
Discharge Summary - Hospital Course Brief History: Patient is a 70-year-old male with past medical history of osteoarthritis, tongue cancer and is on immunotherapy (Oncologist is Dr Valdivia/Jacquelin) with his last chemotherapy approximately 6 months ago, who presents to the emergency room by ambulance with concerns of dizziness, weakness, weight loss and near syncope. Patient states he has been havinf chronic diarrhea over the past 2 months, he mentioned it to his oncologist who reportedly told patien tto take Imodium which didn't help. Past few day patient has been feeling chills and and felt that his diarrhea got worse, he has loose stools every half hour, which are totally watery in nature, he also has associa da N/V and hasnt been able to eat or drink much, States he feels very weak and dehydrated.. Today he states he has had dizziness and has felt like he is going to pass out with ambulation. Denies any syncope, Patient denies any injury/trauma/falls, fever, chills, headache, change in vision, syncope or near syncope. Denies any chest pain, back pain, shortness of breath or cough. Denies any abdominal pain, constipation or dysuria. Has not noted any blood in urine or stool. In the ER patient was found to have soft BP with HORTENCIA (1.4) low K (2.4),. Patient was admitted for further care. Diagnosis: Stroke: No - Discharge Data Discharge Date: 04/08/21 Discharge Disposition: Home, W Home Health Agency 06 Condition: Good - Referral to Home Health Date of Face to Face Encounter: 03/28/21 Reason for Homebound Status: Greg is homebound in need of caregiver or support person to bring him to appointments due to unsteady gait and deconditioning from recent hospital stay. Primary Care Physician: PCP None Skilled Need: Greg is in need of halfway care to monitor oral intake, weight and nutrition along with vital signs after prolonged course of cdiff colitis and hospital stay. He would benefit from PT/Ot to evaluate and treat due to deconditioning from acute illness and prolonged illness and hospital stay. He would also benefit from social work consult to evaluate possibility of palliative care or Hospice level care at some point. - Discharge Diagnosis/Problem(s) (1) C. difficile colitis SNOMED Code(s): 770843442 ICD Code: A04.72 - ENTEROCOLITIS D/T CLOSTRIDIUM DIFFICILE, NOT SPCF RECUR Status: Acute Current Visit: Yes (2) Hypophosphatemia SNOMED Code(s): 6955559 ICD Code: E83.39 - OTHER DISORDERS OF PHOSPHORUS METABOLISM Status: Resolved Current Visit: Yes (3) Port-A-Cath in place SNOMED Code(s): 653778237 ICD Code: Z95.828 - PRESENCE OF OTHER VASCULAR IMPLANTS AND GRAFTS Status: Acute Current Visit: Yes (4) Tongue carcinoma Status: Chronic Current Visit: Yes (5) Dehydration SNOMED Code(s): 93382089 ICD Code: E86.0 - DEHYDRATION Status: Acute Current Visit: No (6) Diarrhea SNOMED Code(s): 55551401 ICD Code: R19.7 - DIARRHEA, UNSPECIFIED Status: Acute Current Visit: No Qualifiers: Diarrhea type: unspecified type Qualified Code(s): R19.7 - Diarrhea, unspecified (7) Hypokalemia SNOMED Code(s): 49160116 ICD Code: E87.6 - HYPOKALEMIA Status: Acute Current Visit: No (8) Unsteady gait SNOMED Code(s): 86954440 ICD Code: R26.81 - UNSTEADINESS ON FEET Status: Acute Current Visit: Yes - Patient Summary/Data Consults: Consultations 03/20/21 10:59 Consult to Physical Design Engineer [CONS] Routine 03/21/21 11:41 Consult to Physical Therapy [PT Evaluation and Treatment] [CONS] Routine 04/08/21 09:28 Consult to Hospice [CONS] Routine Hospital Course: Admission diagnoses C. difficile colitis Dehydration Hypokalemia Hypophosphatemia Hypomagnesemia Discharge diagnoses C. difficile colitis improving Dehydration resolved Hypokalemia resolved Hypophosphatemia resolved hypomagnesemia resolved other PMH Tongue carcinoma Cachexia Greg was admitted secondary to worsening diarrhea that was not improving with Imodium and treatment per oncologist. Patient stool was tested and found to be positive for toxigenic C. difficile. He was started on vancomycin p.o. 125 mg 4 times daily. Stools continued to be watery for the next 2 days. Due to slow improvement Flagyl 500 mg 4 times daily IV were started. He was also started on probiotics. For the next week and a half patient continued to have significant amount of stools ranging from 3-7 stools daily with large amount of fluids being lost to stools. Patient was continued on daily supplementation of potassium, phosphate and magnesium as needed. IV fluids were continued throughout his stay. Patient continued to have watery diarrhea without significant improvement on vancomycin and Flagyl. Dr. Gordon, infectious disease from [facility] was contacted regarding recommendations. He is comfortable with Flagyl but recommended increase in vancomycin to 250 mg 4 times a day. Approximately 2 to 3 days after this dose increase patient started having decreased stools in the ability to eat more solid foods without sign ificant abdominal cramping or nausea. Today patient is feeling improved and is very anxious to be leaving the hospital. Stools have decreased to 1 to 2/day semiformed patient is eating and drinking well. Patient continues to be cachectic likely secondary to tongue carcinoma. Patient encouraged to eat well- balanced meals along with continuing Jevity and or Ensure to help with supplementation. Patient wanted to talk with hospice regarding end-of-life care as he feels as though he no longer wants to seek treatment. Hospice consult was added. Patient will be discharged home today to continue 1 more week of 250 mg vancomycin 4 times a day. He was encouraged to drink adequate fluids at least 2 L daily. As well as well-balanced diet. He is to follow-up with PCP and oncology have a repeat BMP in the next couple days. He is to return to ER or clinic sooner if concerns should arise. Patient continues to be high risk for readmission due to complexity of medical history with difficulty treat C. difficile. - Patient Instructions Diet: Regular Diet as Tolerated Activity: As Tolerated, No Strenuous Activities Driving: Do Not Drive Showering/Bathing: May Shower Notify Provider of: Fever, Increased Pain, Swelling and Redness, Drainage, Nausea and/or Vomiting Other/Special Instructions: labwork prior to appointment with Dr Kenney. - Discharge Plan *PRESCRIPTION DRUG MONITORING PROGRAM REVIEWED*: Not Applicable *COPY OF PRESCRIPTION DRUG MONITORING REPORT IN PATIENT ELÍAS: Not Applicable Prescriptions/Med Rec: Nitrofurantoin [place]/Macrocryst [Nitrofurantoin Weakley-MCR] 100 mg PO BID #3 cap Vancomycin [Vancocin 125 MG Capsule] 250 mg PO QID #60 cap Home Medications: Home Meds Gabapentin [Neurontin] 300 mg PO TID 09/10/19 [History] Levothyroxine [Synthroid] 50 mcg PO DAILY 03/18/21 [History] Nitrofurantoin Weakley/Macrocryst [Nitrofurantoin Weakley-MCR] 100 mg PO BID #3 cap 04/08/21 [Rx] Vancomycin [Vancocin 125 MG Capsule] 250 mg PO QID #60 cap 04/08/21 [Rx] Oxygen Therapy Mode: Room Air Patient Handouts: Nitrofurantoin tablets or capsules, Clostridioides Difficile Infection, [id number], Vancomycin capsules Referrals: Nagi Wen MD [Resident] - 04/17/21 2:30 pm Meet Delgado MD [Ordering Only Provider] - 04/24/21 10:20 am (Your appointment is with Dr. Delgdao's nurse practitioner here in town at the [facility], [place]. Any quesitons or concerns regarding this appointment, call [facility] at [phone] and ask for Oncology.) - Discharge Summary/Plan Comment DC Time >30 min.: Yes (arranging HH, outpatient follow up and medications) - Patient Data Vitals - Most Recent: Last Vital Signs Temp 99.2 F 04/08/21 14:14 Pulse 83 04/08/21 14:14 Resp 16 04/08/21 14:14 BP 124/72 04/08/21 14:14 Pulse Ox 94 L 04/08/21 14:14 Orthostatic Blood Pressure [ 83/54 Standing] Orthostatic Blood Pressure [ 99/66 Sitting] Orthostatic Blood Pressure [ 109/75 Supine] Weight - Most Recent: 70.261 kg I&O - Last 24 hours: Intake & Output 04/08/21 04/08/21 04/08/21 06:59 14:59 22:59 Intake Total 1182 Output Total 490 Balance 692 Lab Results - Last 24 hrs: Laboratory Results - last 24 hr 04/07/21 04/08/21 04/08/21 Range/Units 16:00 05:05 05:05 WBC 5.61 (4.0-11.0) K/uL RBC 3.26 L (4.50-5.90) M/uL Hgb 11.2 L (13.0-17.0) g/dL Hct 33.6 L (38.0-50.0) % MCV 103.1 H (80.0-98.0) fL MCH 34.4 H (27.0-32.0) pg MCHC 33.3 (31.0-37.0) g/dL RDW Std Deviation 56.3 (28.0-62.0) fl RDW Coeff of Caleb 15 (11.0-15.0) % Plt Count 200 (150-400) K/uL MPV 10.70 (7.40-12.00) fL Neut % (Auto) 83.4 H (48.0-80.0) % Lymph % (Auto) 9.8 L (16.0-40.0) % Weak[place] % (Auto) 6.1 (0.0-15.0) % Eos % (Auto) 0.5 (0.0-7.0) % Baso % (Auto) 0.2 (0.0-1.5) % Neut # (Auto) 4.7 (1.4-5.7) K/uL Lymph # (Auto) 0.6 (0.6-2.4) K/uL [place] # (Auto) 0.3 (0.0-0.8) K/uL Eos # (Auto) 0.0 (0.0-0.7) K/uL Baso # (Auto) 0.0 (0.0-0.1) K/uL Nucleated RBC % 0.0 /100WBC Nucleated RBCs # 0 K/uL Sodium 135 L (136-148) mmol/L Potassium 3.9 (3.5-5.1) mmol/L Chloride 100 (98-107) mmol/L Carbon Dioxide 28.1 (21.0-32.0) mmol/L BUN 5 L (7.0-18.0) mg/dL Creatinine 0.7 L (0.8-1.3) mg/dL Est Cr Clr Drug Dosing 100.37 mL/min Estimated GFR (MDRD) > 60.0 ml/min Glucose 121 H (74-106) mg/dL Calcium 7.2 L (8.5-10.1) mg/dL Phosphorus 2.7 (2.6-4.7) mg/dL Magnesium 1.9 (1.8-2.4) mg/dL Urine Color DARK YELLOW Urine Appearance CLEAR Urine pH 5.0 (5.0-8.0) Ur Specific [place] >= 1.030 (1.001-1.035) Urine Protein NEGATIVE (NEGATIVE) mg/dL Urine Glucose (UA) NEGATIVE (NEGATIVE) mg/dL Urine Ketones 15 H (NEGATIVE) mg/dL Urine Occult Blood NEGATIVE (NEGATIVE) Urine Nitrite POSITIVE H (NEGATIVE) Urine Bilirubin SMALL H (NEGATIVE) Urine Ictotest NEGATIVE Urine Urobilinogen 0.2 (<2.0) EU/dL Ur Leukocyte Esterase NEGATIVE (NEGATIVE) Urine RBC 0-2 (0-2/HPF) Urine WBC 1-2 (0-5/HPF) Ur Epithelial Cells FEW (NONE-FEW) Urine Bacteria FEW (NEGATIVE) Med Orders - Current: Current Medications Acetaminophen (Acetaminophen 325 Mg Tab) 650 mg PO Q4H PRN PRN Reason: Pain (Mild 1-3)/fever Acidophilus/Pectin (Acidophilus With [place] Pectin Tab) 1 tab PO BID [facility] Last Admin: 04/08/21 09:29 Dose: 1 tab Documented by: Albuterol/Ipratropium (Albuterol/Ipratropium 3.0-0.5 Mg/3 Ml Neb Soln) 3 ml NEB Q4HRRT PRN PRN Reason: Shortness Of Breath/wheezing Artificial Tears (Carboxymethylcellulose Sodium 0.5% Ophth Soln 0.4 Ml Ud Box Of 30) 0 each EYEBOTH TID PRN PRN Reason: Dry Eyes Last Admin: 04/06/21 21:20 Dose: 1 drop Documented by: Dafter Butter/Phenylephrine (Dafter Butter/Phenylephrine Rectal Supp) 1 each RECTAL QID PRN PRN Reason: hemorrhoidal pain Last Admin: 04/02/21 18:26 Dose: 1 each Documented by: Gabapentin (Gabapentin 300 Mg Cap) 300 mg PO TID [facility] Last Admin: 04/08/21 14:10 Dose: 300 mg Documented by: Heparin Sodium (Porcine) (Heparin Sodium 5,000 Units/Ml Vial) 5,000 units SUBCUT Q8H [facility] Last Admin: 04/08/21 14:10 Dose: 5,000 units Documented by: Metronidazole 500 mg/ Premix 100 mls @ 100 mls/hr IV Q8H [facility] Last Admin: 04/08/21 11:21 Dose: 100 mls/hr Documented by: Lactated Ringer's (Ringers, Lactated) 1,000 mls @ 75 mls/hr IV Q13H [facility] Last Admin: 04/08/21 09:31 Dose: Not Given Documented by: Levothyroxine Sodium (Levothyroxine 50 Mcg Tab) 50 mcg PO ACBREAKFAST [facility] Last Admin: 04/08/21 09:30 Dose: Not Given Documented by: Morphine Sulfate (Morphine 2 Mg/Ml Syringe) 1 mg IVPUSH Q4H PRN PRN Reason: Pain Nitrofurantoin Macrocrystals (Nitrofurantoin Monohydrate/Macrocrystalline 100 Mg Cap) 100 mg PO BID [facility] Last Admin: 04/08/21 09:29 Dose: 100 mg Documented by: Ondansetron HCl (Ondansetron 4 Mg/2 Ml Sdv) 4 mg IVPUSH Q4H PRN PRN Reason: Nausea/Vomiting Last Admin: 03/30/21 00:51 Dose: 4 mg Documented by: Sodium Chloride (Sodium Chloride 0.9% 2.5 Ml Syringe) 2.5 ml FLUSH ASDIRECTED PRN PRN Reason: Keep Vein Open Sodium Chloride (Sodium Chloride 0.9% 10 Ml Syringe) 10 ml FLUSH ASDIRECTED [facility] Sodium Phosphate (Phosphorus #1 250 Mg Tab) 250 mg PO QID [facility] Last Admin: 04/08/21 11:23 Dose: 250 mg Documented by: Vancomycin HCl (Vancomycin 125 Mg Cap) 250 mg PO QID [facility] Last Admin: 04/08/21 11:23 Dose: 250 mg Documented by: Discontinued Medications Sodium Chloride (Normal Saline) 1,000 mls @ 125 mls/hr IV STAT ONE Stop: 03/18/21 22:45 Last Infusion: 03/18/21 15:59 Dose: 999 mls/hr Documented by: Potassium Chloride 40 meq/ (Premix) 100 mls @ 25 mls/hr IV ONETIME ONE Stop: 03/18/21 19:50 Last Admin: 03/18/21 17:49 Dose: 25 mls/hr Documented by: Sodium Chloride (Normal Saline) 1,000 mls @ 125 mls/hr IV STAT ONE Stop: 03/18/21 23:51 Last Admin: 03/18/21 17:13 Dose: 125 mls/hr Documented by: Potassium Chloride/Dextrose/Sod Cl (D5 Ns With 20 Meq Kcl) 1,000 mls @ 125 mls/hr IV ASDIRECTED [facility] Last Admin: 03/19/21 02:12 Dose: 125 mls/hr Documented by: Lactated Ringer's (Ringers, Lactated) 1,000 mls @ 125 mls/hr IV Q8H [facility] Last Admin: 03/20/21 05:01 Dose: 125 mls/hr Documented by: Pantoprazole Sodium 40 mg/ (Sodium Chloride) 10 mls @ 200 mls/hr IV Q24H [facility] Last Admin: 04/01/21 17:11 Dose: 200 mls/hr Documented by: Ciprofloxacin/Dextrose 400 mg/ (Premix) 200 mls @ 200 mls/hr IV Q12H [facility] Last Admin: 03/19/21 01:00 Dose: 200 mls/hr Documented by: Metronidazole 500 mg/ Premix 100 mls @ 100 mls/hr IV QID [facility] Last Admin: 03/19/21 06:00 Dose: 100 mls/hr Documented by: Potassium Phosphate 15 mmole/Potassium Chloride 20 meq/Sodium Chloride 515 mls @ 67.5 mls/hr IV ONETIME ONE Stop: 03/19/21 16:37 Last Admin: 03/19/21 09:12 Dose: 67.5 mls/hr Documented by: Potassium Phosphate 15 mmole/Potassium Chloride 20 meq/Sodium Chloride 515 mls @ 67.5 mls/hr IV ONETIME ONE Stop: 03/20/21 16:07 Last Admin: 03/20/21 09:20 Dose: 67.5 mls/hr Documented by: Potassium Chloride 40 meq/ (Dextrose/Sodium Chloride) 1,020 mls @ 125 mls/hr IV Q8H [facility] Stop: 03/21/21 20:29 Last Admin: 03/21/21 22:23 Dose: Not Given Documented by: Potassium Phosphate 20 mmole/ (Sodium Chloride) 506.6667 mls @ 168.889 mls/hr IV ONETIME ONE Stop: 03/21/21 11:29 Last Admin: 03/21/21 09:04 Dose: 168.889 mls/hr Documented by: Potassium Chloride 40 meq/ (Dextrose/Sodium Chloride) 1,020 mls @ 125 mls/hr IV Q8H [facility] Last Admin: 03/23/21 02:46 Dose: 125 mls/hr Documented by: Lactated Ringer's (Ringers, Lactated) 1,000 mls @ 999 mls/hr IV ONETIME ONE Stop: 03/22/21 09:19 Last Admin: 03/22/21 11:29 Dose: 999 mls/hr Documented by: Potassium Phosphate 15 mmole/ (Sodium Chloride) 505 mls @ 67.5 mls/hr IV ONETIME ONE Stop: 03/22/21 15:48 Last Admin: 03/22/21 11:29 Dose: 67.5 mls/hr Documented by: Lactated Ringer's (Ringers, Lactated) 1,000 mls @ 75 mls/hr IV ASDIRECTED [facility] Last Admin: 03/26/21 02:32 Dose: 75 mls/hr Documented by: Magnesium Sulfate (Magnesium Sulfate In Water 2 Gm/50 Ml) 2 gm in 50 mls @ 50 mls/hr IV ONETIME ONE Stop: 03/23/21 11:44 Last Admin: 03/23/21 11:18 Dose: 50 mls/hr Documented by: Lactated Ringer's (Ringers, Lactated) 1,000 mls @ 999 mls/hr IV .BOLUS ONE Stop: 03/26/21 09:04 Last Admin: 03/26/21 09:38 Dose: 999 mls/hr Documented by: Lactated Ringer's (Ringers, Lactated) 1,000 mls @ 75 mls/hr IV Q13H [facility] Last Admin: 04/01/21 06:14 Dose: 75 mls/hr Documented by: Magnesium Sulfate (Magnesium Sulfate In Water 2 Gm/50 Ml) 2 gm in 50 mls @ 50 mls/hr IV ONETIME ONE Stop: 03/27/21 09:11 Last Admin: 03/27/21 09:44 Dose: 50 mls/hr Documented by: Potassium Chloride/Sodium Chloride (Normal Saline With 40 Meq Kcl) 1,000 mls @ 125 mls/hr IV ONETIME ONE Stop: 03/27/21 16:12 Last Admin: 03/27/21 09:41 Dose: 125 mls/hr Documented by: Potassium Phosphate 15 mmole/ (Sodium Chloride) 505 mls @ 67.5 mls/hr IV ONETIME ONE Stop: 03/29/21 16:28 Last Admin: 03/29/21 09:58 Dose: 67.5 mls/hr Documented by: Magnesium Sulfate (Magnesium Sulfate In Water 2 Gm/50 Ml) 2 gm in 50 mls @ 50 mls/hr IV ONETIME ONE Stop: 03/30/21 13:29 Last Admin: 03/30/21 13:25 Dose: 50 mls/hr Documented by: Magnesium Sulfate (Magnesium Sulfate In Water 2 Gm/50 Ml) 2 gm in 50 mls @ 50 mls/hr IV ONETIME ONE Stop: 04/01/21 09:29 Last Admin: 04/01/21 09:20 Dose: 50 mls/hr Documented by: Lactated Ringer's (Ringers, Lactated) 1,000 mls @ 999 mls/hr IV .BOLUS ONE Stop: 04/02/21 09:39 Last Admin: 04/02/21 09:02 Dose: 999 mls/hr Documented by: Lactated Ringer's (Ringers, Lactated) 1,000 mls @ 999 mls/hr IV .BOLUS ONE Stop: 04/02/21 15:13 Last Admin: 04/02/21 15:12 Dose: 999 mls/hr Documented by: Magnesium Sulfate (Magnesium Sulfate In Water 2 Gm/50 Ml) 2 gm in 50 mls @ 50 mls/hr IV ONETIME ONE Stop: 04/03/21 12:59 Last Admin: 04/03/21 12:46 Dose: 50 mls/hr Documented by: Magnesium Sulfate (Magnesium Sulfate In Water 2 Gm/50 Ml) 2 gm in 50 mls @ 50 mls/hr IV ONETIME ONE Stop: 04/04/21 11:29 Last Admin: 04/04/21 11:00 Dose: 50 mls/hr Documented by: Magnesium Sulfate (Magnesium Sulfate In Water 2 Gm/50 Ml) 2 gm in 50 mls @ 50 mls/hr IV ONETIME ONE Stop: 04/05/21 09:21 Last Admin: 04/05/21 08:45 Dose: 50 mls/hr Documented by: Magnesium Sulfate (Magnesium Sulfate In Water 2 Gm/50 Ml) 2 gm in 50 mls @ 50 mls/hr IV ONETIME ONE Stop: 04/07/21 13:59 Last Admin: 04/07/21 13:55 Dose: 50 mls/hr Documented by: Magnesium Oxide (Magnesium Oxide 400 Mg Tab) 800 mg PO ONETIME ONE Stop: 04/06/21 10:50 Last Admin: 04/06/21 12:00 Dose: 800 mg Documented by: Potassium Chloride (Potassium Chloride 20 Meq Tab.Er) 40 meq PO ONETIME ONE Stop: 03/19/21 08:19 Last Admin: 03/19/21 09:19 Dose: 40 meq Documented by: Potassium Chloride (Potassium Chloride 20 Meq Tab.Er) 40 meq PO ONETIME ONE Stop: 03/19/21 15:01 Last Admin: 03/19/21 15:18 Dose: 40 meq Documented by: Potassium Chloride (Potassium Chloride 20 Meq Tab.Er) 40 meq PO BIDMEALS [facility] Last Admin: 03/23/21 08:55 Dose: 40 meq Documented by: Potassium Chloride (Potassium Chloride 20 Meq Tab.Er) 40 meq PO BIDMEALS [facility] Stop: 03/25/21 17:01 Last Admin: 03/25/21 17:36 Dose: 40 meq Documented by: Potassium Chloride (Potassium Chloride 20 Meq Tab.Er) 40 meq PO ONETIME ONE Stop: 03/26/21 09:40 Last Admin: 03/26/21 11:01 Dose: 40 meq Documented by: Potassium Chloride (Potassium Chloride 20 Meq Tab.Er) 40 meq PO BIDMEALS [facility] Potassium Chloride (Potassium Chloride 10% 20 Meq/15 Ml Soln 30 Ml Ud Cup) 40 meq PO BIDMEALS [facility] Last Admin: 03/28/21 10:46 Dose: Not Given Documented by: Potassium Chloride (Potassium Chloride 20 Meq Tab.Er) 40 meq PO BIDMEALS [facility] Last Admin: 04/02/21 08:02 Dose: 40 meq Documented by: Potassium Chloride (Potassium Chloride 10% 20 Meq/15 Ml Soln 30 Ml Ud Cup) 40 meq PO ONETIME ONE Stop: 03/30/21 12:31 Last Admin: 03/30/21 14:17 Dose: Not Given Documented by: Potassium Chloride (Potassium Chloride 20 Meq Tab.Er) 40 meq PO ONETIME ONE Stop: 03/30/21 13:46 Last Admin: 03/30/21 14:17 Dose: 40 meq Documented by: Potassium Chloride (Potassium Chloride 10 Meq Tab.Er) 40 meq PO BIDMEALS [facility] Last Admin: 04/04/21 09:39 Dose: Not Given Documented by: Potassium Chloride (Potassium Chloride 10 Meq Tab.Er) 40 meq PO ONETIME ONE Stop: 04/02/21 08:31 Last Admin: 04/02/21 09:01 Dose: 40 meq Documented by: Potassium Chloride (Potassium Chloride 10 Meq Tab.Er) 40 meq PO DAILY [facility] Last Admin: 04/06/21 08:46 Dose: Not Given Documented by: Potassium Chloride (Potassium Chloride 20 Meq Tab.Er) 40 meq PO ONETIME ONE Stop: 04/07/21 12:11 Last Admin: 04/07/21 13:56 Dose: 40 meq Documented by: Sodium Chloride (Sodium Chloride 0.9% 10 Ml Syringe) 10 ml FLUSH ASDIRECTED PRN PRN Reason: Keep Vein Open Last Admin: 03/25/21 06:20 Dose: 10 ml Documented by: Sodium Chloride (Sodium Chloride 0.9% 2.5 Ml Syringe) 2.5 ml FLUSH ASDIRECTED PRN PRN Reason: Keep Vein Open Last Admin: 03/22/21 18:26 Dose: 2.5 ml Documented by: Sodium Phosphate (Phosphorus #1 250 Mg Tab) 250 mg PO QID [facility] Last Admin: 03/26/21 06:00 Dose: 250 mg Documented by: Vancomycin HCl (Vancomycin 125 Mg Cap) 125 mg PO Q4H [facility] Last Admin: 03/19/21 06:35 Dose: 125 mg Documented by: Vancomycin HCl (Vancomycin 125 Mg Cap) 125 mg PO QID [facility] Last Admin: 04/02/21 05:20 Dose: 125 mg Documented by: - Exam General: Reports: Alert, Oriented, Cooperative, No Acute Distress, Other (cachetic) Lungs: Reports: Clear to Auscultation, Normal Respiratory Effort Cardiovascular: Reports: Regular Rate, Regular Rhythm GI/Abdominal Exam: Normal Bowel Sounds, Soft, Non-Tender Extremities: Normal Inspection, Normal Range of Motion, Non-Tender, No Pedal Edema Neurological: Reports: No New Focal Deficit Psy/Mental Status: Reports: Alert, Normal Affect, Normal Mood
[2021-04-08] MEDS ORDERED: Heparin Sodium 100 Units/ML 3 ML Syringe FLUSH ONE (16:37)
--- NOTE | 2021-04-10 12:54 | PCM.SN.2 ---
- Free Text/Narrative Note: Patient urine culture returned with Klebsiella pneumoniae resistant to nitrofurantoin that we send him home on. Discussed with Dr. Lara likelihood of actual infection due to labeled and commented stool contamination from microbiology was noted on sample. Will hold off on any antibiotics as antibiotics may be more detrimental to patient from worsening C. difficile.
== END 2021-04-08 16:55 | disposition home health service (06) | DRG 372 ==
LOC: MW.ED 14:37 → MW.MS 16:00 → OBSVTOIN 03-19 11:57 → MW.MS 03-19 11:58
PROVIDERS: ADMIT Student in an Organized Health Care Education/Training Program; ATTEND Student in an Organized Health Care Education/Training Program
DX: A04.72 Enterocolitis due to Clostridium difficile, not specified as recurrent (principal); N17.9 Acute kidney failure, unspecified; R55 Syncope and collapse; R64 Cachexia; D84.9 Immunodeficiency, unspecified; N39.0 Urinary tract infection, site not specified; Z66 Do not resuscitate; E83.39 Other disorders of phosphorus metabolism; E86.0 Dehydration; E87.6 Hypokalemia; R53.1 Weakness; R26.81 Unsteadiness on feet; R19.7 Diarrhea, unspecified; E83.42 Hypomagnesemia; C02.9 Malignant neoplasm of tongue, unspecified; M19.90 Unspecified osteoarthritis, unspecified site; I10 Essential (primary) hypertension; Z92.21 Personal history of antineoplastic chemotherapy; G62.9 Polyneuropathy, unspecified; E03.9 Hypothyroidism, unspecified; Z95.828 Presence of other vascular implants and grafts; Z79.890 Hormone replacement therapy; Z88.0 Allergy status to penicillin; Z79.899 Other long term (current) drug therapy; Z91.018 Allergy to other foods; Z20.822 Contact with and (suspected) exposure to COVID-19; Z68.22 Body mass index [BMI] 22.0-22.9, adult
CPT/HCPCS: 36415 ×2; 71045; 80048 ×2; 80053; 81001; 83735 ×3; 84100; 84484; 85025 ×2; 87045; 87046; 87324; 87328; 87329; 87449; 87493; 87899; 93005; 96365; 96366; 96375 ×2; 96376 ×2; 99285; A9270 ×5; C9113; G0378 ×3; J0744; J3480 ×3; J3490 ×2; J7030 ×2; J7040; U0002; 36568; 36569; 36590; 82947; 83605; 84132; 87086; 87088; 87186; 93010; 97110-GP; 97162-GP; 97802; 99284; J1644; J2405; J3475; J7042; J7120

== ENCOUNTER 2021-04-11 14:48 | Emergency (ER) | payer MEDICARE, MEDICAID ==
[2021-04-11] MEDS ORDERED: Sodium Chloride 0.9% 10 ML Syringe FLUSH PRN (14:54)
[2021-04-11] MEDS ORDERED: Sodium Chloride 0.9% 2.5 ML Syringe FLUSH PRN (14:54)
--- NOTE | 2021-04-11 15:02 | EDM.PDOC ---
ED HPI GENERAL MEDICAL PROBLEM - General Chief Complaint: Upper Extremity Injury/Pain Stated Complaint: EMS Time Seen by Provider: 04/11/21 14:48 - History of Present Illness INITIAL COMMENTS - FREE TEXT/NARRATIVE: History of present illness[] Patient is swelling in the right upper extremity. He was discharged on 08 April after hospitalization for debilitated state hypophosphatemia hypokalemia and failure to thrive with tongue cancer. Blood draws and IV access were all done in the right upper extremity. He was aching a lot this morning. It is better now. Review of systems: As per history of present illness and below otherwise all systems reviewed and negative. Past medical history: As per history of present illness and as reviewed below otherwise noncontributory. Surgical history: As per history of present illness and as reviewed below otherwise noncontributory. Social history: No reported history of drug or alcohol abuse. Family history: As per history of present illness and as reviewed below otherwise noncontributory. Physical exam: Constitutional - well developed, well-nourished and in no acute distress HEENT - normocephalic, no evidence of trauma - external nose and mouth normal - no mass in neck and no JVD - mucosae moist EYES - full EOM, PERRL, no icterus - no evidence of inflammation, injection, or drainage Respiratory - no respiratory distress, equal bilateral expansion, lungs clear to auscultation and no abnormal lung sounds Cardiovascular - Regular Rhythm with S1 and S2 appreciated and no murmur, gallop or rub. GI - abdomen soft without distension or organomegaly - normal bowel sounds - no guard or rebound Musculoskeletal no gross deformity of long bones or joints - no tenderness, swelling or edema Neurologic - Alert and oriented times four - CN II-XII grossly intact - motor sensory and coordination symmetrically normal Psychiatric - appropriate mood and affect with normal thought content Hematologic - No petechiae or purpura - mucosa appropriate color and sclera not pale - normal nail bed color and refill Integument - no rash or evidence of trauma - normal turgor Diagnostics: [] Therapeutics: [] Impression: [] Plan: [] Definitive disposition and diagnosis as appropriate pending reevaluation and review of above. - Related Data Allergies Allergy/AdvReac Type Severity Reaction Status Date / Time wing Allergy Other Verified 04/11/21 14:55 coconut Allergy Other Verified 04/11/21 14:55 Penicillins Allergy Hives Verified 04/11/21 14:55 Home Meds: Home Meds Gabapentin [Neurontin] 300 mg PO TID 09/10/19 [History] Levothyroxine [Synthroid] 50 mcg PO DAILY 03/18/21 [History] Nitrofurantoin Poinsett/Macrocryst [Nitrofurantoin Poinsett-MCR] 100 mg PO BID #3 cap 04/08/21 [Rx] Vancomycin [Vancocin 125 MG Capsule] 250 mg PO QID #60 cap 04/08/21 [Rx] Past Medical History - Past Health History Medical/Surgical History: Denies Medical/Surgical History Cardiovascular History: Reports: Hypertension Musculoskeletal History: Reports: Arthritis Neurological History: Reports: Neuropathy, Peripheral Psychiatric History: Reports: None Endocrine/Metabolic History: Reports: Hypothyroidism Other Oncologic History: "tongue cancer." - Infectious Disease History Infectious Disease History: Reports: None - Past Surgical History HEENT Surgical History: Reports: Other (See Below) Other HEENT Surgeries/Procedures: tongue surgery Musculoskeletal Surgical History: Reports: Other (See Below) Other Musculoskeletal Surgeries/Procedures:: Head surgery, plate in place 40+ years ago Social & Family History - Family History Family Medical History: No Pertinent Family History - Caffeine Use Caffeine Use: Reports: Soda ED ROS GENERAL - Review of Systems Review Of Systems: Comprehensive ROS is negative, except as noted in HPI. ED EXAM, GENERAL - Physical Exam Exam: See Below Course - Vital Signs Text/Narrative:: [id number] patient has a new doctor and the home health care nurse. Labs are not much different from discharge. Discussed with the hospitalist and we agreed the patient actually that feels good is eating drinking no longer has diarrhea could go home. Last Recorded V/S: Last Vital Signs Temp 36.4 C 04/11/21 14:55 Pulse 92 04/11/21 15:42 Resp 18 04/11/21 15:42 BP 121/65 04/11/21 15:42 Pulse Ox 98 04/11/21 15:42 - Orders/Labs/Meds Orders: Active Orders 24 hr Category Date Time Status Sodium Chloride 0.9% [Saline Flush] Med 04/11/21 14:54 Active 10 ml FLUSH ASDIRECTED PRN Sodium Chloride 0.9% [Saline Flush] Med 04/11/21 14:54 Active 2.5 ml FLUSH ASDIRECTED PRN Saline Lock Insert [OM.PC] Stat Oth 04/11/21 14:54 Ordered Medication Orders Sodium Chloride (Sodium Chloride 0.9% 10 Ml Syringe) 10 ml FLUSH ASDIRECTED PRN PRN Reason: Keep Vein Open Sodium Chloride (Sodium Chloride 0.9% 2.5 Ml Syringe) 2.5 ml FLUSH ASDIRECTED PRN PRN Reason: Keep Vein Open Labs: Laboratory Tests 04/11/21 04/11/21 04/11/21 Range/Units 15:55 15:55 15:55 WBC 7.42 (4.0-11.0) K/uL RBC 3.16 L (4.50-5.90) M/uL Hgb 11.0 L (13.0-17.0) g/dL Hct 33.4 L (38.0-50.0) % MCV 105.7 H (80.0-98.0) fL MCH 34.8 H (27.0-32.0) pg MCHC 32.9 (31.0-37.0) g/dL RDW Std Deviation 59.4 (28.0-62.0) fl RDW Coeff of Caleb 15 (11.0-15.0) % Plt Count 260 (150-400) K/uL MPV 10.30 (7.40-12.00) fL Neut % (Auto) 80.3 H (48.0-80.0) % Lymph % (Auto) 9.8 L (16.0-40.0) % Poinsett % (Auto) 9.4 (0.0-15.0) % Eos % (Auto) 0.4 (0.0-7.0) % Baso % (Auto) 0.1 (0.0-1.5) % Neut # (Auto) 6.0 H (1.4-5.7) K/uL Lymph # (Auto) 0.7 (0.6-2.4) K/uL Po[place]ett # (Auto) 0.7 (0.0-0.8) K/uL Eos # (Auto) 0.0 (0.0-0.7) K/uL Baso # (Auto) 0.0 (0.0-0.1) K/uL Nucleated RBC % 0.0 /100WBC Nucleated RBCs # 0 K/uL Sodium 132 L (136-148) mmol/L Potassium 4.1 (3.5-5.1) mmol/L Chloride 100 (98-107) mmol/L Carbon Dioxide 28.3 (21.0-32.0) mmol/L BUN 12 (7.0-18.0) mg/dL Creatinine 0.8 (0.8-1.3) mg/dL Est Cr Clr Drug Dosing 91.25 mL/min Estimated GFR (MDRD) > 60.0 ml/min Glucose 163 H (74-106) mg/dL Calcium 7.8 L (8.5-10.1) mg/dL Phosphorus 2.5 L (2.6-4.7) mg/dL Magnesium 1.7 L (1.8-2.4) mg/dL Total Bilirubin 0.2 (0.2-1.0) mg/dL AST 23 (15-37) IU/L ALT 29 (14-63) IU/L Alkaline Phosphatase 40 L (46-116) U/L B-Natriuretic Peptide 258 H (<100) PG/ML Total Protein 5.5 L (6.4-8.2) g/dL Albumin 2.1 L (3.4-5.0) g/dL Globulin 3.4 (2.6-4.0) g/dL Albumin/Globulin Ratio 0.6 L (0.9-1.6) Meds: Medications Generic Name Dose Route Start Last Admin Trade Name Freq PRN Reason Stop Dose Admin Sodium Chloride 10 ml 04/11/21 14:54 Sodium Chloride 0.9% 10 Ml Syringe FLUSH ASDIRECTED PRN Keep Vein Open Sodium Chloride 2.5 ml 04/11/21 14:54 Sodium Chloride 0.9% 2.5 Ml Syringe FLUSH ASDIRECTED PRN Keep Vein Open Departure - Departure Time of Disposition: 17:30 Disposition: Home, Self-Care 01 Condition: Good Clinical Impression: Swelling of right upper extremity - Discharge Information Forms: ED Department Discharge Additional Instructions: There was no evidence of a blood clot in the right upper extremity-elevate the right upper extremity that is much as possible. Follow-up with the primary doctor that is been assigned. [facility] [address] [place] [id number] [facility] [address] [place] [id number] The following information is given to patients seen in the emergency department who are being discharged to home. This information is to outline your options for follow-up care. We provide all patients seen in our emergency department with a follow-up referral. The need for follow-up, as well as the timing and circumstances, are variable depending upon the specifics of your emergency department visit. If you don't have a primary care physician on staff, we will provide you with a referral. We always advise you to contact your personal physician following an emergency department visit to inform them of the circumstance of the visit and for follow-up with them and/or the need for any referrals to a consulting specialist. The emergency department will also refer you to a specialist when appropriate. This referral assures that you have the opportunity for follow-up care with a specialist. All of these measure are taken in an effort to provide you with optimal care, which includes your follow-up. Under all circumstances we always encourage you to contact your private physician who remains a resource for coordinating your care. When calling for follow-up care, please make the office aware that this follow-up is from your recent emergency room visit. If for any reason you are refused follow-up, please contact the [facility] Emergency Department at and asked to speak to the emergency department charge nurse. Sepsis Event Note (ED) - Focused Exam Vital Signs: Vital Signs Temp Pulse Resp BP Pulse Ox 04/11/21 15:42 92 18 121/65 98 04/11/21 14:55 36.4 C 97 16 120/73 97 - My Orders Last 24 Hours: My Active Orders 04/11/21 14:54 Sodium Chloride 0.9% [Saline Flush] 10 ml FLUSH ASDIRECTED PRN Sodium Chloride 0.9% [Saline Flush] 2.5 ml FLUSH ASDIRECTED PRN Saline Lock Insert [OM.PC] Stat - Assessment/Plan Last 24 Hours: My Active Orders 04/11/21 14:54 Sodium Chloride 0.9% [Saline Flush] 10 ml FLUSH ASDIRECTED PRN Sodium Chloride 0.9% [Saline Flush] 2.5 ml FLUSH ASDIRECTED PRN Saline Lock Insert [OM.PC] Stat
[2021-04-11 16:24] LABS: BLOOD UREA NITROGEN,BUN 12 mg/dL (7.0-18.0); CARBON DIOXIDE,CO2 28.3 mmol/L (21.0-32.0); CHLORIDE,CL 100 mmol/L (98-107); GLUCOSE RANDOM 163 mg/dL (74-106); POTASSIUM,K 4.1 mmol/L (3.5-5.1); SODIUM,NA 132 mmol/L (136-148)
--- NOTE | 2021-04-11 16:46 | CR ---
Indication: Congestive heart failure Technique: Chest 1 view Comparison: Chest x-ray 03/18/2021 and PET-CT 02/26/2021 Findings/Impression: Cardiovascular and mediastinum: Normal heart size with right-sided Port-A-Cath with tip at the cavoatrial junction. Lungs and pleural space: No pleural effusion or pneumothorax. No acute consolidation. Right lung pulmonary nodule has mildly increased in size (prior 9 mm, current 13 mm). Bones and soft tissues: Surgical clips right neck. Dictated by Isaac Garza MD @ 04/11/2021 4:45:[address] Isaac Garza @ Apr 11 2021 4:45PM
--- NOTE | 2021-04-11 17:05 | US ---
INDICATION: TECHNIQUE: Ultrasound venous duplex upper right extremity. Compression venous exam was performed using simpson-scale, color Doppler, and spectral Doppler imaging. COMPARISON: None. FINDINGS: The right internal jugular, subclavian, and axillary veins are patent with normal waveforms. The brachial, basilic, and cephalic veins are fully compressible. No soft tissue abnormalities seen. IMPRESSION: Normal ultrasound of the right upper extremity veins. Dictated by Desmond Sanderson MD @ 04/11/2021 5:03:[address] Desmond Sanderson @ Apr 11 2021 5:03PM
[2021-04-11 18:15] VITALS: BP 134/72; PULSE 68
== END 2021-04-11 18:15 | disposition home or self-care (01) ==
LOC: MW.ED 14:48
DX: R22.31 Localized swelling, mass and lump, right upper limb (principal); I10 Essential (primary) hypertension; E03.9 Hypothyroidism, unspecified; G62.9 Polyneuropathy, unspecified; Z91.018 Allergy to other foods; Z88.0 Allergy status to penicillin; Z79.899 Other long term (current) drug therapy
CPT/HCPCS: 36415; 71045; 71045-26; 80053; 83735; 83880; 84100; 85025; 93971-26-RT; 93971-RT; 99282; 99284-25

== ENCOUNTER 2021-05-29 16:18 | Inpatient (IN) | payer MEDICARE, MEDICAID ==
[2021-05-29] MEDS ORDERED: Acetaminophen 500 MG Tab PO ONE (16:27)
--- NOTE | 2021-05-29 16:29 | EDM.PDOC ---
ED HPI GENERAL MEDICAL PROBLEM - General Chief Complaint: General Stated Complaint: SHAKING Time Seen by Provider: 05/29/21 16:20 Source of Information: Reports: Patient History Limitations: Reports: No Limitations - History of Present Illness INITIAL COMMENTS - FREE TEXT/NARRATIVE: Patient is a 70-year-old male with a history of tongue cancer was currently at a clinic appointment to where he suddenly had this bout of tremors and shaking. Patient is fully awake and answering questions but states he is feels cold. He states is never happened to him before. He denies any cough urinary problems abdominal pain chest pain no other symptoms. Patient not take any other medications or the day before his appointment joint Pain Score (Numeric/FACES): 5 - Related Data Allergies Allergy/AdvReac Type Severity Reaction Status Date / Time wing Allergy Other Verified 05/29/21 16:40 coconut Allergy Other Verified 05/29/21 16:40 Penicillins Allergy Hives Verified 05/29/21 16:40 Home Meds: Home Meds Gabapentin [Neurontin] 300 mg PO TID 09/10/19 [History] Levothyroxine [Synthroid] 50 mcg PO DAILY 03/18/21 [History] Past Medical History - Past Health History Medical/Surgical History: Denies Medical/Surgical History Cardiovascular History: Reports: Hypertension Respiratory History: Reports: None Gastrointestinal History: Reports: None Genitourinary History: Reports: None Musculoskeletal History: Reports: Arthritis Neurological History: Reports: Neuropathy, Peripheral Psychiatric History: Reports: None Endocrine/Metabolic History: Reports: Hypothyroidism Hematologic History: Reports: None Immunologic History: Reports: None Other Oncologic History: "tongue cancer." - Infectious Disease History Infectious Disease History: Reports: None - Past Surgical History HEENT Surgical History: Reports: Other (See Below) Other HEENT Surgeries/Procedures: tongue surgery Musculoskeletal Surgical History: Reports: Other (See Below) Other Musculoskeletal Surgeries/Procedures:: Head surgery, plate in place 40+ years ago Social & Family History - Family History Family Medical History: No Pertinent Family History - Caffeine Use Caffeine Use: Reports: Coffee ED ROS GENERAL - Review of Systems Review Of Systems: See Below Constitutional: Reports: No Symptoms HEENT: Reports: No Symptoms Respiratory: Reports: No Symptoms Cardiovascular: Reports: No Symptoms Endocrine: Reports: No Symptoms GI/Abdominal: Reports: No Symptoms : Reports: No Symptoms Musculoskeletal: Reports: No Symptoms Skin: Reports: No Symptoms Neurological: Reports: Tremors Psychiatric: Reports: No Symptoms Hematologic/Lymphatic: Reports: No Symptoms Immunologic: Reports: No Symptoms ED EXAM, GENERAL - Physical Exam Exam: See Below Exam Limited By: No Limitations General Appearance: Alert, WD/WN, No Apparent Distress Eye Exam: Bilateral Eye: EOMI, PERRL Respiratory/Chest: No Respiratory Distress, Lungs Clear, Normal Breath Sounds Cardiovascular: Normal Peripheral Pulses, Regular Rate, Rhythm GI/Abdominal: Normal Bowel Sounds, Soft, Non-Tender Extremities: Normal Inspection Neurological: Alert, Oriented #1 Interpretation EKG Date: 05/29/21 Time: 16:24 Rhythm: Other (sinus tachy) Rate (Beats/Min): 134 ST-T: Normal Course - Vital Signs Last Recorded V/S: Last Vital Signs Temp 100.3 F 05/29/21 18:49 Pulse 103 H 05/29/21 18:27 Resp 17 05/29/21 18:27 BP 85/54 L 05/29/21 18:27 Pulse Ox 97 05/29/21 18:27 - Orders/Labs/Meds Orders: Active Orders 24 hr Category Date Time Status Patient Status [ADT] Routine ADT 05/29/21 18:57 Ordered Insert Urinary Catheter [OM.PC] Q24H Care 05/29/21 19:00 Ordered Urinary Catheter Assessment [RC] ASDIRECTED Care 05/29/21 18:56 Ordered CORONAVIRUS COVID-19 CHANDRA [MOLEC] Stat Lab 05/29/21 17:49 Ordered CULTURE BLOOD [BC] Stat Lab 05/29/21 16:25 Received CULTURE BLOOD [BC] Stat Lab 05/29/21 17:46 Received LACTIC ACID SEPSIS W/ REFLEX [LACTATE SEPSIS W/ REFLEX] Lab 05/29/21 18:18 Ordered [CHEM] Stat REFLEX LACTIC ACID YES OR NO [CHEM] Routine Lab 05/29/21 17:25 Received UA W/NICOLAS RFLX IF INDICATED [URIN] Stat Lab 05/29/21 17:36 Ordered Vancomycin 1.25 gm Med 05/29/21 18:27 Active Sodium Chloride 0.9% [Normal Saline (AdvBag)] 250 ml IV ONETIME Blood Culture x2 Reflex Set [OM.PC] Stat Oth 05/29/21 17:36 Ordered Medication Orders Vancomycin HCl 1.25 gm/ Sodium (Chloride) 250 mls @ 167 mls/hr IV ONETIME ONE Stop: 05/29/21 19:56 Last Admin: 05/29/21 18:48 Dose: 167 mls/hr Documented by: PASHA Labs: Laboratory Tests 05/29/21 05/29/21 05/29/21 Range/Units 16:25 16:25 16:25 WBC 7.21 (4.0-11.0) K/uL RBC 3.77 L (4.50-5.90) M/uL Hgb 12.0 L (13.0-17.0) g/dL Hct 37.7 L (38.0-50.0) % MCV 100.0 H (80.0-98.0) fL MCH 31.8 (27.0-32.0) pg MCHC 31.8 (31.0-37.0) g/dL RDW Std Deviation 55.4 (28.0-62.0) fl RDW Coeff of Caleb 15 (11.0-15.0) % Plt Count 476 H (150-400) K/uL MPV 10.00 (7.40-12.00) fL Neut % (Auto) 73.2 (48.0-80.0) % Lymph % (Auto) 24.0 (16.0-40.0) % Brule % (Auto) 1.8 (0.0-15.0) % Eos % (Auto) 0.7 (0.0-7.0) % Baso % (Auto) 0.3 (0.0-1.5) % Neut # (Auto) 5.3 (1.4-5.7) K/uL Lymph # (Auto) 1.7 (0.6-2.4) K/uL Brule # (Auto) 0.1 (0.0-0.8) K/uL Eos # (Auto) 0.1 (0.0-0.7) K/uL Baso # (Auto) 0.0 (0.0-0.1) K/uL Nucleated RBC % 0.0 /100WBC Nucleated RBCs # 0 K/uL Sodium 140 (136-148) mmol/L Potassium 5.4 H (3.5-5.1) mmol/L Chloride 102 (98-107) mmol/L Carbon Dioxide 17.9 L (21.0-32.0) mmol/L BUN 14 (7.0-18.0) mg/dL Creatinine 0.9 (0.8-1.3) mg/dL Est Cr Clr Drug Dosing 78.56 mL/min Estimated GFR (MDRD) > 60.0 ml/min Glucose 115 H (74-106) mg/dL Lactic Acid 15.7 H* (0.4-2.0) mmol/L Calcium 9.7 (8.5-10.1) mg/dL Phosphorus 5.0 H (2.6-4.7) mg/dL Magnesium 2.2 (1.8-2.4) mg/dL Total Bilirubin 0.4 (0.2-1.0) mg/dL AST 21 (15-37) IU/L ALT 23 (14-63) IU/L Alkaline Phosphatase 71 (46-116) U/L Creatine Kinase 57 (26-308) U/L Total Protein 7.9 (6.4-8.2) g/dL Albumin 3.2 L (3.4-5.0) g/dL Globulin 4.7 H (2.6-4.0) g/dL Albumin/Globulin Ratio 0.7 L (0.9-1.6) Lipase 280 (73-393) U/L Meds: Medications Generic Name Dose Route Start Last Admin Trade Name Freq PRN Reason Stop Dose Admin Vancomycin HCl 1.25 gm/ Sodium 250 mls @ 167 mls/hr 05/29/21 18:27 05/29/21 18:48 Chloride IV 05/29/21 19:56 167 mls/hr ONETIME ONE Administration Discontinued Medications Generic Name Dose Route Start Last Admin Trade Name Freq PRN Reason Stop Dose Admin Acetaminophen 650 mg 05/29/21 16:27 05/29/21 16:41 Acetaminophen 500 Mg Tab PO 05/29/21 16:28 Not Given ONETIME ONE Acetaminophen 650 mg 05/29/21 16:41 05/29/21 16:47 Acetaminophen 325 Mg Tab PO 05/29/21 16:42 650 mg NOW ONE Administration Sodium Chloride 1,000 mls @ 999 mls/hr 05/29/21 16:46 05/29/21 16:47 Normal Saline IV 05/29/21 17:46 999 mls/hr .Bolus ONE Administration Sodium Chloride 1,000 mls @ 999 mls/hr 05/29/21 17:41 05/29/21 18:26 Normal Saline IV 05/29/21 18:41 999 mls/hr .BOLUS ONE Administration Meropenem 1 gm/ Sodium 100 mls @ 200 mls/hr 05/29/21 18:27 Chloride IV 05/29/21 18:56 ONETIME ONE Ibuprofen 800 mg 05/29/21 18:36 05/29/21 18:49 Ibuprofen 800 Mg Tab PO 05/29/21 18:37 800 mg ONETIME ONE Administration Departure - Departure Time of Disposition: 18:58 Disposition: Admitted As Inpatient 68 Condition: Good Clinical Impression: Sepsis - Discharge Information Referrals: PCP,None [Primary Care Provider] - Forms: ED Department Discharge Critical Care Note - Critical Care Note Total Time (mins): 45 Comments: Critical Care Procedure Note Authorized and Performed by: Dr. Martell Total critical care time: Approximately Due to a high probability of clinically significant, life threatening deterioration, the patient required my highest level of preparedness to intervene emergently and I personally spent this critical care time directly and personally managing the patient. This critical care time included obtaining a history; examining the patient; pulse oximetry; ordering and review of studies; arranging urgent treatment with development of a management plan; evaluation of patient's response to treatment; frequent reassessment; and, discussions with other providers. This critical care time was performed to assess and manage the high probability of imminent, life-threatening deterioration that could result in multi-organ failure. It was exclusive of separately billable procedures and treating other patients and teaching time. Sepsis Event Note (ED) - Focused Exam Vital Signs: Vital Signs Temp Temp Pulse Resp BP Pulse Ox 05/29/21 18:49 100.3 F 05/29/21 18:27 101.1 F H 103 H 17 85/54 L 97 05/29/21 18:18 104 H 85/54 L 05/29/21 17:55 101.6 F H 109 H 15 87/56 L 96 05/29/21 17:35 106 H 87/56 L 05/29/21 17:29 107 H 91/59 L 05/29/21 16:59 118 H 139/80 05/29/21 16:47 100.3 F 05/29/21 16:35 100.3 F 112 H 20 180/100 H 94 L - My Orders Last 24 Hours: My Active Orders 05/29/21 16:25 CULTURE BLOOD [BC] Stat 05/29/21 17:25 REFLEX LACTIC ACID YES OR NO [CHEM] Routine 05/29/21 17:36 UA W/NICOLAS RFLX IF INDICATED [URIN] Stat Blood Culture x2 Reflex Set [OM.PC] Stat 05/29/21 17:46 CULTURE BLOOD [BC] Stat 05/29/21 17:49 CORONAVIRUS COVID-19 CHANDRA [MOLEC] Stat 05/29/21 18:18 LACTIC ACID SEPSIS W/ REFLEX [LACTATE SEPSIS W/ REFLEX] [CHEM] Stat 05/29/21 18:27 Vancomycin 1.25 gm Sodium Chloride 0.9% [Normal Saline (AdvBag)] 250 ml IV ONETIME 05/29/21 18:56 Urinary Catheter Assessment [RC] ASDIRECTED 05/29/21 18:57 Patient Status [ADT] Routine 05/29/21 19:00 Insert Urinary Catheter [OM.PC] Q24H - Assessment/Plan Last 24 Hours: My Active Orders 05/29/21 16:25 CULTURE BLOOD [BC] Stat 05/29/21 17:25 REFLEX LACTIC ACID YES OR NO [CHEM] Routine 05/29/21 17:36 UA W/NICOLAS RFLX IF INDICATED [URIN] Stat Blood Culture x2 Reflex Set [OM.PC] Stat 05/29/21 17:46 CULTURE BLOOD [BC] Stat 05/29/21 17:49 CORONAVIRUS COVID-19 CHANDRA [MOLEC] Stat 05/29/21 18:18 LACTIC ACID SEPSIS W/ REFLEX [LACTATE SEPSIS W/ REFLEX] [CHEM] Stat 05/29/21 18:27 Vancomycin 1.25 gm Sodium Chloride 0.9% [Normal Saline (AdvBag)] 250 ml IV ONETIME 05/29/21 18:56 Urinary Catheter Assessment [RC] ASDIRECTED 05/29/21 18:57 Patient Status [ADT] Routine 05/29/21 19:00 Insert Urinary Catheter [OM.PC] Q24H Plan: Patient is a 70-year-old male who presents today for diffuse body tremors. Patient was at a clinic appointment is happened. Patient does have a slight fever on exam we will give Tylenol fluids obtain labs and reassess.
[2021-05-29] MEDS ORDERED: Acetaminophen 325 MG Tab PO ONE (16:41)
[2021-05-29] MEDS ORDERED: Sodium Chloride 0.9% 1,000 ML IV ONE ×2 (16:46→17:41)
[2021-05-29 17:07] LABS: BLOOD UREA NITROGEN,BUN 14 mg/dL (7.0-18.0); CARBON DIOXIDE,CO2 17.9 mmol/L (21.0-32.0); CHLORIDE,CL 102 mmol/L (98-107); GLUCOSE RANDOM 115 mg/dL (74-106); LIPASE 280 U/L (73-393); POTASSIUM,K 5.4 mmol/L (3.5-5.1); SODIUM,NA 140 mmol/L (136-148)
--- NOTE | 2021-05-29 17:49 | CR ---
Indication: Tremor Technique: Chest 1 view Comparison: Chest x-ray 04/11/2021 Findings/Impression: Cardiovascular and mediastinum: Normal heart size with atherosclerotic calcification. Right-sided Port-A-Cath with tip at the cavoatrial junction. Lungs and pleural space: Lungs are clear. No sign of infiltrate or mass. No sign of pleural effusion. No pneumothorax. Bones and soft tissues: Old right-sided rib fractures. Surgical clips right aspect of the neck. Dictated by Isaac Garza MD @ 05/29/2021 5:46:[address] Isaac Garza @ May 29 2021 5:46PM
[2021-05-29] MEDS ORDERED: Meropenem 1 GM in Sodium Chloride 0.9% 100 ML IV ONE (18:27)
[2021-05-29] MEDS ORDERED: Ibuprofen 800 MG Tab PO ONE (18:36)
[2021-05-29] MEDS ORDERED: Lactated Ringers 1,000 ML IV ONE (19:23)
[2021-05-29] MEDS ORDERED: Albuterol/Ipratropium 3.0-0.5 MG/3 ML Neb Soln NEB PRN (19:24)
[2021-05-29] MEDS ORDERED: Ondansetron 4 MG/2 ML SDV IVPUSH PRN (19:24)
--- NOTE | 2021-05-29 19:34 | PCM.HP.2 ---
H&P History of Present Illness - General Date of Service: 05/29/21 Admit Problem/Dx: Admission Diagnosis/Problem Admission Diagnosis/Problem Sepsis - History of Present Illness Initial Comments - Free Text/Narative: Patient is a 70-year-old male with past medical history of osteoarthritis, tongue cancer and is on immunotherapy (Oncologist is Dr Valdivia/Jacquelin) with his last chemotherapy approximately 6 months ago, who presents to the emergency room from his oncologist office today with concerns of severe shakiness and tremors. Patient states that he was talking to his doctor and suddenly he felt he was very shaky and felt chills and extremely weak. Patient was sent to the ER from the doctor's office. In the ER patient was found to be febrile, tachycardic hypotensive. Lactate was elevated to 15.7, UA was unremarkable so was chest x- ray. Patient had no abdominal pain, nausea, vomiting, diarrhea, syncope. He states that he was in his regular state of health up until he went to see his doctor today. After patient had a prolonged hospital course in March for intractable diarrhea due to C. difficile and severe electrolyte imbalance and failure to thrive. Patient states that he was feeling pretty good after his discharge and his diarrhea has completely resolved. He continues to drink his protein shakes including Ensure. He is not on any chemotherapy or immunotherapy as he was unable to tolerate immunotherapy due to severe arthralgia. Given patient had SIRS criteria with elevated lactate (>4), patient was admitted to the hospital for possible septic shock with unknown source. Patient received aggressive IV fluid hydration and broad-spectrum antibiotics which caused some improvement in his blood pressure as well as resolution of the lactate. joint Pain Score (Numeric/FACES): 5 - Related Data Allergies/Adverse Reactions: Allergies Allergy/AdvReac Type Severity Reaction Status Date / Time wing Allergy Other Verified 05/29/21 16:40 coconut Allergy Other Verified 05/29/21 16:40 Penicillins Allergy Hives Verified 05/29/21 16:40 Home Medications: Home Meds Gabapentin [Neurontin] 300 mg PO TID 09/10/19 [History] Levothyroxine [Synthroid] 50 mcg PO DAILY 03/18/21 [History] Past Medical History - Past Health History Medical/Surgical History: Denies Medical/Surgical History HEENT History: Reports: None Cardiovascular History: Reports: Hypertension Respiratory History: Reports: None Gastrointestinal History: Reports: None Genitourinary History: Reports: None Musculoskeletal History: Reports: Arthritis Neurological History: Reports: Neuropathy, Peripheral Psychiatric History: Reports: None Endocrine/Metabolic History: Reports: Hypothyroidism Hematologic History: Reports: None Immunologic History: Reports: None Other Oncologic History: "tongue cancer." - Infectious Disease History Infectious Disease History: Reports: None - Past Surgical History Head Surgeries/Procedures: Reports: None HEENT Surgical History: Reports: Other (See Below) Other HEENT Surgeries/Procedures: tongue surgery Musculoskeletal Surgical History: Reports: Other (See Below) Other Musculoskeletal Surgeries/Procedures:: Head surgery, plate in place 40+ years ago Social & Family History - Family History Family Medical History: No Pertinent Family History - Tobacco Use Tobacco Use Status *Q: Never Tobacco User Second Hand Smoke Exposure: No - Caffeine Use Caffeine Use: Reports: None - Recreational Drug Use Recreational Drug Use: No H&P Review of Systems - Review of Systems: Review Of Systems: See Below General: Reports: Fever, Chills, Malaise, Weakness, Fatigue Pulmonary: Denies: Shortness of Breath, Wheezing, Pleuritic Chest Pain Cardiovascular: Denies: Chest Pain, Palpitations, Dyspnea on Exertion Gastrointestinal: Denies: Abdominal Pain, Anorexia, Black Stool, Bloody Stool, Constipation, Hematemesis, Hematochezia Genitourinary: Denies: Dysuria, Frequency, Burning, Pain Musculoskeletal: Denies: Neck Pain, Shoulder Pain, Arm Pain Skin: Denies: Cyanosis, Jaundice, Mottled Psychiatric: Denies: Confusion, Depression, Mood Lability, Anxiety Neurological: Reports: Dizziness, Tremors. Denies: Confusion, Headache, Numbness, Paresthesia, Difficulty Walking, Change in Speech Hematologic/Lymphatic: Denies: Anemia, Easy Bleeding, Easy Bruising Exam - Exam Exam: See Below - Vital Signs Vital Signs: Last Vital Signs Temp 37.9 C 05/29/21 18:49 Pulse 103 H 05/29/21 18:27 Resp 17 05/29/21 18:27 BP 85/54 L 05/29/21 18:27 Pulse Ox 97 05/29/21 18:27 Weight: 77.111 kg - Exam General: Alert, Oriented, Cooperative Lungs: Clear to Auscultation, Normal Respiratory Effort Cardiovascular: Regular Rate, Regular Rhythm, Normal S1, Normal S2 GI/Abdominal Exam: Normal Bowel Sounds, Soft, Non-Tender Extremities: Normal Inspection, Normal Range of Motion - Patient Data Lab Results Last 24 hrs: Laboratory Results - last 24 hr 05/29/21 05/29/21 05/29/21 Range/Units 16:25 16:25 16:25 WBC 7.21 (4.0-11.0) K/uL RBC 3.77 L (4.50-5.90) M/uL Hgb 12.0 L (13.0-17.0) g/dL Hct 37.7 L (38.0-50.0) % MCV 100.0 H (80.0-98.0) fL MCH 31.8 (27.0-32.0) pg MCHC 31.8 (31.0-37.0) g/dL RDW Std Deviation 55.4 (28.0-62.0) fl RDW Coeff of Caleb 15 (11.0-15.0) % Plt Count 476 H (150-400) K/uL MPV 10.00 (7.40-12.00) fL Neut % (Auto) 73.2 (48.0-80.0) % Lymph % (Auto) 24.0 (16.0-40.0) % [place] % (Auto) 1.8 (0.0-15.0) % Eos % (Auto) 0.7 (0.0-7.0) % Baso % (Auto) 0.3 (0.0-1.5) % Neut # (Auto) 5.3 (1.4-5.7) K/uL Lymph # (Auto) 1.7 (0.6-2.4) K/uL [place] # (Auto) 0.1 (0.0-0.8) K/uL Eos # (Auto) 0.1 (0.0-0.7) K/uL Baso # (Auto) 0.0 (0.0-0.1) K/uL Nucleated RBC % 0.0 /100WBC Nucleated RBCs # 0 K/uL Sodium 140 (136-148) mmol/L Potassium 5.4 H (3.5-5.1) mmol/L Chloride 102 (98-107) mmol/L Carbon Dioxide 17.9 L (21.0-32.0) mmol/L BUN 14 (7.0-18.0) mg/dL Creatinine 0.9 (0.8-1.3) mg/dL Est Cr Clr Drug Dosing 78.56 mL/min Estimated GFR (MDRD) > 60.0 ml/min Glucose 115 H (74-106) mg/dL Lactic Acid 15.7 H* (0.4-2.0) mmol/L Calcium 9.7 (8.5-10.1) mg/dL Phosphorus 5.0 H (2.6-4.7) mg/dL Magnesium 2.2 (1.8-2.4) mg/dL Total Bilirubin 0.4 (0.2-1.0) mg/dL AST 21 (15-37) IU/L ALT 23 (14-63) IU/L Alkaline Phosphatase 71 (46-116) U/L Creatine Kinase 57 (26-308) U/L Total Protein 7.9 (6.4-8.2) g/dL Albumin 3.2 L (3.4-5.0) g/dL Globulin 4.7 H (2.6-4.0) g/dL Albumin/Globulin Ratio 0.7 L (0.9-1.6) Lipase 280 (73-393) U/L Urine Color Urine Appearance Urine pH (5.0-8.0) Ur Specific [place] (1.001-1.035) Urine Protein (NEGATIVE) mg/dL Urine Glucose (UA) (NEGATIVE) mg/dL Urine Ketones (NEGATIVE) mg/dL Urine Occult Blood (NEGATIVE) Urine Nitrite (NEGATIVE) Urine Bilirubin (NEGATIVE) Urine Urobilinogen (<2.0) EU/dL Ur Leukocyte Esterase (NEGATIVE) 05/29/21 Range/Units 19:00 WBC (4.0-11.0) K/uL RBC (4.50-5.90) M/uL Hgb (13.0-17.0) g/dL Hct (38.0-50.0) % MCV (80.0-98.0) fL MCH (27.0-32.0) pg MCHC (31.0-37.0) g/dL RDW Std Deviation (28.0-62.0) fl RDW Coeff of Caleb (11.0-15.0) % Plt Count (150-400) K/uL MPV (7.40-12.00) fL Neut % (Auto) (48.0-80.0) % Lymph % (Auto) (16.0-40.0) % [place] % (Auto) (0.0-15.0) % Eos % (Auto) (0.0-7.0) % Baso % (Auto) (0.0-1.5) % Neut # (Auto) (1.4-5.7) K/uL Lymph # (Auto) (0.6-2.4) K/uL [place] # (Auto) (0.0-0.8) K/uL Eos # (Auto) (0.0-0.7) K/uL Baso # (Auto) (0.0-0.1) K/uL Nucleated RBC % /100WBC Nucleated RBCs # K/uL Sodium (136-148) mmol/L Potassium (3.5-5.1) mmol/L Chloride (98-107) mmol/L Carbon Dioxide (21.0-32.0) mmol/L BUN (7.0-18.0) mg/dL Creatinine (0.8-1.3) mg/dL Est Cr Clr Drug Dosing mL/min Estimated GFR (MDRD) ml/min Glucose (74-106) mg/dL Lactic Acid (0.4-2.0) mmol/L Calcium (8.5-10.1) mg/dL Phosphorus (2.6-4.7) mg/dL Magnesium (1.8-2.4) mg/dL Total Bilirubin (0.2-1.0) mg/dL AST (15-37) IU/L ALT (14-63) IU/L Alkaline Phosphatase (46-116) U/L Creatine Kinase (26-308) U/L Total Protein (6.4-8.2) g/dL Albumin (3.4-5.0) g/dL Globulin (2.6-4.0) g/dL Albumin/Globulin Ratio (0.9-1.6) Lipase (73-393) U/L Urine Color YELLOW Urine Appearance CLEAR Urine pH 6.5 (5.0-8.0) Ur Specific [place] 1.015 (1.001-1.035) Urine Protein NEGATIVE (NEGATIVE) mg/dL Urine Glucose (UA) NEGATIVE (NEGATIVE) mg/dL Urine Ketones NEGATIVE (NEGATIVE) mg/dL Urine Occult Blood NEGATIVE (NEGATIVE) Urine Nitrite NEGATIVE (NEGATIVE) Urine Bilirubin NEGATIVE (NEGATIVE) Urine Urobilinogen 0.2 (<2.0) EU/dL Ur Leukocyte Esterase NEGATIVE (NEGATIVE) Result Diagrams: 05/29/21 16:25 05/29/21 16:25 Sepsis Event Note - Evaluation Sepsis Screening Result: Possible Sepsis Risk - Focused Exam Vital Signs: Vital Signs Temp Temp Pulse Resp BP Pulse Ox 05/29/21 18:49 37.9 C 05/29/21 18:27 38.4 C H 103 H 17 85/54 L 97 05/29/21 18:18 104 H 85/54 L 05/29/21 17:55 38.7 C H 109 H 15 87/56 L 96 05/29/21 17:35 106 H 87/56 L 05/29/21 17:29 107 H 91/59 L 05/29/21 16:59 118 H 139/80 05/29/21 16:47 37.9 C 05/29/21 16:35 37.9 C 112 H 20 180/100 H 94 L - Problem List (1) Sepsis SNOMED Code(s): 84436249 ICD Code: A41.9 - SEPSIS, UNSPECIFIED ORGANISM Status: Acute Current Visit: Yes (2) Osteoarthritis SNOMED Code(s): 184667852 ICD Code: M19.90 - UNSPECIFIED OSTEOARTHRITIS, UNSPECIFIED SITE Status: Acute Current Visit: No (3) Port-A-Cath in place SNOMED Code(s): 974168858 ICD Code: Z95.828 - PRESENCE OF OTHER VASCULAR IMPLANTS AND GRAFTS Status: Acute Current Visit: No (4) Unsteady gait SNOMED Code(s): 80412836 ICD Code: R26.81 - UNSTEADINESS ON FEET Status: Acute Current Visit: No (5) Tongue carcinoma Status: Chronic Current Visit: No Problem List Initiated/Reviewed/Updated: Yes Orders Last 24hrs: Active Orders 24 hr Category Date Time Status Patient Status [ADT] Routine ADT 05/29/21 18:57 Active Ambulate [RC] ASDIRECTED Care 05/29/21 19:24 Active Insert Urinary Catheter [OM.PC] Q24H Care 05/29/21 19:00 Ordered Oxygen Therapy [RC] PRN Care 05/29/21 19:24 Active Pulse Oximetry [RC] PRN Care 05/29/21 19:24 Active RT Aerosol Therapy [RC] ASDIRECTED Care 05/29/21 19:26 Active Urinary Catheter Assessment [RC] ASDIRECTED Care 05/29/21 18:56 Active VTE/DVT Education [RC] PER UNIT ROUTINE Care 05/29/21 19:24 Active Vital Signs [RC] Q4H Care 05/29/21 19:24 Active Clear Liquid Diet [DIET] Diet 05/29/21 Dinner Active BMP [BASIC METABOLIC PANEL,BMP] [CHEM] AM Lab 05/30/21 05:11 Ordered CBC WITH AUTO DIFF [HEME] AM Lab 05/30/21 05:11 Ordered CORONAVIRUS COVID-19 CHANDRA [MOLEC] Stat Lab 05/29/21 18:29 Received CULTURE BLOOD [BC] Stat Lab 05/29/21 16:25 Received CULTURE BLOOD [BC] Stat Lab 05/29/21 17:46 Received LACTIC ACID SEPSIS W/ REFLEX [LACTATE SEPSIS W/ REFLEX] Lab 05/29/21 19:20 Received [CHEM] Stat MAGNESIUM [CHEM] AM Lab 05/30/21 05:11 Ordered PHOSPHORUS [CHEM] AM Lab 05/30/21 05:11 Ordered REFLEX LACTIC ACID YES OR NO [CHEM] Routine Lab 05/29/21 17:25 Received Acetaminophen [TylenoL] Med 05/29/21 19:32 Active 650 mg PO Q4H PRN Albuterol/Ipratropium [DuoNeb 3.0-0.5 MG/3 ML] Med 05/29/21 19:24 Active 3 ml NEB Q4HRRT PRN Enoxaparin [Lovenox] Med 05/29/21 19:30 Active 40 mg SUBCUT Q24H Lactated Ringers [Ringers, Lactated] 1,000 ml Med 05/29/21 19:23 Active IV .BOLUS Lactated Ringers [Ringers, Lactated] 1,000 ml Med 05/29/21 19:30 Active IV ASDIRECTED Meropenem [Merrem] 1 gm Med 05/30/21 03:00 Active Sodium Chloride 0.9% [Normal Saline] 100 ml IV Q8H Ondansetron [Zofran] Med 05/29/21 19:24 Active 4 mg IVPUSH Q4H PRN Pantoprazole [ProTONIX IV] 40 mg Med 05/29/21 19:45 Active Sodium Chloride 0.9% [Normal Saline] 10 ml IV DAILY Pharmacy to Dose - Vancomycin Med 05/29/21 19:30 Ordered See Dose Instructions .XX ASDIRECTED Vancomycin 1.25 gm Med 05/29/21 18:27 Active Sodium Chloride 0.9% [Normal Saline (AdvBag)] 250 ml IV ONETIME Blood Culture x2 Reflex Set [OM.PC] Stat Oth 05/29/21 17:36 Ordered Medication Orders Acetaminophen (Acetaminophen 325 Mg Tab) 650 mg PO Q4H PRN PRN Reason: Pain Albuterol/Ipratropium (Albuterol/Ipratropium 3.0-0.5 Mg/3 Ml Neb Soln) 3 ml NEB Q4HRRT PRN PRN Reason: Shortness Of Breath/wheezing Enoxaparin Sodium (Enoxaparin 40 Mg/0.4 Ml Syringe) 40 mg SUBCUT Q24H [facility] Vancomycin HCl 1.25 gm/ Sodium (Chloride) 250 mls @ 167 mls/hr IV ONETIME ONE Stop: 05/29/21 19:56 Last Admin: 05/29/21 18:48 Dose: 167 mls/hr Documented by: PASHA Lactated Ringer's (Ringers, Lactated) 1,000 mls @ 999 mls/hr IV .BOLUS ONE Stop: 05/29/21 20:23 Lactated Ringer's (Ringers, Lactated) 1,000 mls @ 125 mls/hr IV ASDIRECTED [facility] Meropenem 1 gm/ Sodium (Chloride) 100 mls @ 200 mls/hr IV Q8H [facility] Pantoprazole Sodium 40 mg/ (Sodium Chloride) 10 mls @ 300 mls/hr IV DAILY [facility] Ondansetron HCl (Ondansetron 4 Mg/2 Ml Sdv) 4 mg IVPUSH Q4H PRN PRN Reason: Nausea/Vomiting Vancomycin HCl (Pharmacy To Dose - Vancomycin) 0 dose .XX ASDIRECTED [facility] Assessment/Plan Comment:: 70-year-old male admitted for possible septic shock with unknown source Continue broad-spectrum antibiotics Follow-up on blood cultures Continue IV fluid hydration Repeat lactate has resolved Keep MAP more than 65 Patient has a Port-A-Cath, if blood cultures are positive have to consider removing the access Monitor and replete electrolytes as needed Resume home meds as appropriate, hold off on all antihypertensive medications Hemoglobin is stable, Lovenox for DVT prophylaxis Patient drinks Jevity and Ensure for diet CODE STATUS: DNR/DNI Disposition 2 to 3 days pending patient's clinical course
[2021-05-29] MEDS: Enoxaparin 40 MG/0.4 ML Syringe SUBCUT SCH (19:56)
[2021-05-29 20:08] VITALS: PULSE 88
[2021-05-29] MEDS: Pantoprazole 40 MG in Sodium Chloride 0.9% 10 ML IV SCH (20:42)
[2021-05-29] MEDS ORDERED: Meropenem Premix 50 ML IV ONE (20:54)
[2021-05-30] MEDS ORDERED: Lactated Ringers 500 ML IV ONE (00:04)
[2021-05-30] MEDS ORDERED: Meropenem Premix 50 ML IV ONE (02:48)
[2021-05-30] MEDS ORDERED: Meropenem 1 GM in Sodium Chloride 0.9% 100 ML IV SCH (03:00)
--- NOTE | 2021-05-30 06:03 | PN ---
[facility] Physician - Brief Progress [id number]/08/2021 05:41[facility] Cameron Lainez, [place] - CELEN (KIM) - ANA LAURA DAVIDE SONJustinDate of Service 05/30/2021 05:41HPI/Events of Note Chart reviewed and case d/w Dr Delgado. On camera, the patient is resting, appears in NAD. Mr pp, T is a 70 year old man presenting with tremors/shaking. ED: hypotensive, LA 15, recxd sepsis flui d bolus 3L. Denies any GI Symptoms whatsoever. PMH: tongue cancer, c diff 03/2021, HTN, hypothyroid, a rthritis. Remote h/o head injury with fracture x metal plate in place. Investigations reviewed. K 5.4 , LA 15.7 improved to 1.5.CxR, UA negative.A/P:1. Severe sepsis, unclear etiology.Hypotension improve d with fluids total 4L.Keep MAP 65 and above, use pressors if needed.Started on empiric Abx Meropene m/Vanco.F/up CxR ordered in am in case this is early PNA.Continue searching for other signs/symptoms. 2. HTN - hold all antihypertensives and monitor BP.3. h/o c difficile - denies any current signs/symp toms. Watch closely for any GI symptoms as he is at high risk of recurrence.4. GI/DVT prophylaxis - p o intake; Lovenox, SCDs and ambulate.Interventions Major-Hypertension - evaluation and management, Se psis - evaluation and management, Other: h/o c diffElectronically Signed by: PAPITO GARCIA) on 0 05/30/2021 06:02
[2021-05-30] MEDS: Meropenem Premix 50 ML IV SCH ×3 (06:35→19:00)
[2021-05-30] MEDS: Levothyroxine 50 MCG Tab PO SCH (06:37)
[2021-05-30] MEDS: Gabapentin 300 MG Cap PO SCH ×3 (06:37→21:45)
[2021-05-30 06:41] LABS: BLOOD UREA NITROGEN,BUN 9 mg/dL (7.0-18.0); CARBON DIOXIDE,CO2 24.5 mmol/L (21.0-32.0); CHLORIDE,CL 108 mmol/L (98-107); GLUCOSE RANDOM 77 mg/dL (74-106); SODIUM,NA 138 mmol/L (136-148)
[2021-05-30] MEDS ORDERED: VANCOmycin 1.25 GM/250 ML 250 ML IV SCH (08:00)
[2021-05-30] MEDS: Pantoprazole 40 MG in Sodium Chloride 0.9% 10 ML IV SCH (08:45)
[2021-05-30] MEDS ORDERED: Levothyroxine 50 MCG Tab PO SCH (09:00)
[2021-05-30] MEDS ORDERED: Iopamidol 755 MG/ML 500 ML Multipack Bottle IVPUSH STA (11:19)
--- NOTE | 2021-05-30 12:13 | CT ---
INDICATION: Bacteremia. TECHNIQUE: CT head without contrast. COMPARISON: None. FINDINGS: CSF spaces: Within normal limits for age. Brain parenchyma and extra-axial spaces: The simpson-white differentiation is normal. No sign of mass, hemorrhage, or midline shift. No extra-axial fluid collection. Skull base and calvarium: The visualized paranasal sinuses and mastoid air cells demonstrate no acute or significant findings. The visualized orbits are grossly unremarkable. There is a right frontal hardware plate fixating an old skull fracture. IMPRESSION: Unremarkable noncontrast head CT. Please note that all CT scans at this facility use dose modulation, iterative reconstruction, and/or weight-based dosing when appropriate to reduce radiation dose to as low as reasonably achievable. Dictated by Desmond Sanderson MD @ 05/30/2021 12:11:[address] Desmond Sanderson @ May 30 2021 12:11PM
--- NOTE | 2021-05-30 12:28 | CT ---
INDICATION: Bacteremia of uncertain etiology. TECHNIQUE: CT chest, abdomen and pelvis acquired with 100 cc Isovue 370 IV contrast. COMPARISON: None. FINDINGS: CHEST Lungs and pleura: There is a 2.3 cm peripheral nodule with central cavitation in the right lower lobe on series 203, image 76. A 4 mm peripheral nodule is in the left lower lobe image 97. No other focal lesions or consolidations. There is interlobular septal thickening most prevalent in the lower lobes. Trace bilateral pleural effusions and mild bibasilar atelectasis. No pneumothorax. Heart and vasculature: Heart size is normal. Thoracic aorta and pulmonary artery are normal in caliber. Lymph node/mediastinum: No mediastinal, hilar, or axillary adenopathy. Thyroid gland is normal. Chest wall: Port catheter present in the right anterior chest wall. Moderate nonspecific superficial edema in the right lateral breast and axillary soft tissues. Bones: No suspicious bone lesions. ABDOMEN AND PELVIS: Liver: Normal in caliber and attenuation. No masses. Gallbladder and bile ducts: Unremarkable. Pancreas: Unremarkable. Spleen: Normal in caliber. No masses. Adrenal glands: Unremarkable. No masses. Kidneys: Normal in caliber. No masses. GI tract: Normal in caliber and appearance. No sign of mass or inflammation. Vasculature: Unremarkable. Mesenteric arteries are patent. Lymph nodes: No lymphadenopathy. Omentum/peritoneum/retroperitoneum/abdominal wall: No masses or infiltration. No free air or significant free fluid. Pelvic organs: Unremarkable. Bones: No suspicious bone lesions. IMPRESSION: 1. 2.3 cm peripheral pulmonary nodule with central cavitation in the right lower lobe could be infectious or neoplastic in nature. This could be further evaluated with a PET scan. The lesion would also be amenable to percutaneous biopsy or aspiration. 2. Nonspecific superficial edema in the lateral right breast and axillary region. 3. No other acute or specific finding in the chest, abdomen or pelvis to explain bacteremia. Please note that all CT scans at this facility use dose modulation, iterative reconstruction, and/or weight-based dosing when appropriate to reduce radiation dose to as low as reasonably achievable. Dictated by Desmond Sanderson MD @ 05/30/2021 12:27:[address] Desmond Sanderson @ May 30 2021 12:27PM
--- NOTE | 2021-05-30 14:27 | PCM.PN ---
- General Info Date of Service: 05/30/21 Admission Dx/Problem (Free Text): Admission Diagnosis/Problem Admission Diagnosis/Problem Sepsis Functional Status: Reports: Tolerating Diet, Ambulating, Urinating - Review of Systems General: Reports: Fatigue, Malaise. Denies: Fever, Weakness Cardiovascular: Denies: Chest Pain, Palpitations Gastrointestinal: Denies: Abdominal Pain, Constipation Genitourinary: Denies: Dysuria, Frequency, Burning Musculoskeletal: Denies: Neck Pain, Shoulder Pain, Arm Pain Skin: Denies: Cyanosis, Jaundice, Mottled Neurological: Denies: Confusion, Dizziness, Headache - Patient Data Vitals - Most Recent: Last Vital Signs Temp 36.5 C 05/30/21 12:58 Pulse 88 05/29/21 20:07 Resp 12 05/30/21 12:58 BP 90/55 L 05/30/21 12:58 Pulse Ox 96 05/30/21 12:58 Weight - Most Recent: 73.527 kg I&O - Last 24 Hours: Intake & Output 05/29/21 05/30/21 05/30/21 22:59 06:59 14:59 Intake Total 1610 Output Total 400 Balance 1210 Lab Results Last 24 Hours: Laboratory Results - last 24 hr 05/29/21 05/29/21 05/29/21 Range/Units 16:25 16:25 16:25 WBC 7.21 (4.0-11.0) K/uL RBC 3.77 L (4.50-5.90) M/uL Hgb 12.0 L (13.0-17.0) g/dL Hct 37.7 L (38.0-50.0) % MCV 100.0 H (80.0-98.0) fL MCH 31.8 (27.0-32.0) pg MCHC 31.8 (31.0-37.0) g/dL RDW Std Deviation 55.4 (28.0-62.0) fl RDW Coeff of Caleb 15 (11.0-15.0) % Plt Count 476 H (150-400) K/uL MPV 10.00 (7.40-12.00) fL Neut % (Auto) 73.2 (48.0-80.0) % Lymph % (Auto) 24.0 (16.0-40.0) % [place] % (Auto) 1.8 (0.0-15.0) % Eos % (Auto) 0.7 (0.0-7.0) % Baso % (Auto) 0.3 (0.0-1.5) % Neut # (Auto) 5.3 (1.4-5.7) K/uL Lymph # (Auto) 1.7 (0.6-2.4) K/uL [place] # (Auto) 0.1 (0.0-0.8) K/uL Eos # (Auto) 0.1 (0.0-0.7) K/uL Baso # (Auto) 0.0 (0.0-0.1) K/uL Nucleated RBC % 0.0 /100WBC Nucleated RBCs # 0 K/uL Sodium 140 (136-148) mmol/L Potassium 5.4 H (3.5-5.1) mmol/L Chloride 102 (98-107) mmol/L Carbon Dioxide 17.9 L (21.0-32.0) mmol/L BUN 14 (7.0-18.0) mg/dL Creatinine 0.9 (0.8-1.3) mg/dL Est Cr Clr Drug Dosing 78.56 mL/min Estimated GFR (MDRD) > 60.0 ml/min Glucose 115 H (74-106) mg/dL Lactic Acid 15.7 H* (0.4-2.0) mmol/L Calcium 9.7 (8.5-10.1) mg/dL Phosphorus 5.0 H (2.6-4.7) mg/dL Magnesium 2.2 (1.8-2.4) mg/dL Total Bilirubin 0.4 (0.2-1.0) mg/dL AST 21 (15-37) IU/L ALT 23 (14-63) IU/L Alkaline Phosphatase 71 (46-116) U/L Creatine Kinase 57 (26-308) U/L Total Protein 7.9 (6.4-8.2) g/dL Albumin 3.2 L (3.4-5.0) g/dL Globulin 4.7 H (2.6-4.0) g/dL Albumin/Globulin Ratio 0.7 L (0.9-1.6) Lipase 280 (73-393) U/L Urine Color Urine Appearance Urine pH (5.0-8.0) Ur Specific [place] (1.001-1.035) Urine Protein (NEGATIVE) mg/dL Urine Glucose (UA) (NEGATIVE) mg/dL Urine Ketones (NEGATIVE) mg/dL Urine Occult Blood (NEGATIVE) Urine Nitrite (NEGATIVE) Urine Bilirubin (NEGATIVE) Urine Urobilinogen (<2.0) EU/dL Ur Leukocyte Esterase (NEGATIVE) SARS-CoV-2 RNA (CHANDRA) (NEGATIVE) 05/29/21 05/29/21 05/29/21 Range/Units 18:29 19:00 19:20 WBC (4.0-11.0) K/uL RBC (4.50-5.90) M/uL Hgb (13.0-17.0) g/dL Hct (38.0-50.0) % MCV (80.0-98.0) fL MCH (27.0-32.0) pg MCHC (31.0-37.0) g/dL RDW Std Deviation (28.0-62.0) fl RDW Coeff of Caleb (11.0-15.0) % Plt Count (150-400) K/uL MPV (7.40-12.00) fL Neut % (Auto) (48.0-80.0) % Lymph % (Auto) (16.0-40.0) % [place] % (Auto) (0.0-15.0) % Eos % (Auto) (0.0-7.0) % Baso % (Auto) (0.0-1.5) % Neut # (Auto) (1.4-5.7) K/uL Lymph # (Auto) (0.6-2.4) K/uL [place] # (Auto) (0.0-0.8) K/uL Eos # (Auto) (0.0-0.7) K/uL Baso # (Auto) (0.0-0.1) K/uL Nucleated RBC % /100WBC Nucleated RBCs # K/uL Sodium (136-148) mmol/L Potassium (3.5-5.1) mmol/L Chloride (98-107) mmol/L Carbon Dioxide (21.0-32.0) mmol/L BUN (7.0-18.0) mg/dL Creatinine (0.8-1.3) mg/dL Est Cr Clr Drug Dosing mL/min Estimated GFR (MDRD) ml/min Glucose (74-106) mg/dL Lactic Acid 1.5 (0.4-2.0) mmol/L Calcium (8.5-10.1) mg/dL Phosphorus (2.6-4.7) mg/dL Magnesium (1.8-2.4) mg/dL Total Bilirubin (0.2-1.0) mg/dL AST (15-37) IU/L ALT (14-63) IU/L Alkaline Phosphatase (46-116) U/L Creatine Kinase (26-308) U/L Total Protein (6.4-8.2) g/dL Albumin (3.4-5.0) g/dL Globulin (2.6-4.0) g/dL Albumin/Globulin Ratio (0.9-1.6) Lipase (73-393) U/L Urine Color YELLOW Urine Appearance CLEAR Urine pH 6.5 (5.0-8.0) Ur Specific [place] 1.015 (1.001-1.035) Urine Protein NEGATIVE (NEGATIVE) mg/dL Urine Glucose (UA) NEGATIVE (NEGATIVE) mg/dL Urine Ketones NEGATIVE (NEGATIVE) mg/dL Urine Occult Blood NEGATIVE (NEGATIVE) Urine Nitrite NEGATIVE (NEGATIVE) Urine Bilirubin NEGATIVE (NEGATIVE) Urine Urobilinogen 0.2 (<2.0) EU/dL Ur Leukocyte Esterase NEGATIVE (NEGATIVE) SARS-CoV-2 RNA (CHANDRA) NEGATIVE (NEGATIVE) 05/29/21 05/30/21 05/30/21 Range/Units 21:40 05:16 05:16 WBC 7.92 (4.0-11.0) K/uL RBC 2.90 L (4.50-5.90) M/uL Hgb 9.1 L (13.0-17.0) g/dL Hct 28.2 L (38.0-50.0) % MCV 97.2 (80.0-98.0) fL MCH 31.4 (27.0-32.0) pg MCHC 32.3 (31.0-37.0) g/dL RDW Std Deviation 53.0 (28.0-62.0) fl RDW Coeff of Caleb 15 (11.0-15.0) % Plt Count 303 (150-400) K/uL MPV 10.00 (7.40-12.00) fL Neut % (Auto) 79.1 (48.0-80.0) % Lymph % (Auto) 10.7 L (16.0-40.0) % [place] % (Auto) 9.1 (0.0-15.0) % Eos % (Auto) 1.0 (0.0-7.0) % Baso % (Auto) 0.1 (0.0-1.5) % Neut # (Auto) 6.3 H (1.4-5.7) K/uL Lymph # (Auto) 0.9 (0.6-2.4) K/uL [place] # (Auto) 0.7 (0.0-0.8) K/uL Eos # (Auto) 0.1 (0.0-0.7) K/uL Baso # (Auto) 0.0 (0.0-0.1) K/uL Nucleated RBC % 0.0 /100WBC Nucleated RBCs # 0 K/uL Sodium 138 (136-148) mmol/L Potassium 4.0 (3.5-5.1) mmol/L Chloride 108 H (98-107) mmol/L Carbon Dioxide 24.5 (21.0-32.0) mmol/L BUN 9 (7.0-18.0) mg/dL Creatinine 0.6 L (0.8-1.3) mg/dL Est Cr Clr Drug Dosing 121.67 mL/min Estimated GFR (MDRD) > 60.0 ml/min Glucose 77 (74-106) mg/dL Lactic Acid 1.0 (0.4-2.0) mmol/L Calcium 7.9 L (8.5-10.1) mg/dL Phosphorus 3.3 (2.6-4.7) mg/dL Magnesium 1.8 (1.8-2.4) mg/dL Total Bilirubin (0.2-1.0) mg/dL AST (15-37) IU/L ALT (14-63) IU/L Alkaline Phosphatase (46-116) U/L Creatine Kinase (26-308) U/L Total Protein (6.4-8.2) g/dL Albumin (3.4-5.0) g/dL Globulin (2.6-4.0) g/dL Albumin/Globulin Ratio (0.9-1.6) Lipase (73-393) U/L Urine Color Urine Appearance Urine pH (5.0-8.0) Ur Specific [place] (1.001-1.035) Urine Protein (NEGATIVE) mg/dL Urine Glucose (UA) (NEGATIVE) mg/dL Urine Ketones (NEGATIVE) mg/dL Urine Occult Blood (NEGATIVE) Urine Nitrite (NEGATIVE) Urine Bilirubin (NEGATIVE) Urine Urobilinogen (<2.0) EU/dL Ur Leukocyte Esterase (NEGATIVE) SARS-CoV-2 RNA (CHANDRA) (NEGATIVE) Guillaume Results Last 24 Hours: Microbiology 05/29/21 16:25 Aerobic Blood Culture - Preliminary Blood - Venous Anaerobic Blood Culture - Preliminary 05/29/21 17:46 Aerobic Blood Culture - Preliminary Blood - Venous - Lab Draw Anaerobic Blood Culture - Preliminary Med Orders - Current: Current Medications Acetaminophen (Acetaminophen 325 Mg Tab) 650 mg PO Q4H PRN PRN Reason: Pain Albuterol/Ipratropium (Albuterol/Ipratropium 3.0-0.5 Mg/3 Ml Neb Soln) 3 ml NEB Q4HRRT PRN PRN Reason: Shortness Of Breath/wheezing Enoxaparin Sodium (Enoxaparin 40 Mg/0.4 Ml Syringe) 40 mg SUBCUT Q24H [facility] Last Admin: 05/29/21 19:56 Dose: 40 mg Documented by: Gabapentin (Gabapentin 300 Mg Cap) 300 mg PO TID [facility] Last Admin: 05/30/21 06:37 Dose: 300 mg Documented by: Lactated Ringer's (Ringers, Lactated) 1,000 mls @ 125 mls/hr IV ASDIRECTED [facility] Pantoprazole Sodium 40 mg/ (Sodium Chloride) 10 mls @ 300 mls/hr IV DAILY [facility] Last Admin: 05/30/21 08:45 Dose: 300 mls/hr Documented by: Meropenem/Sodium Chloride (Meropenem In Ns 1 Gm/50 Ml) 50 mls @ 100 mls/hr IV Q8H [facility] Last Admin: 05/30/21 11:33 Dose: 100 mls/hr Documented by: Vancomycin HCl 1.25 gm/ Sodium (Chloride) 250 mls @ 250 mls/hr IV Q12H [facility] Last Admin: 05/30/21 08:44 Dose: 250 mls/hr Documented by: Levothyroxine Sodium (Levothyroxine 50 Mcg Tab) 50 mcg PO DAILY@0700 [facility] Last Admin: 05/30/21 06:37 Dose: 50 mcg Documented by: Ondansetron HCl (Ondansetron 4 Mg/2 Ml Sdv) 4 mg IVPUSH Q4H PRN PRN Reason: Nausea/Vomiting Discontinued Medications Acetaminophen (Acetaminophen 500 Mg Tab) 650 mg PO ONETIME ONE Stop: 05/29/21 16:28 Last Admin: 05/29/21 16:41 Dose: Not Given Documented by: Acetaminophen (Acetaminophen 325 Mg Tab) 650 mg PO NOW ONE Stop: 05/29/21 16:42 Last Admin: 05/29/21 16:47 Dose: 650 mg Documented by: Sodium Chloride (Normal Saline) 1,000 mls @ 999 mls/hr IV .Bolus ONE Stop: 05/29/21 17:46 Last Admin: 05/29/21 16:47 Dose: 999 mls/hr Documented by: Sodium Chloride (Normal Saline) 1,000 mls @ 999 mls/hr IV .BOLUS ONE Stop: 05/29/21 18:41 Last Admin: 05/29/21 18:26 Dose: 999 mls/hr Documented by: Meropenem 1 gm/ Sodium (Chloride) 100 mls @ 200 mls/hr IV ONETIME ONE Stop: 05/29/21 18:56 Last Admin: 05/29/21 21:51 Dose: Not Given Documented by: Vancomycin HCl 1.25 gm/ Sodium (Chloride) 250 mls @ 167 mls/hr IV ONETIME ONE Stop: 05/29/21 19:56 Last Admin: 05/29/21 18:48 Dose: 167 mls/hr Documented by: Lactated Ringer's (Ringers, Lactated) 1,000 mls @ 999 mls/hr IV .BOLUS ONE Stop: 05/29/21 20:23 Last Admin: 05/29/21 20:42 Dose: 999 mls/hr Documented by: Meropenem 1 gm/ Sodium (Chloride) 100 mls @ 200 mls/hr IV Q8H [facility] Meropenem/Sodium Chloride (Meropenem In Ns 1 Gm/50 Ml) Confirm Administered Dose 50 mls @ as directed IV .STK-MED ONE Stop: 05/29/21 20:55 Last Admin: 05/29/21 21:09 Dose: 100 mls/hr Documented by: Lactated Ringer's (Ringers, Lactated) 500 mls @ 999 mls/hr IV .BOLUS ONE Stop: 05/30/21 00:34 Last Admin: 05/30/21 01:06 Dose: 999 mls/hr Documented by: Meropenem/Sodium Chloride (Meropenem In Ns 1 Gm/50 Ml) Confirm Administered Dose 50 mls @ as directed IV .STK-MED ONE Stop: 05/30/21 02:49 Last Admin: 05/30/21 02:54 Dose: 100 mls/hr Documented by: Ibuprofen (Ibuprofen 800 Mg Tab) 800 mg PO ONETIME ONE Stop: 05/29/21 18:37 Last Admin: 05/29/21 18:49 Dose: 800 mg Documented by: Iopamidol (Iopamidol 755 Mg/Ml 500 Ml Multipack Bottle) 100 ml IVPUSH ONETIME STA Stop: 05/30/21 11:20 Last Admin: 05/30/21 11:19 Dose: 100 ml Documented by: Levothyroxine Sodium (Levothyroxine 50 Mcg Tab) 50 mcg PO DAILY [facility] Vancomycin HCl (Pharmacy To Dose - Vancomycin) 0 dose .XX ASDIRECTED [facility] Stop: 05/29/21 19:31 - Exam General: Alert, Oriented Lungs: Clear to Auscultation, Normal Respiratory Effort Cardiovascular: Regular Rate, Regular Rhythm GI/Abdominal Exam: Normal Bowel Sounds, Soft, Non-Tender Extremities: Normal Inspection, Normal Range of Motion Skin: Warm, Dry Neurological: No New Focal Deficit Psy/Mental Status: Normal Affect, Normal Mood - Patient Data Lab Results Last 24 hrs: Laboratory Results - last 24 hr 05/29/21 05/29/21 05/29/21 Range/Units 16:25 16:25 16:25 WBC 7.21 (4.0-11.0) K/uL RBC 3.77 L (4.50-5.90) M/uL Hgb 12.0 L (13.0-17.0) g/dL Hct 37.7 L (38.0-50.0) % MCV 100.0 H (80.0-98.0) fL MCH 31.8 (27.0-32.0) pg MCHC 31.8 (31.0-37.0) g/dL RDW Std Deviation 55.4 (28.0-62.0) fl RDW Coeff of Caleb 15 (11.0-15.0) % Plt Count 476 H (150-400) K/uL MPV 10.00 (7.40-12.00) fL Neut % (Auto) 73.2 (48.0-80.0) % Lymph % (Auto) 24.0 (16.0-40.0) % [place] % (Auto) 1.8 (0.0-15.0) % Eos % (Auto) 0.7 (0.0-7.0) % Baso % (Auto) 0.3 (0.0-1.5) % Neut # (Auto) 5.3 (1.4-5.7) K/uL Lymph # (Auto) 1.7 (0.6-2.4) K/uL [place] # (Auto) 0.1 (0.0-0.8) K/uL Eos # (Auto) 0.1 (0.0-0.7) K/uL Baso # (Auto) 0.0 (0.0-0.1) K/uL Nucleated RBC % 0.0 /100WBC Nucleated RBCs # 0 K/uL Sodium 140 (136-148) mmol/L Potassium 5.4 H (3.5-5.1) mmol/L Chloride 102 (98-107) mmol/L Carbon Dioxide 17.9 L (21.0-32.0) mmol/L BUN 14 (7.0-18.0) mg/dL Creatinine 0.9 (0.8-1.3) mg/dL Est Cr Clr Drug Dosing 78.56 mL/min Estimated GFR (MDRD) > 60.0 ml/min Glucose 115 H (74-106) mg/dL Lactic Acid 15.7 H* (0.4-2.0) mmol/L Calcium 9.7 (8.5-10.1) mg/dL Phosphorus 5.0 H (2.6-4.7) mg/dL Magnesium 2.2 (1.8-2.4) mg/dL Total Bilirubin 0.4 (0.2-1.0) mg/dL AST 21 (15-37) IU/L ALT 23 (14-63) IU/L Alkaline Phosphatase 71 (46-116) U/L Creatine Kinase 57 (26-308) U/L Total Protein 7.9 (6.4-8.2) g/dL Albumin 3.2 L (3.4-5.0) g/dL Globulin 4.7 H (2.6-4.0) g/dL Albumin/Globulin Ratio 0.7 L (0.9-1.6) Lipase 280 (73-393) U/L Urine Color Urine Appearance Urine pH (5.0-8.0) Ur Specific [place] (1.001-1.035) Urine Protein (NEGATIVE) mg/dL Urine Glucose (UA) (NEGATIVE) mg/dL Urine Ketones (NEGATIVE) mg/dL Urine Occult Blood (NEGATIVE) Urine Nitrite (NEGATIVE) Urine Bilirubin (NEGATIVE) Urine Urobilinogen (<2.0) EU/dL Ur Leukocyte Esterase (NEGATIVE) SARS-CoV-2 RNA (CHANDRA) (NEGATIVE) 05/29/21 05/29/21 05/29/21 Range/Units 18:29 19:00 19:20 WBC (4.0-11.0) K/uL RBC (4.50-5.90) M/uL Hgb (13.0-17.0) g/dL Hct (38.0-50.0) % MCV (80.0-98.0) fL MCH (27.0-32.0) pg MCHC (31.0-37.0) g/dL RDW Std Deviation (28.0-62.0) fl RDW Coeff of Caleb (11.0-15.0) % Plt Count (150-400) K/uL MPV (7.40-12.00) fL Neut % (Auto) (48.0-80.0) % Lymph % (Auto) (16.0-40.0) % [place] % (Auto) (0.0-15.0) % Eos % (Auto) (0.0-7.0) % Baso % (Auto) (0.0-1.5) % Neut # (Auto) (1.4-5.7) K/uL Lymph # (Auto) (0.6-2.4) K/uL [place] # (Auto) (0.0-0.8) K/uL Eos # (Auto) (0.0-0.7) K/uL Baso # (Auto) (0.0-0.1) K/uL Nucleated RBC % /100WBC Nucleated RBCs # K/uL Sodium (136-148) mmol/L Potassium (3.5-5.1) mmol/L Chloride (98-107) mmol/L Carbon Dioxide (21.0-32.0) mmol/L BUN (7.0-18.0) mg/dL Creatinine (0.8-1.3) mg/dL Est Cr Clr Drug Dosing mL/min Estimated GFR (MDRD) ml/min Glucose (74-106) mg/dL Lactic Acid 1.5 (0.4-2.0) mmol/L Calcium (8.5-10.1) mg/dL Phosphorus (2.6-4.7) mg/dL Magnesium (1.8-2.4) mg/dL Total Bilirubin (0.2-1.0) mg/dL AST (15-37) IU/L ALT (14-63) IU/L Alkaline Phosphatase (46-116) U/L Creatine Kinase (26-308) U/L Total Protein (6.4-8.2) g/dL Albumin (3.4-5.0) g/dL Globulin (2.6-4.0) g/dL Albumin/Globulin Ratio (0.9-1.6) Lipase (73-393) U/L Urine Color YELLOW Urine Appearance CLEAR Urine pH 6.5 (5.0-8.0) Ur Specific [place] 1.015 (1.001-1.035) Urine Protein NEGATIVE (NEGATIVE) mg/dL Urine Glucose (UA) NEGATIVE (NEGATIVE) mg/dL Urine Ketones NEGATIVE (NEGATIVE) mg/dL Urine Occult Blood NEGATIVE (NEGATIVE) Urine Nitrite NEGATIVE (NEGATIVE) Urine Bilirubin NEGATIVE (NEGATIVE) Urine Urobilinogen 0.2 (<2.0) EU/dL Ur Leukocyte Esterase NEGATIVE (NEGATIVE) SARS-CoV-2 RNA (CHANDRA) NEGATIVE (NEGATIVE) 05/29/21 05/30/21 05/30/21 Range/Units 21:40 05:16 05:16 WBC 7.92 (4.0-11.0) K/uL RBC 2.90 L (4.50-5.90) M/uL Hgb 9.1 L (13.0-17.0) g/dL Hct 28.2 L (38.0-50.0) % MCV 97.2 (80.0-98.0) fL MCH 31.4 (27.0-32.0) pg MCHC 32.3 (31.0-37.0) g/dL RDW Std Deviation 53.0 (28.0-62.0) fl RDW Coeff of Caleb 15 (11.0-15.0) % Plt Count 303 (150-400) K/uL MPV 10.00 (7.40-12.00) fL Neut % (Auto) 79.1 (48.0-80.0) % Lymph % (Auto) 10.7 L (16.0-40.0) % [place] % (Auto) 9.1 (0.0-15.0) % Eos % (Auto) 1.0 (0.0-7.0) % Baso % (Auto) 0.1 (0.0-1.5) % Neut # (Auto) 6.3 H (1.4-5.7) K/uL Lymph # (Auto) 0.9 (0.6-2.4) K/uL [place] # (Auto) 0.7 (0.0-0.8) K/uL Eos # (Auto) 0.1 (0.0-0.7) K/uL Baso # (Auto) 0.0 (0.0-0.1) K/uL Nucleated RBC % 0.0 /100WBC Nucleated RBCs # 0 K/uL Sodium 138 (136-148) mmol/L Potassium 4.0 (3.5-5.1) mmol/L Chloride 108 H (98-107) mmol/L Carbon Dioxide 24.5 (21.0-32.0) mmol/L BUN 9 (7.0-18.0) mg/dL Creatinine 0.6 L (0.8-1.3) mg/dL Est Cr Clr Drug Dosing 121.67 mL/min Estimated GFR (MDRD) > 60.0 ml/min Glucose 77 (74-106) mg/dL Lactic Acid 1.0 (0.4-2.0) mmol/L Calcium 7.9 L (8.5-10.1) mg/dL Phosphorus 3.3 (2.6-4.7) mg/dL Magnesium 1.8 (1.8-2.4) mg/dL Total Bilirubin (0.2-1.0) mg/dL AST (15-37) IU/L ALT (14-63) IU/L Alkaline Phosphatase (46-116) U/L Creatine Kinase (26-308) U/L Total Protein (6.4-8.2) g/dL Albumin (3.4-5.0) g/dL Globulin (2.6-4.0) g/dL Albumin/Globulin Ratio (0.9-1.6) Lipase (73-393) U/L Urine Color Urine Appearance Urine pH (5.0-8.0) Ur Specific [place] (1.001-1.035) Urine Protein (NEGATIVE) mg/dL Urine Glucose (UA) (NEGATIVE) mg/dL Urine Ketones (NEGATIVE) mg/dL Urine Occult Blood (NEGATIVE) Urine Nitrite (NEGATIVE) Urine Bilirubin (NEGATIVE) Urine Urobilinogen (<2.0) EU/dL Ur Leukocyte Esterase (NEGATIVE) SARS-CoV-2 RNA (CHANDRA) (NEGATIVE) Result Diagrams: 05/30/21 05:16 05/30/21 05:16 Guillaume Results Last 24 hrs: Microbiology 05/29/21 16:25 Aerobic Blood Culture - Preliminary Blood - Venous Anaerobic Blood Culture - Preliminary 05/29/21 17:46 Aerobic Blood Culture - Preliminary Blood - Venous - Lab Draw Anaerobic Blood Culture - Preliminary Sepsis Event Note - Evaluation Sepsis Screening Result: No Definite Risk - Focused Exam Vital Signs: Vital Signs Temp Resp BP Pulse Ox 05/30/21 12:58 36.5 C 12 90/55 L 96 05/30/21 11:49 36.4 C 11 L 99/78 96 05/30/21 11:00 36.2 C 14 101/64 95 05/30/21 09:48 36.2 C 12 95/60 93 L 05/30/21 08:59 36.2 C 14 94/56 L 94 L 05/30/21 08:00 36.2 C 15 96/62 95 05/30/21 05:00 9 L 88/46 L 94 L 05/30/21 04:00 36.0 C L 13 101/59 L 95 05/30/21 03:00 12 91/57 L 96 - Problem List & Annotations (1) Sepsis SNOMED Code(s): 08787216 Code(s): A41.9 - SEPSIS, UNSPECIFIED ORGANISM Status: Acute Current Visit: Yes (2) Osteoarthritis SNOMED Code(s): 024816572 Code(s): M19.90 - UNSPECIFIED OSTEOARTHRITIS, UNSPECIFIED SITE Status: Acute Current Visit: No (3) Port-A-Cath in place SNOMED Code(s): 783794523 Code(s): Z95.828 - PRESENCE OF OTHER VASCULAR IMPLANTS AND GRAFTS Status: Acute Current Visit: No (4) Unsteady gait SNOMED Code(s): 36287845 Code(s): R26.81 - UNSTEADINESS ON FEET Status: Acute Current Visit: No (5) Tongue carcinoma Status: Chronic Current Visit: No - Problem List Review Problem List Initiated/Reviewed/Updated: Yes - My Orders Last 24 Hours: My Active Orders 05/29/21 Dinner Clear Liquid Diet [DIET] 05/29/21 16:25 BLOOD CULTURE ID [MREF] Routine 05/29/21 17:46 BLOOD CULTURE ID [MREF] Routine 05/29/21 19:24 Ambulate [RC] ASDIRECTED Oxygen Therapy [RC] PRN Pulse Oximetry [RC] PRN VTE/DVT Education [RC] PER UNIT ROUTINE Vital Signs [RC] Q1H Albuterol/Ipratropium [DuoNeb 3.0-0.5 MG/3 ML] 3 ml NEB Q4HRRT PRN Ondansetron [Zofran] 4 mg IVPUSH Q4H PRN 05/29/21 19:26 RT Aerosol Therapy [RC] ASDIRECTED 05/29/21 19:30 Enoxaparin [Lovenox] 40 mg SUBCUT Q24H Lactated Ringers [Ringers, Lactated] 1,000 ml IV ASDIRECTED 05/29/21 19:32 Acetaminophen [TylenoL] 650 mg PO Q4H PRN 05/29/21 19:45 Pantoprazole [ProTONIX IV] 40 mg Sodium Chloride 0.9% [Normal Saline] 10 ml IV DAILY 05/29/21 23:10 Resuscitation Status Routine 05/30/21 03:00 Meropenem Premix [Meropenem in NS 1 GM/50 ML] 50 ml IV Q8H 05/30/21 06:00 Gabapentin [Neurontin] 300 mg PO TID 05/30/21 07:00 Levothyroxine [Synthroid] 50 mcg PO DAILY@0700 05/30/21 08:00 Vancomycin 1.25 gm Sodium Chloride 0.9% [Normal Saline (AdvBag)] 250 ml IV Q12H 05/30/21 13:41 CULTURE BLOOD [BC] Stat CULTURE BLOOD [BC] Stat Blood Culture x2 Reflex Set [OM.PC] Stat - Plan Plan:: 70-year-old male admitted for possible septic shock Continue broad-spectrum antibiotics blood cultures positive for gram negative bacteremia CT scan of chest, and abdomen obtained, cavitary nodule noted in right lung which has been there during patients last PET scan in February 2021. Check AFB sputum smear to r/o TB Will need outpatient biopsy to r/o malignancy Continue IV fluid hydration Repeat lactate has resolved Keep MAP more than 65 Patient has a Port-A-Cath, will discuss with EICU about potentially removing the port, but given gram negative bacteremia will hold off for now Monitor and replete electrolytes as needed Resume home meds as appropriate, hold off on all antihypertensive medications Hemoglobin is stable, Lovenox for DVT prophylaxis Patient drinks Jevity and Ensure for diet CODE STATUS: DNR/DNI Disposition 2 to 3 days pending patient's clinical course
[2021-05-30] MEDS: Enoxaparin 40 MG/0.4 ML Syringe SUBCUT SCH (19:00)
[2021-05-30] MEDS: Lactated Ringers 1,000 ML IV SCH (21:41)
[2021-05-31] MEDS: Meropenem Premix 50 ML IV SCH ×3 (03:24→18:56)
[2021-05-31] MEDS: Gabapentin 300 MG Cap PO SCH ×4 (06:21→21:57)
[2021-05-31] MEDS: Lactated Ringers 1,000 ML IV SCH ×3 (06:21→22:18)
[2021-05-31] MEDS: Levothyroxine 50 MCG Tab PO SCH (06:31)
[2021-05-31] MEDS: Acetaminophen 325 MG Tab PO PRN ×2 (06:33→19:53)
[2021-05-31 07:14] LABS: BLOOD UREA NITROGEN,BUN 8 mg/dL (7.0-18.0); CARBON DIOXIDE,CO2 24.9 mmol/L (21.0-32.0); CHLORIDE,CL 103 mmol/L (98-107); GLUCOSE RANDOM 88 mg/dL (74-106); POTASSIUM,K 3.7 mmol/L (3.5-5.1); SODIUM,NA 137 mmol/L (136-148)
[2021-05-31] MEDS: Pantoprazole 40 MG in Sodium Chloride 0.9% 10 ML IV SCH (08:24)
[2021-05-31] MEDS ORDERED: Magnesium Sulfate/Water 2 GM in Premix Bag 1 BAG IV ONE (09:56)
[2021-05-31] MEDS: Acidophilus with Citrus Pectin Tab PO SCH (11:06)
--- NOTE | 2021-05-31 12:39 | PN ---
[facility] Physician - Brief Progress [id number]/09/2021 12:38[facility] Cameron Lainez, [place] - CELEN (KIM) - MWN VONDADAVIDE ANDREJustinDate of Service 05/31/2021 12:38HPI/Events of Note eICU Progress [id number] admitted for septic shock, PMH tongue cancer and history of refractory C. diff. History obtained primarily from review of EMR, case discussed with bedside MD over telephone.So urce for sepsis has remained unclear, potential sources include port, estrada-scanning had revealed a cav itary nodule (had been present since 02/2021 on PET scan). Blood cultures growing gram negative rods. Camera exam: Laying in bed. Vitals monitor reviewed.eICU Recommendations:TB isolation and AFB smears per institutional protocolContinue antibiotic therapy for two weeks, agree with de-escalation to gram negative coverageWould remove chemotherapy port given bacteremiaDVT and GI prophylaxis as appropriat e.Thank you for allowing us to participate in the care of this patient.Unless otherwise specified, de mich implementation of above recommendations to discretion of bedside provider. Please do not hesitate to contact the eICU service for questions, clarification, or assistance with implementation.The abov e note transcribed with the assistance of dictation software. Please excuse any errors.Interventions Major-Sepsis - evaluation and management, Shock - evaluation and management
[2021-05-31] MEDS ORDERED: Bupivacaine 0.5% 10 ML SDV ONE (13:07)
[2021-05-31] MEDS ORDERED: Lidocaine 1% 20 ML MDV ONE (13:07)
--- NOTE | 2021-05-31 13:11 | PCM.PN ---
- General Info Date of Service: 05/31/21 Admission Dx/Problem (Free Text): Admission Diagnosis/Problem Admission Diagnosis/Problem Sepsis Functional Status: Reports: Pain Controlled, Tolerating Diet, Ambulating, Urinating - Review of Systems General: Reports: Weakness, Fatigue. Denies: Fever, Malaise Pulmonary: Denies: Shortness of Breath, Pleuritic Chest Pain Cardiovascular: Denies: Chest Pain, Palpitations, Dyspnea on Exertion Gastrointestinal: Reports: Diarrhea. Denies: Abdominal Pain, Constipation, Decreased Appetite Genitourinary: Denies: Dysuria, Frequency, Burning Musculoskeletal: Denies: Neck Pain, Shoulder Pain, Arm Pain Skin: Denies: Cyanosis, Jaundice, Mottled, Pallor Neurological: Denies: Confusion, Dizziness, Headache, Numbness - Patient Data Vitals - Most Recent: Last Vital Signs Temp 36.6 C 05/31/21 12:00 Pulse 88 05/29/21 20:07 Resp 12 05/31/21 13:00 BP 122/70 05/31/21 13:00 Pulse Ox 96 05/31/21 13:00 Weight - Most Recent: 77.621 kg I&O - Last 24 Hours: Intake & Output 05/30/21 05/31/21 05/31/21 22:59 06:59 14:59 Intake Total 1410 1850 120 Output Total 750 1200 250 Balance 660 650 -130 Lab Results Last 24 Hours: Laboratory Results - last 24 hr 05/31/21 05/31/21 05/31/21 Range/Units 05:19 05:19 07:35 WBC 5.88 (4.0-11.0) K/uL RBC 2.99 L (4.50-5.90) M/uL Hgb 9.4 L (13.0-17.0) g/dL Hct 28.5 L (38.0-50.0) % MCV 95.3 (80.0-98.0) fL MCH 31.4 (27.0-32.0) pg MCHC 33.0 (31.0-37.0) g/dL RDW Std Deviation 50.5 (28.0-62.0) fl RDW Coeff of Caleb 15 (11.0-15.0) % Plt Count 292 (150-400) K/uL MPV 10.00 (7.40-12.00) fL Neut % (Auto) 71.0 (48.0-80.0) % Lymph % (Auto) 12.6 L (16.0-40.0) % [place] % (Auto) 14.8 (0.0-15.0) % Eos % (Auto) 1.4 (0.0-7.0) % Baso % (Auto) 0.2 (0.0-1.5) % Neut # (Auto) 4.2 (1.4-5.7) K/uL Lymph # (Auto) 0.7 (0.6-2.4) K/uL [place] # (Auto) 0.9 H (0.0-0.8) K/uL Eos # (Auto) 0.1 (0.0-0.7) K/uL Baso # (Auto) 0.0 (0.0-0.1) K/uL Nucleated RBC % 0.0 /100WBC Nucleated RBCs # 0 K/uL Sodium 137 (136-148) mmol/L Potassium 3.7 (3.5-5.1) mmol/L Chloride 103 (98-107) mmol/L Carbon Dioxide 24.9 (21.0-32.0) mmol/L BUN 8 (7.0-18.0) mg/dL Creatinine 0.6 L (0.8-1.3) mg/dL Est Cr Clr Drug Dosing 121.67 mL/min Estimated GFR (MDRD) > 60.0 ml/min Glucose 88 (74-106) mg/dL Calcium 8.0 L (8.5-10.1) mg/dL Phosphorus 2.4 L (2.6-4.7) mg/dL Magnesium 1.7 L (1.8-2.4) mg/dL Vancomycin Trough 14.6 H (5.0-10.0) ug/mL Guillaume Results Last 24 Hours: Microbiology 05/29/21 16:25 Blood Culture Identification Panel - Preliminary Blood Gram Negative Rods 05/29/21 17:46 Blood Culture Identification Panel - Preliminary Blood Gram Negative Rods 05/29/21 16:25 Aerobic Blood Culture - Preliminary Blood - Venous Anaerobic Blood Culture - Preliminary Med Orders - Current: Current Medications Acetaminophen (Acetaminophen 325 Mg Tab) 650 mg PO Q4H PRN PRN Reason: Pain Last Admin: 05/31/21 06:33 Dose: 650 mg Documented by: Acidophilus/Pectin (Acidophilus With Charles Pectin Tab) 1 tab PO DAILY [facility] Last Admin: 05/31/21 11:06 Dose: 1 tab Documented by: Albuterol/Ipratropium (Albuterol/Ipratropium 3.0-0.5 Mg/3 Ml Neb Soln) 3 ml NEB Q4HRRT PRN PRN Reason: Shortness Of Breath/wheezing Enoxaparin Sodium (Enoxaparin 40 Mg/0.4 Ml Syringe) 40 mg SUBCUT Q24H [facility] Last Admin: 05/30/21 19:00 Dose: 40 mg Documented by: Gabapentin (Gabapentin 300 Mg Cap) 300 mg PO TID [facility] Last Admin: 05/31/21 06:21 Dose: 300 mg Documented by: Lactated Ringer's (Ringers, Lactated) 1,000 mls @ 125 mls/hr IV ASDIRECTED [facility] Last Admin: 05/31/21 06:21 Dose: 125 mls/hr Documented by: Pantoprazole Sodium 40 mg/ (Sodium Chloride) 10 mls @ 300 mls/hr IV DAILY [facility] Last Admin: 05/31/21 08:24 Dose: 300 mls/hr Documented by: Meropenem/Sodium Chloride (Meropenem In Ns 1 Gm/50 Ml) 50 mls @ 100 mls/hr IV Q8H [facility] Last Admin: 05/31/21 11:06 Dose: 100 mls/hr Documented by: Levothyroxine Sodium (Levothyroxine 50 Mcg Tab) 50 mcg PO DAILY@0700 [facility] Last Admin: 05/31/21 06:31 Dose: 50 mcg Documented by: Ondansetron HCl (Ondansetron 4 Mg/2 Ml Sdv) 4 mg IVPUSH Q4H PRN PRN Reason: Nausea/Vomiting Discontinued Medications Acetaminophen (Acetaminophen 500 Mg Tab) 650 mg PO ONETIME ONE Stop: 05/29/21 16:28 Last Admin: 05/29/21 16:41 Dose: Not Given Documented by: Acetaminophen (Acetaminophen 325 Mg Tab) 650 mg PO NOW ONE Stop: 05/29/21 16:42 Last Admin: 05/29/21 16:47 Dose: 650 mg Documented by: Sodium Chloride (Normal Saline) 1,000 mls @ 999 mls/hr IV .Bolus ONE Stop: 05/29/21 17:46 Last Admin: 05/29/21 16:47 Dose: 999 mls/hr Documented by: Sodium Chloride (Normal Saline) 1,000 mls @ 999 mls/hr IV .BOLUS ONE Stop: 05/29/21 18:41 Last Admin: 05/29/21 18:26 Dose: 999 mls/hr Documented by: Meropenem 1 gm/ Sodium (Chloride) 100 mls @ 200 mls/hr IV ONETIME ONE Stop: 05/29/21 18:56 Last Admin: 05/29/21 21:51 Dose: Not Given Documented by: Vancomycin HCl 1.25 gm/ Sodium (Chloride) 250 mls @ 167 mls/hr IV ONETIME ONE Stop: 05/29/21 19:56 Last Admin: 05/29/21 18:48 Dose: 167 mls/hr Documented by: Lactated Ringer's (Ringers, Lactated) 1,000 mls @ 999 mls/hr IV .BOLUS ONE Stop: 05/29/21 20:23 Last Admin: 05/29/21 20:42 Dose: 999 mls/hr Documented by: Meropenem 1 gm/ Sodium (Chloride) 100 mls @ 200 mls/hr IV Q8H [facility] Meropenem/Sodium Chloride (Meropenem In Ns 1 Gm/50 Ml) Confirm Administered Dose 50 mls @ as directed IV .STK-MED ONE Stop: 05/29/21 20:55 Last Admin: 05/29/21 21:09 Dose: 100 mls/hr Documented by: Lactated Ringer's (Ringers, Lactated) 500 mls @ 999 mls/hr IV .BOLUS ONE Stop: 05/30/21 00:34 Last Admin: 05/30/21 01:06 Dose: 999 mls/hr Documented by: Meropenem/Sodium Chloride (Meropenem In Ns 1 Gm/50 Ml) Confirm Administered Dose 50 mls @ as directed IV .STK-MED ONE Stop: 05/30/21 02:49 Last Admin: 05/30/21 02:54 Dose: 100 mls/hr Documented by: Vancomycin HCl 1.25 gm/ Sodium (Chloride) 250 mls @ 250 mls/hr IV Q12H [facility] Last Admin: 05/31/21 09:17 Dose: 250 mls/hr Documented by: Magnesium Sulfate 2 gm/ Premix 50 mls @ 25 mls/hr IV ONETIME ONE Stop: 05/31/21 11:55 Last Admin: 05/31/21 11:05 Dose: 25 mls/hr Documented by: Ibuprofen (Ibuprofen 800 Mg Tab) 800 mg PO ONETIME ONE Stop: 05/29/21 18:37 Last Admin: 05/29/21 18:49 Dose: 800 mg Documented by: Iopamidol (Iopamidol 755 Mg/Ml 500 Ml Multipack Bottle) 100 ml IVPUSH ONETIME STA Stop: 05/30/21 11:20 Last Admin: 05/30/21 11:19 Dose: 100 ml Documented by: Levothyroxine Sodium (Levothyroxine 50 Mcg Tab) 50 mcg PO DAILY [facility] Vancomycin HCl (Pharmacy To Dose - Vancomycin) 0 dose .XX ASDIRECTED [facility] Stop: 05/29/21 19:31 - Exam General: Alert, Oriented Lungs: Clear to Auscultation, Normal Respiratory Effort Cardiovascular: Regular Rate, Regular Rhythm GI/Abdominal Exam: Normal Bowel Sounds, Soft, Non-Tender Back Exam: Normal Inspection. No: CVA Tenderness (L), CVA Tenderness (R) Extremities: Normal Inspection, Normal Range of Motion, Non-Tender - Patient Data Lab Results Last 24 hrs: Laboratory Results - last 24 hr 05/31/21 05/31/21 05/31/21 Range/Units 05:19 05:19 07:35 WBC 5.88 (4.0-11.0) K/uL RBC 2.99 L (4.50-5.90) M/uL Hgb 9.4 L (13.0-17.0) g/dL Hct 28.5 L (38.0-50.0) % MCV 95.3 (80.0-98.0) fL MCH 31.4 (27.0-32.0) pg MCHC 33.0 (31.0-37.0) g/dL RDW Std Deviation 50.5 (28.0-62.0) fl RDW Coeff of Caleb 15 (11.0-15.0) % Plt Count 292 (150-400) K/uL MPV 10.00 (7.40-12.00) fL Neut % (Auto) 71.0 (48.0-80.0) % Lymph % (Auto) 12.6 L (16.0-40.0) % [place] % (Auto) 14.8 (0.0-15.0) % Eos % (Auto) 1.4 (0.0-7.0) % Baso % (Auto) 0.2 (0.0-1.5) % Neut # (Auto) 4.2 (1.4-5.7) K/uL Lymph # (Auto) 0.7 (0.6-2.4) K/uL [place] # (Auto) 0.9 H (0.0-0.8) K/uL Eos # (Auto) 0.1 (0.0-0.7) K/uL Baso # (Auto) 0.0 (0.0-0.1) K/uL Nucleated RBC % 0.0 /100WBC Nucleated RBCs # 0 K/uL Sodium 137 (136-148) mmol/L Potassium 3.7 (3.5-5.1) mmol/L Chloride 103 (98-107) mmol/L Carbon Dioxide 24.9 (21.0-32.0) mmol/L BUN 8 (7.0-18.0) mg/dL Creatinine 0.6 L (0.8-1.3) mg/dL Est Cr Clr Drug Dosing 121.67 mL/min Estimated GFR (MDRD) > 60.0 ml/min Glucose 88 (74-106) mg/dL Calcium 8.0 L (8.5-10.1) mg/dL Phosphorus 2.4 L (2.6-4.7) mg/dL Magnesium 1.7 L (1.8-2.4) mg/dL Vancomycin Trough 14.6 H (5.0-10.0) ug/mL Result Diagrams: 05/31/21 05:19 05/31/21 05:19 Guillaume Results Last 24 hrs: Microbiology 05/29/21 16:25 Blood Culture Identification Panel - Preliminary Blood Gram Negative Rods 05/29/21 17:46 Blood Culture Identification Panel - Preliminary Blood Gram Negative Rods 05/29/21 16:25 Aerobic Blood Culture - Preliminary Blood - Venous Anaerobic Blood Culture - Preliminary Sepsis Event Note - Evaluation Sepsis Screening Result: No Definite Risk - Focused Exam Vital Signs: Vital Signs Temp Resp BP Pulse Ox 05/31/21 13:00 12 122/70 96 05/31/21 12:00 36.6 C 11 L 99/51 L 95 05/31/21 10:57 36.6 C 12 98/56 L 94 L 05/31/21 10:00 36.6 C 12 120/71 95 05/31/21 09:00 37.5 C 16 104/70 95 05/31/21 08:00 37.4 C 14 107/75 95 05/31/21 07:00 13 109/65 93 L 05/31/21 06:00 15 116/72 95 05/31/21 05:00 17 117/73 95 05/31/21 04:00 37.4 C 15 120/68 95 05/31/21 03:00 16 115/65 91 L 05/31/21 02:00 18 107/57 L 93 L - Problem List & Annotations (1) Sepsis SNOMED Code(s): 13762147 Code(s): A41.9 - SEPSIS, UNSPECIFIED ORGANISM Status: Acute Current Visit: Yes (2) Osteoarthritis SNOMED Code(s): 768659474 Code(s): M19.90 - UNSPECIFIED OSTEOARTHRITIS, UNSPECIFIED SITE Status: Acute Current Visit: No (3) Port-A-Cath in place SNOMED Code(s): 351658033 Code(s): Z95.828 - PRESENCE OF OTHER VASCULAR IMPLANTS AND GRAFTS Status: Acute Current Visit: No (4) Unsteady gait SNOMED Code(s): 11862264 Code(s): R26.81 - UNSTEADINESS ON FEET Status: Acute Current Visit: No (5) Tongue carcinoma Status: Chronic Current Visit: No - Problem List Review Problem List Initiated/Reviewed/Updated: Yes - My Orders Last 24 Hours: My Active Orders 05/30/21 13:41 Blood Culture x2 Reflex Set [OM.PC] Stat 05/30/21 14:05 CULTURE BLOOD [BC] Stat 05/30/21 14:10 CULTURE BLOOD [BC] Stat - Plan Plan:: 70-year-old male admitted for possible septic shock, no clear source, cont meropenem, will stop vancomycin blood cultures positive for gram negative bacteremia, f/u on final cultures CT scan of chest, and abdomen obtained, cavitary nodule noted in right lung which has been there during patients last PET scan in February 2021, malignancy till ruled otherwise, Will need outpatient biopsy to r/o malignancy. Check AFB sputum smear to r/o TB per hospital protocol Continue IV fluid hydration Repeat lactate has resolved Keep MAP more than 65 Patient has a Port-A-Cath, will have to be removed for source control, will consult surgery had 3 loose stools, cont hydration, check cdiff if more than 4 stools in 24 hours Monitor and replete electrolytes as needed Resume home meds as appropriate, hold off on all antihypertensive medications Hemoglobin is stable, Lovenox for DVT prophylaxis Patient drinks Jevity and Ensure for diet CODE STATUS: DNR/DNI Disposition 2 to 3 days pending patient's clinical course
--- NOTE | 2021-05-31 13:22 | PCM.CONS ---
H&P History of Present Illness - General Date of Service: 05/31/21 Admit Problem/Dx: Admission Diagnosis/Problem Admission Diagnosis/Problem Sepsis Source of Information: Patient History Limitations: Reports: No Limitations - History of Present Illness Initial Comments - Free Text/Narative: Patient is a 70-year-old gentleman who was admitted 2 days ago with sepsis. He has been found have a gram-negative bacteremia. Request has been made to have his port removed as a possible site of the sepsis. Symptom Onset Date: 05/29/21 Location: Reports: Other (Sepsis) Severity: Severe Improves with: Reports: None Worsens with: Reports: None Associated Symptoms: Reports: Fever/Chills, Loss of Appetite joint Pain Score (Numeric/FACES): 4 - Related Data Allergies/Adverse Reactions: Allergies Allergy/AdvReac Type Severity Reaction Status Date / Time wing Allergy Other Verified 05/29/21 16:40 coconut Allergy Other Verified 05/29/21 16:40 Penicillins Allergy Hives Verified 05/29/21 16:40 Home Medications: Home Meds Gabapentin [Neurontin] 300 mg PO TID 09/10/19 [History] Levothyroxine [Synthroid] 50 mcg PO DAILY 03/18/21 [History] Past Medical History - Past Health History Medical/Surgical History: Denies Medical/Surgical History HEENT History: Reports: None Cardiovascular History: Reports: Hypertension Respiratory History: Reports: None Gastrointestinal History: Reports: None Genitourinary History: Reports: None Musculoskeletal History: Reports: Arthritis Neurological History: Reports: Neuropathy, Peripheral Psychiatric History: Reports: None Endocrine/Metabolic History: Reports: Hypothyroidism Hematologic History: Reports: None Immunologic History: Reports: None Other Oncologic History: "tongue cancer." - Infectious Disease History Infectious Disease History: Reports: None - Past Surgical History Head Surgeries/Procedures: Reports: None HEENT Surgical History: Reports: Other (See Below) Other HEENT Surgeries/Procedures: tongue surgery Musculoskeletal Surgical History: Reports: Other (See Below) Other Musculoskeletal Surgeries/Procedures:: Head surgery, plate in place 40+ years ago Social & Family History - Family History Family Medical History: No Pertinent Family History - Tobacco Use Tobacco Use Status *Q: Never Tobacco User Second Hand Smoke Exposure: No - Caffeine Use Caffeine Use: Reports: None - Recreational Drug Use Recreational Drug Use: No H&P Review of Systems - Review of Systems: Review Of Systems: See Below General: Denies: Fever, Chills HEENT: Reports: No Symptoms Pulmonary: Denies: Shortness of Breath, Wheezing Cardiovascular: Denies: Chest Pain, Palpitations Gastrointestinal: Denies: Abdominal Pain Genitourinary: Denies: Dysuria, Frequency Musculoskeletal: Reports: No Symptoms Skin: Denies: Cyanosis, Jaundice, Mottled, Pallor, Diaphoresis Psychiatric: Denies: Confusion, Depression, Anxiety Exam - Exam Exam: See Below - Vital Signs Vital Signs: Last Vital Signs Temp 97.9 F 05/31/21 12:00 Pulse 88 05/29/21 20:07 Resp 12 05/31/21 13:00 BP 122/70 05/31/21 13:00 Pulse Ox 96 05/31/21 13:00 Weight: 171 lb 2 oz - Exam Quality Assessment: Supplemental Oxygen, Central Line/PICC General: Alert, Oriented, Cooperative, Mild Distress HEENT: Conjunctiva Clear, Nares Patent, PERRLA Neck: Supple, Trachea Midline Lungs: Clear to Auscultation, Normal Respiratory Effort Cardiovascular: Regular Rate, Regular Rhythm. No: Tachycardia GI/Abdominal Exam: Normal Bowel Sounds, Soft, Non-Tender (Male) Exam: Deferred Rectal (Males) Exam: Deferred Back Exam: Normal Inspection Extremities: Normal Inspection Skin: Warm, Dry, Intact Neurological: Cranial Nerves Intact Neuro Extensive - Mental Status: Alert, Oriented x3 Psychiatric: Alert, Normal Affect - Patient Data Lab Results Last 24 hrs: Laboratory Results - last 24 hr 05/31/21 05/31/21 05/31/21 Range/Units 05:19 05:19 07:35 WBC 5.88 (4.0-11.0) K/uL RBC 2.99 L (4.50-5.90) M/uL Hgb 9.4 L (13.0-17.0) g/dL Hct 28.5 L (38.0-50.0) % MCV 95.3 (80.0-98.0) fL MCH 31.4 (27.0-32.0) pg MCHC 33.0 (31.0-37.0) g/dL RDW Std Deviation 50.5 (28.0-62.0) fl RDW Coeff of Caleb 15 (11.0-15.0) % Plt Count 292 (150-400) K/uL MPV 10.00 (7.40-12.00) fL Neut % (Auto) 71.0 (48.0-80.0) % Lymph % (Auto) 12.6 L (16.0-40.0) % [place] % (Auto) 14.8 (0.0-15.0) % Eos % (Auto) 1.4 (0.0-7.0) % Baso % (Auto) 0.2 (0.0-1.5) % Neut # (Auto) 4.2 (1.4-5.7) K/uL Lymph # (Auto) 0.7 (0.6-2.4) K/uL [place] # (Auto) 0.9 H (0.0-0.8) K/uL Eos # (Auto) 0.1 (0.0-0.7) K/uL Baso # (Auto) 0.0 (0.0-0.1) K/uL Nucleated RBC % 0.0 /100WBC Nucleated RBCs # 0 K/uL Sodium 137 (136-148) mmol/L Potassium 3.7 (3.5-5.1) mmol/L Chloride 103 (98-107) mmol/L Carbon Dioxide 24.9 (21.0-32.0) mmol/L BUN 8 (7.0-18.0) mg/dL Creatinine 0.6 L (0.8-1.3) mg/dL Est Cr Clr Drug Dosing 121.67 mL/min Estimated GFR (MDRD) > 60.0 ml/min Glucose 88 (74-106) mg/dL Calcium 8.0 L (8.5-10.1) mg/dL Phosphorus 2.4 L (2.6-4.7) mg/dL Magnesium 1.7 L (1.8-2.4) mg/dL Vancomycin Trough 14.6 H (5.0-10.0) ug/mL Result Diagrams: 05/31/21 05:19 05/31/21 05:19 Guillaume Results Last 24 hrs: Microbiology 05/29/21 16:25 Blood Culture Identification Panel - Preliminary Blood Gram Negative Rods 05/29/21 17:46 Blood Culture Identification Panel - Preliminary Blood Gram Negative Rods 05/29/21 16:25 Aerobic Blood Culture - Preliminary Blood - Venous Anaerobic Blood Culture - Preliminary Sepsis Event Note - Evaluation Sepsis Screening Result: No Definite Risk - Focused Exam Vital Signs: Vital Signs Temp Resp BP Pulse Ox 05/31/21 13:00 12 122/70 96 05/31/21 12:00 97.9 F 11 L 99/51 L 95 05/31/21 10:57 97.9 F 12 98/56 L 94 L 05/31/21 10:00 97.9 F 12 120/71 95 05/31/21 09:00 99.5 F 16 104/70 95 05/31/21 08:00 99.3 F 14 107/75 95 05/31/21 07:00 13 109/65 93 L 05/31/21 06:00 15 116/72 95 05/31/21 05:00 17 117/73 95 05/31/21 04:00 99.3 F 15 120/68 95 05/31/21 03:00 16 115/65 91 L 05/31/21 02:00 18 107/57 L 93 L Consult PN Assessment/Plan Procedures: Procedures AGENT NOS ASSAY W/OPTIC (03/19/21) ASSAY GLUCOSE BLOOD QUANT (03/19/21) ASSAY OF CK (CPK) (12/25/20) ASSAY OF FOLIC ACID SERUM (01/22/21) ASSAY OF FREE THYROXINE (12/26/20) ASSAY OF LACTIC ACID (03/19/21) ASSAY OF LIPASE (09/10/19) ASSAY OF MAGNESIUM (04/11/21) ASSAY OF NATRIURETIC PEPTIDE (04/11/21) ASSAY OF PHOSPHORUS (04/11/21) ASSAY OF SERUM POTASSIUM (03/19/21) ASSAY OF TROPONIN QUANT (03/19/21) ASSAY THYROID STIM HORMONE (02/26/21) C DIFF AMPLIFIED PROBE (03/19/21) CHEMO IV INFUSION 1 HR (11/21/20) CLOSTRIDIUM AG IA (03/19/21) COMPLETE CBC W/AUTO DIFF WBC (04/11/21) COMPREHEN METABOLIC PANEL (04/11/21) CRYPTOSPORIDIUM AG IA (03/19/21) CULTURE SCREEN ONLY (06/09/19) DESIGN MLC DEVICE FOR IMRT (09/14/19) DETECT AGENT NOS DNA AMP (09/10/19) DRAW BLOOD OFF VENOUS DEVICE (02/26/21) ELECTROCARDIOGRAM TRACING (03/19/21) EMERGENCY DEPT VISIT (04/11/21) EMERGENCY DEPT VISIT (03/19/21) EMERGENCY DEPT VISIT (12/25/20) EMERGENCY DEPT VISIT (09/10/19) EMERGENCY DEPT VISIT (04/23/16) EXTREMITY STUDY (04/11/21) FECES CULTURE AEROBIC BACT (03/19/21) FREE ASSAY (FT-3) (12/26/20) GIARDIA AG IA (03/19/21) HYDRATE IV INFUSION ADD-ON (09/10/19) HYDRATION IV INFUSION INIT (12/26/20) IIV NO PRSV INCREASED AG IM (08/28/20) INSERT TEMP BLADDER CATH (09/10/19) INSJ PICC 5 YR+ W/O IMAGING (03/19/21) INSJ PICC <5 YR W/O IMAGING (03/19/21) LACTOFERRIN FECAL (QUAL) (09/10/19) MEDICAL NUTRITION INDIV IN (03/19/21) METABOLIC PANEL TOTAL CA (03/19/21) MICROBE SUSCEPTIBLE GUILLAUME (03/19/21) NOS EACH ORGANISM AG IA (03/19/21) NTSTY MODUL RAD TX DLVR CPLX (12/15/19) OCCULT BLD FECES 1-3 TESTS (09/10/19) OFFICE O/P EST MINIMAL PROB (01/18/20) OFFICE O/P EST MOD 30-39 MIN (09/14/19) OFFICE O/P EST SF 10-19 MIN (04/30/20) OFFICE O/P NEW LOW 30-44 MIN (09/14/19) OFFICE O/P NEW MOD 45-59 MIN (08/08/19) PET IMAGE W/CT SKULL-THIGH (02/26/21) PPSV23 VACC 2 YRS+ SUBQ/IM (02/28/20) PT EVAL MOD COMPLEX 30 MIN (03/19/21) RADIATION PHYSICS CONSULT (12/15/19) RADIATION THERAPY DOSE PLAN (09/14/19) RADIATION TREATMENT AID(S) (09/14/19) RADIATION TREATMENT AID(S) (09/14/19) RADIOTHERAPY DOSE PLAN IMRT (09/14/19) REMOVAL TUNNELED CV CATH (03/19/21) ROTAVIRUS AG IA (09/10/19) ROUTINE VENIPUNCTURE (04/11/21) STOOL CULTR AEROBIC BACT EA (03/19/21) STREP A ASSAY W/OPTIC (06/09/19) THER/PROPH/DIAG INJ IV PUSH (12/26/20) THER/PROPH/DIAG INJ SC/IM (12/04/20) THER/PROPH/DIAG IV INF ADDON (03/19/21) THER/PROPH/DIAG IV INF INIT (03/19/21) THERAPEUTIC EXERCISES (03/19/21) TX/PRO/DX INJ NEW DRUG ADDON (03/19/21) TX/PRO/DX INJ SAME DRUG MACADAM RAKER (03/19/21) URINALYSIS AUTO W/O SCOPE (09/10/19) URINALYSIS AUTO W/SCOPE (03/19/21) URINE BACTERIA CULTURE (03/19/21) URINE CULTURE/COLONY COUNT (03/19/21) US TRANSRECTAL (09/14/19) US URINE CAPACITY MEASURE (09/10/19) VITAMIN B-12 (01/22/21) X-RAY EXAM ABDOMEN 2 VIEWS (09/10/19) X-RAY EXAM CHEST 1 VIEW (04/11/21) X-RAY EXAM CHEST 2 VIEWS (06/09/19) X-RAY EXAM L-S SPINE 2/3 VWS (04/23/16) (1) Sepsis SNOMED Code(s): 73159564 Code(s): A41.9 - SEPSIS, UNSPECIFIED ORGANISM Priority: High Current Visit: Yes Qualifiers: Sepsis type: sepsis due to unspecified organism (2) Dehydration SNOMED Code(s): 95769638 Code(s): E86.0 - DEHYDRATION Priority: High Current Visit: No (3) Hypokalemia SNOMED Code(s): 73412933 Code(s): E87.6 - HYPOKALEMIA Priority: Medium Current Visit: No Problem List Initiated/Reviewed/Updated: Yes My Orders Last 24 Hours: My Active Orders 05/31/21 13:15 Antiembolic Devices [RC] PER UNIT ROUTINE Antiembolic Devices [RC] PER UNIT ROUTINE Oxygen Therapy [RC] PRN Pulse Oximetry [RC] INTERMITTENT Skin Preparation [RC] ASDIRECTED Vital Signs [RC] PER UNIT ROUTINE Sequential Compression Device [OM.PC] Routine 05/31/21 Dinner Nothing Per Oral Diet [DIET] Plan: Removal of the Bard port. The operative procedure, along with the risks, including, but not limited to, bleeding, infection, reaction to, anesthesia, and the possibility of requiring replacement of the port were explained to the patient who voices understanding, offers no questions and wishes to proceed. Cultures will be obtained from the tip of the catheter which will be sent for appropriate microbiologic studies.
[2021-05-31] MEDS ORDERED: propofoL 0 ML ONE (13:38)
[2021-05-31] MEDS ORDERED: Metoclopramide 10 MG/2 ML SDV ONE ×2 (13:45→13:58)
[2021-05-31] MEDS ORDERED: Ondansetron 4 MG/2 ML SDV ONE (13:46)
[2021-05-31] MEDS ORDERED: Dexmedetomidine 200 MCG/2 ML SDV ONE (13:56)
[2021-05-31] MEDS ORDERED: Midazolam 1 MG/ML 2 ML SDV ONE (14:07)
--- NOTE | 2021-05-31 14:48 | PCM.PREANE ---
Preanesthetic Assessment - Anesthesia/Transfusion/Family Hx Anesthesia History: Prior Anesthesia Without Reaction Family History of Anesthesia Reaction: No Transfusion History: Prior Transfusion Without Reaction - Review of Systems General: No Symptoms Pulmonary: No Symptoms Cardiovascular: No Symptoms Gastrointestinal: No Symptoms Neurological: No Symptoms Other: Reports: None - Physical Assessment NPO Status Date: 05/31/21 NPO Status Time: 09:00 Vital Signs: Last Vital Signs Temp 36.6 C 05/31/21 12:00 Pulse 88 05/29/21 20:07 Resp 12 05/31/21 13:00 BP 122/70 05/31/21 13:00 Pulse Ox 96 05/31/21 13:00 Height: 1.78 m Weight: 77.621 kg ASA Class: 4E Mental Status: Alert & Oriented x3 Dentition: Reports: Normal Dentition ROM/Head Extension: Full Lungs: Clear to Auscultation, Normal Respiratory Effort Cardiovascular: Regular Rate, Regular Rhythm - Lab Values: Laboratory Last Values WBC 5.88 K/uL (4.0-11.0) 05/31/21 05:19 RBC 2.99 M/uL (4.50-5.90) L 05/31/21 05:19 Hgb 9.4 g/dL (13.0-17.0) L 05/31/21 05:19 Hct 28.5 % (38.0-50.0) L 05/31/21 05:19 MCV 95.3 fL (80.0-98.0) 05/31/21 05:19 MCH 31.4 pg (27.0-32.0) 05/31/21 05:19 MCHC 33.0 g/dL (31.0-37.0) 05/31/21 05:19 RDW Std Deviation 50.5 fl (28.0-62.0) 05/31/21 05:19 RDW Coeff of Caleb 15 % (11.0-15.0) 05/31/21 05:19 Plt Count 292 K/uL (150-400) 05/31/21 05:19 MPV 10.00 fL (7.40-12.00) 05/31/21 05:19 Neut % (Auto) 71.0 % (48.0-80.0) 05/31/21 05:19 Lymph % (Auto) 12.6 % (16.0-40.0) L 05/31/21 05:19 [place] % (Auto) 14.8 % (0.0-15.0) 05/31/21 05:19 Eos % (Auto) 1.4 % (0.0-7.0) 05/31/21 05:19 Baso % (Auto) 0.2 % (0.0-1.5) 05/31/21 05:19 Neut # (Auto) 4.2 K/uL (1.4-5.7) 05/31/21 05:19 Lymph # (Auto) 0.7 K/uL (0.6-2.4) 05/31/21 05:19 [place] # (Auto) 0.9 K/uL (0.0-0.8) H 05/31/21 05:19 Eos # (Auto) 0.1 K/uL (0.0-0.7) 05/31/21 05:19 Baso # (Auto) 0.0 K/uL (0.0-0.1) 05/31/21 05:19 Nucleated RBC % 0.0 /100WBC 05/31/21 05:19 Nucleated RBCs # 0 K/uL 05/31/21 05:19 Sodium 137 mmol/L (136-148) 05/31/21 05:19 Potassium 3.7 mmol/L (3.5-5.1) 05/31/21 05:19 Chloride 103 mmol/L (98-107) 05/31/21 05:19 Carbon Dioxide 24.9 mmol/L (21.0-32.0) 05/31/21 05:19 BUN 8 mg/dL (7.0-18.0) 05/31/21 05:19 Creatinine 0.6 mg/dL (0.8-1.3) L 05/31/21 05:19 Est Cr Clr Drug Dosing 121.67 mL/min 05/31/21 05:19 Estimated GFR (MDRD) > 60.0 ml/min 05/31/21 05:19 Glucose 88 mg/dL (74-106) 05/31/21 05:19 Lactic Acid 1.0 mmol/L (0.4-2.0) 05/29/21 21:40 Calcium 8.0 mg/dL (8.5-10.1) L 05/31/21 05:19 Phosphorus 2.4 mg/dL (2.6-4.7) L 05/31/21 05:19 Magnesium 1.7 mg/dL (1.8-2.4) L 05/31/21 05:19 Total Bilirubin 0.4 mg/dL (0.2-1.0) 05/29/21 16:25 AST 21 IU/L (15-37) 05/29/21 16:25 ALT 23 IU/L (14-63) 05/29/21 16:25 Alkaline Phosphatase 71 U/L (46-116) 05/29/21 16:25 Creatine Kinase 57 U/L (26-308) 05/29/21 16:25 Total Protein 7.9 g/dL (6.4-8.2) 05/29/21 16:25 Albumin 3.2 g/dL (3.4-5.0) L 05/29/21 16:25 Globulin 4.7 g/dL (2.6-4.0) H 05/29/21 16:25 Albumin/Globulin Ratio 0.7 (0.9-1.6) L 05/29/21 16:25 Lipase 280 U/L (73-393) 05/29/21 16:25 Urine Color YELLOW 05/29/21 19:00 Urine Appearance CLEAR 05/29/21 19:00 Urine pH 6.5 (5.0-8.0) 05/29/21 19:00 Ur Specific [place] 1.015 (1.001-1.035) 05/29/21 19:00 Urine Protein NEGATIVE mg/dL (NEGATIVE) 05/29/21 19:00 Urine Glucose (UA) NEGATIVE mg/dL (NEGATIVE) 05/29/21 19:00 Urine Ketones NEGATIVE mg/dL (NEGATIVE) 05/29/21 19:00 Urine Occult Blood NEGATIVE (NEGATIVE) 05/29/21 19:00 Urine Nitrite NEGATIVE (NEGATIVE) 05/29/21 19:00 Urine Bilirubin NEGATIVE (NEGATIVE) 05/29/21 19:00 Urine Urobilinogen 0.2 EU/dL (<2.0) 05/29/21 19:00 Ur Leukocyte Esterase NEGATIVE (NEGATIVE) 05/29/21 19:00 Vancomycin Trough 14.6 ug/mL (5.0-10.0) H 05/31/21 07:35 SARS-CoV-2 RNA (CHANDRA) NEGATIVE (NEGATIVE) 05/29/21 18:29 - Allergies Allergies/Adverse Reactions: Allergies Allergy/AdvReac Type Severity Reaction Status Date / Time wing Allergy Other Verified 05/29/21 16:40 coconut Allergy Other Verified 05/29/21 16:40 Penicillins Allergy Hives Verified 05/29/21 16:40 - Acknowledgements Anesthesia Type Planned: MAC Pt an Appropriate Candidate for the Planned Anesthesia: Yes Alternatives and Risks of Anesthesia Discussed w Pt/Guardian: Yes Pt/Guardian Understands and Agrees with Anesthesia Plan: Yes PreAnesthesia Questionnaire - Past Health History Medical/Surgical History: Denies Medical/Surgical History HEENT History: Reports: None Cardiovascular History: Reports: Hypertension Respiratory History: Reports: None Gastrointestinal History: Reports: None Genitourinary History: Reports: None Musculoskeletal History: Reports: Arthritis Neurological History: Reports: Neuropathy, Peripheral Psychiatric History: Reports: None Endocrine/Metabolic History: Reports: Hypothyroidism Hematologic History: Reports: None Immunologic History: Reports: None Other Oncologic History: "tongue cancer." - Infectious Disease History Infectious Disease History: Reports: None - Past Surgical History Head Surgeries/Procedures: Reports: None HEENT Surgical History: Reports: Other (See Below) Other HEENT Surgeries/Procedures: tongue surgery Musculoskeletal Surgical History: Reports: Other (See Below) Other Musculoskeletal Surgeries/Procedures:: Head surgery, plate in place 40+ years ago - SUBSTANCE USE Tobacco Use Status *Q: Never Tobacco User Second Hand Smoke Exposure: No Recreational Drug Use History: No - HOME MEDS Home Medications: Home Meds Gabapentin [Neurontin] 300 mg PO TID 09/10/19 [History] Levothyroxine [Synthroid] 50 mcg PO DAILY 03/18/21 [History] - CURRENT (IN HOUSE) MEDS Current Meds: Current Medications Acetaminophen (Acetaminophen 325 Mg Tab) 650 mg PO Q4H PRN PRN Reason: Pain Last Admin: 05/31/21 06:33 Dose: 650 mg Documented by: Acidophilus/Pectin (Acidophilus With [place] Pectin Tab) 1 tab PO DAILY BOB Last Admin: 05/31/21 11:06 Dose: 1 tab Documented by: Albuterol/Ipratropium (Albuterol/Ipratropium 3.0-0.5 Mg/3 Ml Neb Soln) 3 ml NEB Q4HRRT PRN PRN Reason: Shortness Of Breath/wheezing Enoxaparin Sodium (Enoxaparin 40 Mg/0.4 Ml Syringe) 40 mg SUBCUT Q24H [facility] Last Admin: 05/30/21 19:00 Dose: 40 mg Documented by: Gabapentin (Gabapentin 300 Mg Cap) 300 mg PO TID [facility] Last Admin: 05/31/21 14:13 Dose: Not Given Documented by: Lactated Ringer's (Ringers, Lactated) 1,000 mls @ 125 mls/hr IV ASDIRECTED [facility] Last Admin: 05/31/21 06:21 Dose: 125 mls/hr Documented by: Pantoprazole Sodium 40 mg/ (Sodium Chloride) 10 mls @ 300 mls/hr IV DAILY [facility] Last Admin: 05/31/21 08:24 Dose: 300 mls/hr Documented by: Meropenem/Sodium Chloride (Meropenem In Ns 1 Gm/50 Ml) 50 mls @ 100 mls/hr IV Q8H [facility] Last Admin: 05/31/21 11:06 Dose: 100 mls/hr Documented by: Levothyroxine Sodium (Levothyroxine 50 Mcg Tab) 50 mcg PO DAILY@0700 [facility] Last Admin: 05/31/21 06:31 Dose: 50 mcg Documented by: Ondansetron HCl (Ondansetron 4 Mg/2 Ml Sdv) 4 mg IVPUSH Q4H PRN PRN Reason: Nausea/Vomiting Discontinued Medications Acetaminophen (Acetaminophen 500 Mg Tab) 650 mg PO ONETIME ONE Stop: 05/29/21 16:28 Last Admin: 05/29/21 16:41 Dose: Not Given Documented by: Acetaminophen (Acetaminophen 325 Mg Tab) 650 mg PO NOW ONE Stop: 05/29/21 16:42 Last Admin: 05/29/21 16:47 Dose: 650 mg Documented by: Bupivacaine HCl (Bupivacaine 0.5% 10 Ml Sdv) Confirm Administered Dose 10 ml .ROUTE .STK-MED ONE Stop: 05/31/21 13:08 Dexmedetomidine HCl (Dexmedetomidine 200 Mcg/2 Ml Sdv) Confirm Administered Dose 200 mcg .ROUTE .STK-MED ONE Stop: 05/31/21 13:57 Sodium Chloride (Normal Saline) 1,000 mls @ 999 mls/hr IV .Bolus ONE Stop: 05/29/21 17:46 Last Admin: 05/29/21 16:47 Dose: 999 mls/hr Documented by: Sodium Chloride (Normal Saline) 1,000 mls @ 999 mls/hr IV .BOLUS ONE Stop: 05/29/21 18:41 Last Admin: 05/29/21 18:26 Dose: 999 mls/hr Documented by: Meropenem 1 gm/ Sodium (Chloride) 100 mls @ 200 mls/hr IV ONETIME ONE Stop: 05/29/21 18:56 Last Admin: 05/29/21 21:51 Dose: Not Given Documented by: Vancomycin HCl 1.25 gm/ Sodium (Chloride) 250 mls @ 167 mls/hr IV ONETIME ONE Stop: 05/29/21 19:56 Last Admin: 05/29/21 18:48 Dose: 167 mls/hr Documented by: Lactated Ringer's (Ringers, Lactated) 1,000 mls @ 999 mls/hr IV .BOLUS ONE Stop: 05/29/21 20:23 Last Admin: 05/29/21 20:42 Dose: 999 mls/hr Documented by: Meropenem 1 gm/ Sodium (Chloride) 100 mls @ 200 mls/hr IV Q8H [facility] Meropenem/Sodium Chloride (Meropenem In Ns 1 Gm/50 Ml) Confirm Administered Dose 50 mls @ as directed IV .STK-MED ONE Stop: 05/29/21 20:55 Last Admin: 05/29/21 21:09 Dose: 100 mls/hr Documented by: Lactated Ringer's (Ringers, Lactated) 500 mls @ 999 mls/hr IV .BOLUS ONE Stop: 05/30/21 00:34 Last Admin: 05/30/21 01:06 Dose: 999 mls/hr Documented by: Meropenem/Sodium Chloride (Meropenem In Ns 1 Gm/50 Ml) Confirm Administered Dose 50 mls @ as directed IV .STK-MED ONE Stop: 05/30/21 02:49 Last Admin: 05/30/21 02:54 Dose: 100 mls/hr Documented by: Vancomycin HCl 1.25 gm/ Sodium (Chloride) 250 mls @ 250 mls/hr IV Q12H [facility] Last Admin: 05/31/21 09:17 Dose: 250 mls/hr Documented by: Magnesium Sulfate 2 gm/ Premix 50 mls @ 25 mls/hr IV ONETIME ONE Stop: 05/31/21 11:55 Last Admin: 05/31/21 11:05 Dose: 25 mls/hr Documented by: Propofol (Diprivan 100 Ml) Confirm Administered Dose 100 mls @ as directed .ROUTE .STK-MED ONE Stop: 05/31/21 13:39 Ibuprofen (Ibuprofen 800 Mg Tab) 800 mg PO ONETIME ONE Stop: 05/29/21 18:37 Last Admin: 05/29/21 18:49 Dose: 800 mg Documented by: Iopamidol (Iopamidol 755 Mg/Ml 500 Ml Multipack Bottle) 100 ml IVPUSH ONETIME STA Stop: 05/30/21 11:20 Last Admin: 05/30/21 11:19 Dose: 100 ml Documented by: Levothyroxine Sodium (Levothyroxine 50 Mcg Tab) 50 mcg PO DAILY [facility] Lidocaine HCl (Lidocaine 1% 20 Ml Mdv) Confirm Administered Dose 20 ml .ROUTE .STK-MED ONE Stop: 05/31/21 13:08 Metoclopramide HCl (Metoclopramide 10 Mg/2 Ml Sdv) Confirm Administered Dose 10 mg .ROUTE .STK-MED ONE Stop: 05/31/21 13:46 Metoclopramide HCl (Metoclopramide 10 Mg/2 Ml Sdv) Confirm Administered Dose 10 mg .ROUTE .STK-MED ONE Stop: 05/31/21 13:59 Midazolam HCl (Midazolam 1 Mg/Ml 2 Ml Sdv) Confirm Administered Dose 2 mg .ROUTE .STK-MED ONE Stop: 05/31/21 14:08 Ondansetron HCl (Ondansetron 4 Mg/2 Ml Sdv) Confirm Administered Dose 4 mg .ROUTE .STK-MED ONE Stop: 05/31/21 13:47 Vancomycin HCl (Pharmacy To Dose - Vancomycin) 0 dose .XX ASDIRECTED [facility] Stop: 05/29/21 19:31
--- NOTE | 2021-05-31 14:49 | PCM.POSTAN ---
POST ANESTHESIA ASSESSMENT - MENTAL STATUS Mental Status: Alert, Oriented - VITAL SIGNS Vital Signs: Last Vital Signs Temp 36.6 C 05/31/21 12:00 Pulse 88 05/29/21 20:07 Resp 12 05/31/21 13:00 BP 122/70 05/31/21 13:00 Pulse Ox 96 05/31/21 13:00 - RESPIRATORY Respiratory Status: Respiratory Rate WNL, Airway Patent, O2 Saturation Stable - CARDIOVASCULAR CV Status: Pulse Rate WNL, Blood Pressure Stable - GASTROINTESTINAL GI Status: No Symptoms - POST OP HYDRATION Hydration Status: Adequate & Stable
--- NOTE | 2021-05-31 14:50 | PCM48HPAN ---
Post Anesthesia Note - EVALUATION WITHIN 48HRS OF ANESTHETIC Vital Signs in Normal Range: Yes Patient Participated in Evaluation: Yes Respiratory Function Stable: Yes Airway Patent: Yes Cardiovascular Function Stable: Yes Hydration Status Stable: Yes Pain Control Satisfactory: Yes Nausea and Vomiting Control Satisfactory: Yes Mental Status Recovered: Yes Vital Signs: Last Vital Signs Temp 36.6 C 05/31/21 12:00 Pulse 88 05/29/21 20:07 Resp 12 05/31/21 13:00 BP 122/70 05/31/21 13:00 Pulse Ox 96 05/31/21 13:00
--- NOTE | 2021-05-31 14:53 | PCM.OPNOTE ---
- General Post-Op/Procedure Note Date of Surgery/Procedure: 05/31/21 Operative Procedure(s): Removal of chemotherapy port and catheter Pre Op Diagnosis: Sepsis with bacteremia. Possible intravascular device related sepsis. Post-Op Diagnosis: Gram-negative bacteremia, possible catheter associated infection Anesthesia Technique: MAC (ASA ARIEL) Primary Surgeon: Kenny Saez Fluid Replacement, Intraop: 500 EBL in mLs: 5 Condition: Fair Free Text/Narrative:: Intake & Output 05/31/21 05/31/21 05/31/21 03:59 11:59 19:59 Intake Total 300 1970 Output Total 1450 Balance 300 520 DICTATION [id number] CPT CODE 40620
[2021-05-31] MEDS: Enoxaparin 40 MG/0.4 ML Syringe SUBCUT SCH (18:56)
[2021-06-01] MEDS: Meropenem Premix 50 ML IV SCH ×3 (03:21→18:32)
[2021-06-01] MEDS: Acetaminophen 325 MG Tab PO PRN ×2 (03:48→21:07)
[2021-06-01 05:44] LABS: BLOOD UREA NITROGEN,BUN 7 mg/dL (7.0-18.0); CHLORIDE,CL 103 mmol/L (98-107); GLUCOSE RANDOM 94 mg/dL (74-106); POTASSIUM,K 4.1 mmol/L (3.5-5.1); SODIUM,NA 138 mmol/L (136-148)
[2021-06-01] MEDS: Lactated Ringers 1,000 ML IV SCH ×2 (06:00→22:19)
[2021-06-01] MEDS: Gabapentin 300 MG Cap PO SCH ×3 (06:00→21:06)
[2021-06-01] MEDS: Levothyroxine 50 MCG Tab PO SCH (06:00)
--- NOTE | 2021-06-01 06:49 | OR ---
SURGEON: Kenny Saez M.D. DATE OF PROCEDURE: 05/31/2021 OPERATION PERFORMED: Removal of Bard port. PRIMARY SURGEON: Kenny Saez M.D. ANESTHESIA: Local MAC. ASA CLASSIFICATION: ARIEL. PREOPERATIVE DIAGNOSIS: Recent gram-negative sepsis with possible port-related bacteremia. POSTOPERATIVE DIAGNOSIS: Recent gram-negative sepsis with possible port-related bacteremia. ESTIMATED BLOOD LOSS: 5 mL. DESCRIPTION OF PROCEDURE: The patient was taken to the operating room and placed on the operating table in the supine position. Time-out was called for appropriate identification of patient and procedure. The Tegaderm and injection needle were removed and the surgical site was prepped with DuraPrep solution. Sterile drapes were applied. The skin overlying the port was infiltrated with 10 mL of 1% Xylocaine and 3 mL of 0.5% Marcaine solution. Skin incision was made and deepened through the subcutaneous tissue using electrocautery. Hemostasis was obtained with the use of electrocautery. The port was then completely mobilized and delivered into the wound. The port and catheter assembly were removed as one unit and pressure was held at the right internal jugular site for 2 minutes. Approximately 2 to 2- 1/2 inches of the catheter were placed in a sterile container and cut, and the specimen promptly sent to laboratory for microbiologic culture and analysis. The wound was then inspected for hemostasis and small bleeding sites were electrocoagulated. No purulent drainage was noted in the wound at all. Therefore, it was closed in two layers approximating the subcutaneous tissue with 3-0 Vicryl and the skin with subcuticular 4-0 Monocryl. The incision was then Steri-Stripped and dressed with a sterile Tegaderm pad. Sponge, needle, and instrument counts were all correct. The patient tolerated the procedure well and was returned to the intensive care unit in stable condition. RAJIV / OSIRIS /[id number]
[2021-06-01] MEDS: Acidophilus with Citrus Pectin Tab PO SCH (08:12)
[2021-06-01] MEDS: Pantoprazole 40 MG in Sodium Chloride 0.9% 10 ML IV SCH (08:12)
--- NOTE | 2021-06-01 12:27 | PCM.PN ---
- General Info Date of Service: 06/01/21 Admission Dx/Problem (Free Text): Admission Diagnosis/Problem Admission Diagnosis/Problem Sepsis Subjective Update: Patient seen at bedside, no acute distress, states that his arthritis pain in his hand is getting worse and is requesting some stronger pain medication. No fevers no chills no nausea no vomiting, patient has loose stools once a day. Patient spoke to me about the cavitary lung lesion states that it in fact has been discussed by his oncologist and found on the previous imaging, per patient at that time the oncologist wanted to wait for any further biopsy followed up closely outpatient. Functional Status: Reports: Tolerating Diet - Review of Systems General: Reports: Weakness. Denies: Fever, Fatigue, Malaise Pulmonary: Denies: Shortness of Breath, Pleuritic Chest Pain Cardiovascular: Denies: Chest Pain, Palpitations, Dyspnea on Exertion Gastrointestinal: Denies: Abdominal Pain, Constipation, Decreased Appetite Genitourinary: Denies: Dysuria, Frequency, Burning Musculoskeletal: Reports: Hand Pain, Joint Pain. Denies: Neck Pain, Shoulder Pain, Back Pain - Patient Data Vitals - Most Recent: Last Vital Signs Temp 37.1 C 06/01/21 12:00 Pulse 88 05/29/21 20:07 Resp 13 06/01/21 12:00 BP 136/81 06/01/21 12:00 Pulse Ox 99 06/01/21 12:00 Weight - Most Recent: 77.621 kg I&O - Last 24 Hours: Intake & Output 05/31/21 06/01/21 06/01/21 22:59 06:59 14:59 Intake Total 2230 3030 Output Total 1600 1100 Balance 630 1930 Lab Results Last 24 Hours: Laboratory Results - last 24 hr 06/01/21 06/01/21 Range/Units 05:10 05:10 WBC 6.93 (4.0-11.0) K/uL RBC 3.14 L (4.50-5.90) M/uL Hgb 9.7 L (13.0-17.0) g/dL Hct 29.8 L (38.0-50.0) % MCV 94.9 (80.0-98.0) fL MCH 30.9 (27.0-32.0) pg MCHC 32.6 (31.0-37.0) g/dL RDW Std Deviation 50.2 (28.0-62.0) fl RDW Coeff of Caleb 15 (11.0-15.0) % Plt Count 301 (150-400) K/uL MPV 9.60 (7.40-12.00) fL Neut % (Auto) 78.0 (48.0-80.0) % Lymph % (Auto) 10.1 L (16.0-40.0) % Randolph % (Auto) 11.1 (0.0-15.0) % Eos % (Auto) 0.7 (0.0-7.0) % Baso % (Auto) 0.1 (0.0-1.5) % Neut # (Auto) 5.4 (1.4-5.7) K/uL Lymph # (Auto) 0.7 (0.6-2.4) K/uL Randolph # (Auto) 0.8 (0.0-0.8) K/uL Eos # (Auto) 0.1 (0.0-0.7) K/uL Baso # (Auto) 0.0 (0.0-0.1) K/uL Nucleated RBC % 0.0 /100WBC Nucleated RBCs # 0 K/uL Sodium 138 (136-148) mmol/L Potassium 4.1 (3.5-5.1) mmol/L Chloride 103 (98-107) mmol/L Carbon Dioxide 27.0 (21.0-32.0) mmol/L BUN 7 (7.0-18.0) mg/dL Creatinine 0.6 L (0.8-1.3) mg/dL Est Cr Clr Drug Dosing 121.67 mL/min Estimated GFR (MDRD) > 60.0 ml/min Glucose 94 (74-106) mg/dL Calcium 7.9 L (8.5-10.1) mg/dL Phosphorus 2.9 (2.6-4.7) mg/dL Magnesium 1.9 (1.8-2.4) mg/dL Guillaume Results Last 24 Hours: Microbiology 05/29/21 17:46 Blood Culture Identification Panel - Preliminary Blood Klebsiella Pneumonia Ss Pneumo 05/29/21 16:25 Blood Culture Identification Panel - Preliminary Blood Klebsiella Pneumonia Pneumo 05/30/21 14:10 Aerobic Blood Culture - Preliminary Blood - Venous - Lab Draw NO GROWTH AFTER 1 DAY Anaerobic Blood Culture - Preliminary NO GROWTH AFTER 1 DAY 05/30/21 14:05 Aerobic Blood Culture - Preliminary Blood - Venous NO GROWTH AFTER 1 DAY Anaerobic Blood Culture - Preliminary NO GROWTH AFTER 1 DAY Med Orders - Current: Current Medications Acetaminophen (Acetaminophen 325 Mg Tab) 650 mg PO Q4H PRN PRN Reason: Pain Last Admin: 06/01/21 03:48 Dose: 650 mg Documented by: Acidophilus/Pectin (Acidophilus With [place] Pectin Tab) 1 tab PO DAILY ON LICENSE OF [facility] Last Admin: 06/01/21 08:12 Dose: 1 tab Documented by: Albuterol/Ipratropium (Albuterol/Ipratropium 3.0-0.5 Mg/3 Ml Neb Soln) 3 ml NEB Q4HRRT PRN PRN Reason: Shortness Of Breath/wheezing Enoxaparin Sodium (Enoxaparin 40 Mg/0.4 Ml Syringe) 40 mg SUBCUT Q24H ON LICENSE OF [facility] Last Admin: 05/31/21 18:56 Dose: 40 mg Documented by: Gabapentin (Gabapentin 300 Mg Cap) 300 mg PO TID ON LICENSE OF [facility] Last Admin: 06/01/21 06:00 Dose: 300 mg Documented by: Lactated Ringer's (Ringers, Lactated) 1,000 mls @ 125 mls/hr IV ASDIRECTED ON LICENSE OF [facility] Last Admin: 06/01/21 06:00 Dose: 125 mls/hr Documented by: Pantoprazole Sodium 40 mg/ (Sodium Chloride) 10 mls @ 300 mls/hr IV DAILY ON LICENSE OF [facility] Last Admin: 06/01/21 08:12 Dose: 300 mls/hr Documented by: Meropenem/Sodium Chloride (Meropenem In Ns 1 Gm/50 Ml) 50 mls @ 100 mls/hr IV Q8H ON LICENSE OF [facility] Last Admin: 06/01/21 10:20 Dose: 100 mls/hr Documented by: Levothyroxine Sodium (Levothyroxine 50 Mcg Tab) 50 mcg PO DAILY@0700 ON LICENSE OF [facility] Last Admin: 06/01/21 06:00 Dose: 50 mcg Documented by: Ondansetron HCl (Ondansetron 4 Mg/2 Ml Sdv) 4 mg IVPUSH Q4H PRN PRN Reason: Nausea/Vomiting Discontinued Medications Acetaminophen (Acetaminophen 500 Mg Tab) 650 mg PO ONETIME ONE Stop: 05/29/21 16:28 Last Admin: 05/29/21 16:41 Dose: Not Given Documented by: Acetaminophen (Acetaminophen 325 Mg Tab) 650 mg PO NOW ONE Stop: 05/29/21 16:42 Last Admin: 05/29/21 16:47 Dose: 650 mg Documented by: Bupivacaine HCl (Bupivacaine 0.5% 10 Ml Sdv) Confirm Administered Dose 10 ml .ROUTE .STK-MED ONE Stop: 05/31/21 13:08 Dexmedetomidine HCl (Dexmedetomidine 200 Mcg/2 Ml Sdv) Confirm Administered Dose 200 mcg .ROUTE .STK-MED ONE Stop: 05/31/21 13:57 Sodium Chloride (Normal Saline) 1,000 mls @ 999 mls/hr IV .Bolus ONE Stop: 05/29/21 17:46 Last Admin: 05/29/21 16:47 Dose: 999 mls/hr Documented by: Sodium Chloride (Normal Saline) 1,000 mls @ 999 mls/hr IV .BOLUS ONE Stop: 05/29/21 18:41 Last Admin: 05/29/21 18:26 Dose: 999 mls/hr Documented by: Meropenem 1 gm/ Sodium (Chloride) 100 mls @ 200 mls/hr IV ONETIME ONE Stop: 05/29/21 18:56 Last Admin: 05/29/21 21:51 Dose: Not Given Documented by: Vancomycin HCl 1.25 gm/ Sodium (Chloride) 250 mls @ 167 mls/hr IV ONETIME ONE Stop: 05/29/21 19:56 Last Admin: 05/29/21 18:48 Dose: 167 mls/hr Documented by: Lactated Ringer's (Ringers, Lactated) 1,000 mls @ 999 mls/hr IV .BOLUS ONE Stop: 05/29/21 20:23 Last Admin: 05/29/21 20:42 Dose: 999 mls/hr Documented by: Meropenem 1 gm/ Sodium (Chloride) 100 mls @ 200 mls/hr IV Q8H BOB Meropenem/Sodium Chloride (Meropenem In Ns 1 Gm/50 Ml) Confirm Administered Dose 50 mls @ as directed IV .STK-MED ONE Stop: 05/29/21 20:55 Last Admin: 05/29/21 21:09 Dose: 100 mls/hr Documented by: Lactated Ringer's (Ringers, Lactated) 500 mls @ 999 mls/hr IV .BOLUS ONE Stop: 05/30/21 00:34 Last Admin: 05/30/21 01:06 Dose: 999 mls/hr Documented by: Meropenem/Sodium Chloride (Meropenem In Ns 1 Gm/50 Ml) Confirm Administered Dose 50 mls @ as directed IV .STK-MED ONE Stop: 05/30/21 02:49 Last Admin: 05/30/21 02:54 Dose: 100 mls/hr Documented by: Vancomycin HCl 1.25 gm/ Sodium (Chloride) 250 mls @ 250 mls/hr IV Q12H BOB Last Admin: 05/31/21 09:17 Dose: 250 mls/hr Documented by: Magnesium Sulfate 2 gm/ Premix 50 mls @ 25 mls/hr IV ONETIME ONE Stop: 05/31/21 11:55 Last Admin: 05/31/21 11:05 Dose: 25 mls/hr Documented by: Propofol (Diprivan 100 Ml) Confirm Administered Dose 100 mls @ as directed .ROUTE .STK-MED ONE Stop: 05/31/21 13:39 Ibuprofen (Ibuprofen 800 Mg Tab) 800 mg PO ONETIME ONE Stop: 05/29/21 18:37 Last Admin: 05/29/21 18:49 Dose: 800 mg Documented by: Iopamidol (Iopamidol 755 Mg/Ml 500 Ml Multipack Bottle) 100 ml IVPUSH ONETIME STA Stop: 05/30/21 11:20 Last Admin: 05/30/21 11:19 Dose: 100 ml Documented by: Levothyroxine Sodium (Levothyroxine 50 Mcg Tab) 50 mcg PO DAILY ON LICENSE OF [facility] Lidocaine HCl (Lidocaine 1% 20 Ml Mdv) Confirm Administered Dose 20 ml .ROUTE .STK-MED ONE Stop: 05/31/21 13:08 Metoclopramide HCl (Metoclopramide 10 Mg/2 Ml Sdv) Confirm Administered Dose 10 mg .ROUTE .STK-MED ONE Stop: 05/31/21 13:46 Metoclopramide HCl (Metoclopramide 10 Mg/2 Ml Sdv) Confirm Administered Dose 10 mg .ROUTE .STK-MED ONE Stop: 05/31/21 13:59 Midazolam HCl (Midazolam 1 Mg/Ml 2 Ml Sdv) Confirm Administered Dose 2 mg .ROUTE .STK-MED ONE Stop: 05/31/21 14:08 Ondansetron HCl (Ondansetron 4 Mg/2 Ml Sdv) Confirm Administered Dose 4 mg .ROUTE .STK-MED ONE Stop: 05/31/21 13:47 Vancomycin HCl (Pharmacy To Dose - Vancomycin) 0 dose .XX ASDIRECTED ON LICENSE OF [facility] Stop: 05/29/21 19:31 - Exam General: Alert, Oriented, Cooperative Lungs: Clear to Auscultation, Normal Respiratory Effort Cardiovascular: Regular Rate, Regular Rhythm GI/Abdominal Exam: Normal Bowel Sounds, Soft, Non-Tender Extremities: Normal Inspection, Normal Range of Motion, Joint Swelling (Tenderness in metatarsophalangeal joints of bilateral hands) - Patient Data Lab Results Last 24 hrs: Laboratory Results - last 24 hr 06/01/21 06/01/21 Range/Units 05:10 05:10 WBC 6.93 (4.0-11.0) K/uL RBC 3.14 L (4.50-5.90) M/uL Hgb 9.7 L (13.0-17.0) g/dL Hct 29.8 L (38.0-50.0) % MCV 94.9 (80.0-98.0) fL MCH 30.9 (27.0-32.0) pg MCHC 32.6 (31.0-37.0) g/dL RDW Std Deviation 50.2 (28.0-62.0) fl RDW Coeff of Caleb 15 (11.0-15.0) % Plt Count 301 (150-400) K/uL MPV 9.60 (7.40-12.00) fL Neut % (Auto) 78.0 (48.0-80.0) % Lymph % (Auto) 10.1 L (16.0-40.0) % Randolph % (Auto) 11.1 (0.0-15.0) % Eos % (Auto) 0.7 (0.0-7.0) % Baso % (Auto) 0.1 (0.0-1.5) % Neut # (Auto) 5.4 (1.4-5.7) K/uL Lymph # (Auto) 0.7 (0.6-2.4) K/uL Randolph # (Auto) 0.8 (0.0-0.8) K/uL Eos # (Auto) 0.1 (0.0-0.7) K/uL Baso # (Auto) 0.0 (0.0-0.1) K/uL Nucleated RBC % 0.0 /100WBC Nucleated RBCs # 0 K/uL Sodium 138 (136-148) mmol/L Potassium 4.1 (3.5-5.1) mmol/L Chloride 103 (98-107) mmol/L Carbon Dioxide 27.0 (21.0-32.0) mmol/L BUN 7 (7.0-18.0) mg/dL Creatinine 0.6 L (0.8-1.3) mg/dL Est Cr Clr Drug Dosing 121.67 mL/min Estimated GFR (MDRD) > 60.0 ml/min Glucose 94 (74-106) mg/dL Calcium 7.9 L (8.5-10.1) mg/dL Phosphorus 2.9 (2.6-4.7) mg/dL Magnesium 1.9 (1.8-2.4) mg/dL Result Diagrams: 06/01/21 05:10 06/01/21 05:10 Guillaume Results Last 24 hrs: Microbiology 05/29/21 17:46 Blood Culture Identification Panel - Preliminary Blood Klebsiella Pneumonia Ss Pneumo 05/29/21 16:25 Blood Culture Identification Panel - Preliminary Blood Klebsiella Pneumonia Ss Pneumo 05/30/21 14:10 Aerobic Blood Culture - Preliminary Blood - Venous - Lab Draw NO GROWTH AFTER 1 DAY Anaerobic Blood Culture - Preliminary NO GROWTH AFTER 1 DAY 05/30/21 14:05 Aerobic Blood Culture - Preliminary Blood - Venous NO GROWTH AFTER 1 DAY Anaerobic Blood Culture - Preliminary NO GROWTH AFTER 1 DAY Sepsis Event Note - Evaluation Sepsis Screening Result: No Definite Risk - Focused Exam Vital Signs: Vital Signs Temp Resp BP Pulse Ox 06/01/21 12:00 37.1 C 13 136/81 99 06/01/21 08:00 36.6 C 14 121/68 95 06/01/21 04:00 36.6 C 17 106/58 L 92 L - Problem List & Annotations (1) Sepsis SNOMED Code(s): 26077127 Code(s): A41.9 - SEPSIS, UNSPECIFIED ORGANISM Status: Acute Priority: High Current Visit: Yes Qualifiers: Sepsis type: sepsis due to unspecified organism (2) Osteoarthritis SNOMED Code(s): 600217144 Code(s): M19.90 - UNSPECIFIED OSTEOARTHRITIS, UNSPECIFIED SITE Status: Acute Current Visit: No (3) Port-A-Cath in place SNOMED Code(s): 093011632 Code(s): Z95.828 - PRESENCE OF OTHER VASCULAR IMPLANTS AND GRAFTS Status: Acute Current Visit: No (4) Unsteady gait SNOMED Code(s): 15077756 Code(s): R26.81 - UNSTEADINESS ON FEET Status: Acute Current Visit: No (5) Tongue carcinoma Status: Chronic Current Visit: No - Problem List Review Problem List Initiated/Reviewed/Updated: No - My Orders Last 24 Hours: My Active Orders 05/31/21 22:34 Transfer Patient (Change bed) [ADT] Routine 05/31/21 22:44 Telemetry Monitoring [Cardiac Monitoring] [RC] Q8H - Plan Plan:: 70-year-old male admitted for possible septic shock, no clear source, cont meropenem, will stop vancomycin blood cultures positive for Klebsiella bacteremia, f/u on final cultures for sensitivity, Port-A-Cath has been removed Follow-up cultures have been negative so far CT scan of chest, and abdomen obtained, cavitary nodule noted in right lung which has been there during patients last PET scan in February 2021, malignancy till ruled otherwise, Will need outpatient biopsy, follow-up with oncology Check AFB sputum smear to r/o TB per hospital protocol Continue IV fluid hydration Repeat lactate has resolved Keep MAP more than 65 check cdiff if more than 4 stools in 24 hours Monitor and replete electrolytes as needed Resume home meds as appropriate, hold off on all antihypertensive medications Hemoglobin is stable, Lovenox for DVT prophylaxis Patient drinks Jevity and Ensure for diet Morphine 0.5 mg every 4 hours as needed for pain CODE STATUS: DNR/DNI Disposition 2 to 3 days pending patient's clinical course
[2021-06-01] MEDS ORDERED: Morphine 2 MG/ML SYRINGE IVPUSH PRN (12:47)
[2021-06-01] MEDS: Enoxaparin 40 MG/0.4 ML Syringe SUBCUT SCH (18:52)
[2021-06-02] MEDS: Meropenem Premix 50 ML IV SCH ×2 (02:40→10:48)
[2021-06-02 04:56] LABS: BLOOD UREA NITROGEN,BUN 6 mg/dL (7.0-18.0); CARBON DIOXIDE,CO2 27.9 mmol/L (21.0-32.0); CHLORIDE,CL 101 mmol/L (98-107); GLUCOSE RANDOM 123 mg/dL (74-106); POTASSIUM,K 4.1 mmol/L (3.5-5.1); SODIUM,NA 135 mmol/L (136-148)
[2021-06-02] MEDS: Gabapentin 300 MG Cap PO SCH ×3 (05:52→21:04)
[2021-06-02] MEDS: Acetaminophen 325 MG Tab PO PRN ×3 (05:52→21:04)
[2021-06-02] MEDS: Levothyroxine 50 MCG Tab PO SCH (06:11)
[2021-06-02] MEDS: Acidophilus with Citrus Pectin Tab PO SCH (09:00)
[2021-06-02] MEDS: Pantoprazole 40 MG in Sodium Chloride 0.9% 10 ML IV SCH (09:00)
[2021-06-02] MEDS: Lactated Ringers 1,000 ML IV SCH ×2 (09:32→18:43)
[2021-06-02] MEDS ORDERED: Magnesium Sulfate/Water 2 GM in Premix Bag 1 BAG IV ONE (10:09)
[2021-06-02] MEDS ORDERED: Acetaminophen/oxyCODONE 325-5 MG Tab PO PRN (12:49)
--- NOTE | 2021-06-02 13:10 | PCM.PN ---
- General Info Date of Service: 06/02/21 Admission Dx/Problem (Free Text): Admission Diagnosis/Problem Admission Diagnosis/Problem Sepsis Subjective Update: Patient seen at bedside, no acute distress, on liquid diet, pain is better but morphine made him drowsy yesterday Functional Status: Reports: Tolerating Diet, Ambulating, Urinating - Review of Systems General: Reports: Weakness. Denies: Fever, Fatigue, Malaise Pulmonary: Denies: Shortness of Breath Cardiovascular: Denies: Chest Pain, Palpitations Gastrointestinal: Denies: Abdominal Pain, Constipation Genitourinary: Denies: Dysuria, Frequency, Burning Musculoskeletal: Denies: Neck Pain, Shoulder Pain, Arm Pain Skin: Denies: Cyanosis, Jaundice, Mottled - Patient Data Vitals - Most Recent: Last Vital Signs Temp 36.5 C 06/02/21 08:00 Pulse 88 05/29/21 20:07 Resp 15 06/02/21 08:00 BP 115/70 06/02/21 08:00 Pulse Ox 94 L 06/02/21 08:00 Weight - Most Recent: 77.621 kg I&O - Last 24 Hours: Intake & Output 06/01/21 06/02/21 06/02/21 22:59 06:59 14:59 Intake Total 3560 2329 Output Total 2150 1900 Balance 1410 429 Lab Results Last 24 Hours: Laboratory Results - last 24 hr 06/02/21 06/02/21 Range/Units 04:25 04:25 WBC 6.75 (4.0-11.0) K/uL RBC 3.21 L (4.50-5.90) M/uL Hgb 10.1 L (13.0-17.0) g/dL Hct 30.6 L (38.0-50.0) % MCV 95.3 (80.0-98.0) fL MCH 31.5 (27.0-32.0) pg MCHC 33.0 (31.0-37.0) g/dL RDW Std Deviation 50.8 (28.0-62.0) fl RDW Coeff of Caleb 15 (11.0-15.0) % Plt Count 289 (150-400) K/uL MPV 9.90 (7.40-12.00) fL Neut % (Auto) 74.7 (48.0-80.0) % Lymph % (Auto) 11.1 L (16.0-40.0) % [place] % (Auto) 13.8 (0.0-15.0) % Eos % (Auto) 0.3 (0.0-7.0) % Baso % (Auto) 0.1 (0.0-1.5) % Neut # (Auto) 5.0 (1.4-5.7) K/uL Lymph # (Auto) 0.8 (0.6-2.4) K/uL [place] # (Auto) 0.9 H (0.0-0.8) K/uL Eos # (Auto) 0.0 (0.0-0.7) K/uL Baso # (Auto) 0.0 (0.0-0.1) K/uL Nucleated RBC % 0.0 /100WBC Nucleated RBCs # 0 K/uL Sodium 135 L (136-148) mmol/L Potassium 4.1 (3.5-5.1) mmol/L Chloride 101 (98-107) mmol/L Carbon Dioxide 27.9 (21.0-32.0) mmol/L BUN 6 L (7.0-18.0) mg/dL Creatinine 0.5 L (0.8-1.3) mg/dL Est Cr Clr Drug Dosing 146.00 mL/min Estimated GFR (MDRD) > 60.0 ml/min Glucose 123 H (74-106) mg/dL Calcium 8.2 L (8.5-10.1) mg/dL Phosphorus 2.4 L (2.6-4.7) mg/dL Magnesium 1.7 L (1.8-2.4) mg/dL Guillaume Results Last 24 Hours: Microbiology 05/31/21 14:20 Aerobic Culture - Preliminary Other - Port-A-Cath 05/29/21 16:25 Blood Culture Identification Panel - Final Blood Klebsiella Pneumonia Pneumo 05/29/21 17:46 Blood Culture Identification Panel - Final Blood Klebsiella Pneumonia Pneumo 05/30/21 14:10 Aerobic Blood Culture - Preliminary Blood - Venous - Lab Draw NO GROWTH AFTER 2 DAYS Anaerobic Blood Culture - Preliminary NO GROWTH AFTER 2 DAYS 05/30/21 14:05 Aerobic Blood Culture - Preliminary Blood - Venous NO GROWTH AFTER 2 DAYS Anaerobic Blood Culture - Preliminary NO GROWTH AFTER 2 DAYS Med Orders - Current: Current Medications Acetaminophen (Acetaminophen 325 Mg Tab) 650 mg PO Q4H PRN PRN Reason: Pain Last Admin: 06/02/21 05:52 Dose: 650 mg Documented by: Acidophilus/Pectin (Acidophilus With [place] Pectin Tab) 1 tab PO DAILY [facility] Last Admin: 06/02/21 09:00 Dose: 1 tab Documented by: Albuterol/Ipratropium (Albuterol/Ipratropium 3.0-0.5 Mg/3 Ml Neb Soln) 3 ml NEB Q4HRRT PRN PRN Reason: Shortness Of Breath/wheezing Enoxaparin Sodium (Enoxaparin 40 Mg/0.4 Ml Syringe) 40 mg SUBCUT Q24H [facility] Last Admin: 06/01/21 18:52 Dose: 40 mg Documented by: Gabapentin (Gabapentin 300 Mg Cap) 300 mg PO TID [facility] Last Admin: 06/02/21 05:52 Dose: 300 mg Documented by: Lactated Ringer's (Ringers, Lactated) 1,000 mls @ 125 mls/hr IV ASDIRECTED [facility] Last Admin: 06/02/21 09:32 Dose: 125 mls/hr Documented by: Pantoprazole Sodium 40 mg/ (Sodium Chloride) 10 mls @ 300 mls/hr IV DAILY [facility] Last Admin: 06/02/21 09:00 Dose: 300 mls/hr Documented by: Magnesium Sulfate 2 gm/ Premix 50 mls @ 12.5 mls/hr IV ONETIME ONE Stop: 06/02/21 14:08 Last Admin: 06/02/21 10:46 Dose: 12.5 mls/hr Documented by: Levofloxacin/Dextrose 750 mg/ (Premix) 150 mls @ 100 mls/hr IV Q24H [facility] Levothyroxine Sodium (Levothyroxine 50 Mcg Tab) 50 mcg PO DAILY@0700 [facility] Last Admin: 06/02/21 06:11 Dose: 50 mcg Documented by: Ondansetron HCl (Ondansetron 4 Mg/2 Ml Sdv) 4 mg IVPUSH Q4H PRN PRN Reason: Nausea/Vomiting Oxycodone/Acetaminophen (Acetaminophen/Oxycodone 325-5 Mg Tab) 1 tab PO Q6H PRN PRN Reason: Pain Discontinued Medications Acetaminophen (Acetaminophen 500 Mg Tab) 650 mg PO ONETIME ONE Stop: 05/29/21 16:28 Last Admin: 05/29/21 16:41 Dose: Not Given Documented by: Acetaminophen (Acetaminophen 325 Mg Tab) 650 mg PO NOW ONE Stop: 05/29/21 16:42 Last Admin: 05/29/21 16:47 Dose: 650 mg Documented by: Bupivacaine HCl (Bupivacaine 0.5% 10 Ml Sdv) Confirm Administered Dose 10 ml .ROUTE .STK-MED ONE Stop: 05/31/21 13:08 Dexmedetomidine HCl (Dexmedetomidine 200 Mcg/2 Ml Sdv) Confirm Administered Dose 200 mcg .ROUTE .STK-MED ONE Stop: 05/31/21 13:57 Sodium Chloride (Normal Saline) 1,000 mls @ 999 mls/hr IV .Bolus ONE Stop: 05/29/21 17:46 Last Admin: 05/29/21 16:47 Dose: 999 mls/hr Documented by: Sodium Chloride (Normal Saline) 1,000 mls @ 999 mls/hr IV .BOLUS ONE Stop: 05/29/21 18:41 Last Admin: 05/29/21 18:26 Dose: 999 mls/hr Documented by: Meropenem 1 gm/ Sodium (Chloride) 100 mls @ 200 mls/hr IV ONETIME ONE Stop: 05/29/21 18:56 Last Admin: 05/29/21 21:51 Dose: Not Given Documented by: Vancomycin HCl 1.25 gm/ Sodium (Chloride) 250 mls @ 167 mls/hr IV ONETIME ONE Stop: 05/29/21 19:56 Last Admin: 05/29/21 18:48 Dose: 167 mls/hr Documented by: Lactated Ringer's (Ringers, Lactated) 1,000 mls @ 999 mls/hr IV .BOLUS ONE Stop: 05/29/21 20:23 Last Admin: 05/29/21 20:42 Dose: 999 mls/hr Documented by: Meropenem 1 gm/ Sodium (Chloride) 100 mls @ 200 mls/hr IV Q8H [facility] Meropenem/Sodium Chloride (Meropenem In Ns 1 Gm/50 Ml) Confirm Administered Dose 50 mls @ as directed IV .STK-MED ONE Stop: 05/29/21 20:55 Last Admin: 05/29/21 21:09 Dose: 100 mls/hr Documented by: Lactated Ringer's (Ringers, Lactated) 500 mls @ 999 mls/hr IV .BOLUS ONE Stop: 05/30/21 00:34 Last Admin: 05/30/21 01:06 Dose: 999 mls/hr Documented by: Meropenem/Sodium Chloride (Meropenem In Ns 1 Gm/50 Ml) Confirm Administered Dose 50 mls @ as directed IV .STK-MED ONE Stop: 05/30/21 02:49 Last Admin: 05/30/21 02:54 Dose: 100 mls/hr Documented by: Meropenem/Sodium Chloride (Meropenem In Ns 1 Gm/50 Ml) 50 mls @ 100 mls/hr IV Q8H [facility] Last Admin: 06/02/21 10:48 Dose: 100 mls/hr Documented by: Vancomycin HCl 1.25 gm/ Sodium (Chloride) 250 mls @ 250 mls/hr IV Q12H [facility] Last Admin: 05/31/21 09:17 Dose: 250 mls/hr Documented by: Magnesium Sulfate 2 gm/ Premix 50 mls @ 25 mls/hr IV ONETIME ONE Stop: 05/31/21 11:55 Last Admin: 05/31/21 11:05 Dose: 25 mls/hr Documented by: Propofol (Diprivan 100 Ml) Confirm Administered Dose 100 mls @ as directed .ROUTE .STK-MED ONE Stop: 05/31/21 13:39 Ibuprofen (Ibuprofen 800 Mg Tab) 800 mg PO ONETIME ONE Stop: 05/29/21 18:37 Last Admin: 05/29/21 18:49 Dose: 800 mg Documented by: Iopamidol (Iopamidol 755 Mg/Ml 500 Ml Multipack Bottle) 100 ml IVPUSH ONETIME STA Stop: 05/30/21 11:20 Last Admin: 05/30/21 11:19 Dose: 100 ml Documented by: Levothyroxine Sodium (Levothyroxine 50 Mcg Tab) 50 mcg PO DAILY [facility] Lidocaine HCl (Lidocaine 1% 20 Ml Mdv) Confirm Administered Dose 20 ml .ROUTE .STK-MED ONE Stop: 05/31/21 13:08 Metoclopramide HCl (Metoclopramide 10 Mg/2 Ml Sdv) Confirm Administered Dose 10 mg .ROUTE .STK-MED ONE Stop: 05/31/21 13:46 Metoclopramide HCl (Metoclopramide 10 Mg/2 Ml Sdv) Confirm Administered Dose 10 mg .ROUTE .STK-MED ONE Stop: 05/31/21 13:59 Midazolam HCl (Midazolam 1 Mg/Ml 2 Ml Sdv) Confirm Administered Dose 2 mg .ROUTE .STK-MED ONE Stop: 05/31/21 14:08 Morphine Sulfate (Morphine 2 Mg/Ml Syringe) 0.5 mg IVPUSH Q4H PRN PRN Reason: Moderate to Severe Pain Last Admin: 06/01/21 14:23 Dose: 0.5 mg Documented by: Ondansetron HCl (Ondansetron 4 Mg/2 Ml Sdv) Confirm Administered Dose 4 mg .ROUTE .STK-MED ONE Stop: 05/31/21 13:47 Vancomycin HCl (Pharmacy To Dose - Vancomycin) 0 dose .XX ASDIRECTED [facility] Stop: 05/29/21 19:31 - Exam General: Alert, Oriented Lungs: Clear to Auscultation Cardiovascular: Regular Rate, Regular Rhythm GI/Abdominal Exam: Normal Bowel Sounds, Soft, Non-Tender Extremities: Normal Inspection, Normal Range of Motion - Patient Data Lab Results Last 24 hrs: Laboratory Results - last 24 hr 06/02/21 06/02/21 Range/Units 04:25 04:25 WBC 6.75 (4.0-11.0) K/uL RBC 3.21 L (4.50-5.90) M/uL Hgb 10.1 L (13.0-17.0) g/dL Hct 30.6 L (38.0-50.0) % MCV 95.3 (80.0-98.0) fL MCH 31.5 (27.0-32.0) pg MCHC 33.0 (31.0-37.0) g/dL RDW Std Deviation 50.8 (28.0-62.0) fl RDW Coeff of Caleb 15 (11.0-15.0) % Plt Count 289 (150-400) K/uL MPV 9.90 (7.40-12.00) fL Neut % (Auto) 74.7 (48.0-80.0) % Lymph % (Auto) 11.1 L (16.0-40.0) % [place] % (Auto) 13.8 (0.0-15.0) % Eos % (Auto) 0.3 (0.0-7.0) % Baso % (Auto) 0.1 (0.0-1.5) % Neut # (Auto) 5.0 (1.4-5.7) K/uL Lymph # (Auto) 0.8 (0.6-2.4) K/uL [place] # (Auto) 0.9 H (0.0-0.8) K/uL Eos # (Auto) 0.0 (0.0-0.7) K/uL Baso # (Auto) 0.0 (0.0-0.1) K/uL Nucleated RBC % 0.0 /100WBC Nucleated RBCs # 0 K/uL Sodium 135 L (136-148) mmol/L Potassium 4.1 (3.5-5.1) mmol/L Chloride 101 (98-107) mmol/L Carbon Dioxide 27.9 (21.0-32.0) mmol/L BUN 6 L (7.0-18.0) mg/dL Creatinine 0.5 L (0.8-1.3) mg/dL Est Cr Clr Drug Dosing 146.00 mL/min Estimated GFR (MDRD) > 60.0 ml/min Glucose 123 H (74-106) mg/dL Calcium 8.2 L (8.5-10.1) mg/dL Phosphorus 2.4 L (2.6-4.7) mg/dL Magnesium 1.7 L (1.8-2.4) mg/dL Result Diagrams: 06/02/21 04:25 06/02/21 04:25 Guillaume Results Last 24 hrs: Microbiology 05/31/21 14:20 Aerobic Culture - Preliminary Other - Port-A-Cath 05/29/21 16:25 Blood Culture Identification Panel - Final Blood Klebsiella Pneumonia Ss Pneumo 05/29/21 17:46 Blood Culture Identification Panel - Final Blood Klebsiella Pneumonia Ss Pneumo 05/30/21 14:10 Aerobic Blood Culture - Preliminary Blood - Venous - Lab Draw NO GROWTH AFTER 2 DAYS Anaerobic Blood Culture - Preliminary NO GROWTH AFTER 2 DAYS 05/30/21 14:05 Aerobic Blood Culture - Preliminary Blood - Venous NO GROWTH AFTER 2 DAYS Anaerobic Blood Culture - Preliminary NO GROWTH AFTER 2 DAYS Sepsis Event Note - Evaluation Sepsis Screening Result: No Definite Risk - Focused Exam Vital Signs: Vital Signs Temp Resp BP Pulse Ox 06/02/21 08:00 36.5 C 15 115/70 94 L 06/02/21 03:05 36.3 C 18 127/79 94 L - Problem List & Annotations (1) Sepsis SNOMED Code(s): 40502125 Code(s): A41.9 - SEPSIS, UNSPECIFIED ORGANISM Status: Acute Priority: High Current Visit: Yes Qualifiers: Sepsis type: sepsis due to unspecified organism (2) Osteoarthritis SNOMED Code(s): 441994132 Code(s): M19.90 - UNSPECIFIED OSTEOARTHRITIS, UNSPECIFIED SITE Status: Acute Current Visit: No (3) Port-A-Cath in place SNOMED Code(s): 663131449 Code(s): Z95.828 - PRESENCE OF OTHER VASCULAR IMPLANTS AND GRAFTS Status: Acute Current Visit: No (4) Unsteady gait SNOMED Code(s): 45367338 Code(s): R26.81 - UNSTEADINESS ON FEET Status: Acute Current Visit: No (5) Tongue carcinoma Status: Chronic Current Visit: No - Problem List Review Problem List Initiated/Reviewed/Updated: Yes - My Orders Last 24 Hours: My Active Orders 06/01/21 12:54 PT Evaluation and Treatment [CONS] Routine 06/02/21 10:09 Magnesium Sulfate/Water [Magnesium Sulfate in Water 2 GM/50 ML] 2 gm Premix Bag 1 bag IV ONETIME 06/02/21 12:49 Acetaminophen/oxyCODONE [Percocet 325-5 MG] 1 tab PO Q6H PRN 06/02/21 13:15 Levofloxacin/Dextrose 5%-Water [Levaquin in D5W 750 MG/150 ML] 750 mg Premix Bag 1 bag IV Q24H 06/03/21 08:00 Communication Order [RC] DAILY - Plan Plan:: 70-year-old male admitted for possible septic shock, no clear source, culture sensitivity noted, repeat culture negative, stop meropenem, start Levaquin port-A-Cath has been removed Follow-up cultures have been negative so far, no growth so far CT scan of chest, and abdomen obtained, cavitary nodule noted in right lung which has been there during patients last PET scan in February 2021, malignancy till ruled otherwise, Will need outpatient biopsy, follow-up with oncology cont to Check AFB sputum smear to r/o TB per hospital protocol , last smear collection today Continue IV fluid hydration as oral intake isnt much, will try weaning off fluids by tomorrow Keep MAP more than 65 Monitor and replete electrolytes as needed Resume home meds as appropriate, hold off on all antihypertensive medications Hemoglobin is stable, Lovenox for DVT prophylaxis Patient drinks Jevity and Ensure for diet stop morphine, start Percocet for pain as needed CODE STATUS: DNR/DNI Needs PT prior to dc Disposition pending AFB smear and PT assessment
[2021-06-02] MEDS ORDERED: Phosphorus #1 250 MG Tab PO ONE (13:11)
[2021-06-02] MEDS: Levofloxacin/Dextrose 5%-Water 750 MG in Premix Bag 1 BAG IV SCH (13:53)
[2021-06-02] MEDS: Enoxaparin 40 MG/0.4 ML Syringe SUBCUT SCH (18:43)
[2021-06-03] MEDS: Acetaminophen 325 MG Tab PO PRN ×2 (02:10→06:15)
[2021-06-03] MEDS: Lactated Ringers 1,000 ML IV SCH ×2 (02:11→09:59)
[2021-06-03] MEDS: Gabapentin 300 MG Cap PO SCH ×2 (05:44→14:56)
[2021-06-03] MEDS: Levothyroxine 50 MCG Tab PO SCH (06:14)
[2021-06-03 06:18] LABS: BLOOD UREA NITROGEN,BUN 9 mg/dL (7.0-18.0); CARBON DIOXIDE,CO2 27.3 mmol/L (21.0-32.0); CHLORIDE,CL 100 mmol/L (98-107); GLUCOSE RANDOM 100 mg/dL (74-106); SODIUM,NA 134 mmol/L (136-148)
[2021-06-03] MEDS: Acidophilus with Citrus Pectin Tab PO SCH (08:35)
[2021-06-03] MEDS: Pantoprazole 40 MG in Sodium Chloride 0.9% 10 ML IV SCH (08:35)
[2021-06-03 13:12] VITALS: BP 112/65
[2021-06-03] MEDS: Levofloxacin/Dextrose 5%-Water 750 MG in Premix Bag 1 BAG IV SCH (14:14)
[2021-06-03] MEDS ORDERED: Levofloxacin 750 MG Tab PO SCH (14:15)
--- NOTE | 2021-06-03 14:19 | PCM.DCSUM1 ---
Discharge Summary - Hospital Course Diagnosis: Stroke: No - Discharge Data Discharge Date: 06/03/21 Discharge Disposition: Home, Self-Care 01 Condition: Fair - Referral to Home Health Primary Care Physician: PCP None - Discharge Diagnosis/Problem(s) (1) Sepsis SNOMED Code(s): 80242878 ICD Code: A41.9 - SEPSIS, UNSPECIFIED ORGANISM Status: Acute Priority: High Current Visit: Yes Qualifiers: Sepsis type: sepsis due to unspecified organism (2) Osteoarthritis SNOMED Code(s): 530749255 ICD Code: M19.90 - UNSPECIFIED OSTEOARTHRITIS, UNSPECIFIED SITE Status: Acute Current Visit: No (3) Port-A-Cath in place SNOMED Code(s): 093022346 ICD Code: Z95.828 - PRESENCE OF OTHER VASCULAR IMPLANTS AND GRAFTS Status: Acute Current Visit: No (4) Unsteady gait SNOMED Code(s): 98855999 ICD Code: R26.81 - UNSTEADINESS ON FEET Status: Acute Current Visit: No (5) Tongue carcinoma Status: Chronic Current Visit: No - Patient Summary/Data Operative Procedure(s) Performed: Removal of chemotherapy port and catheter Consults: Consultations 06/01/21 12:54 PT Evaluation and Treatment [CONS] Routine - Patient Instructions Diet: Usual Diet as Tolerated Activity: As Tolerated Driving: Do Not Drive Showering/Bathing: May Shower Wound/Incision Care: Keep Operative Site/Wound Site Clean and Dry Notify Provider of: Fever, Increased Pain, Swelling and Redness, Drainage, Nausea and/or Vomiting - Discharge Plan *PRESCRIPTION DRUG MONITORING PROGRAM REVIEWED*: No *COPY OF PRESCRIPTION DRUG MONITORING REPORT IN PATIENT ELÍAS: No Prescriptions/Med Rec: L. Acidophilus/L.bulgaricus [Lactobacillus Tablet] 1 each PO DAILY #20 tablet levoFLOXacin [Levaquin] 750 mg PO Q24H #8 tablet Acetaminophen/oxyCODONE [Percocet 325-5 MG] 1 tab PO Q8H PRN #15 tablet PRN Reason: Pain Home Medications: Home Meds Gabapentin [Neurontin] 300 mg PO TID 09/10/19 [History] Levothyroxine [Synthroid] 50 mcg PO DAILY 03/18/21 [History] Acetaminophen/oxyCODONE [Percocet 325-5 MG] 1 tab PO Q8H PRN #15 tablet 06/03/21 [Rx] Carboxymethylcellulose Sodium [Refresh Plus 0.5%] 1 each OP TID PRN 06/03/21 [History] [place] Butter/Phenylephrine [Preparation H] 1 each RECTAL QID PRN 06/03/21 [History] L. Acidophilus/L.bulgaricus [Lactobacillus Tablet] 1 each PO DAILY #20 tablet 06/03/21 [Rx] levoFLOXacin [Levaquin] 750 mg PO Q24H #8 tablet 06/03/21 [Rx] Oxygen Therapy Mode: Room Air Patient Handouts: Acetaminophen; Oxycodone tablets, Implanted Port Removal, Care After, Levofloxacin tablets, Sepsis, Self Care, Adult Referrals: Meet Delgado MD [Ordering Only Provider] - 06/02/22 2:20 pm (You were previously scheduled as above, however, the oncology clinic will call you anytime this week for a POST-HOSPITALIZATION FOLLOW-UP. If you do not receive any call from them until , please call the Oncology Clinic. Thank you.) - Patient Data Vitals - Most Recent: Last Vital Signs Temp 36.8 C 06/03/21 13:00 Pulse 88 05/29/21 20:07 Resp 16 06/03/21 13:00 BP 112/65 06/03/21 13:00 Pulse Ox 96 06/03/21 13:00 Weight - Most Recent: 77.621 kg I&O - Last 24 hours: Intake & Output 06/02/21 06/03/21 06/03/21 22:59 06:59 14:59 Intake Total 2080 2664 Output Total 2400 1600 Balance -320 1064 Lab Results - Last 24 hrs: Laboratory Results - last 24 hr 06/03/21 06/03/21 Range/Units 05:15 05:15 WBC 6.49 (4.0-11.0) K/uL RBC 3.01 L (4.50-5.90) M/uL Hgb 9.4 L (13.0-17.0) g/dL Hct 28.2 L (38.0-50.0) % MCV 93.7 (80.0-98.0) fL MCH 31.2 (27.0-32.0) pg MCHC 33.3 (31.0-37.0) g/dL RDW Std Deviation 49.9 (28.0-62.0) fl RDW Coeff of Caleb 15 (11.0-15.0) % Plt Count 295 (150-400) K/uL MPV 10.20 (7.40-12.00) fL Neut % (Auto) 73.4 (48.0-80.0) % Lymph % (Auto) 10.3 L (16.0-40.0) % [place] % (Auto) 15.3 H (0.0-15.0) % Eos % (Auto) 0.8 (0.0-7.0) % Baso % (Auto) 0.2 (0.0-1.5) % Neut # (Auto) 4.8 (1.4-5.7) K/uL Lymph # (Auto) 0.7 (0.6-2.4) K/uL [place] # (Auto) 1.0 H (0.0-0.8) K/uL Eos # (Auto) 0.1 (0.0-0.7) K/uL Baso # (Auto) 0.0 (0.0-0.1) K/uL Nucleated RBC % 0.0 /100WBC Nucleated RBCs # 0 K/uL Sodium 134 L (136-148) mmol/L Potassium 4.0 (3.5-5.1) mmol/L Chloride 100 (98-107) mmol/L Carbon Dioxide 27.3 (21.0-32.0) mmol/L BUN 9 (7.0-18.0) mg/dL Creatinine 0.5 L (0.8-1.3) mg/dL Est Cr Clr Drug Dosing 146.00 mL/min Estimated GFR (MDRD) > 60.0 ml/min Glucose 100 (74-106) mg/dL Calcium 8.2 L (8.5-10.1) mg/dL Magnesium 2.0 (1.8-2.4) mg/dL NICOLAS Results - Last 24 hrs: Microbiology 05/31/21 14:20 Aerobic Culture - Preliminary Other - Port-A-Cath Anaerobic Culture - Preliminary 05/30/21 14:10 Aerobic Blood Culture - Preliminary Blood - Venous - Lab Draw NO GROWTH AFTER 3 DAYS Anaerobic Blood Culture - Preliminary NO GROWTH AFTER 3 DAYS 05/30/21 14:05 Aerobic Blood Culture - Preliminary Blood - Venous NO GROWTH AFTER 3 DAYS Anaerobic Blood Culture - Preliminary NO GROWTH AFTER 3 DAYS Med Orders - Current: Current Medications Acetaminophen (Acetaminophen 325 Mg Tab) 650 mg PO Q4H PRN PRN Reason: Pain Last Admin: 06/03/21 06:15 Dose: 650 mg Documented by: Acidophilus/Pectin (Acidophilus With [place] Pectin Tab) 1 tab PO DAILY [facility] Last Admin: 06/03/21 08:35 Dose: 1 tab Documented by: Albuterol/Ipratropium (Albuterol/Ipratropium 3.0-0.5 Mg/3 Ml Neb Soln) 3 ml NEB Q4HRRT PRN PRN Reason: Shortness Of Breath/wheezing Enoxaparin Sodium (Enoxaparin 40 Mg/0.4 Ml Syringe) 40 mg SUBCUT Q24H [facility] Last Admin: 06/02/21 18:43 Dose: 40 mg Documented by: Gabapentin (Gabapentin 300 Mg Cap) 300 mg PO TID [facility] Last Admin: 06/03/21 05:44 Dose: 300 mg Documented by: Pantoprazole Sodium 40 mg/ (Sodium Chloride) 10 mls @ 300 mls/hr IV DAILY [facility] Last Admin: 06/03/21 08:35 Dose: 300 mls/hr Documented by: Levofloxacin/Dextrose 750 mg/ (Premix) 150 mls @ 100 mls/hr IV Q24H [facility] Last Admin: 06/03/21 14:14 Dose: Not Given Documented by: Levofloxacin (Levofloxacin 750 Mg Tab) 750 mg PO Q24H [facility] Levothyroxine Sodium (Levothyroxine 50 Mcg Tab) 50 mcg PO DAILY@0700 [facility] Last Admin: 06/03/21 06:14 Dose: 50 mcg Documented by: Ondansetron HCl (Ondansetron 4 Mg/2 Ml Sdv) 4 mg IVPUSH Q4H PRN PRN Reason: Nausea/Vomiting Oxycodone/Acetaminophen (Acetaminophen/Oxycodone 325-5 Mg Tab) 1 tab PO Q6H PRN PRN Reason: Pain Last Admin: 06/03/21 09:56 Dose: 1 tab Documented by: Discontinued Medications Acetaminophen (Acetaminophen 500 Mg Tab) 650 mg PO ONETIME ONE Stop: 05/29/21 16:28 Last Admin: 05/29/21 16:41 Dose: Not Given Documented by: Acetaminophen (Acetaminophen 325 Mg Tab) 650 mg PO NOW ONE Stop: 05/29/21 16:42 Last Admin: 05/29/21 16:47 Dose: 650 mg Documented by: Bupivacaine HCl (Bupivacaine 0.5% 10 Ml Sdv) Confirm Administered Dose 10 ml .ROUTE .STK-MED ONE Stop: 05/31/21 13:08 Dexmedetomidine HCl (Dexmedetomidine 200 Mcg/2 Ml Sdv) Confirm Administered Dose 200 mcg .ROUTE .STK-MED ONE Stop: 05/31/21 13:57 Sodium Chloride (Normal Saline) 1,000 mls @ 999 mls/hr IV .Bolus ONE Stop: 05/29/21 17:46 Last Admin: 05/29/21 16:47 Dose: 999 mls/hr Documented by: Sodium Chloride (Normal Saline) 1,000 mls @ 999 mls/hr IV .BOLUS ONE Stop: 05/29/21 18:41 Last Admin: 05/29/21 18:26 Dose: 999 mls/hr Documented by: Meropenem 1 gm/ Sodium (Chloride) 100 mls @ 200 mls/hr IV ONETIME ONE Stop: 05/29/21 18:56 Last Admin: 05/29/21 21:51 Dose: Not Given Documented by: Vancomycin HCl 1.25 gm/ Sodium (Chloride) 250 mls @ 167 mls/hr IV ONETIME ONE Stop: 05/29/21 19:56 Last Admin: 05/29/21 18:48 Dose: 167 mls/hr Documented by: Lactated Ringer's (Ringers, Lactated) 1,000 mls @ 999 mls/hr IV .BOLUS ONE Stop: 05/29/21 20:23 Last Admin: 05/29/21 20:42 Dose: 999 mls/hr Documented by: Lactated Ringer's (Ringers, Lactated) 1,000 mls @ 125 mls/hr IV ASDIRECTED [facility] Last Admin: 06/03/21 09:59 Dose: 125 mls/hr Documented by: Meropenem 1 gm/ Sodium (Chloride) 100 mls @ 200 mls/hr IV Q8H [facility] Meropenem/Sodium Chloride (Meropenem In Ns 1 Gm/50 Ml) Confirm Administered Dose 50 mls @ as directed IV .STK-MED ONE Stop: 05/29/21 20:55 Last Admin: 05/29/21 21:09 Dose: 100 mls/hr Documented by: Lactated Ringer's (Ringers, Lactated) 500 mls @ 999 mls/hr IV .BOLUS ONE Stop: 05/30/21 00:34 Last Admin: 05/30/21 01:06 Dose: 999 mls/hr Documented by: Meropenem/Sodium Chloride (Meropenem In Ns 1 Gm/50 Ml) Confirm Administered Dose 50 mls @ as directed IV .STK-MED ONE Stop: 05/30/21 02:49 Last Admin: 05/30/21 02:54 Dose: 100 mls/hr Documented by: Meropenem/Sodium Chloride (Meropenem In Ns 1 Gm/50 Ml) 50 mls @ 100 mls/hr IV Q8H [facility] Last Admin: 06/02/21 10:48 Dose: 100 mls/hr Documented by: Vancomycin HCl 1.25 gm/ Sodium (Chloride) 250 mls @ 250 mls/hr IV Q12H [facility] Last Admin: 05/31/21 09:17 Dose: 250 mls/hr Documented by: Magnesium Sulfate 2 gm/ Premix 50 mls @ 25 mls/hr IV ONETIME ONE Stop: 05/31/21 11:55 Last Admin: 05/31/21 11:05 Dose: 25 mls/hr Documented by: Propofol (Diprivan 100 Ml) Confirm Administered Dose 100 mls @ as directed .ROUTE .STK-MED ONE Stop: 05/31/21 13:39 Magnesium Sulfate 2 gm/ Premix 50 mls @ 12.5 mls/hr IV ONETIME ONE Stop: 06/02/21 14:08 Last Admin: 06/02/21 10:46 Dose: 12.5 mls/hr Documented by: Ibuprofen (Ibuprofen 800 Mg Tab) 800 mg PO ONETIME ONE Stop: 05/29/21 18:37 Last Admin: 05/29/21 18:49 Dose: 800 mg Documented by: Iopamidol (Iopamidol 755 Mg/Ml 500 Ml Multipack Bottle) 100 ml IVPUSH ONETIME STA Stop: 05/30/21 11:20 Last Admin: 05/30/21 11:19 Dose: 100 ml Documented by: Levothyroxine Sodium (Levothyroxine 50 Mcg Tab) 50 mcg PO DAILY [facility] Lidocaine HCl (Lidocaine 1% 20 Ml Mdv) Confirm Administered Dose 20 ml .ROUTE .STK-MED ONE Stop: 05/31/21 13:08 Metoclopramide HCl (Metoclopramide 10 Mg/2 Ml Sdv) Confirm Administered Dose 10 mg .ROUTE .STK-MED ONE Stop: 05/31/21 13:46 Metoclopramide HCl (Metoclopramide 10 Mg/2 Ml Sdv) Confirm Administered Dose 10 mg .ROUTE .STK-MED ONE Stop: 05/31/21 13:59 Midazolam HCl (Midazolam 1 Mg/Ml 2 Ml Sdv) Confirm Administered Dose 2 mg .ROUTE .STK-MED ONE Stop: 05/31/21 14:08 Morphine Sulfate (Morphine 2 Mg/Ml Syringe) 0.5 mg IVPUSH Q4H PRN PRN Reason: Moderate to Severe Pain Last Admin: 06/01/21 14:23 Dose: 0.5 mg Documented by: Ondansetron HCl (Ondansetron 4 Mg/2 Ml Sdv) Confirm Administered Dose 4 mg .ROUTE .STK-MED ONE Stop: 05/31/21 13:47 Sodium Phosphate (Phosphorus #1 250 Mg Tab) 250 mg PO ONETIME ONE Stop: 06/02/21 13:12 Last Admin: 06/02/21 13:52 Dose: 250 mg Documented by: Vancomycin HCl (Pharmacy To Dose - Vancomycin) 0 dose .XX ASDIRECTED [facility] Stop: 05/29/21 19:31
--- NOTE | 2021-06-04 13:09 | PCM.SN.2 ---
- Free Text/Narrative Note: Attempted to call Greg today regarding TB QuantiFERON results being negative. No voicemail set up. [phone]. Will attempt tomorrow 06/05/2021.
== END 2021-06-03 15:45 | disposition home or self-care (01) | DRG 871 ==
LOC: MW.ED 16:18 → MW.ICU 18:57
PROVIDERS: ADMIT Student in an Organized Health Care Education/Training Program; ATTEND Student in an Organized Health Care Education/Training Program
PROC: 0JPT0WZ Removal of Totally Implantable Vascular Access Device from Trunk Subcutaneous Tissue and Fascia, Open Approach (ICD-10-PCS; principal; 2021-05-31)
PROC: 05PY33Z Removal of Infusion Device from Upper Vein, Percutaneous Approach (ICD-10-PCS; 2021-05-31)
DX: A41.59 Other Gram-negative sepsis (principal); R65.21 Severe sepsis with septic shock; R26.81 Unsteadiness on feet; Z66 Do not resuscitate; C02.9 Malignant neoplasm of tongue, unspecified; I10 Essential (primary) hypertension; G62.9 Polyneuropathy, unspecified; E03.9 Hypothyroidism, unspecified; M19.90 Unspecified osteoarthritis, unspecified site; E87.6 Hypokalemia; E86.0 Dehydration; Z98.890 Other specified postprocedural states; Z91.018 Allergy to other foods; Z95.828 Presence of other vascular implants and grafts; Z79.899 Other long term (current) drug therapy; Z79.890 Hormone replacement therapy; Z88.0 Allergy status to penicillin
CPT/HCPCS: 00400; 36415; 70450; 70450-26; 71045; 71045-26; 71260; 71260-26; 74177; 74177-26; 80048; 80053; 80202; 81003; 82550; 83605; 83690; 83735; 84100; 85025; 86480; 87015; 87040; 87070; 87075; 87077; 87116; 87186; 87205; 87206; 88300; 93005; 96374; 97161-GP; 99291; A9270-GY; C9113; J1650; J1956; J2185; J2250; J2270; J2405; J2704; J2765; J3370; J3475; J3490; J7030; J7050; J7120; Q9967; U0002